=== PATIENT | female | born 1975 | race Caucasian/White ===

== ENCOUNTER → 2020-03-03 12:09 | Outpatient (BNVA) | payer MEDICARE, MEDICAID, SELFPAY | PROVIDERS: PCP Physician Assistant; Visit Provider Internal Medicine | DX: E11.65 Type 2 diabetes mellitus with hyperglycemia (principal); E11.22 Type 2 diabetes mellitus with diabetic chronic kidney disease; I12.9 Hypertensive chronic kidney disease with stage 1 through stage 4 chronic kidney disease, or unspecified chronic kidney disease; N18.6 End stage renal disease; Z79.4 Long term (current) use of insulin; E55.9 Vitamin D deficiency, unspecified; E78.5 Hyperlipidemia, unspecified | CPT/HCPCS: 82947; Q3014 ==

== ENCOUNTER → 2020-06-07 11:54 | Outpatient (BNVA) | payer MEDICARE, MEDICAID, SELFPAY | PROVIDERS: PCP Physician Assistant; Visit Provider Internal Medicine | DX: E11.65 Type 2 diabetes mellitus with hyperglycemia (principal); I12.0 Hypertensive chronic kidney disease with stage 5 chronic kidney disease or end stage renal disease; E11.22 Type 2 diabetes mellitus with diabetic chronic kidney disease; N18.6 End stage renal disease; E78.5 Hyperlipidemia, unspecified; E55.9 Vitamin D deficiency, unspecified | CPT/HCPCS: 82947; 99212 ==

== ENCOUNTER 2020-06-11 10:48 | Outpatient (REF) | payer MEDICARE, MEDICAID, SELFPAY ==
[2020-06-11 11:47] LABS: Estimated Average Glucose 82 mg/dL; Hemoglobin A1c % 4.5 %
[2020-06-11 12:13] LABS: Vitamin D 25-OH Total 43.5 ng/mL (>30)
[2020-06-11 12:31] LABS: Alanine Aminotransferase 7 U/L (0-31); Albumin Level 3.9 g/dL (3.5-5.0); Alkaline Phosphatase 63 U/L (39-117); Anion Gap 13 (12-20); Aspartate Amino Transferase 13 U/L (5-31); Bilirubin Total 0.5 mg/dL (0.0-1.0); Blood Urea Nitrogen 25 mg/dL (9-16); Carbon Dioxide 33 mmol/L (22-29); Chloride 94 mmol/L (96-108); Cholesterol 103 mg/dL; Estimated Glomerular Filt Rate 8; Glucose Random 114 mg/dL (60-115); HDL Cholesterol 37 mg/dL; LDL Cholesterol Calculated 44 mg/dl; Potassium 4.5 mmol/L (3.3-5.1); Sodium 135 mmol/L (135-145); Total Protein 6.3 g/dL (6.5-8.0); Triglycerides 110 mg/dL
[2020-06-12 05:47] LABS: LDL Cholesterol Direct 37 mg/dL (<100)
[2020-06-14 16:07] LABS: Calcium (PTHI) 9.3 mg/dL (8.6-10.2); PTHI 355 pg/mL (14-64)
== END 2020-06-11 10:49 | disposition home or self-care (01) ==
LOC: HO.LAB 10:48
PROVIDERS: PCP Physician Assistant; Visit Provider Internal Medicine
DX: E11.9 Type 2 diabetes mellitus without complications (principal); E55.9 Vitamin D deficiency, unspecified
CPT/HCPCS: 36415; 80053; 80061; 82306; 83036; 83721; 83970

== ENCOUNTER → 2020-08-02 10:38 | Outpatient (BNVA) | payer MEDICARE, MEDICAID, SELFPAY | PROVIDERS: PCP Physician Assistant; Visit Provider Internal Medicine | CPT/HCPCS: Q3014 ==

== ENCOUNTER → 2020-11-02 10:20 | Outpatient (BNVA) | payer MEDICARE, MEDICAID, SELFPAY | PROVIDERS: PCP Physician Assistant; Visit Provider Nurse Practitioner Gerontology | DX: E11.65 Type 2 diabetes mellitus with hyperglycemia (principal); E11.22 Type 2 diabetes mellitus with diabetic chronic kidney disease; I12.9 Hypertensive chronic kidney disease with stage 1 through stage 4 chronic kidney disease, or unspecified chronic kidney disease; N18.6 End stage renal disease; E78.5 Hyperlipidemia, unspecified; Z99.2 Dependence on renal dialysis | CPT/HCPCS: 82947; 99212 ==

== ENCOUNTER → 2021-01-06 13:45 | Outpatient (BNVA) | payer MEDICARE, MEDICAID, SELFPAY | PROVIDERS: PCP Physician Assistant; Referring Provider Physician Assistant; Visit Provider Internal Medicine Gastroenterology | DX: Z12.11 Encounter for screening for malignant neoplasm of colon (principal); E11.22 Type 2 diabetes mellitus with diabetic chronic kidney disease; N18.6 End stage renal disease; Z99.2 Dependence on renal dialysis | CPT/HCPCS: 99202 ==

== ENCOUNTER 2021-01-18 08:33 | Outpatient (REF) | payer MEDICARE, MEDICAID, SELFPAY ==
[2021-01-18 09:41] LABS: Hematocrit 33.2 % (37-47); Hemoglobin 11.1 g/dl (12.0-16.0); Mean Corpuscular HGB Conc 33.4 g/dl (31.0-35.0); Mean Corpuscular Hemoglobin 31.3 pg (27.0-33.0); Mean Corpuscular Volume 93.5 fL (80-98); Mean Platelet Volume 9.6 fL (9.4-12.3); Platelet Count 133 X10*3/uL (160-400); Red Blood Count 3.55 X10*6/uL (4.20-5.50); Red Cell Distribution Width 14.6 % (11.0-16.0); White Blood Count 5.5 X10*3/uL (4.8-10.8)
[2021-01-18 10:10] LABS: Alanine Aminotransferase 13 U/L (0-31); Albumin Level 3.8 g/dL (3.5-5.0); Alkaline Phosphatase 52 U/L (39-117); Anion Gap 13 (12-20); Aspartate Amino Transferase 21 U/L (5-31); Bilirubin Total 0.7 mg/dL (0.0-1.0); Blood Urea Nitrogen 21 mg/dL (9-16); Calcium 9.8 mg/dL (8.4-10.2); Carbon Dioxide 32 mmol/L (22-29); Chloride 100 mmol/L (96-108); Cholesterol 141 mg/dL; Estimated Glomerular Filt Rate 9; Glucose Fasting 79 mg/dL (60-99); HDL Cholesterol 37 mg/dL; LDL Cholesterol Calculated 78 mg/dl; Potassium 3.9 mmol/L (3.3-5.1); Sodium 141 mmol/L (135-145); Total Protein 6.3 g/dL (6.5-8.0); Triglycerides 133 mg/dL
== END 2021-01-18 08:34 | disposition home or self-care (01) ==
LOC: HO.LAB 08:33
PROVIDERS: PCP Physician Assistant; Visit Provider Physician Assistant
DX: I12.0 Hypertensive chronic kidney disease with stage 5 chronic kidney disease or end stage renal disease (principal); N18.6 End stage renal disease; E78.5 Hyperlipidemia, unspecified
CPT/HCPCS: 36415; 80053; 80061; 85027

== ENCOUNTER 2021-02-17 09:35 | Outpatient (REF) | payer MEDICARE, MEDICAID, SELFPAY ==
--- NOTE | ~2021-02-17 | MM_ITS ---
EXAMINATION: MM SCREENING DIGITAL BREAST TOMOSYNTHESIS, BILATERAL CLINICAL INFORMATION: Screening. Asymptomatic. Age 45. No prior breast imaging. Prior history breast reduction surgery. No known family history breast cancer. The lifetime risk of breast cancer based on the Tyrer-Cuzick Model is 12%. COMPARISON: None (current study represents initial baseline exam). TECHNIQUE: Digital breast tomosynthesis is performed in both the craniocaudal and mediolateral oblique views along with computer-aided detection (CAD). Synthesized 2D images are generated from the tomosynthesis. FINDINGS: There are scattered areas of fibroglandular density (ACR BI-RADS breast composition Category b). There are no significant masses, abnormal calcifications, or other abnormalities. There is minor scarring consistent with the prior history reduction mammoplasty. The axilla are unremarkable. MM/MM tomosynthesis screening BI IMPRESSION: No mammographic evidence of malignancy. ASSESSMENT: BI-RADS 2: Benign RECOMMENDATION: Routine annual mammography screening. This patient's information was entered into a reminder system with a target due date for their next mammogram.
== END 2021-02-17 09:36 | disposition home or self-care (01) ==
LOC: HO.MAMMO 09:35
PROVIDERS: Visit Provider Physician Assistant
DX: Z12.31 Encounter for screening mammogram for malignant neoplasm of breast (principal)
CPT/HCPCS: 77063; 77067

== ENCOUNTER 2021-03-07 08:12 | Day surgery (SDC) | payer MEDICARE, MEDICAID, SELFPAY ==
[2021-02-28 14:09] VITALS: BMI 30.5
--- NOTE | 2021-03-04 09:38 | HO.ANESPROP2 ---
Documented by User: Laney Saldaña NP 03/04/21 09:52 HPI - Anesthesia Eval Consult details Narrative: 45yo F for Colonoscopy ESRD with HD on MWF [facility] Active Problems Active Problems: All Active Problems (Updated 01/08/21 @ 14:00 by Henok Carbone MD) Anemia (Acute) Colon cancer screening (Acute) Colonoscopy planned (Acute) Menorrhagia with irregular cycle (Acute) Encounter for subsequent annual wellness visit (AWV) in Medicare patient (Acute) Vitamin D deficiency (Acute) ESRD (end stage renal disease) (Acute) HLD (hyperlipidemia) (Acute) HTN (hypertension) (Acute) T2DM (type 2 diabetes mellitus) (Acute) Obesity (BMI 30-39.9) (Acute) Autism spectrum (Acute) Pure hypercholesterolemia (Acute) End stage renal disease on dialysis (Acute) Type 2 diabetes mellitus with diabetic chronic kidney disease (Acute) Past Medical History Medical History Autism spectrum AV fistula End stage renal disease on dialysis ESRD (end stage renal disease) HLD (hyperlipidemia) HTN (hypertension) Obesity (BMI 30-39.9) Pure hypercholesterolemia T2DM (type 2 diabetes mellitus) Type 2 diabetes mellitus with diabetic chronic kidney disease Vitamin D deficiency Family History Family History Father No problems noted. Mother No problems noted. Surgical History Surgical History H/O bilateral breast reduction surgery History of appendectomy History of open reduction and internal fixation (ORIF) procedure Social History Social History Housing: House Alcohol intake: never Patient Tobacco Use Status: Never used Tobacco Use of substances other than those prescribed or required for medical reasons: No Advance Directives: No Advance Directives Information Provided: Yes Recently lost weight without trying: No Patient : No Current occupational status: disabled Meds Allergies Allergy/AdvReac Type Severity Reaction Status Date / Time cefazolin Allergy Severe Anaphylaxis Verified 01/06/21 14:25 Home Medications Medication Instructions Recorded Confirmed Last Taken Type ammonium lactate 12 % lotion 1 applic TOPICAL BID 01/28/20 01/06/21 Unknown History sucroferric oxyhydroxide 500 mg 500 mg PO TID 11/02/20 01/06/21 Unknown History chewable tablet (Velphoro) Exam Exam Date and Time: March 04, 2021 0938 Height,Weight and Vital Signs: Height 5 ft 8 in Weight 91.172 kg Pertinent Lab Results Pertinent Lab Results: Laboratory Tests 01/18/21 08:50 WBC 5.5 Hgb 11.1 L Hct 33.2 L Plt Count 133 L Assessment and Plan Assessment Anesthesia Assessment: Chart Reviewed Documented by User: Doreen Regalado MD 03/07/21 11:50 HPI - Anesthesia Eval Consult details Narrative: 45yo F for Colonoscopy ESRD with HD on MWF Carer states that she was informed at [facility] that patient had an adverse reaction to anesthesia- I am not sure what she means as very vague- 'serious reaction, had to be brought back' and then 'stopped breathing'. States staff said they would avoid 'that medication/ kind of anesthesia'. Does not know when, what procedure or any details. No documentation in chart regarding such history. Will obtain records from [facility]. Records obtained from [facility]. Reports from surgical procedures uneventful. Only pertinent is h/o hyperkalemia of 9.3 pre-op at [facility] following which she was emergently sent to [facility] for treatment PMFSH Past Medical History Medical History Autism spectrum AV fistula End stage renal disease on dialysis ESRD (end stage renal disease) HLD (hyperlipidemia) HTN (hypertension) Obesity (BMI 30-39.9) Pure hypercholesterolemia T2DM (type 2 diabetes mellitus) Type 2 diabetes mellitus with diabetic chronic kidney disease Vitamin D deficiency Family History Family History Father No problems noted. Mother No problems noted. Family history of problems with anesthesia: No Surgical History Surgical History H/O bilateral breast reduction surgery History of appendectomy History of open reduction and internal fixation (ORIF) procedure History of Problems with Anesthesia: Yes (?As above) Social History Social History Housing: House Alcohol intake: never Patient Tobacco Use Status: Never used Tobacco Use of substances other than those prescribed or required for medical reasons: No Advance Directives: No Advance Directives Information Provided: Yes Recently lost weight without trying: No Patient : No Current occupational status: disabled Meds Allergies Allergy/AdvReac Type Severity Reaction Status Date / Time cefazolin Allergy Severe Anaphylaxis Verified 01/06/21 14:25 Home Medications Medication Instructions Recorded Confirmed Last Taken Type ammonium lactate 12 % lotion 1 applic TOPICAL BID 01/28/20 01/06/21 Unknown History sucroferric oxyhydroxide 500 mg 500 mg PO TID 11/02/20 01/06/21 Unknown History chewable tablet (Velphoro) Exam Height,Weight and Vital Signs: Height 5 ft 8 in Weight 91.172 kg Vital Signs Temp Pulse Resp BP Pulse Ox 03/07/21 09:09 97.4 F 72 18 142/69 H 99 Narrative Narrative: Lab Results 03/07/21 03/07/21 Range/Units 08:33 09:02 Sodium 126 L (135-145) mmol/L Potassium 4.3 (3.3-5.1) mmol/L Chloride 89 L (96-108) mmol/L Carbon Dioxide 26 (22-29) mmol/L Anion Gap 15 (12-20) POC Glucose 90 (60-115) mg/dL Airway Mallampati Class: II TM Dist: >3cm Neck ROM: Full Loose/Missing/Broken Teeth: No (?Chipped/ ridged teeth ) Heart: RRR Lungs: CTAB Assessment and Plan Assessment Anesthesia Assessment: Anesthesia Plan Discussed Final Anesthetic Review Family History of Problems with Anesthesia: No History of Problems with Anesthesia: Yes (?As above) NPO: Yes ASA Class: III Final Preanesthetic Review: No Changes in Pt Med Stat, Meds/Allgs Chart Reviewed, Consent Obtained/Reviewed and Anes Risks/Benef Reviewed Patient Risk: Intermediate Procedure Risk: Low Assessment/Block/Sedation in SS: Assess/Block/Sedation-SS Anesthetic Plan Anesthetic Plan: MAC: Disposition: Standard PACU
--- NOTE | 2021-03-07 08:28 | MHC.SHP ---
Pre-Procedural Eval Section A Date of Service: 03/07/21 Section B Chief Complaint: Screening Details of Present Illness: Colon cancer screening Relevant Family History (Specify if Yes): No Relevant Social History: None Present Medications: see Short Stay Collaborative assessment Medical History: Significant History (Autism spectrum AV fistula End stage renal disease on dialysis ESRD (end stage renal disease) HLD (hyperlipidemia) HTN (hypertension) Obesity (BMI 30-39.9) Pure hypercholesterolemia T2DM (type 2 diabetes mellitus) Type 2 diabetes mellitus with diabetic chronic kidney disease Vitamin D deficiency) History of Previous Operations: Relevant previous surgery/procedure and date(s) (H/O bilateral breast reduction surgery History of appendectomy History of open reduction and internal fixation (ORIF) procedure) Allergies: Allergies Allergy/AdvReac Type Severity Reaction Status Date / Time cefazolin Allergy Severe Anaphylaxis Verified 01/06/21 14:25 Review of Systems Sugical H&P ROS: Negative: Constitution, Cardiovascular, Respiratory and Gastrointestinal Exam Surgical H&P Exam: Normal: Heart, Normal: Lungs, Normal: Extremities and Normal: Abdomen Plan Diagnosis/Plan: Unchanged I have reviewed the history and physical and performed a pertinent physical examination on my patient. No changes have occurred unless specified.
--- NOTE | 2021-03-07 08:29 | PM.OP ---
Brief Operative Note Date of Service: 03/07/21 Pre-op diagnosis: Colon cancer screening prior to Renal transplant Post-op diagnosis: other (Colon polyps, diverticulosis, hemorrhoids) Procedure: COLONOSCOPY TILL CECUM WITH SNARE POLYPECTOMY, SUBMUCOSAL INJECTION AND HEMOCLIP PLACEMENT. Consent: Indications for the procedure and potential complications of bleeding, perforation, reaction to medications and missed diagnosis were discussed with the patient's brother, Lemuel Mcdonald, over the telephone and informed verbal consent was obtained. Instrument: Olympus PCF H 190 L variable stiffness pediatric colonoscope Monitoring: Vital signs and clinical assessment, intermittent blood pressure monitoring, continuous EKG monitoring, Pulse oximetry and Carbon Dioxide monitoring were done throughout the procedure. Colon withdrawl time was 65 minutes. Procedure: The patient was placed in the left lateral decubitis position and pre-procedure medications were administered. After a digital rectal examination of the ano-rectum, the video colonoscope was inserted into the rectum and advanced through the colon to the cecum. The colonoscope was slowly withdrawn in a retrograde panoramic fashion and the colon mucosa was carefully examined including a retroflexed view of the rectum. Findings and interventions are described below. Procedure Difficulty: Without difficulty Findings: Terminal Ileum: Not evaluated Cecum: Normal Ascending Colon: A 4-5 mm flat polyp removed with a cold bx. A 2 cms flat polyp at 90 cms (behind a fold) raised with 5 cc of Orise solution and removed with a hot snare. Polypectomy site was marked with Mili ink Transverse Colon: Normal Descending Colon: A 12-15 mm sessile polyp removed with a hot snare. Moderate diverticulosis Sigmoid Colon: A 3-4 cms ulcerated pedunclulated polyp at 30 cms with a long pedicle. Polyp was removed with a hot snare. The pedicle was marked by mili ink and closed with a hemoclip. Moderate diverticulosis Rectum: Normal Ano-rectum: Moderate internal hemorrhoids Colon preparation: Good after copious irrigation and fair in some areas of the colon. Impression and Post Procedure Diagnosis: Colonoscopy Findings: One small and three medium to large sized polyps removed Moderate diverticulosis seen in the left colon Moderate hemorrhoids on retroflexed exam. Plan: Await pathology results Patient has an appointment on 03/31/21 in the GI Clinic with Henok Carbone M.D.. Repeat Colonoscopy interval based on path results - in 6 months if polyps are adenomatous to check polypectomy sites in the AC and SC. Above findings were reviewed with the patient and colon polyps and diverticulosis handouts were given in the discharge area Surgeon: Henok Carbone MD Anesthesia: MAC (Danna Simpson CRNA) Was an Cocoa Butter Filter Operator used for this Procedure?: Yes Cocoa Butter Filter Operator: Gemini Betancur Estimated blood loss (mL): 0 Pathology: other (A. ascending colon polyp B. ascending colon polyp at 90 cm with Orise C. descending colon polyp D. sigmoid polyp at 30 cm) Condition: stable Disposition: PACU
[2021-03-07 08:57] LABS: Anion Gap 15 (12-20); Carbon Dioxide 26 mmol/L (22-29); Chloride 89 mmol/L (96-108); Potassium 4.3 mmol/L (3.3-5.1); Sodium 126 mmol/L (135-145)
[2021-03-07 09:05] VITALS: BMI 30.4
[2021-03-07 09:09] VITALS: BP 142/69; PULSE 72; RESP 18; TEMP 36.3; O2SAT 99
[2021-03-07 09:47] LABS: Glucose, Whole Blood 90 mg/dL (60-115)
--- NOTE | 2021-03-07 09:55 | PC.NURSE ---
pt present with childcare center director. patient a/ox3. childcare center director (claudette) providing most medical history and she states patient had a procedure long time ago at [facility] and she stopped breathing and her heart stopped . unaware of procedure/dr. Laney NP contacting [facility] for more information
--- NOTE | 2021-03-07 10:06 | W.PM.OPN ---
Operative Note Operative Note Date of Service: 03/07/21 Narrative: Pre-op diagnosis:?Colon cancer screening prior to Renal transplant Post-op diagnosis:?other (Colon polyps, diverticulosis, hemorrhoids) Procedure:? COLONOSCOPY TILL CECUM WITH SNARE POLYPECTOMY, SUBMUCOSAL INJECTION AND HEMOCLIP PLACEMENT. Consent: Indications for the procedure and potential complications of bleeding, perforation, reaction to medications and missed diagnosis were discussed with the patient's brother, Lemuel Mcdonald, over the telephone and informed verbal consent was obtained. Instrument: Olympus PCF H 190 L variable stiffness pediatric colonoscope Monitoring: Vital signs and clinical assessment, intermittent blood pressure monitoring, continuous EKG monitoring, Pulse oximetry and Carbon Dioxide monitoring were done throughout the procedure. Colon withdrawl time was 65 minutes. Procedure: The patient was placed in the left lateral decubitis position and pre-procedure medications were administered. After a digital rectal examination of the ano-rectum, the video colonoscope was inserted into the rectum and advanced through the colon to the cecum. The colonoscope was slowly withdrawn in a retrograde panoramic fashion and the colon mucosa was carefully examined including a retroflexed view of the rectum. Findings and interventions are described below. Procedure Difficulty: Without difficulty Findings: Terminal Ileum: Not evaluated Cecum:? Normal Ascending Colon:? A 4-5 mm flat polyp removed with a cold bx. A 2 cms flat polyp at 90 cms (behind a fold) raised with 5 cc of Orise solution and removed with a hot snare.? Polypectomy site was marked with Mili ink Transverse Colon:? Normal Descending Colon:? A 12-15 mm sessile polyp removed with a hot snare. Moderate diverticulosis Sigmoid Colon:? A 3-4 cms ulcerated pedunclulated polyp at 30 cms with a long pedicle. Polyp was removed with a hot snare.? The pedicle was marked by mili ink and closed with a hemoclip.? Moderate diverticulosis Rectum:? Normal Ano-rectum:? Moderate internal hemorrhoids Colon preparation:? Good after copious irrigation and fair in some areas of the colon. Impression and Post Procedure Diagnosis: Colonoscopy Findings: One small and three medium to large sized polyps removed Moderate diverticulosis seen in the left colon Moderate hemorrhoids on retroflexed exam. Plan: Await pathology results Patient has an appointment on 03/31/21 in the GI Clinic with Henok Carbone M.D.. Repeat Colonoscopy interval based on path results - in 6 months if polyps are adenomatous to check polypectomy sites in the AC and SC. Above findings were reviewed with the patient and colon polyps and diverticulosis handouts were given in the discharge area Surgeon:?Henok Carbone MD Anesthesia:?MAC (Danna Simpson CRNA) Was an Tree Farmer used for this Procedure?:?Yes Tree Farmer:?Gemini Betancur Estimated blood loss (mL):?0 Pathology:?other (A. ascending colon polyp? B. ascending colon polyp at 90 cm with Orise? C. descending colon polyp? D. sigmoid polyp at 30 cm) Condition:?stable Disposition:?PACU
[2021-03-07] MEDS: 0.9 % Sodium Chloride 1,000 ML 50 ML IVCONT (10:10)
[2021-03-07 11:50] VITALS: BP 150/77; PULSE 67; RESP 16; TEMP 36.6; O2SAT 99
[2021-03-07 12:05] VITALS: BP 163/75; PULSE 72; RESP 18; TEMP 36.2; O2SAT 97
== END 2021-03-07 12:49 | disposition home or self-care (01) ==
PROVIDERS: Nurse Practitioner; PCP Physician Assistant; Visit Provider Internal Medicine Gastroenterology
PROC: 0DJD8ZZ Inspection of Lower Intestinal Tract, Via Natural or Artificial Opening Endoscopic (ICD-10-PCS; CPT 45378; principal; 2021-03-07 09:20)
DX: Z12.11 Encounter for screening for malignant neoplasm of colon (principal); D12.2 Benign neoplasm of ascending colon; D12.5 Benign neoplasm of sigmoid colon; K57.30 Diverticulosis of large intestine without perforation or abscess without bleeding; K64.8 Other hemorrhoids; E11.22 Type 2 diabetes mellitus with diabetic chronic kidney disease; I12.0 Hypertensive chronic kidney disease with stage 5 chronic kidney disease or end stage renal disease; N18.6 End stage renal disease; Z99.2 Dependence on renal dialysis; F84.0 Autistic disorder; E78.5 Hyperlipidemia, unspecified; E55.9 Vitamin D deficiency, unspecified; Z79.899 Other long term (current) drug therapy; Z88.8 Allergy status to other drugs, medicaments and biological substances
CPT/HCPCS: 45385; 45380; 45381; 36415; 80051; 82947; 88305

== ENCOUNTER → 2021-03-31 09:38 | Outpatient (BNVA) | payer MEDICARE, MEDICAID, SELFPAY | PROVIDERS: PCP Physician Assistant; Referring Provider Physician Assistant; Visit Provider Internal Medicine Gastroenterology | DX: Z12.11 Encounter for screening for malignant neoplasm of colon (principal); D64.9 Anemia, unspecified; Z86.010 Personal history of colon polyps | CPT/HCPCS: 99212 ==

== ENCOUNTER → 2021-05-10 09:33 | Outpatient (BNVA) | payer MEDICARE, MEDICAID, SELFPAY | PROVIDERS: PCP Physician Assistant; Visit Provider Nurse Practitioner Gerontology | DX: E11.65 Type 2 diabetes mellitus with hyperglycemia (principal); I12.0 Hypertensive chronic kidney disease with stage 5 chronic kidney disease or end stage renal disease; E11.22 Type 2 diabetes mellitus with diabetic chronic kidney disease; N18.6 End stage renal disease; E78.5 Hyperlipidemia, unspecified; E66.09 Other obesity due to excess calories; Z68.30 Body mass index [BMI] 30.0-30.9, adult; Z99.2 Dependence on renal dialysis | CPT/HCPCS: 82947; 99212 ==

== ENCOUNTER 2021-07-08 07:38 | Outpatient (REF) | payer MEDICARE, MEDICAID, SELFPAY ==
--- NOTE | ~2021-07-08 | XR_ITS ---
EXAMINATION: XR ANKLE, LEFT CLINICAL INFORMATION: Pain COMPARISON: None TECHNIQUE: AP, lateral, and mortise views of the left ankle. FINDINGS: No acute fracture or dislocation. Healed fracture deformity of the distal fibular diametaphysis. Ankle mortise is congruent. Talar dome intact. Small tibiotalar marginal osteophytes. Degenerative subchondral sclerosis present along the lateral aspect of the talar dome, with subchondral cystic change. Small well-corticated ossific density inferior to the medial malleolus, possibly in secondary ossification center or indicative of remote trauma. Soft tissue swelling present anterior to the ankle joint. XR/XR ankle LT 2V IMPRESSION: * No acute findings. * Healed fracture deformity of the distal fibular diametaphysis. * Mild degenerative changes of the tibiotalar joint, most notably along the lateral tibiotalar articulation where there is associated subchondral sclerosis and subchondral cystic change.
[2021-07-08 08:17] LABS: Hematocrit 39.4 % (37.0-47.0); Hemoglobin 12.7 g/dl (12.0-16.0); Mean Corpuscular HGB Conc 32.2 g/dl (31.0-35.0); Mean Corpuscular Hemoglobin 30.4 pg (27.0-33.0); Mean Corpuscular Volume 94.3 fL (80.0-98.0); Mean Platelet Volume 10.4 fL (9.4-12.3); Platelet Count 104 X10*3/uL (160-400); Red Blood Count 4.18 X10*6/uL (4.20-5.50); Red Cell Distribution Width 13.9 % (11.0-16.0); White Blood Count 5.2 X10*3/uL (4.8-10.8)
[2021-07-08 08:56] LABS: Alanine Aminotransferase 11 U/L (0-31); Albumin Level 4.2 g/dL (3.5-5.0); Alkaline Phosphatase 56 U/L (39-117); Anion Gap 15 (12-20); Aspartate Amino Transferase 19 U/L (5-31); Bilirubin Total 0.8 mg/dL (0.0-1.0); Blood Urea Nitrogen 50 mg/dL (9-16); Calcium 10.5 mg/dL (8.4-10.2); Carbon Dioxide 28 mmol/L (22-29); Chloride 103 mmol/L (96-108); Estimated Glomerular Filt Rate 6; Glucose Fasting 83 mg/dL (60-99); Iron 97 mcg/dL (30-160); Percent Iron Saturation 50 % (15-50); Potassium 4.7 mmol/L (3.3-5.1); Sodium 141 mmol/L (135-145); Total Iron Binding Capacity 194 mcg/dL (228-428); Total Protein 6.8 g/dL (6.5-8.0); Unsaturated Iron Binding 97 ug/dL
[2021-07-08 09:05] LABS: TSH reflex Free T4 7.86 uIU/mL (0.32-4.0)
[2021-07-08 09:42] LABS: Free T4 (Free Thyroxine) 0.99 ng/dL (0.71-1.85)
== END 2021-07-08 07:39 | disposition home or self-care (01) ==
LOC: HO.XRAY 07:38
PROVIDERS: PCP Physician Assistant; Visit Provider Physician Assistant
DX: M25.572 Pain in left ankle and joints of left foot (principal); G89.29 Other chronic pain; D64.9 Anemia, unspecified; E78.5 Hyperlipidemia, unspecified; D50.9 Iron deficiency anemia, unspecified; E11.65 Type 2 diabetes mellitus with hyperglycemia
CPT/HCPCS: 36415; 73600; 80053; 83540; 84439; 84443; 85027

== ENCOUNTER → 2021-07-28 08:35 | Outpatient (BNVA) | payer MEDICARE, MEDICAID, SELFPAY | PROVIDERS: PCP Physician Assistant; Referring Provider Physician Assistant; Visit Provider Internal Medicine Gastroenterology | DX: Z01.818 Encounter for other preprocedural examination (principal); Z86.010 Personal history of colon polyps; D64.9 Anemia, unspecified; N18.6 End stage renal disease; Z99.2 Dependence on renal dialysis | CPT/HCPCS: 99212 ==

== ENCOUNTER 2021-08-30 08:00 | Outpatient (RCR) | payer MEDICARE, MEDICAID, SELFPAY ==
[2021-08-01 10:05] VITALS: BP 110/78
--- NOTE | 2021-08-01 11:40 | MHC.PT.EP ---
[facility] [place] Office [place] Office [place] Office [address] Kehinde Javier [address] [phone] F: [phone] F: [phone] F: [phone] F: [phone] Physical Therapy Plan of Care Date of Evaluation: Date of Surgery: Diagnosis: other abnormalities of gait and balance Assessment: 45 y/o F referred to PT with other abnormalities of gait and balance. She has a fear of falling and reports balance difficulties for several years especially with walking on uneven surfaces, walking, stairs, and prolonged standing. She lives in a shared home with adaptive equipment with her caregiver Alana. She ambulates with a cane. Of note, PMH significant for ESRD (on dialysis), HTN, DM, and Autism. Examination shows decreased B LE strength, decreased core strength, impaired balance, impaired gait pattern, poor sit to stand mechanics. Recommend PT 2x/week for 5 weeks to implement HEP, and optimize functional mobility. Frequency and Duration: The patient will be seen 2x/week for 5 weeks Short Term Goals: 3 weeks 1. I with HEP 2. Improve walking with head turns with no evidence of imbalance Alf Goals: 5 weeks 1. I with HEP and self management of sx 2. Improve B LE strength to 4/5 to facilitate walking 3. Pt will be able to ambulate with SPC >10 min with no evidence of imbalance Treatment Plan: Modalities to reduce pain, spasms and effusion. Manual therapy to restore motion and function. Therapeutic exercise to improve strength and flexibility. Neuromuscular re-education for posture and balance. Therapeutic activities to return to functional activities of daily living. Electronically signed by: Ana Theodore PT Please sign and return to therapist. Thank you for your referral.
--- NOTE | 2021-10-17 10:39 | MHC.PT.DC ---
[facility] [place] Office [place] Office [place] Office [address] Kehinde Javier [address] [facility] [phone] F: [phone] F: [phone] F: [phone] F: [phone] Physical Therapy Discharge Report Diagnosis: other abnormalities of gait and balance Date of Surgery: Date of Evaluation: 08/01/21 Date of Discharge: 10/17/21 Treatments to Date: 3 Cancellations to Date: 2 No Shows to Date: 1 Discharge Status: Visit Non-compliance Discharge Summary: Pt did not f/u with further visits and is d/c secondary to noncompliance with scheduling policy. Electronically signed by: Ana Theodore PT Please sign and return to therapist. Thank you for your referral.
== END 2021-10-17 10:39 | disposition home or self-care (01) ==
LOC: HO.PTCHIC 08:00
PROVIDERS: PCP Physician Assistant; Visit Provider Physician Assistant
DX: R26.89 Other abnormalities of gait and mobility (principal)
CPT/HCPCS: 97110; 97112; 97162

== ENCOUNTER 2021-12-02 11:02 | Day surgery (SDC) | payer MEDICARE, MEDICAID, SELFPAY ==
--- NOTE | 2021-12-02 12:06 | MHC.SHP ---
Pre-Procedural Eval Section A Date of Service: 12/02/21 The patient is an INPATIENT: No The History & Physical has been completed within 30 days and I have reviewed it.: No Section B Chief Complaint: screen, hx of colonic polyps,anemia Details of Present Illness: Fu of colon polyps Relevant Family History (Specify if Yes): No Relevant Social History: None Present Medications: see Short Stay Collaborative assessment Medical History: Significant History (Autism spectrum AV fistula End stage renal disease on dialysis ESRD (end stage renal disease) HLD (hyperlipidemia) HTN (hypertension) Obesity (BMI 30-39.9) Obesity due to excess calories Pure hypercholesterolemia T2DM (type 2 diabetes mellitus) Type 2 diabetes mellitus with diabetic chronic kidney d) History of Previous Operations: Relevant previous surgery/procedure and date(s) (H/O bilateral breast reduction surgery History of appendectomy History of colonoscopy History of open reduction and internal fixation (ORIF) procedure) Allergies: Allergies Allergy/AdvReac Type Severity Reaction Status Date / Time cefazolin Allergy Severe Anaphylaxis Verified 07/28/21 08:48 Review of Systems Sugical H&P ROS: Negative: Constitution, Cardiovascular, Respiratory and Gastrointestinal Exam Surgical H&P Exam: Normal: Heart, Normal: Lungs, Normal: Extremities and Normal: Abdomen Plan Diagnosis/Plan: Unchanged I have reviewed the history and physical and performed a pertinent physical examination on my patient. No changes have occurred unless specified.
[2021-12-02] MEDS: Lidocaine 4 % Cream KIT 1 APPL TOPICAL (12:10)
[2021-12-02 12:11] VITALS: BMI 29.0
[2021-12-02 12:33] VITALS: BP 163/102; PULSE 64; RESP 16; TEMP 37; O2SAT 96
[2021-12-02 12:41] LABS: Glucose, Whole Blood 79 mg/dL (60-115)
[2021-12-02 12:43] LABS: Anion Gap 19 (12-20); Carbon Dioxide 23 mmol/L (22-29); Chloride 95 mmol/L (96-108); Potassium 4.3 mmol/L (3.3-5.1); Sodium 133 mmol/L (135-145)
[2021-12-02 12:53] LABS: HCG Quantitative < 2 mIU/mL
--- NOTE | 2021-12-02 13:02 | P.CONAN_ITS ---
[facility] Active Problems Active Problems: All Active Problems (Updated 12/02/21 @ 11:44 by Jessica Lee, NILSA) Encounter for subsequent annual wellness visit (AWV) in Medicare patient (Acute) Menorrhagia with irregular cycle (Acute) Colonoscopy planned (Acute) Colon cancer screening (Acute) Anemia (Acute) History of colon polyps (Acute) Balance problem (Acute) Bilateral primary osteoarthritis of knee (Acute) Adult general medical exam (Acute) Left ankle pain (Acute) Obesity due to excess calories (Acute) Vitamin D deficiency (Acute) ESRD (end stage renal disease) (Acute) HLD (hyperlipidemia) (Acute) HTN (hypertension) (Acute) T2DM (type 2 diabetes mellitus) (Acute) Obesity (BMI 30-39.9) (Acute) Autism spectrum (Acute) Pure hypercholesterolemia (Acute) End stage renal disease on dialysis (Acute) Type 2 diabetes mellitus with diabetic chronic kidney disease (Acute) Past Medical History Medical History (Updated 12/02/21 @ 11:44 by Jessica Lee RN) Autism spectrum AV fistula End stage renal disease on dialysis ESRD (end stage renal disease) HLD (hyperlipidemia) Obesity (BMI 30-39.9) Obesity due to excess calories Pure hypercholesterolemia T2DM (type 2 diabetes mellitus) Type 2 diabetes mellitus with diabetic chronic kidney disease Vitamin D deficiency Family History Family History Father No problems noted. Mother No problems noted. Family history of problems with anesthesia: No Surgical History Surgical History H/O bilateral breast reduction surgery History of appendectomy History of colonoscopy History of open reduction and internal fixation (ORIF) procedure History of Problems with Anesthesia: Yes (?As above) Social History Social History Housing: House Alcohol intake: never Patient Tobacco Use Status: Never used Tobacco e-Cigarette/Vaping Use: Never Used Use of substances other than those prescribed or required for medical reasons: No Are you DNR?: No Advance Directives: No Advance Directives Information Provided: Yes Current occupational status: disabled Cognitive needs: Yes (may need a cane per caregiver pt been inbalance while walking) Hearing needs: Yes (hearing loss on left ear) Vision needs: Yes (wear glasses) Meds Allergies Allergy/AdvReac Type Severity Reaction Status Date / Time cefazolin Allergy Severe Anaphylaxis Verified 07/28/21 08:48 Active Medications: Current Medications Sodium Chloride (Ns) 1,000 mls @ 50 mls/hr IVCONT .Q20H TONEY Home Medications Medication Instructions Recorded Confirmed Last Taken Type ammonium lactate 12 % lotion 1 applic topical BID 01/28/20 12/02/21 Unknown History sucroferric oxyhydroxide 500 mg 500 mg PO TID 11/02/20 12/02/21 Unknown History chewable tablet (Velphoro) Exam Exam Date and Time: December 02, 2021 1302 Height,Weight and Vital Signs: Height 5 ft 7 in Weight 83.915 kg Last Vital Signs Temp 98.6 F 12/02/21 12:33 Pulse 64 12/02/21 12:33 Resp 16 12/02/21 12:33 BP 163/102 H 12/02/21 12:33 Pulse Ox 96 12/02/21 12:33 O2 Del Method 12/02/21 12:33 Pertinent Lab Results Pertinent Lab Results: Laboratory Tests 12/02/21 12/02/21 12/02/21 12:27 12:27 12:38 Sodium 133 L Potassium 4.3 Chloride 95 L Carbon Dioxide 23 Anion Gap 19 POC Glucose 79 Beta HCG, Quant < 2 Airway Mallampati Class: II TM Dist: >3cm Neck ROM: Full Heart: rrr Lungs: cta Assessment and Plan Assessment Anesthesia Assessment: Anesthesia Plan Discussed and Chart Reviewed Final Anesthetic Review Family History of Problems with Anesthesia: No History of Problems with Anesthesia: Yes (?As above) NPO: Yes ASA Class: III Final Preanesthetic Review: No Changes in Pt Med Stat, Meds/Allgs Chart Reviewed and Consent Obtained/Reviewed Patient Risk: Intermediate Procedure Risk: Intermediate Anesthetic Plan Anesthetic Plan: MAC: Disposition: Standard PACU
--- NOTE | 2021-12-02 13:13 | PM.OP ---
Brief Operative Note Date of Service: 12/02/21 Pre-op diagnosis: Screening, hx of colon polyps Post-op diagnosis: other (Colon polyps, diverticulosis, hemorrhoids) Procedure: COLONOSCOPY TILL CECUM WITH SNARE POLYPECTOMY AND HEMOCLIP PLACEMENT Consent: Indications for the procedure and potential complications of bleeding, perforation, reaction to medications and missed diagnosis were discussed with the patient and informed consent was obtained. Instrument: Olympus PCF H 190 L variable stiffness pediatric colonoscope Monitoring: Vital signs and clinical assessment, intermittent blood pressure monitoring, continuous EKG monitoring, Pulse oximetry and Carbon Dioxide monitoring were done throughout the procedure. Colon withdrawl time was 32 minutes. Procedure: The patient was placed in the left lateral decubitis position and pre-procedure medications were administered. After a digital rectal examination of the ano-rectum, the video colonoscope was inserted into the rectum and advanced through the colon to the cecum. The colonoscope was slowly withdrawn in a retrograde panoramic fashion and the colon mucosa was carefully examined including a retroflexed view of the rectum. Findings and interventions are described below. Procedure Difficulty: Without difficulty Findings: Terminal Ileum: Not evaluated Cecum: Normal Ascending Colon: Site of past polypectomy site not identified - no recurrent polyp seen in the mid AC on multiple passes. Transverse Colon: A 1.5 to 2 cms sessile polyp at 75 cms removed with a hot snare Descending Colon: Moderate diverticulosis Sigmoid Colon: A 12-15 mm sessile polyp removed with a hot snare. Site of previous polypectomy identified at 30 cms with possible adenomatous tissue at the tip of the pedicle - removed with a hot snare and polypectomy site closed with a hemoclip. Moderate diverticulosis Rectum: Normal Ano-rectum: Moderate internal hemorrhoids Colon preparation: Good to fair despite copious irrigation. There was dark semi-solid stool scattered throughout the colon. Impression and Post Procedure Diagnosis: Colonoscopy Findings: Two medium sized polyps removed Moderate diverticulosis seen in the left colon Moderate hemorrhoids on retroflexed exam. Plan: Letter will be sent with pathology results Repeat Colonoscopy interval based on path results - in 2-3 years if polyps are adenomatous and 5 years if polyps are hyperplastic (due to hx of colon polyps). Colon polyps and diverticulosis handouts were given in the discharge area Surgeon: Henok Carbone MD Anesthesia: MAC Was an Oil Expeller Operator used for this Procedure?: Yes Oil Expeller Operator: Gemini Betancur Estimated blood loss (mL): 0 Pathology: other (A. transverse colon polyp @ 75 cm B. sigmoid polyp C. sigmoid colon polypectomy site @ 30 cm, R/O polyp) Condition: stable Disposition: PACU
[2021-12-02] MEDS: 0.9 % Sodium Chloride 1,000 ML 50 ML IVCONT (13:30)
--- NOTE | 2021-12-02 14:22 | P.OP_ITS ---
Operative Note Operative Note Date of Service: 12/02/21 Narrative: Pre-op diagnosis: Screening, hx of colon polyps Post-op diagnosis:?other (Colon polyps, diverticulosis, hemorrhoids) Procedure: COLONOSCOPY TILL CECUM WITH SNARE POLYPECTOMY AND HEMOCLIP PLACEMENT Consent: Indications for the procedure and potential complications of bleeding, perforation, reaction to medications and missed diagnosis were discussed with the patient and informed consent was obtained. Instrument: Olympus PCF H 190 L variable stiffness pediatric colonoscope Monitoring: Vital signs and clinical assessment, intermittent blood pressure monitoring, continuous EKG monitoring, Pulse oximetry and Carbon Dioxide monitoring were done throughout the procedure. Colon withdrawl time was 32 minutes. Procedure: The patient was placed in the left lateral decubitis position and pre-procedure medications were administered. After a digital rectal examination of the ano-rectum, the video colonoscope was inserted into the rectum and advanced through the colon to the cecum. The colonoscope was slowly withdrawn in a retrograde panoramic fashion and the colon mucosa was carefully examined including a retroflexed view of the rectum. Findings and interventions are described below. Procedure Difficulty: Without difficulty Findings: Terminal Ileum: Not evaluated Cecum:? Normal Ascending Colon:? Site of past polypectomy site not identified - no recurrent polyp seen in the mid AC on multiple passes. Transverse Colon:? A 1.5 to 2 cms sessile polyp at 75 cms removed with a hot snare Descending Colon:? Moderate diverticulosis Sigmoid Colon:? A 12-15 mm sessile polyp removed with a hot snare. Site of previous polypectomy identified at 30 cms with possible adenomatous tissue at the tip of the pedicle - removed with a hot snare and polypectomy site closed with a hemoclip. Moderate diverticulosis Rectum:? Normal Ano-rectum:? Moderate internal hemorrhoids Colon preparation:? Good to fair despite copious irrigation. There was dark semi-solid stool scattered throughout the colon. Impression and Post Procedure Diagnosis: Colonoscopy Findings: Two medium sized polyps removed Moderate diverticulosis seen in the left colon Moderate hemorrhoids on retroflexed exam. Plan: Letter will be sent with pathology results Repeat Colonoscopy interval based on path results - in 2-3 years if polyps are adenomatous and 5 years if polyps are hyperplastic (due to hx of colon polyps). Colon polyps and diverticulosis handouts were given in the discharge area Surgeon: Henok Carbone MD Anesthesia:?MAC Was an Light Fixture Servicer used for this Procedure?:?Yes Light Fixture Servicer:?Gemini Betancur Estimated blood loss (mL):?0 Pathology:?other (A. transverse colon polyp @ 75 cm? B. sigmoid polyp? C. sigmoid colon polypectomy site @ 30 cm, R/O polyp) Condition:?stable Disposition:?PACU
[2021-12-02 15:26] VITALS: BP 118/61; PULSE 67; RESP 16; TEMP 36.7; O2SAT 99
[2021-12-02 15:41] VITALS: BP 112/64; PULSE 55; RESP 16; O2SAT 95
[2021-12-02 15:56] VITALS: BP 113/68; PULSE 74; RESP 16; TEMP 36.7; O2SAT 98
== END 2021-12-02 16:12 | disposition home or self-care (01) ==
PROVIDERS: Anesthesiology; Nurse Practitioner; PCP Physician Assistant; Visit Provider Internal Medicine Gastroenterology
PROC: 0DJD8ZZ Inspection of Lower Intestinal Tract, Via Natural or Artificial Opening Endoscopic (ICD-10-PCS; CPT 45378; principal; 2021-12-02 13:00)
DX: Z12.11 Encounter for screening for malignant neoplasm of colon (principal); Z86.010 Personal history of colon polyps; D64.9 Anemia, unspecified; D12.3 Benign neoplasm of transverse colon; K63.5 Polyp of colon; K57.30 Diverticulosis of large intestine without perforation or abscess without bleeding; K64.8 Other hemorrhoids; E11.22 Type 2 diabetes mellitus with diabetic chronic kidney disease; N18.6 End stage renal disease; Z99.2 Dependence on renal dialysis; I10 Essential (primary) hypertension; F84.0 Autistic disorder; E78.5 Hyperlipidemia, unspecified; E78.00 Pure hypercholesterolemia, unspecified; Z79.899 Other long term (current) drug therapy; Z88.1 Allergy status to other antibiotic agents
CPT/HCPCS: 45385; 36415; 80051; 82947; 84702; 88305; J2250

== ENCOUNTER 2022-02-21 09:14 | Outpatient (REF) | payer MEDICARE, MEDICAID, SELFPAY ==
--- NOTE | ~2022-02-21 | MM_ITS ---
EXAMINATION: MM SCREENING DIGITAL BREAST TOMOSYNTHESIS, BILATERAL CLINICAL INFORMATION: Screening. Asymptomatic. History reduction mammoplasty. The lifetime risk of breast cancer based on the Tyrer-Cuzick Model is 12%. COMPARISON: Mammography: 02/17/2021 (baseline) TECHNIQUE: Digital breast tomosynthesis is performed in both the craniocaudal and mediolateral oblique views along with computer-aided detection (CAD). Synthesized 2D images are generated from the tomosynthesis. FINDINGS: There are scattered areas of fibroglandular density (ACR BI-RADS breast composition Category b). There are no significant masses, abnormal calcifications, or other abnormalities. Parenchymal pattern is similar to prior studies. There is no developing density or interval architectural abnormality. The axilla and skin contours are unremarkable. No significant changes. MM/MM tomosynthesis screening BI IMPRESSION: No mammographic evidence of malignancy. ASSESSMENT: BI-RADS 1: Negative RECOMMENDATION: Routine annual mammography screening. This patient's information was entered into a reminder system with a target due date for their next mammogram.
== END 2022-02-21 09:15 | disposition home or self-care (01) ==
LOC: HO.MAMMO 09:14
PROVIDERS: PCP Physician Assistant; Visit Provider Physician Assistant
DX: Z12.31 Encounter for screening mammogram for malignant neoplasm of breast (principal)
CPT/HCPCS: 77063; 77067

== ENCOUNTER 2022-05-18 09:44 | Outpatient (REF) | payer MEDICARE, MEDICAID, SELFPAY ==
[2022-05-18 10:56] LABS: Hematocrit 35.5 % (37.0-47.0); Mean Corpuscular HGB Conc 33.8 g/dl (31.0-35.0); Mean Corpuscular Hemoglobin 31.4 pg (27.0-33.0); Mean Corpuscular Volume 92.9 fL (80.0-98.0); Mean Platelet Volume 10.1 fL (9.4-12.3); Platelet Count 140 X10*3/uL (160-400); Red Blood Count 3.82 X10*6/uL (4.20-5.50); Red Cell Distribution Width 13.7 % (11.0-16.0)
[2022-05-18 10:59] LABS: WBC ABN SCTR FOR CBC 1
[2022-05-18 11:20] LABS: Estimated Average Glucose 105 mg/dL; Hemoglobin A1c % 5.3 %
[2022-05-18 11:26] LABS: Alanine Aminotransferase 24 U/L (0-31); Albumin Level 4.3 g/dL (3.5-5.0); Alkaline Phosphatase 103 U/L (39-117); Anion Gap 14 (12-20); Aspartate Amino Transferase 20 U/L (5-31); Bilirubin Total 0.6 mg/dL (0.0-1.0); Blood Urea Nitrogen 24 mg/dL (9-16); Calcium 9.8 mg/dL (8.4-10.2); Carbon Dioxide 24 mmol/L (22-29); Chloride 110 mmol/L (96-108); Cholesterol 147 mg/dL; Estimated Glomerular Filt Rate 39; Glucose Random 111 mg/dL (60-115); HDL Cholesterol 43 mg/dL; LDL Cholesterol Calculated 83 mg/dl; Potassium 4.8 mmol/L (3.3-5.1); Sodium 143 mmol/L (135-145); Total Protein 6.7 g/dL (6.5-8.0); Triglycerides 105 mg/dL
[2022-05-18 11:36] LABS: Band Neutrophils Percent 4 % (3-5); Basophils Percent Manual 8 % (0-2); Eosinophils Percent Manual 12 % (0-4); Lymphocytes Percent Manual 30 % (20-40); Monocytes Percent Manual 14 % (2-11); Neutrophils Percent Manual 32 % (45-73)
[2022-05-18 11:37] LABS: Platelet Estimate SLIGHTLY DECREASED (NORMAL); Platelet Morphology Comment NORMAL; RBC Morphology NORMAL
[2022-05-18 11:41] LABS: Lymphocytes Absolute Manual 0.1 X10*3/uL (1.2-4.9); Neutrophils Absolute Manual 0.1 X10*3/uL (2.0-8.3); White Blood Count 0.3 X10*3/uL (4.8-10.8)
[2022-05-18 11:43] LABS: TSH reflex Free T4 3.92 uIU/mL (0.32-4.0); Vitamin D 25-OH Total 41.6 ng/mL (>30)
[2022-05-18 12:47] LABS: Creatinine Urine 56.28 mg/dL; Microalbum/Creatinine Ratio Ur 15.9 ug/mg cr
== END 2022-05-18 09:45 | disposition home or self-care (01) ==
LOC: HO.LAB 09:44
PROVIDERS: Internal Medicine; Absent Provider Physician Assistant; PCP Physician Assistant; Visit Provider Nurse Practitioner Family
DX: Z13.29 Encounter for screening for other suspected endocrine disorder (principal); Z13.220 Encounter for screening for lipoid disorders; Z13.21 Encounter for screening for nutritional disorder; E11.22 Type 2 diabetes mellitus with diabetic chronic kidney disease; E11.65 Type 2 diabetes mellitus with hyperglycemia; N18.9 Chronic kidney disease, unspecified
CPT/HCPCS: 36415; 80053; 80061; 82043; 82306; 83036; 84443; 85007; 85025; 85027

== ENCOUNTER 2022-05-19 08:44 | Outpatient (REF) | payer MEDICARE, MEDICAID, SELFPAY ==
[2022-05-19 09:14] LABS: Hemoglobin 11.2 g/dl (12.0-16.0); Mean Corpuscular Volume 94.1 fL (80.0-98.0); Mean Platelet Volume 9.9 fL (9.4-12.3)
[2022-05-19 09:15] LABS: Hematocrit 33.5 % (37.0-47.0); Mean Corpuscular HGB Conc 33.4 g/dl (31.0-35.0); Mean Corpuscular Hemoglobin 31.5 pg (27.0-33.0); Platelet Count 117 X10*3/uL (160-400); Red Blood Count 3.56 X10*6/uL (4.20-5.50); Red Cell Distribution Width 13.7 % (11.0-16.0)
[2022-05-19 09:19] LABS: WBC ABN SCTR FOR CBC 1
[2022-05-19 09:20] LABS: White Blood Count 0.3 X10*3/uL (4.8-10.8)
[2022-05-19 09:52] LABS: Alanine Aminotransferase 21 U/L (0-31); Albumin Level 3.9 g/dL (3.5-5.0); Alkaline Phosphatase 99 U/L (39-117); Anion Gap 13 (12-20); Aspartate Amino Transferase 23 U/L (5-31); Bilirubin Total 0.6 mg/dL (0.0-1.0); Blood Urea Nitrogen 25 mg/dL (9-16); Calcium 9.4 mg/dL (8.4-10.2); Carbon Dioxide 21 mmol/L (22-29); Chloride 112 mmol/L (96-108); Cholesterol 130 mg/dL; Estimated Glomerular Filt Rate 40; Glucose Fasting 163 mg/dL (60-99); HDL Cholesterol 43 mg/dL; LDL Cholesterol Calculated 72 mg/dl; Potassium 4.8 mmol/L (3.3-5.1); Sodium 141 mmol/L (135-145); Total Protein 6.1 g/dL (6.5-8.0); Triglycerides 77 mg/dL
[2022-05-19 10:11] LABS: TSH reflex Free T4 4.55 uIU/mL (0.32-4.0)
[2022-05-19 10:17] LABS: Creatinine Urine 74.37 mg/dL; Microalbum/Creatinine Ratio Ur 14.7 ug/mg cr
[2022-05-19 10:22] LABS: Basophils Percent Manual 16 % (0-2); Eosinophils Percent Manual 16 % (0-4); Lymphocytes Absolute Manual 0.1 X10*3/uL (1.2-4.9); Lymphocytes Percent Manual 28 % (20-40); Monocytes Percent Manual 16 % (2-11); Neutrophils Percent Manual 24 % (45-73)
[2022-05-19 10:23] LABS: Band Neutrophils Percent 0 % (3-5); Neutrophils Absolute Manual 0.1 X10*3/uL (2.0-8.3)
[2022-05-19 10:24] LABS: Platelet Estimate SLIGHTLY DECREASED (NORMAL); Platelet Morphology Comment NORMAL; RBC Morphology NORMAL
[2022-05-19 11:22] LABS: Free T4 (Free Thyroxine) 0.96 ng/dL (0.71-1.85)
== END 2022-05-19 08:45 | disposition home or self-care (01) ==
LOC: HO.LAB 08:44
PROVIDERS: Absent Provider Physician Assistant; PCP Physician Assistant; Visit Provider Nurse Practitioner Family
DX: I10 Essential (primary) hypertension (principal); E78.5 Hyperlipidemia, unspecified
CPT/HCPCS: 36415; 80053; 80061; 82043; 84439; 84443; 85007; 85027

== ENCOUNTER 2022-10-09 10:18 | Outpatient (AMB) | payer MEDICARE, MEDICAID, SELFPAY ==
--- NOTE | 2022-10-09 10:19 | MHC.PC.OV ---
Intake Visit Reasons: f/u DMII, kidney transplant Intake Note: Patient is here to follow up on DMII and Kidney Transplant. 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: No Center Medical Specialist: Present Accompanied by: membership director Allergies cefazolin Allergy (Severe, Verified 10/09/22 10:26) Anaphylaxis Medication List - Last Reconciled 10/09/22 by Josh Dahl PA-C [ADVOCATE REDI CODE TEST STRIP As directed] ammonium lactate 12% 1 appl topical BID B complex with C 20-folic acid 1 mg (Renal Caps) 1 cap PO DAILY 90 days cholecalciferol (vitamin D3) 125 mcg PO DAILY 90 days lancets (FreeStyle Lancets) Three times a day linagliptin (Tradjenta) 5 mg PO DAILY midodrine 5 mg PO TID miscellaneous medical supply 1 ea miscellaneous DAILY 99 days simvastatin 20 mg PO DAILY 90 days sucroferric oxyhydroxide (Velphoro) 500 mg PO TID sulfamethoxazole-trimethoprim 400-80 mg (Bactrim) 1 tab PO DAILY tacrolimus 5 mg PO Q12H valganciclovir (Valcyte) 900 mg PO DAILY Tobacco use date assessed: 07/19/22 Dental Screening Dental Screen Date: 10/09/22 Did you have a dental visit in the last 12 months?: Yes Did you have a dental problem in the last 6 months where you did not have access to dental care?: No Was dental information given to patient?: Patient has dentist HPI f/u DMII, kidney transplant HPI Details Patient is a 46-year-old female here today for a follow-up visit.? 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 Patient has a past medical history significant for type 2 diabetes, end-stage renal disease status post kidney transplant, hypertension, hyperparathyroidism. .. Concern--> none- high school auto repair teacher concerned about her weight and will modify diet .. Kidney transplant:? Followed by [facility] [place] (Dr. Guerra).? Patient recently had kidney transplant.? She has continued to complain of prominence over her abdomen or the kidney was replaced.? She did have ultrasound showing a fluid collection, she had leukopenia on anti-rejection drugs and was given Neupogen with good response of her white blood cell count.? She has now tertiary hyperparathyroidism now on medication for this. .. Type 2 diabetes:? Patient continues on Tradjenta 5 mg with good effect.? Blood sugars at home are stable. ? Most recent A1c of 5.3 though does have anemia thus A1c somewhat unreliable.? Has been able to lose a significant amount of weight since last office visit. [facility] Medical History (Updated 10/09/22 @ 11:31 by Josh Dahl PA-C) Adult general medical exam Annual physical exam Autism spectrum AV fistula Cervical cancer screening Colonoscopy planned Encounter for subsequent annual wellness visit (AWV) in Medicare patient End stage renal disease on dialysis HLD (hyperlipidemia) Obesity (BMI 30-39.9) Obesity due to excess calories Pure hypercholesterolemia T2DM (type 2 diabetes mellitus) Type 2 diabetes mellitus with diabetic chronic kidney disease Vitamin D deficiency Surgical History H/O bilateral breast reduction surgery History of appendectomy History of colonoscopy History of open reduction and internal fixation (ORIF) procedure Kidney transplanted Family History Father No problems noted. Mother No problems noted. 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 Matthew Arshad, Sagrario Ellis, Stepan Burger and colleagues, with an educational sudha from [employer]. Review of Systems Const Denies headache(s) Eyes Denies loss of vision ENT Denies vertigo, Denies dizziness, Denies headache(s) and Denies sore throat Card Denies chest pain, Denies leg edema and Denies lightheadedness Resp Denies cough, Denies hemoptysis and Denies wheezing GI Denies abdominal pain, Denies melena, Denies constipation, Denies diarrhea and Denies vomiting Denies urinary frequency, Denies dysuria and Denies urinary urgency Musc Denies arthralgias, Denies joint swelling, Denies numbness and Denies tingling Neuro Denies Abnormal speech present, Denies behavioral changes, Denies vertigo, Denies dizziness, Denies headache(s), Denies loss of vision, Denies memory loss, Denies numbness and Denies tingling Psych Denies anxiety, Denies behavioral changes, Denies depression, Denies memory loss and Denies panic attacks Zachariah/Lymph Denies easy bleeding and Denies easy bruising Aller/Immun Denies wheezing Physical exam (Primary Care) Tobacco/Smoking Status: Tobacco use Status Tobacco use date assessed 07/19/22 10/09/22 10:21 Patient Tobacco Use Status Never used Tobacco 10/09/22 10:21 e-Cigarette/Vaping Use Never Used 10/09/22 10:21 Thrive Assessment: Date of Thrive Assessment Date Thrive assessed 05/12/22 10/09/22 10:21 Const General: healthy appearing, no acute distress, alert and awake Nutritional Appearance: well nourished Orientation/consciousness: oriented to person, oriented to place and oriented to time HENMT Ears: TM's normal bilaterally General nose exam: Normal nasal mucous membranes and turbinates present Eyes Conjunctivae: conjunctivae normal Sclerae: sclerae normal Pupils: Equal, round and reactive pupils present Neck Neck: Yes no lymphadenopathy and Yes no JVD Thyroid: Thyroid normal Carotids: no bruits Resp Effort & Inspection: normal respiratory effort and not tachypneic Auscultation: no crackles, no rales, no rhonchi and no wheezes Cardio Rate: regular rate Rhythm: regular rhythm Heart sounds: no murmurs and normal S1 and S2 GI Palpation (GI): Soft to palpation, nontender, no hepatomegaly and no splenomegaly Auscultation: normal bowel sounds Skin General skin exam: no rashes or lesions noted and dry skin Neuro General: oriented to person, oriented to place and oriented to time Cranial nerves: Yes Equal, round and reactive pupils present Speech: No Abnormal speech present Gait exam (Neuro): Normal gait present Motor exam (neuro): no tremor noted Extrem Right upper extremity: full ROM Left upper extremity: full ROM Right lower extremity: full ROM; no edema Left lower extremity: full ROM; no edema Psych Mental Status: mental status grossly normal Speech and movement: Normal speech and movement present Affect: normal affect Attitude: cooperative Thought process: Normal thought process present Assessment and Plan Assessment & Plan (1) Kidney transplanted: Comment: 02/11/22 Code(s): Z94.0 - Kidney transplant status Plan: Has transpired in kidney and followed by Nephrology. They report kidney is functioning well. (2) Tertiary hyperparathyroidism: Code(s): E21.2 - Other hyperparathyroidism Plan: Has to her Tamara hyperparathyroidism and on medication for this. (3) T2DM (type 2 diabetes mellitus): Code(s): E11.9 - Type 2 diabetes mellitus without complications Qualifiers: Diabetes mellitus usp insulin use: without usp use Diabetes mellitus complication status: with hyperglycemia Qualified Code(s): E11.65 - Type 2 diabetes mellitus with hyperglycemia Plan: Patient's blood sugars have been 90 to 120s at home. Will continue to follow fasting blood sugar and A1c. (4) HTN (hypertension): Code(s): I10 - Essential (primary) hypertension Qualifiers: Hypertension type: unspecified Qualified Code(s): I10 - Essential (primary) hypertension Plan: Blood pressure today in office acceptable. Will continue lifestyle modifications to control her blood pressure. (5) End stage renal disease on dialysis: Comment: Attributed to ATN diabetic nephropathy, On HD M, W, F - 3 to 8 pm Code(s): N18.6 - End stage renal disease; Z99.2 - Dependence on renal dialysis Plan: She is status post renal transplant. Transplanted kidney working well and continues to follow Nephrology. Medications: Refilled simvastatin 20 mg PO DAILY 90 days 90 tabs 2RF E78.5 - Hyperlipidemia, unspecified linagliptin (Tradjenta) 5 mg PO DAILY 90 tabs 2RF E11.22 - Type 2 diabetes mellitus with diabetic chronic kidney disease, N18.6 - End stage renal disease, Z99.2 - Dependence on renal dialysis Coding Level of Care Code Est Pt Level 4 (56418) Diagnoses Kidney transplanted Z94.0 Tertiary hyperparathyroidism E21.2 T2DM (type 2 diabetes mellitus) E11.65 Diabetes mellitus usp insulin use: without ad terminal makeup operator use Diabetes mellitus complication status: with hyperglycemia HTN (hypertension) I10 Hypertension type: unspecified End stage renal disease on dialysis N18.6; Z99.2
== END 2022-10-09 10:38 | disposition home or self-care (01) ==
LOC: HO.HMGH 10:18
PROVIDERS: PCP Physician Assistant; Visit Provider Physician Assistant
DX: I12.0 Hypertensive chronic kidney disease with stage 5 chronic kidney disease or end stage renal disease (principal); E11.22 Type 2 diabetes mellitus with diabetic chronic kidney disease; Z99.2 Dependence on renal dialysis; N18.6 End stage renal disease; Z94.0 Kidney transplant status; E21.2 Other hyperparathyroidism
CPT/HCPCS: 99214

== ENCOUNTER 2022-11-23 14:17 | Outpatient (REF) | payer MEDICARE, MEDICAID, SELFPAY | END 2022-11-23 14:18 | disposition home or self-care (01) | LOC: HO.SH 14:17 | PROVIDERS: Visit Provider Physician Assistant | DX: Z01.118 Encounter for examination of ears and hearing with other abnormal findings (principal); H90.6 Mixed conductive and sensorineural hearing loss, bilateral | CPT/HCPCS: 92553; 92555; 92567 ==

== ENCOUNTER 2023-01-10 08:51 | Outpatient (REF) | payer MEDICARE, MEDICAID, SELFPAY | END 2023-01-10 08:52 | disposition home or self-care (01) | LOC: HO.LAB 08:51 | PROVIDERS: PCP Physician Assistant; Visit Provider Physician Assistant | DX: E11.65 Type 2 diabetes mellitus with hyperglycemia (principal); Z94.0 Kidney transplant status | CPT/HCPCS: 36415; 80053; 80061; 83036; 84443; 85027 ==

== ENCOUNTER 2023-01-11 10:10 | Outpatient (AMB) | payer MEDICARE, MEDICAID, SELFPAY ==
[2023-01-11 10:16] VITALS: BP 110/76; PULSE 70; RESP 16; O2SAT 99; BMI 27.3
--- NOTE | 2023-01-11 10:16 | A.OFFPC_ITS ---
Vital Signs 01/11/23 10:16 Height 5 ft 7 in Weight 174 lb 2 oz BMI 27.3 BP 110/76 Blood Pressure Location Lt brachial Position Sitting Respiration 16 Pulse 70 Pulse Source Pulse Oximeter Pulse Oximetry (%) 99 Oxygen Delivery Method Room Air Intake Visit Reasons: PE Intake Note: Patient is here today for a physical. 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 Required: No Accompanied by: Caregiver- Alana Allergies cefazolin Allergy (Severe, Verified 01/11/23 10:39) Anaphylaxis Medication List - Last Reconciled 01/11/23 by Josh Dahl PA-C [ADVOCATE REDI CODE TEST STRIP As directed] cholecalciferol (vitamin D3) 125 mcg PO DAILY 90 days cinacalcet (Sensipar) 30 mg PO DAILY lancets (FreeStyle Lancets) Three times a day linagliptin (Tradjenta) 5 mg PO DAILY midodrine 5 mg PO TID miscellaneous medical supply 1 ea miscellaneous DAILY 99 days simvastatin 20 mg PO DAILY 90 days tacrolimus 5 mg PO Q12H Tobacco use date assessed: 07/19/22 Dental Screening Dental Screen Date: 01/11/23 Did you have a dental visit in the last 12 months?: Yes Did you have a dental problem in the last 6 months where you did not have access to dental care?: No Was dental information given to patient?: Patient has dentist HPI PE HPI Details Patient is a 47-year-old female here today for routine annual physical.? 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 Patient has a past medical history significant for type 2 diabetes, end-stage renal disease status post kidney transplant, hypertension, hyperparathyroidism. .. Concern--> has lost a significant amount weight over last few years. Unfortunately continues with excess abdominal skin to which she often gets skin irritation and fungal rashes underneath her skin folds. Has used [id number] creams and topical antifungals without significant improvement. .. Kidney transplant:? Followed by historical manuscripts curator and [place] (Dr. Guerra).? Patient recently had kidney transplant.? She has continued to complain of prominence over her abdomen or the kidney was replaced.? She did have ultrasound showing a fluid collection, she had leukopenia on anti-rejection drugs and was given Neupogen with good response of her white blood cell count.? She has now tertiary hyperparathyroidism now on medication for this. .. Type 2 diabetes:? Patient continues on Tradjenta 5 mg with good effect.? Blood sugars at home are stable. ? Most recent A1c of 4.7. Inspector Process reports blood sugars at in the mornings have been around 70. ? PLAN: Will discontinue Tradjenta at this time and see if she can manage her diabetes with lifestyle. Colonoscopy: Done in December 2021, a serrated polyp found, needs repeat 3 years .. Mammo: Up-to-date with mammogram- needs repeat soon Vaccines: Up-to-date with COVID vaccine and pneumonia vaccine, up-to-date with Flu vaccine , needs Tdap .. 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 Is awaiting appointment with [facility] manager of application development Laboratory Tests 07/08/21 05/18/22 05/18/22 07:52 09:52 09:52 WBC RBC Plt Count Creatinine 7.89 H* 1.46 H Fasting Glucose Hemoglobin A1c % 5.3 Cholesterol LDL Cholesterol, C alc TSH 05/19/22 05/19/22 05/19/22 09:08 09:08 09:08 WBC RBC Plt Count 117 L Creatinine 1.41 H Fasting Glucose 163 H Hemoglobin A1c % Cholesterol 130 LDL Cholesterol, C alc 72 TSH 4.55 H 01/10/23 09:16 WBC 3.3 L RBC 4.14 L Plt Count Creatinine 0.93 Fasting Glucose 81 Hemoglobin A1c % 4.7 Cholesterol LDL Cholesterol, C alc 72 TSH 2.38 [facility] Medical History (Updated 01/11/23 @ 10:57 by Josh Dahl PA-C) Annual physical exam Cervical cancer screening Obesity due to excess calories Adult general medical exam Colonoscopy planned Encounter for subsequent annual wellness visit (AWV) in Medicare patient Vitamin D deficiency HLD (hyperlipidemia) T2DM (type 2 diabetes mellitus) AV fistula Obesity (BMI 30-39.9) Autism spectrum Pure hypercholesterolemia End stage renal disease on dialysis Type 2 diabetes mellitus with diabetic chronic kidney disease Surgical History Kidney transplanted History of colonoscopy History of open reduction and internal fixation (ORIF) procedure H/O bilateral breast reduction surgery History of appendectomy Family History Father No problems noted. Mother No problems noted. 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 Matthew Arshad, Sagrario Ellis, Stepan Burger and colleagues, with an educational sudha from [employer]. Review of Systems Const Denies body aches, Denies chills, Denies excessive sweating, Denies fatigue, Denies fever(s) and Denies headache(s) Eyes Denies blurry vision ENT Denies dysphagia, Denies vertigo, Denies dizziness, Denies headache(s), Denies hearing loss and Denies tinnitus Card Denies chest pain, Denies chest pain with activity, Denies syncope, Denies irregular heart rhythm and Denies dyspnea Resp Denies chest congestion, Denies cough, Denies hemoptysis, Denies dyspnea and Denies wheezing GI Denies abdominal pain, Denies melena, Denies hematochezia, Denies coffee ground emesis, Denies dysphagia, Denies diarrhea, Denies nausea and Denies vomiting Denies urinary frequency, Denies dysuria, Denies urinary hesitancy and Denies urinary urgency Musc Denies arthralgias, Denies limited range of motion, Denies muscle cramps and Denies muscle weakness Skin/Breast Denies rash and Denies skin ulcer Neuro Denies Abnormal speech present, Denies confusion, Denies vertigo, Denies dizziness, Denies syncope, Denies headache(s), Denies memory loss and Denies seizure-like activity Psych Denies anxiety, Denies confusion, Denies depression, Denies memory loss, Denies panic attacks and Denies paranoia Endo Denies excessive sweating, Denies fatigue, Denies flushing, Denies polydipsia and Denies polyuria Zachariah/Lymph Denies easy bleeding and Denies easy bruising Aller/Immun Denies wheezing Physical exam (Primary Care) Vital Signs: Last Vital Signs Pulse 70 01/11/23 10:16 Resp 16 01/11/23 10:16 BP 110/76 01/11/23 10:16 Pulse Ox 99 01/11/23 10:16 Oxygen Delivery Method Room Air 01/11/23 10:16 BMI result Body Mass Index 27.3 Tobacco/Smoking Status: Tobacco use Status Tobacco use date assessed 07/19/22 01/11/23 10:16 Patient Tobacco Use Status Never used Tobacco 01/11/23 10:16 e-Cigarette/Vaping Use Never Used 01/11/23 10:16 Thrive Assessment: Date of Thrive Assessment Date Thrive assessed 05/12/22 01/11/23 10:16 Const General: cooperative, comfortable, no acute distress, alert and awake; No confusion Nutritional Appearance: well nourished Orientation/consciousness: oriented to person, oriented to place, patient oriented x3 and No confusion HENMT Head: Yes normocephalic Ears: external ears normal and TM's normal bilaterally General nose exam: Normal nasal mucous membranes and turbinates present Face and sinus: No sinus tenderness Mouth: Normal oral and palatal mucosa present and tongue normal Teeth and gingiva: dentition normal and gingiva normal Throat: Yes posterior oropharynx normal, Yes tonsils normal and Yes uvula midline Eyes Conjunctivae: conjunctivae normal Sclerae: sclerae normal Pupils: Equal, round and reactive pupils present EOM: EOMs intact bilaterally Direct Ophthalmoscopy: No no photophobia Neck Neck: Yes no lymphadenopathy, No tender and Yes no JVD Thyroid: Thyroid normal Carotids: no bruits Chest Chest palpation & inspection: no tenderness Resp Effort & Inspection: normal respiratory effort, no audible wheezes, not labored and no stridor Auscultation: no crackles, no rales, no rhonchi and no wheezes Cardio Jugular venous distension: no JVD Rate: regular rate, not bradycardic and not tachycardic Rhythm: regular rhythm Heart sounds: no murmurs and normal S1 and S2 Bruits: no carotid bruits Peripheral pulses: Peripheral pulses 2+ throughout GI Inspection: Yes normal to inspection, No abdominal wall ecchymosis and No visible herniation Palpation (GI): Soft to palpation, nontender, no guarding, not rigid and No hepatosplenomegaly present Auscultation: normoactive bowel sounds General: Yes no CVA tenderness Back/Spine/Pelvis Back: no CVA tenderness and No back tenderness Cervical Spine: cervical ROM normal Thoracic/Lumbar Spine: thoracic and lumbar spine normal to inspection, straight leg raise negative bilaterally, No thoraco-lumbar ROM limited and No lumbar spinal tenderness Skin General skin exam: no rashes or lesions noted and dry skin Lesions: no lesions Rashes: no rashes Wounds: no wounds Neuro General: oriented to person, oriented to place, patient oriented x3, CN's II-XI intact bilaterally and No confusion Cranial nerves: Yes Equal, round and reactive pupils present and Yes Normal accommodation reflex present Cognition (Neuro): normal cognition Speech: No Abnormal speech present Gait exam (Neuro): Normal gait present Motor exam (neuro): 5/5 motor strength present throughout Extrem Right upper extremity: full ROM; no cyanosis Left upper extremity: full ROM; no cyanosis Right lower extremity: no edema Left lower extremity: no edema Psych Appearance: grossly normal Mental Status: mental status grossly normal Speech and movement: Normal speech and movement present Affect: normal affect Attitude: cooperative Thought process: Normal thought process present Assessment and Plan Assessment & Plan (1) Annual physical exam: Code(s): Z00.00 - Encounter for general adult medical examination without abnormal findings (2) Breast cancer screening: Code(s): Z12.39 - Encounter for other screening for malignant neoplasm of breast Qualifiers: Breast cancer screening modality: mammogram Qualified Code(s): Z12.31 - Encounter for screening mammogram for malignant neoplasm of breast Plan: Need for screening mammogram (3) SNHL (sensorineural hearing loss): Code(s): H90.5 - Unspecified sensorineural hearing loss Qualifiers: Laterality: bilateral Qualified Code(s): H90.3 - Sensorineural hearing loss, bilateral Plan: Inspector Process still concerned about patient's hearing. She does have somewhat of a selective hearing. Physical exam without any cerumen impaction. Will send for hearing exam (4) Kidney transplanted: Comment: 02/11/22 Code(s): Z94.0 - Kidney transplant status Plan: Has transpired in kidney and followed by Nephrology. They report kidney is functioning well. (5) T2DM (type 2 diabetes mellitus): Code(s): E11.9 - Type 2 diabetes mellitus without complications Qualifiers: Diabetes mellitus complication status: with hyperglycemia Diabetes mellitus jail insulin use: without equipment operator intermodal yard use Qualified Code(s): E11.65 - Type 2 diabetes mellitus with hyperglycemia Plan: Patient's blood sugars have been 70 to 120s at home. Most recent A1c of 4.7 Will discontinue Tradjenta at this time and see if her diabetes can be lifestyle manage. Will continue to follow fasting blood sugar and A1c. (6) HTN (hypertension): Code(s): I10 - Essential (primary) hypertension Qualifiers: Hypertension type: unspecified Qualified Code(s): I10 - Essential (primary) hypertension Plan: Blood pressure today in office acceptable. Will continue lifestyle modifications to control her blood pressure. (7) Excess skin of abdomen: Code(s): L98.7 - Excessive and redundant skin and subcutaneous tissue Plan: Andreina has lost a significant amount of weight over the last few years due to dietary modifications. Recently underwent kidney transplant and doing well. Unfortunately continues with excess skin over her abdomen to which she often gets skin irritation and often gets fungal infections underneath her skin folds. She does have difficulty with cleaning underneath the skin folds, she does have a cognitive impairment and receives help from her foster guardian for some hygiene needs. BMI now below 30. Orders: Orders MM screening mammo BI 01/11/23 Z12.31 - Encounter for screening mammogram for malignant neoplasm of breast, Z12.39 - Encounter for other screening for malignant neoplasm of breast MM screening mammo BI 01/11/23 Z12.31 - Encounter for screening mammogram for malignant neoplasm of breast Referrals Plastic Surgery Referral L98.7 - Excessive and redundant skin and subcutaneous tissue Nutrition/Dietitian Referral E11.65 - Type 2 diabetes mellitus with hyperglycemia Medications: New lorazepam Before plane rides 1 mg (2 x 0.5 mg) PO DAILY 2 days PRN 4 tabs 0RF anxiety On Hold linagliptin (Tradjenta) Hold Comment: Dose Change 5 mg PO DAILY 90 tabs 2RF E11.22 - Type 2 diabetes mellitus with diabetic chronic kidney disease, N18.6 - End stage renal disease, Z99.2 - Dependence on renal dialysis Coding Level of Care Code Est Pt Prev Care 40-64y([id number]) Diagnoses Annual physical exam Z00.00 Encounter for screening mammogram for malignant neoplasm of breast Z12.31 Breast cancer screening modality: mammogram Sensorineural hearing loss (SNHL) of both ears H90.3 Laterality: bilateral Kidney transplanted Z94.0 Type 2 diabetes mellitus with hyperglycemia, without long-term current use of insulin E11.65 Diabetes mellitus complication status: with hyperglycemia Diabetes mellitus jail insulin use: without equipment operator intermodal yard use Hypertension, unspecified type I10 Hypertension type: unspecified Excess skin of abdomen L98.7
== END 2023-01-11 11:09 | disposition home or self-care (01) ==
PROVIDERS: PCP Physician Assistant; Visit Provider Physician Assistant
DX: Z00.00 Encounter for general adult medical examination without abnormal findings (principal); Z12.31 Encounter for screening mammogram for malignant neoplasm of breast; E11.65 Type 2 diabetes mellitus with hyperglycemia; H90.3 Sensorineural hearing loss, bilateral; Z94.0 Kidney transplant status; I10 Essential (primary) hypertension; L98.7 Excessive and redundant skin and subcutaneous tissue
CPT/HCPCS: 99396

== ENCOUNTER 2023-03-02 09:18 | Outpatient (REF) | payer MEDICARE, MEDICAID, SELFPAY | END 2023-03-02 09:19 | disposition home or self-care (01) | LOC: HO.SH 09:18 | PROVIDERS: Visit Provider Physician Assistant | DX: Z01.118 Encounter for examination of ears and hearing with other abnormal findings (principal); H90.6 Mixed conductive and sensorineural hearing loss, bilateral | CPT/HCPCS: 92567 ==

== ENCOUNTER 2023-03-05 10:29 | Outpatient (AMB) | payer MEDICARE, SELFPAY ==
[2023-03-05 10:44] VITALS: BMI 26.8
--- NOTE | 2023-03-05 10:44 | A.OFFVIS_ITS ---
Intake VS Expanded 03/05/23 10:44 03/13/23 22:31 Height 5 ft 7 in 5 ft 7 in Weight 171 lb 4.787 oz 171 lb BMI 26.8 26.8 Intake Visit Reasons: DM2 Allergies cefazolin Allergy (Severe, Verified 01/11/23 10:39) Anaphylaxis HPI Nutrition Presentation Details Pt presents for MNT for T2DM with hyperglycemia. Pt was referred PCP, Jocy Dahl [place] [facility] [place] presents with care provider to this appt. Pt had kidney transplant 02/11/22 Pt is hard of hearing Typical meal intake B: Waffles pancakes and turkey sausage crystal light and water L: sandwich turkey or tuna or chicken sandwich , salad D: Welsh lomaine, weekend orange chicken or taco ground turkey or chicken fish : once/wk baked milk: 0-1/d dairy free fruits: 0-1/d vegetables: 0-1/d fried foods: 0-1/wk physical activity: walks 2 times/day, 8-10min ETOH/SMoking: denies GQE-Xtvxzgl-Ba.Jeor Equation Height 5 ft 7 in Weight 171 lb Resting Metabolic Rate 1446.25 Calculated Activity Level Sedentary Calories Needed to Maintain Weight 1735.50 Diagnosis Nutrition problem #1 food nutri know defi As related to (etiology) #1 diagnosis As evidenced by (sign/symptom) #1 verbalize inaccurate info Monitoring/Goals Nutrition problem monitoring level of knowledge/skill Most Recent Diabetes Results: Microalb/Creat Ratio 14.7 ug/mg cr 05/19/22 Cholesterol 134 mg/dL (<200) 01/10/23 HDL Cholesterol 46 mg/dL (>40) 01/10/23 Triglycerides 82 mg/dL (<150) 01/10/23 Creatinine 0.93 mg/dL (0.5-1.4) 01/10/23 Blood Urea Nitrogen 18 mg/dL (9-16) H 01/10/23 Sodium 142 mmol/L (135-145) 01/10/23 Potassium 4.2 mmol/L (3.3-5.1) 01/10/23 Chloride 110 mmol/L (96-108) H 01/10/23 Carbon Dioxide 23 mmol/L (22-29) 01/10/23 Calcium 9.3 mg/dL (8.4-10.2) 01/10/23 AST 18 U/L (5-31) 01/10/23 ALT 7 U/L (0-31) 01/10/23 Total Protein 6.5 g/dL (6.5-8.0) 01/10/23 Albumin 3.8 g/dL (3.5-5.0) 01/10/23 [facility] Medical History (Updated 03/05/23 @ 12:32 by Josh Dahl PA-C) Annual physical exam Cervical cancer screening Obesity due to excess calories Adult general medical exam Colonoscopy planned Encounter for subsequent annual wellness visit (AWV) in Medicare patient Vitamin D deficiency HLD (hyperlipidemia) T2DM (type 2 diabetes mellitus) AV fistula Obesity (BMI 30-39.9) Autism spectrum Pure hypercholesterolemia End stage renal disease on dialysis Type 2 diabetes mellitus with diabetic chronic kidney disease Surgical History Kidney transplanted History of colonoscopy History of open reduction and internal fixation (ORIF) procedure H/O bilateral breast reduction surgery History of appendectomy Family History Father No problems noted. Mother No problems noted. 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) Vision needs: Yes (wear glasses) Assessment & Plan Assessment & Plan (1) T2DM (type 2 diabetes mellitus): Code(s): E11.9 - Type 2 diabetes mellitus without complications Qualifiers: Diabetes mellitus watermaster insulin use: without fdc use Diabetes mellitus complication status: with hyperglycemia Qualified Code(s): E11.65 - Type 2 diabetes mellitus with hyperglycemia Plan: wt: 78 kg Est kcal needs as per MSJ: 1700 (40% carb, 30% protein/fat) Est fluid needs as per 30 ml/d: 2300 Est prot per day as per 1 g/kg bw: 78 Recommend fiber intake : 8-10 g per day and gradually increase to 25-28 g per day for women and 35-38 g for men or as tolerated Recommend sodium intake per day : less than 2000 mg Educated patient on: ( R = reviewed V = verbalizes understanding N/R = needs review N/A = not applicable * Food sources of carbohydrate, adequate serving sizes and its role in various health conditions: R * Differences between complex carbohydrates a simple carbohydrates, role of fiber in diet: NR * Differences between types of fats and role in diet (mono on saturated fat fatty acids, saturated fatty acids, trans fats): R basic * Food sources of sodium in salt and healthy modifications for heart health in kidney health: NR * Healthy plate method concept: R * Physical activity: Benefits a precaution: R * Dietary prevention of Hyperglycemia: R Patient Instructions: Include a variety of foods following healthy plate method Continue watching total carbohydrates at meal time, reduce to 45-60 g Choose water with meals/snacks HAve a fruit in place of juice Keep physically active Coding Level of Care Code Nutr Indiv Intake ([id number]) Diagnoses Type 2 diabetes mellitus with hyperglycemia, without long-term current use of insulin E11.65 Diabetes mellitus fdc insulin use: without watermaster use Diabetes mellitus complication status: with hyperglycemia Time Spent (min) 30
[2023-03-14 18:57] VITALS: BMI 26.8
== END 2023-03-05 11:45 | disposition home or self-care (01) ==
PROVIDERS: PCP Physician Assistant; Visit Provider Dietitian, Registered
DX: E11.65 Type 2 diabetes mellitus with hyperglycemia (principal)

== ENCOUNTER → 2023-03-05 10:29 | Outpatient (BNVA) | payer MEDICARE, MEDICAID, SELFPAY | PROVIDERS: PCP Physician Assistant; Visit Provider Dietitian, Registered | DX: E66.09 Other obesity due to excess calories (principal); E11.65 Type 2 diabetes mellitus with hyperglycemia; E11.22 Type 2 diabetes mellitus with diabetic chronic kidney disease; N18.6 End stage renal disease; Z68.26 Body mass index [BMI] 26.0-26.9, adult; Z94.0 Kidney transplant status; Z99.2 Dependence on renal dialysis; Z71.3 Dietary counseling and surveillance | CPT/HCPCS: 97802 ==

== ENCOUNTER 2023-03-08 07:45 | Outpatient (REF) | payer MEDICARE, MEDICAID, SELFPAY ==
--- NOTE | ~2023-03-08 | MM_ITS ---
EXAMINATION: MM SCREENING DIGITAL BREAST TOMOSYNTHESIS, BILATERAL CLINICAL INFORMATION: Screening. Asymptomatic. History reduction mammoplasty. COMPARISON: Mammography: 02/21/2022, 02/17/2021. TECHNIQUE: Digital breast tomosynthesis is performed in both the craniocaudal and mediolateral oblique views along with computer-aided detection (CAD). Synthesized 2D images are generated from the tomosynthesis. FINDINGS: There are scattered areas of fibroglandular density (ACR BI-RADS breast composition Category b). There are no suspicious masses, suspicious grouped calcifications, or areas of architectural distortion in either breast. The parenchymal pattern is stable from prior exams. MM/MM tomosynthesis screening BI IMPRESSION: No mammographic evidence of malignancy. ASSESSMENT: BI-RADS BI-RADS 1 - Negative RECOMMENDATION: Routine annual mammography screening. 1 year F/U This examination should not preclude the clinical evaluation of a suspicious palpable abnormality. This patient's information was entered into a reminder system with a target due date for their next mammogram.
== END 2023-03-08 07:46 | disposition home or self-care (01) ==
LOC: HO.MAMMO 07:45
PROVIDERS: PCP Physician Assistant; Visit Provider Physician Assistant
DX: Z12.31 Encounter for screening mammogram for malignant neoplasm of breast (principal)
CPT/HCPCS: 77063; 77067

== ENCOUNTER → 2023-03-08 08:00 | Outpatient (BNV) | payer MEDICARE, MEDICAID, SELFPAY | PROVIDERS: PCP Physician Assistant; Visit Provider Radiology Diagnostic Radiology | DX: Z12.31 Encounter for screening mammogram for malignant neoplasm of breast (principal) | CPT/HCPCS: 77063; 77067 ==

== ENCOUNTER 2023-04-03 09:14 | Outpatient (AMB) | payer MEDICARE, MEDICAID, SELFPAY ==
--- NOTE | 2023-04-03 09:24 | A.OFFPC_ITS ---
Vital Signs 04/03/23 09:25 Height 5 ft 7 in Weight 175 lb 4 oz BMI 27.4 BP 114/68 Blood Pressure Location Rt brachial Position Sitting Respiration 16 Pulse 74 Pulse Source Palpation Intake Visit Reasons: Ear Blockage/ Flush Needed Intake Note: Pt is here for two concerns related to vaginal odor and the need for ear irrigation to address blockage in the right ear. Hydrogenation Operator Required: No Accompanied by: Alana-Caregiver Allergies cefazolin Allergy (Severe, Verified 04/03/23 09:40) Anaphylaxis Medication List - Last Reconciled 04/03/23 by Josh Dahl PA-C [ADVOCATE REDI CODE TEST STRIP As directed] cholecalciferol (vitamin D3) 125 mcg PO DAILY 90 days cinacalcet (Sensipar) 30 mg PO DAILY lancets (FreeStyle Lancets) Three times a day linagliptin (Tradjenta) 5 mg PO DAILY lorazepam 1 mg (2 x 0.5 mg) PO DAILY PRN 2 days miscellaneous medical supply 1 ea miscellaneous DAILY 99 days simvastatin 20 mg PO DAILY 90 days tacrolimus 5 mg PO Q12H Tobacco use date assessed: 07/19/22 Dental Screening Dental Screen Date: 04/03/23 Did you have a dental visit in the last 12 months?: Yes Did you have a dental problem in the last 6 months where you did not have access to dental care?: No Was dental information given to patient?: Patient has dentist HPI Ear Blockage/ Flush Needed HPI Details Patient is a 47-year-old female here today for problem visit. Has a left ear cerumen impaction. She did present to the hearing center was unable to perform hearing test due to cerumen impaction.. Also has been having vaginal order that has been treated before as bacteria vaginosis. 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 getting Andreina to clean properly [facility] Medical History (Updated 04/03/23 @ 10:02 by Josh Dahl PA-C) Annual physical exam Cervical cancer screening Obesity due to excess calories Adult general medical exam Colonoscopy planned Encounter for subsequent annual wellness visit (AWV) in Medicare patient Vitamin D deficiency HLD (hyperlipidemia) T2DM (type 2 diabetes mellitus) AV fistula Obesity (BMI 30-39.9) Autism spectrum Pure hypercholesterolemia End stage renal disease on dialysis Type 2 diabetes mellitus with diabetic chronic kidney disease Surgical History Kidney transplanted History of colonoscopy History of open reduction and internal fixation (ORIF) procedure H/O bilateral breast reduction surgery History of appendectomy Family History Father No problems noted. Mother No problems noted. 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 1. Little interest or pleasure in doing things: not at all 2. Feeling down, depressed, or hopeless: not at all 3. Trouble falling or staying asleep, or sleeping too much: not at all 4. Feeling tired or having little energy: not at all 5. Poor appetite or overeating: not at all 6. Feeling bad about yourself - or that you are a failure or have let yourself or your family down: not at all 7. Trouble concentrating on things, such as reading the newspaper or watching television: not at all 8. Moving or speaking so slowly that other people could have noticed. Or the opposite - being so fidgety or restless that you have been moving around a lot more than usual: not at all 9. Thoughts that you would be better off or of hurting yourself in some way: not at all Total score: 0 Depression Screening Interpretation: Negative Depression Screening Done: Yes 08714 - PHQ-9 Billing: Yes Source: Developed by Drs. Matthew Arshad, Sagrario Ellis, Stepan Burger and colleagues, with an educational sudha from [employer]. Thrive Questionnaire Date Thrive assessed: 04/03/23 I am a: Patient What is your living situation today?: I have a steady place to live Within the past 12 months, did the food you bought not last and you didn't have the money to get more?: Never true Within the past 12 months, did you worry whether your food would run out before you got money to buy more?: Never true Do you have trouble paying for medicines?: No Do you have trouble getting transportation to medical appointments?: No Do you have trouble paying your heating and electricity bill?: No Do you have trouble taking care of your child, family member or friend?: No Do you have trouble with day-to-day activities such as bathing, preparing meals, shopping, managing finances, etc.?: No Are you currently unemployed and looking for a job?: No Are you interested in more education?: No Please select the resources that you would like help with: None Currently or been in a relationship where the following occur: no concerns reported AUDIT C Alcohol Use Questionnaire (AUDIT-C) 1. How often do you have a drink containing alcohol?: Never 3. How often do you have six or more drinks on one occasion?: Never Total Score: 0 CASSANDRA-7 AMB Questionnaire CASSANDRA-7 Date CASSANDRA - 7 assessed: 04/03/23 Feeling nervous, anxious, or on edge: 0 = Not at all Not being able to stop or control worryin = Not at all Worrying too much about different things: 0 = Not at all Trouble relaxin = Not at all Being so restless that it is hard to sit still: 0 = Not at all Becoming easily annoyed or irritable: 0 = Not at all Feeling afraid as if something awful might happen: 0 = Not at all Total CASSANDRA-7 score (0-4 normal; 5-9 mild; 10-14 moderate; 15-21 severe): 0 Source: Developed by Drs. Matthew Arshad, Sagrario Ellis, Stepan Burger and colleagues, with an educational sudha from [employer]. CASSANDRA-7 Assessment Billing CASSANDRA-7 Assessment Tool: CASSANDRA-7 Assessment 16720 Review of Systems Const Denies headache(s) Eyes Denies loss of vision ENT Denies Normal hearing present, Denies vertigo, Denies dizziness, Denies headache(s) and Denies sore throat Card Denies chest pain, Denies leg edema and Denies lightheadedness Resp Denies cough, Denies hemoptysis and Denies wheezing GI Denies abdominal pain, Denies melena, Denies constipation, Denies diarrhea and Denies vomiting Denies urinary frequency, Denies dysuria, Denies urinary urgency and Reports vaginal odor Musc Denies arthralgias, Denies joint swelling, Denies numbness and Denies tingling Neuro Denies Normal hearing present, Denies Abnormal speech present, Denies behavioral changes, Denies vertigo, Denies dizziness, Denies headache(s), Denies loss of vision, Denies memory loss, Denies numbness and Denies tingling Psych Denies anxiety, Denies behavioral changes, Denies depression, Denies memory loss and Denies panic attacks Zachariah/Lymph Denies easy bleeding and Denies easy bruising Aller/Immun Denies wheezing Physical exam (Primary Care) Vital Signs: Last Vital Signs Pulse 74 04/03/23 09:25 Resp 16 04/03/23 09:25 BP 114/68 04/03/23 09:25 BMI result Body Mass Index 27.4 Tobacco/Smoking Status: Tobacco use Status Tobacco use date assessed 07/19/22 04/03/23 09:24 Patient Tobacco Use Status Never used Tobacco 04/03/23 09:24 e-Cigarette/Vaping Use Never Used 04/03/23 09:24 PHQ-9: PHQ-9 Score PHQ-9: Total score 0 04/03/23 09:42 Depression Screening Interpretation: Negative Thrive Assessment: Date of Thrive Assessment Date Thrive assessed 04/03/23 04/03/23 09:37 Currently or been in a relationship where the following occur: no concerns reported Const General: healthy appearing, no acute distress, alert and awake Nutritional Appearance: well nourished Orientation/consciousness: oriented to person, oriented to place and oriented to time [facility] Ears: TM's normal bilaterally General nose exam: Normal nasal mucous membranes and turbinates present Eyes Conjunctivae: conjunctivae normal Sclerae: sclerae normal Pupils: Equal, round and reactive pupils present Neck Neck: Yes no lymphadenopathy and Yes no JVD Thyroid: Thyroid normal Carotids: no bruits Resp Effort & Inspection: normal respiratory effort and not tachypneic Auscultation: no crackles, no rales, no rhonchi and no wheezes Cardio Rate: regular rate Rhythm: regular rhythm Heart sounds: no murmurs and normal S1 and S2 GI Palpation (GI): Soft to palpation, nontender, no hepatomegaly and no splenomegaly Auscultation: normal bowel sounds Skin General skin exam: no rashes or lesions noted and dry skin Neuro General: oriented to person, oriented to place and oriented to time Cranial nerves: Yes Equal, round and reactive pupils present and No Normal hearing present Speech: No Abnormal speech present Gait exam (Neuro): Normal gait present Motor exam (neuro): no tremor noted Extrem Right upper extremity: full ROM Left upper extremity: full ROM Right lower extremity: full ROM; no edema Left lower extremity: full ROM; no edema Psych Mental Status: mental status grossly normal Speech and movement: Normal speech and movement present Affect: normal affect Attitude: cooperative Thought process: Normal thought process present Office Procedures Cerumen Removal From which ear canal was the cerumen removed: left Removal: irrigation and otoscope w/curette Notes: patient tolerated procedure well and no complications [id number] Irrigation/Lavage Assessment and Plan Assessment & Plan (1) Bacterial vaginitis: Code(s): N76.0 - Acute vaginitis; B96.89 - Other specified bacterial agents as the cause of diseases classified elsewhere Plan: Due to patient's mental disability she continues to refuse vaginal exam. She does have a noticeable order today in office. Will supply patient with metro 500 b.i.d. empirically. (2) Cerumen impaction: Code(s): H61.20 - Impacted cerumen, unspecified ear Qualifiers: Laterality: left Qualified Code(s): H61.22 - Impacted cerumen, left ear Plan: Attempted left irrigations with minimal amount of cerumen disimpacted. Advised to continue ear drops at home as maintenance. Medications: New metronidazole 500 mg PO BID 7 days 14 tabs 0RF B96.89 - Other specified bacterial agents as the cause of diseases classified elsewhere, N76.0 - Acute vaginitis Coding Level of Care Code Est Pt Level 4 (60275) Diagnoses Bacterial vaginitis N76.0; B96.89 Impacted cerumen of left ear H61.22 Laterality: left CPT Codes Office Procedure - CPT: 29194-Emj Irrigation/Lavage ([id number]) Additional Codes CASSANDRA-7 Assessment Billing - CASSANDRA-7 Assessment Tool: CASSANDRA-7 Assessment 43924 ([id number])
[2023-04-03 09:25] VITALS: BP 114/68; PULSE 74; RESP 16; BMI 27.4
== END 2023-04-03 10:05 | disposition home or self-care (01) ==
PROVIDERS: PCP Physician Assistant; Visit Provider Physician Assistant
DX: N76.0 Acute vaginitis (principal); B96.89 Other specified bacterial agents as the cause of diseases classified elsewhere; H61.22 Impacted cerumen, left ear
CPT/HCPCS: 69209; 99214

== ENCOUNTER 2023-04-17 08:47 | Outpatient (AMB) | payer MEDICARE, SELFPAY ==
[2023-04-17 08:54] VITALS: BMI 27.0
--- NOTE | 2023-04-17 08:54 | MHC.AMNUTRGE ---
Intake VS Expanded 04/17/23 08:54 Height 5 ft 7 in Weight 172 lb 9.951 oz BMI 27.0 Intake Visit Reasons: DM2/CONFIRMED Allergies cefazolin Allergy (Severe, Verified 04/03/23 09:40) Anaphylaxis HPI Nutrition Presentation Details Pt presents for MNT f/u for T2DM Pt presents with PERSONNEL PLACEMENT SPECIALIST,who helps with meal preparation. Pt and PERSONNEL PLACEMENT SPECIALIST reports working on followig healthy plate method and including a variety of foods. Physical activity: sedentary - PERSONNEL PLACEMENT SPECIALIST reports BS are always below 100 Most Recent Diabetes Results: Microalb/Creat Ratio 14.7 ug/mg cr 05/19/22 Cholesterol 134 mg/dL (<200) 01/10/23 HDL Cholesterol 46 mg/dL (>40) 01/10/23 Triglycerides 82 mg/dL (<150) 01/10/23 Creatinine 0.93 mg/dL (0.5-1.4) 01/10/23 Blood Urea Nitrogen 18 mg/dL (9-16) H 01/10/23 Sodium 142 mmol/L (135-145) 01/10/23 Potassium 4.2 mmol/L (3.3-5.1) 01/10/23 Chloride 110 mmol/L (96-108) H 01/10/23 Carbon Dioxide 23 mmol/L (22-29) 01/10/23 Calcium 9.3 mg/dL (8.4-10.2) 01/10/23 AST 18 U/L (5-31) 01/10/23 ALT 7 U/L (0-31) 01/10/23 Total Protein 6.5 g/dL (6.5-8.0) 01/10/23 Albumin 3.8 g/dL (3.5-5.0) 01/10/23 REPLACED BY [facility] Medical History (Updated 04/03/23 @ 10:02 by Josh Dahl PA-C) Annual physical exam Cervical cancer screening Obesity due to excess calories Adult general medical exam Colonoscopy planned Encounter for subsequent annual wellness visit (AWV) in Medicare patient Vitamin D deficiency HLD (hyperlipidemia) T2DM (type 2 diabetes mellitus) AV fistula Obesity (BMI 30-39.9) Autism spectrum Pure hypercholesterolemia End stage renal disease on dialysis Type 2 diabetes mellitus with diabetic chronic kidney disease Surgical History Kidney transplanted History of colonoscopy History of open reduction and internal fixation (ORIF) procedure H/O bilateral breast reduction surgery History of appendectomy Family History Father No problems noted. Mother No problems noted. 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) Vision needs: Yes (wear glasses) Assessment & Plan Assessment & Plan (1) T2DM (type 2 diabetes mellitus): Code(s): E11.9 - Type 2 diabetes mellitus without complications Qualifiers: Diabetes mellitus complication status: with hyperglycemia Diabetes mellitus half-way insulin use: without intermediate manager use Qualified Code(s): E11.65 - Type 2 diabetes mellitus with hyperglycemia Plan: wt: 78 kg (04/17/23) Est kcal needs as per MSJ: 1700 (40% carb, 30% protein/fat) Est fluid needs as per 30 ml/d: 2300 Est prot per day as per 1 g/kg bw: 78 Recommend fiber intake : 8-10 g per day and gradually increase to 25-28 g per day for women and 35-38 g for men or as tolerated Recommend sodium intake per day : less than 2000 mg Educated patient on: ( R = reviewed V = verbalizes understanding N/R = needs review N/A = not applicable Food sources of carbohydrate, adequate serving sizes and its role in various health conditions: R Differences between complex carbohydrates a simple carbohydrates, role of fiber in diet: NR Differences between types of fats and role in diet (mono on saturated fat fatty acids, saturated fatty acids, trans fats): R basic Food sources of sodium in salt and healthy modifications for heart health in kidney health: NR Healthy plate method concept: R Physical activity: Benefits a precaution: R Dietary prevention of Hyperglycemia: R Patient Instructions: Keep hydrated by having water with meals and snacks, Follow healthy plate method , including a variety of foods Keep physically active as able , chair exercises unless otherwise specified by your doctor Coding Level of Care Code Nutr Indiv Subseq (46635) Diagnoses Type 2 diabetes mellitus with hyperglycemia, without long-term current use of insulin E11.65 Diabetes mellitus complication status: with hyperglycemia Diabetes mellitus half-way insulin use: without intermediate manager use Time Spent (min) 20
== END 2023-04-17 09:22 | disposition home or self-care (01) ==
PROVIDERS: PCP Physician Assistant; Visit Provider Dietitian, Registered
DX: E11.65 Type 2 diabetes mellitus with hyperglycemia (principal)

== ENCOUNTER → 2023-04-17 08:47 | Outpatient (BNVA) | payer MEDICARE, MEDICAID, SELFPAY | PROVIDERS: PCP Physician Assistant; Visit Provider Dietitian, Registered | DX: E11.65 Type 2 diabetes mellitus with hyperglycemia (principal); Z71.3 Dietary counseling and surveillance | CPT/HCPCS: 97803 ==

== ENCOUNTER 2023-05-14 09:20 | Outpatient (AMB) | payer MEDICARE, MEDICAID, SELFPAY ==
[2023-05-14 10:18] VITALS: BP 108/68; PULSE 67; O2SAT 97; BMI 26.2
--- NOTE | 2023-05-14 10:19 | A.OFFPC_ITS ---
Vital Signs 05/14/23 10:18 Height 5 ft 7 in Weight 167 lb 6 oz BMI 26.2 BP 108/68 Blood Pressure Location Lt brachial Position Sitting Pulse 67 Pulse Source Pulse Oximeter Pulse Oximetry (%) 97 Oxygen Delivery Method Room Air Intake Visit Reasons: f/u Intake Note: Pt is here for medication follow-up and Tdap, PCV-20 vaccine. The patient will require a new clinical quality rn referral as her previous one has retired. Bleach Mixer Required: No Accompanied by: Other Relationship Allergies cefazolin Allergy (Severe, Verified 05/14/23 10:28) Anaphylaxis Medication List - Last Reconciled 05/14/23 by Josh Dahl PA-C [ADVOCATE REDI CODE TEST STRIP As directed] cholecalciferol (vitamin D3) 125 mcg PO DAILY 90 days cinacalcet (Sensipar) 30 mg PO DAILY lancets (FreeStyle Lancets) Three times a day linagliptin (Tradjenta) 5 mg PO DAILY lorazepam 1 mg (2 x 0.5 mg) PO DAILY PRN 2 days metronidazole 500 mg PO BID 7 days miscellaneous medical supply 1 ea miscellaneous DAILY 99 days simvastatin 20 mg PO DAILY 90 days tacrolimus 5 mg PO Q12H Tobacco use date assessed: 05/14/23 HPI f/u HPI Details Patient is a 47-year-old female here today for a follow-up visit.? 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 Patient has a past medical history significant for type 2 diabetes, end-stage renal disease status post kidney transplant, hypertension, hyperparathyroidism. .. Concern--> needs new refer to Podiatry for nail grooming. Also has left ear cerumen impaction and would like ear lavage. Will have patient come back in 2 weeks for ear lavage. CHRONIC MEDICAL CONDITIONS--> .. Kidney transplant:? Followed by director business development and [facility] (Dr. Guerra).? Patient recently had kidney transplant.? She has continued to complain of prominence over her abdomen or the kidney was replaced.? She did have ultrasound showing a fluid collection, she had leukopenia on anti-rejection drugs and was given Neupogen with good response of her white blood cell count.? She has now tertiary hyperparathyroidism now on medication for this. .. Type 2 diabetes:? Patient continues on Tradjenta 5 mg with good effect.? Blood sugars at home are stable. ? Most recent A1c of 4.7. Butcherette reports blood sugars at in the mornings have been around 70. ? PLAN: Will discontinue Tradjenta at this time and see if she can manage her diabetes with lifestyle. [facility] Medical History Annual physical exam Cervical cancer screening Obesity due to excess calories Adult general medical exam Colonoscopy planned Encounter for subsequent annual wellness visit (AWV) in Medicare patient Vitamin D deficiency HLD (hyperlipidemia) T2DM (type 2 diabetes mellitus) AV fistula Obesity (BMI 30-39.9) Autism spectrum Pure hypercholesterolemia End stage renal disease on dialysis Type 2 diabetes mellitus with diabetic chronic kidney disease Surgical History Kidney transplanted History of colonoscopy History of open reduction and internal fixation (ORIF) procedure H/O bilateral breast reduction surgery History of appendectomy Family History Father No problems noted. Mother No problems noted. 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 Matthew Arshad, Sagrario Ellis, Stepan Burger and colleagues, with an educational sudha from [employer]. Review of Systems Const Denies headache(s) Eyes Denies loss of vision ENT Denies vertigo, Denies dizziness, Denies headache(s) and Denies sore throat Card Denies chest pain, Denies leg edema and Denies lightheadedness Resp Denies cough, Denies hemoptysis and Denies wheezing GI Denies abdominal pain, Denies melena, Denies constipation, Denies diarrhea and Denies vomiting Denies urinary frequency, Denies dysuria and Denies urinary urgency Musc Denies arthralgias, Denies joint swelling, Denies numbness and Denies tingling Neuro Denies Abnormal speech present, Denies behavioral changes, Denies vertigo, Denies dizziness, Denies headache(s), Denies loss of vision, Denies memory loss, Denies numbness and Denies tingling Psych Denies anxiety, Denies behavioral changes, Denies depression, Denies memory loss and Denies panic attacks Zachariah/Lymph Denies easy bleeding and Denies easy bruising Aller/Immun Denies wheezing Physical exam (Primary Care) Vital Signs: Last Vital Signs Pulse 67 05/14/23 10:18 BP 108/68 05/14/23 10:18 Pulse Ox 97 05/14/23 10:18 Oxygen Delivery Method Room Air 05/14/23 10:18 BMI result Body Mass Index 26.2 Tobacco/Smoking Status: Tobacco use Status Tobacco use date assessed 05/14/23 05/14/23 10:24 Patient Tobacco Use Status Never used Tobacco 05/14/23 10:24 e-Cigarette/Vaping Use Never Used 05/14/23 10:24 Thrive Assessment: Date of Thrive Assessment Date Thrive assessed 04/03/23 05/14/23 10:24 Const General: healthy appearing, no acute distress, alert and awake Nutritional Appearance: well nourished Orientation/consciousness: oriented to person, oriented to place and oriented to time [facility] General nose exam: Normal nasal mucous membranes and turbinates present Eyes Conjunctivae: conjunctivae normal Sclerae: sclerae normal Pupils: Equal, round and reactive pupils present Neck Neck: Yes no lymphadenopathy and Yes no JVD Thyroid: Thyroid normal Carotids: no bruits Resp Effort & Inspection: normal respiratory effort and not tachypneic Auscultation: no crackles, no rales, no rhonchi and no wheezes Cardio Rate: regular rate Rhythm: regular rhythm Heart sounds: no murmurs and normal S1 and S2 GI Palpation (GI): Soft to palpation, nontender, no hepatomegaly and no splenomegaly Auscultation: normal bowel sounds Skin General skin exam: no rashes or lesions noted and dry skin Neuro General: oriented to person, oriented to place and oriented to time Cranial nerves: Yes Equal, round and reactive pupils present Speech: No Abnormal speech present Gait exam (Neuro): Normal gait present Motor exam (neuro): no tremor noted Extrem Right upper extremity: full ROM Left upper extremity: full ROM Right lower extremity: full ROM; no edema Left lower extremity: full ROM; no edema Psych Mental Status: mental status grossly normal Speech and movement: Normal speech and movement present Affect: normal affect Attitude: cooperative Thought process: Normal thought process present Assessment and Plan Assessment & Plan (1) Gabriela onychomycosis: Code(s): B37.2 - Candidiasis of skin and nail Plan: Her clinical quality rn retired. Now needs new referral to a clinical quality rn to do nail grooming. Has a history of type 2 diabetes (2) Bacterial vaginitis: Code(s): N76.0 - Acute vaginitis; B96.89 - Other specified bacterial agents as the cause of diseases classified elsewhere Plan: Due to patient's mental disability she continues to refuse vaginal exam. She does have a noticeable order today in office. Will supply patient with metro 500 b.i.d. empirically. (3) Cerumen impaction: Code(s): H61.20 - Impacted cerumen, unspecified ear Qualifiers: Laterality: left Qualified Code(s): H61.22 - Impacted cerumen, left ear Plan: Has left ear cerumen impaction, will patient back in 2 weeks to do ear lavage. Orders: Referrals Podiatry Referral B37.2 - Candidiasis of skin and nail Medications: Refilled metronidazole 500 mg PO BID 7 days 14 tabs 0RF B96.89 - Other specified bact erial agents as the cause of diseases classified elsewhere, N76.0 - Acute vaginitis Coding Level of Care Code Est Pt Level 3 (64256) Diagnoses Gabriela onychomycosis B37.2 Bacterial vaginitis N76.0; B96.89 Impacted cerumen of left ear H61.22 Laterality: left
== END 2023-05-14 10:46 | disposition home or self-care (01) ==
PROVIDERS: Visit Provider Physician Assistant
DX: N76.0 Acute vaginitis (principal); E11.65 Type 2 diabetes mellitus with hyperglycemia; N18.6 End stage renal disease; H61.22 Impacted cerumen, left ear; B37.2 Candidiasis of skin and nail; B96.89 Other specified bacterial agents as the cause of diseases classified elsewhere
CPT/HCPCS: 99213

== ENCOUNTER 2023-06-06 12:17 | Outpatient (AMB) | payer MEDICARE, MEDICAID, SELFPAY ==
--- NOTE | 2023-06-06 12:52 | A.OFFPC_ITS ---
Vital Signs 06/06/23 13:00 Height 5 ft 7 in BP 98/60 Blood Pressure Location Rt brachial Position Sitting Respiration 15 Pulse 80 Pulse Source Pulse Oximeter Pulse Oximetry (%) 97 Oxygen Delivery Method Room Air Intake Visit Reasons: left ear flush Intake Note: The patient is here today for left ear irrigation and a Tdap vaccine. Regional Facilities Specialist Required: No Accompanied by: Proxy Allergies cefazolin Allergy (Severe, Verified 06/06/23 13:12) Anaphylaxis Medication List - Last Reconciled 06/06/23 by Josh Dahl PA-C [ADVOCATE REDI CODE TEST STRIP As directed] cholecalciferol (vitamin D3) 125 mcg PO DAILY 90 days cinacalcet (Sensipar) 30 mg PO DAILY lancets (FreeStyle Lancets) Three times a day linagliptin (Tradjenta) 5 mg PO DAILY lorazepam 1 mg (2 x 0.5 mg) PO DAILY PRN 2 days metronidazole 500 mg PO BID 7 days miscellaneous medical supply 1 ea miscellaneous DAILY 99 days simvastatin 20 mg PO DAILY 90 days tacrolimus 5 mg PO Q12H Tobacco use date assessed: 05/14/23 HPI left ear flush HPI Details Patient 47-year-old female here today to have her left ear flushed due to a cerumen impaction. Has upcoming hearing exam and would her ears clean. Has been having some difficulty hearing as per patient's guardian. [facility] Medical History Annual physical exam Cervical cancer screening Obesity due to excess calories Adult general medical exam Colonoscopy planned Encounter for subsequent annual wellness visit (AWV) in Medicare patient Vitamin D deficiency HLD (hyperlipidemia) T2DM (type 2 diabetes mellitus) AV fistula Obesity (BMI 30-39.9) Autism spectrum Pure hypercholesterolemia End stage renal disease on dialysis Type 2 diabetes mellitus with diabetic chronic kidney disease Surgical History Kidney transplanted History of colonoscopy History of open reduction and internal fixation (ORIF) procedure H/O bilateral breast reduction surgery History of appendectomy Family History Father No problems noted. Mother No problems noted. 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 Matthew Arshad, Sagrario Ellis, Stepan Burger and colleagues, with an educational sudha from [employer]. Review of Systems Const Denies headache(s) Eyes Denies loss of vision ENT Denies vertigo, Denies dizziness, Denies headache(s) and Denies sore throat Card Denies chest pain, Denies leg edema and Denies lightheadedness Resp Denies cough, Denies hemoptysis and Denies wheezing GI Denies abdominal pain, Denies melena, Denies constipation, Denies diarrhea and Denies vomiting Denies urinary frequency, Denies dysuria and Denies urinary urgency Musc Denies arthralgias, Denies joint swelling, Denies numbness and Denies tingling Neuro Denies Abnormal speech present, Denies behavioral changes, Denies vertigo, Denies dizziness, Denies headache(s), Denies loss of vision, Denies memory loss, Denies numbness and Denies tingling Psych Denies anxiety, Denies behavioral changes, Denies depression, Denies memory loss and Denies panic attacks Zachariah/Lymph Denies easy bleeding and Denies easy bruising Aller/Immun Denies wheezing Physical exam (Primary Care) Vital Signs: Last Vital Signs Pulse 80 06/06/23 13:00 Resp 15 06/06/23 13:00 BP 98/60 06/06/23 13:00 Pulse Ox 97 06/06/23 13:00 Oxygen Delivery Method Room Air 06/06/23 13:00 Tobacco/Smoking Status: Tobacco use Status Tobacco use date assessed 05/14/23 06/06/23 12:52 Patient Tobacco Use Status Never used Tobacco 06/06/23 12:52 e-Cigarette/Vaping Use Never Used 06/06/23 12:52 Thrive Assessment: Date of Thrive Assessment Date Thrive assessed 04/03/23 06/06/23 12:52 Const General: healthy appearing, no acute distress, alert and awake Nutritional Appearance: well nourished Orientation/consciousness: oriented to person, oriented to place and oriented to time HENMT Other: LEFT EXTERNAL EAR CANAL WITH CERUMEN IMPACTION. Ears: TM's normal bilaterally General nose exam: Normal nasal mucous membranes and turbinates present Eyes Conjunctivae: conjunctivae normal Sclerae: sclerae normal Pupils: Equal, round and reactive pupils present Neck Neck: Yes no lymphadenopathy and Yes no JVD Thyroid: Thyroid normal Carotids: no bruits Resp Effort & Inspection: normal respiratory effort and not tachypneic Auscultation: no crackles, no rales, no rhonchi and no wheezes Cardio Rate: regular rate Rhythm: regular rhythm Heart sounds: no murmurs and normal S1 and S2 GI Palpation (GI): Soft to palpation, nontender, no hepatomegaly and no splenomegaly Auscultation: normal bowel sounds Skin General skin exam: no rashes or lesions noted and dry skin Neuro General: oriented to person, oriented to place and oriented to time Cranial nerves: Yes Equal, round and reactive pupils present Speech: No Abnormal speech present Gait exam (Neuro): Normal gait present Motor exam (neuro): no tremor noted Extrem Right upper extremity: full ROM Left upper extremity: full ROM Right lower extremity: full ROM; no edema Left lower extremity: full ROM; no edema Psych Mental Status: mental status grossly normal Speech and movement: Normal speech and movement present Affect: normal affect Attitude: cooperative Thought process: Normal thought process present Immunizations Boostrix Tdap 2.5 Lf unit-8 mcg-5 Lf/0.5 mL intramuscular syringe Performing Provider: Josh Dahl PA-C Performing Location: [facility] Administered by: DARION Benedict on 06/06/23 13:10 Dose Route Admin Location Dispensed Lot Number Expiration Date NDC Software Implementation Project Manager 0.5 mL IM Right Deltoid 0.5 mL [id number] 07/26/25 [id number] [employer] VIS Given Date VIS Provided VIS Publication Date 06/06/23 Single Vaccine 20 Eligibility Eligibility Date Funding Source Not [facility] Eligible 06/06/23 Private Assessment and Plan Assessment & Plan (1) Cerumen impaction: Code(s): H61.20 - Impacted cerumen, unspecified ear Qualifiers: Laterality: left Qualified Code(s): H61.22 - Impacted cerumen, left ear Plan: Had left ear cerumen impaction. Only partially disimpacted today in office. Advised to do Debrox solution care at home. (2) SNHL (sensorineural hearing loss): Code(s): H90.5 - Unspecified sensorineural hearing loss Qualifiers: Laterality: bilateral Qualified Code(s): H90.3 - Sensorineural hearing loss, bilateral Orders: Orders TDaP Immunization Today Z23 - Encounter for immunization Coding Level of Care Code Est Pt Level 3 (57164) Diagnoses Impacted cerumen of left ear H61.22 Laterality: left Sensorineural hearing loss (SNHL) of both ears H90.3 Laterality: bilateral
[2023-06-06 13:00] VITALS: BP 98/60; PULSE 80; RESP 15; O2SAT 97
== END 2023-06-06 13:37 | disposition home or self-care (01) ==
PROVIDERS: PCP Physician Assistant; Visit Provider Physician Assistant
DX: H61.22 Impacted cerumen, left ear (principal); H90.3 Sensorineural hearing loss, bilateral; Z23 Encounter for immunization
CPT/HCPCS: 90471; 90715; 99213

== ENCOUNTER 2023-06-20 08:35 | Outpatient (REF) | payer MEDICARE, MEDICAID, SELFPAY | END 2023-06-20 08:36 | disposition home or self-care (01) | LOC: HO.SH 08:35 | PROVIDERS: PCP Physician Assistant; Visit Provider Physician Assistant | DX: Z01.118 Encounter for examination of ears and hearing with other abnormal findings (principal); H90.6 Mixed conductive and sensorineural hearing loss, bilateral | CPT/HCPCS: 92552; 92556; 92567 ==

== ENCOUNTER 2023-07-10 09:15 | Outpatient (AMB) | payer MEDICARE, MEDICAID, SELFPAY ==
--- NOTE | 2023-07-10 09:26 | A.OFFVIS_ITS ---
Intake VS Expanded 07/10/23 09:27 Height 5 ft 7 in Weight 170 lb 6.677 oz BMI 26.7 Intake Visit Reasons: T2DM, MON WEIGHT/ LVM Allergies cefazolin Allergy (Severe, Verified 06/06/23 13:12) Anaphylaxis HPI Nutrition Presentation Details Pt presents for MNT for T2DM Pt reports doing well. Pt presents with acute care nurse. Pt reports eating good, following healthy plate method the majority of the time. Reports one BG value above 200 and was related to eating out with family members of a fam trip. The rest of the time the blood sugars have been within normal limits 80-100s. Reports meals consist of healthy plate- they have portioned plate at home Most Recent Diabetes Results: Cholesterol 134 mg/dL (<200) 01/10/23 HDL Cholesterol 46 mg/dL (>40) 01/10/23 Triglycerides 82 mg/dL (<150) 01/10/23 Creatinine 0.93 mg/dL (0.5-1.4) 01/10/23 Blood Urea Nitrogen 18 mg/dL (9-16) H 01/10/23 Sodium 142 mmol/L (135-145) 01/10/23 Potassium 4.2 mmol/L (3.3-5.1) 01/10/23 Chloride 110 mmol/L (96-108) H 01/10/23 Carbon Dioxide 23 mmol/L (22-29) 01/10/23 Calcium 9.3 mg/dL (8.4-10.2) 01/10/23 AST 18 U/L (5-31) 01/10/23 ALT 7 U/L (0-31) 01/10/23 Total Protein 6.5 g/dL (6.5-8.0) 01/10/23 Albumin 3.8 g/dL (3.5-5.0) 01/10/23 [facility] Medical History Annual physical exam Cervical cancer screening Obesity due to excess calories Adult general medical exam Colonoscopy planned Encounter for subsequent annual wellness visit (AWV) in Medicare patient Vitamin D deficiency HLD (hyperlipidemia) T2DM (type 2 diabetes mellitus) AV fistula Obesity (BMI 30-39.9) Autism spectrum Pure hypercholesterolemia End stage renal disease on dialysis Type 2 diabetes mellitus with diabetic chronic kidney disease Surgical History Kidney transplanted History of colonoscopy History of open reduction and internal fixation (ORIF) procedure H/O bilateral breast reduction surgery History of appendectomy Family History Father No problems noted. Mother No problems noted. 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) Vision needs: Yes (wear glasses) Assessment & Plan Assessment & Plan (1) T2DM (type 2 diabetes mellitus): Code(s): E11.9 - Type 2 diabetes mellitus without complications Qualifiers: Diabetes mellitus senior living insulin use: without senior living use Diabetes mellitus complication status: with hyperglycemia Qualified Code(s): E11.65 - Type 2 diabetes mellitus with hyperglycemia Plan: wt: 78 kg (04/17/23) , 77kg( 07/2023) Est kcal needs as per MSJ: 1700 (40% carb, 30% protein/fat) Est fluid needs as per 30 ml/d: 2300 Est prot per day as per 1 g/kg bw: 78 Recommend fiber intake : 8-10 g per day and gradually increase to 25-28 g per day for women and 35-38 g for men or as tolerated Recommend sodium intake per day : less than 2000 mg Educated patient on: ( R = reviewed V = verbalizes understanding N/R = needs review N/A = not applicable * Food sources of carbohydrate, adequate serving sizes and its role in various health conditions: R,V * Differences between complex carbohydrates a simple carbohydrates, role of fiber in diet: Rv * Differences between types of fats and role in diet (mono on saturated fat fatty acids, saturated fatty acids, trans fats): R ,V * Food sources of sodium in salt and healthy modifications for heart health in kidney health: R,v * Healthy plate method concept: R , V * Physical activity: Benefits a precaution: R * Dietary prevention of Hyperglycemia: R, V Patient Instructions: Continue trying a variety of foods following the healthy plate method include omega 3 sources of foods int he diet ( fish, nuts, seeds, algea as examples ) at least 2 serving/d Include at least 2 sources of calcium and vitamin D in diet (yogurt, milk , mushrooms, chickpeas, sardines, edamame Coding Level of Care Code Nutr Indiv Subseq (79127) Diagnoses Type 2 diabetes mellitus with hyperglycemia, without long-term current use of insulin E11.65 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
[2023-07-10 09:27] VITALS: BMI 26.7
== END 2023-07-10 09:43 | disposition home or self-care (01) ==
PROVIDERS: PCP Physician Assistant; Visit Provider Dietitian, Registered
DX: E11.65 Type 2 diabetes mellitus with hyperglycemia (principal)

== ENCOUNTER → 2023-07-10 09:15 | Outpatient (BNVA) | payer MEDICARE, MEDICAID, SELFPAY | PROVIDERS: PCP Physician Assistant; Visit Provider Dietitian, Registered | DX: E11.65 Type 2 diabetes mellitus with hyperglycemia (principal) | CPT/HCPCS: 97803 ==

== ENCOUNTER 2023-08-16 10:30 | Outpatient (AMB) | payer MEDICARE, MEDICAID, SELFPAY ==
--- NOTE | 2023-08-16 10:38 | A.OFFPC_ITS ---
Vital Signs 08/16/23 10:39 Height 5 ft 7 in Weight 166 lb 8 oz BMI 26.1 BP 108/70 Blood Pressure Location Lt brachial Position Sitting Pulse 67 Pulse Source Pulse Oximeter Pulse Oximetry (%) 100 Oxygen Delivery Method Room Air Intake Visit Reasons: f/u dm Strategic Sourcing Manager Required: No Accompanied by: caregiver Allergies cefazolin Allergy (Severe, Verified 08/16/23 10:52) Anaphylaxis Medication List - Last Reconciled 08/16/23 by Josh Dahl PA-C [ADVOCATE REDI CODE TEST STRIP As directed] cholecalciferol (vitamin D3) 125 mcg PO DAILY 90 days cinacalcet (Sensipar) 30 mg PO DAILY lancets (FreeStyle Lancets) Three times a day linagliptin (Tradjenta) 5 mg PO DAILY lorazepam 1 mg (2 x 0.5 mg) PO DAILY PRN 2 days miscellaneous medical supply 1 ea miscellaneous DAILY 99 days simvastatin 20 mg PO DAILY 90 days tacrolimus 5 mg PO Q12H Tobacco use date assessed: 05/14/23 Dental Screening Dental Screen Date: 04/03/23 HPI f/u dm HPI Details Patient is a 47-year-old female here today for a follow-up visit.? 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 Patient has a past medical history significant for type 2 diabetes, end-stage renal disease status post kidney transplant, hypertension, hyperparathyroidism. .. Concern--> Also has left ear cerumen impaction and would like ear lavage. Will have patient come back in 2 weeks for ear lavage. Has followed up with ENT specialist whom recommend CT of her ear canals and sinuses due to retracted TMs. Continues to have hearing issues. Will likely follow-up CHRONIC MEDICAL CONDITIONS--> .. Kidney transplant:? Followed by district fire chief and [place] (Dr. Guerra).? Patient recently had kidney transplant.? She has continued to complain of prominence over her abdomen or the kidney was replaced.? She did have ultrasound showing a fluid collection, she had leukopenia on anti-rejection drugs and was given Neupogen with good response of her white blood cell count.? She has now tertiary hyperparathyroidism now on medication for this. .. Type 2 diabetes:.? Blood sugars at home are stable. ?Today A1c is 5.3. Senior Clinical Project Manager reports blood sugars at in the mornings have been around 70. ? We have discontinue Tradjenta and her diabetes has been well managed with lifestyle and dietary modifications. [facility] Medical History Annual physical exam Cervical cancer screening Obesity due to excess calories Adult general medical exam Colonoscopy planned Encounter for subsequent annual wellness visit (AWV) in Medicare patient Vitamin D deficiency HLD (hyperlipidemia) T2DM (type 2 diabetes mellitus) AV fistula Obesity (BMI 30-39.9) Autism spectrum Pure hypercholesterolemia End stage renal disease on dialysis Type 2 diabetes mellitus with diabetic chronic kidney disease Surgical History Kidney transplanted History of colonoscopy History of open reduction and internal fixation (ORIF) procedure H/O bilateral breast reduction surgery History of appendectomy Family History Father No problems noted. Mother No problems noted. 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 Matthew Arshad, Sagrario Ellis, Stepan Burger and colleagues, with an educational sudha from [employer]. Review of Systems Const Denies headache(s) Eyes Denies loss of vision ENT Denies vertigo, Denies dizziness, Denies headache(s) and Denies sore throat Card Denies chest pain, Denies leg edema and Denies lightheadedness Resp Denies cough, Denies hemoptysis and Denies wheezing GI Denies abdominal pain, Denies melena, Denies constipation, Denies diarrhea and Denies vomiting Denies urinary frequency, Denies dysuria and Denies urinary urgency Musc Denies arthralgias, Denies joint swelling, Denies numbness and Denies tingling Neuro Denies Abnormal speech present, Denies behavioral changes, Denies vertigo, Denies dizziness, Denies headache(s), Denies loss of vision, Denies memory loss, Denies numbness and Denies tingling Psych Denies anxiety, Denies behavioral changes, Denies depression, Denies memory loss and Denies panic attacks Zachariah/Lymph Denies easy bleeding and Denies easy bruising Aller/Immun Denies wheezing Physical exam (Primary Care) Vital Signs: Last Vital Signs Pulse 67 08/16/23 10:39 BP 108/70 08/16/23 10:39 Pulse Ox 100 08/16/23 10:39 Oxygen Delivery Method Room Air 08/16/23 10:39 BMI result Body Mass Index 26.1 Tobacco/Smoking Status: Tobacco use Status Tobacco use date assessed 05/14/23 08/16/23 10:39 Patient Tobacco Use Status Never used Tobacco 08/16/23 10:39 e-Cigarette/Vaping Use Never Used 08/16/23 10:39 Thrive Assessment: Date of Thrive Assessment Date Thrive assessed 04/03/23 08/16/23 10:39 Const General: healthy appearing, no acute distress, alert and awake Nutritional Appearance: well nourished Orientation/consciousness: oriented to person, oriented to place and oriented to time HENMT Other: BILATERAL TYMPANIC MEMBRANES SOMEWHAT RETRACTED. NO FURTHER CERUMEN IMPACTIONS NOTED Ears: TM's abnormal bilaterally General nose exam: Normal nasal mucous membranes and turbinates present Eyes Conjunctivae: conjunctivae normal Sclerae: sclerae normal Pupils: Equal, round and reactive pupils present Neck Neck: Yes no lymphadenopathy and Yes no JVD Thyroid: Thyroid normal Carotids: no bruits Resp Effort & Inspection: normal respiratory effort and not tachypneic Auscultation: no crackles, no rales, no rhonchi and no wheezes Cardio Rate: regular rate Rhythm: regular rhythm Heart sounds: no murmurs and normal S1 and S2 GI Palpation (GI): Soft to palpation, nontender, no hepatomegaly and no splenomegaly Auscultation: normal bowel sounds Skin General skin exam: no rashes or lesions noted and dry skin Neuro General: oriented to person, oriented to place and oriented to time Cranial nerves: Yes Equal, round and reactive pupils present Speech: No Abnormal speech present Gait exam (Neuro): Normal gait present Motor exam (neuro): no tremor noted Extrem Right upper extremity: full ROM Left upper extremity: full ROM Right lower extremity: full ROM; no edema Left lower extremity: full ROM; no edema Psych Mental Status: mental status grossly normal Speech and movement: Normal speech and movement present Affect: normal affect Attitude: cooperative Thought process: Normal thought process present Assessment and Plan Assessment & Plan (1) SNHL (sensorineural hearing loss): Code(s): H90.5 - Unspecified sensorineural hearing loss Qualifiers: Laterality: bilateral Qualified Code(s): H90.3 - Sensorineural hearing loss, bilateral Plan: Has followed up with ENT specialist whom cleaned out her ears. Caregiver still reports Andreina is having difficulties with hearing. On physical exam bilateral ear drums are bit retracted. ENT specialist requirements CT of ear canals and sinuses. (2) Kidney transplanted: Comment: 02/11/22 Code(s): Z94.0 - Kidney transplant status Plan: Has transpired in kidney and followed by Nephrology. They report kidney is functioning well. (3) T2DM (type 2 diabetes mellitus): Code(s): E11.9 - Type 2 diabetes mellitus without complications Qualifiers: Diabetes mellitus terminal make up operator insulin use: without assisted use Diabetes mellitus complication status: with hyperglycemia Qualified Code(s): E11.65 - Type 2 diabetes mellitus with hyperglycemia Plan: Patient's blood sugars have been 70 to 120s at home. Today's A1c at 5.3 her diabetes can be lifestyle/dietary managed. Continues to speak with the dietitian. Will continue to follow fasting blood sugar and A1c. (4) HTN (hypertension): Code(s): I10 - Essential (primary) hypertension Qualifiers: Hypertension type: unspecified Qualified Code(s): I10 - Essential (primary) hypertension Plan: Blood pressure today in office acceptable. Will continue lifestyle modifications to control her blood pressure. Orders: Orders Comprehensive Cody. Panel Fast Today E11.65 - Type 2 diabetes mellitus with hyperglycemia Complete Blood Count no Diff Today E11.65 - Type 2 diabetes mellitus with hyperglycemia AMB Hemoglobin A1c Today E11.65 - Type 2 diabetes mellitus with hyperglycemia Lipid Panel Today E78.5 - Hyperlipidemia, unspecified Microalbumin, Random (w Creat) Today E11.65 - Type 2 diabetes mellitus with hyperglycemia Patient Instructions: Goal: A1c they remain below 6.5 Barriers: Adherence to healthy eating habits and physical activity Coding Level of Care Code Est Pt Level 4 (55340) Diagnoses Sensorineural hearing loss (SNHL) of both ears H90.3 Laterality: bilateral Kidney transplanted Z94.0 Type 2 diabetes mellitus with hyperglycemia, without long-term current use of insulin E11.65 Diabetes mellitus assisted insulin use: without terminal make up operator use Diabetes mellitus complication status: with hyperglycemia Hypertension, unspecified type I10 Hypertension type: unspecified
[2023-08-16 10:39] VITALS: BP 108/70; PULSE 67; O2SAT 100; BMI 26.1
== END 2023-08-16 11:11 | disposition home or self-care (01) ==
PROVIDERS: PCP Physician Assistant; Visit Provider Physician Assistant
DX: E11.65 Type 2 diabetes mellitus with hyperglycemia (principal)
CPT/HCPCS: 83036; 99214

== ENCOUNTER 2023-08-24 08:23 | Outpatient (REF) | payer MEDICARE, MEDICAID, SELFPAY ==
--- NOTE | 2023-08-24 09:43 | MHC.AU.HA1 ---
Hearing Aid Evaluation Date of Visit: 08/24/23 Historical Information: Description of Hearing: Moderate to moderately severe sensorineural hearing loss Au. Summary: Anrdeina is here with Alana today. Her ears were cleaned and she had an evaluation at ENT on 08/02/2023. Medical clearance received from ENT. Reviewed amplification options. Alana is concerned about keeping the hearing aids clean and worried that Andreina might play with them too much. Recommended rechargeable miniBTE for durability and ease of cleaning. Alana reports that Andreina does not use a smartphone, she does have an ipad but they don't know where it is currently. Andreina noted that she is taking guitar lessons and singing lessons. Impressions taken without incidence Au. Soft non occluding wax noted As, came out on otoblock. Recommended continued use of wax drops for maintenance. Hearing Aid Prescription: Based on the individual?s shared listening needs, communication environments, dexterity, desire for connectivity, and personal preferences, the following prescription for amplification has been made: Right ear: Make, Model, Color: O[employer]on Real 2 miniBTE R, pink Battery Size: Rechargeable Type of Earmold/Dome/CShell/SlimTip: acrylic skeleton Left ear: Make, Model, Color: Oticon real 2 miniBTE R, pink Battery Size: Rechargeable Type of Earmold/Dome/CShell/SlimTip: acrylic skeleton Plan of Care: Patient wishes to purchase hearing aids as prescribed Action Taken/Action Needed: Earmold Impressions Taken Hearing Instrument Fitting to be scheduled when materials arrive Primary Diagnosis: H90.3 Bilateral Sensorineural Hearing Loss Signature: Provider: Toni Chavarria, [facility]
== END 2023-08-24 08:24 | disposition home or self-care (01) ==
LOC: HO.HAP 08:23
PROVIDERS: PCP Physician Assistant; Visit Provider Otolaryngology
DX: Z46.1 Encounter for fitting and adjustment of hearing aid (principal); H90.3 Sensorineural hearing loss, bilateral
CPT/HCPCS: 92591; V5275

== ENCOUNTER 2023-09-14 08:47 | Outpatient (REF) | payer MEDICARE, MEDICAID, SELFPAY ==
--- NOTE | 2023-09-14 10:21 | MHC.AU.HA2 ---
Hearing Instrument Fitting- Adult- Binaural Date of Visit: 09/14/23 Hearing Instruments Dispensed: Right Ear: Make, Model, Color, Serial Number: Oticon Real 2 miniBTE Rsamreen [id number] Bookkeepers Supervisor Repair Warranty: 09/27/2026 Bookkeepers Supervisor Loss and Damage Warranty: 09/27/2026 [facility] Service Plan: 09/13/24 Battery Size: Rechargeable Earmold/Dome/CShell/SlimTip: acrylic skeleton 12/05/23 Left Ear: Make, Model, Color, Serial Number: Oticon real 2 miniBTE Rsamreen [id number] Bookkeepers Supervisor Repair Warranty: 09/27/2026 Bookkeepers Supervisor Loss and Damage Warranty: 09/27/2026 [facility] Service Plan: 09/13/24 Battery Size: Rechargeable Earmold/Dome/CShell/SlimTip: acrylic skeleton 12/05/23 Accessories/Assistive Technology: Oticon Minibte Night Assistant S#[id number] Warranty 09/27/2026 Summary of Fitting: Accompanied by Alana. Fit with and oriented to binaural Oticon Real 2 miniBTE R HAs with acrylic skeleton earmolds. Earmolds fit well. Verified to DSL 5 Adult targets. Ran feedback management. Decreased to adaptation 1 with slow gradual increase to ease adjustment to amplification as Alana is concerned about Andreina's sensitivity to sound and frequent startling. Good subjective comfort and benefit reported. VC disabled. Reviewed charging. Practiced insertion and removal with Andreina and Alana. Reviewed cleaning, maintenance, and precautions. Not connected to any devices at this time. Recommendations: Recommendations: Hearing instrument care and maintenance were discussed and practiced. A hearing instrument follow-up was scheduled. Diagnosis Code(s): Primary Diagnosis: H90.3 Bilateral Sensorineural Hearing Loss Signature: Provider: Toni Chavarria, [facility]
== END 2023-09-14 08:48 | disposition home or self-care (01) ==
LOC: HO.HAP 08:47
PROVIDERS: Visit Provider Otolaryngology
DX: Z46.1 Encounter for fitting and adjustment of hearing aid (principal); H90.3 Sensorineural hearing loss, bilateral
CPT/HCPCS: V5011; V5020; V5160; V5261; V5264

== ENCOUNTER 2023-09-27 10:29 | Outpatient (REF) | payer MEDICARE, MEDICAID, SELFPAY ==
[2023-09-27 11:19] LABS: Hematocrit 39.7 % (37.0-47.0); Mean Corpuscular HGB Conc 35.3 g/dl (31.0-35.0); Mean Corpuscular Hemoglobin 31.8 pg (27.0-33.0); Mean Corpuscular Volume 90.2 fL (80.0-98.0); Mean Platelet Volume 10.4 fL (9.4-12.3); Platelet Count 125 X10*3/uL (160-400); Red Cell Distribution Width 13.2 % (11.0-16.0); White Blood Count 5.3 X10*3/uL (4.8-10.8)
[2023-09-27 12:31] LABS: Alanine Aminotransferase 17 U/L (0-31); Albumin Level 4.3 g/dL (3.5-5.0); Alkaline Phosphatase 112 U/L (39-117); Anion Gap 12 (12-20); Aspartate Amino Transferase 24 U/L (5-31); Bilirubin Total 0.7 mg/dL (0.0-1.0); Blood Urea Nitrogen 24 mg/dL (9-16); Calcium 9.3 mg/dL (8.4-10.2); Carbon Dioxide 26 mmol/L (22-29); Chloride 109 mmol/L (96-108); Cholesterol 150 mg/dL (<200); Estimated Glomerular Filt Rate > 60; Glucose Fasting 107 mg/dL (60-99); HDL Cholesterol 46 mg/dL (>40); LDL Cholesterol Calculated 80 mg/dL (<100); Potassium 4.7 mmol/L (3.3-5.1); Sodium 142 mmol/L (135-145); Total Protein 7.3 g/dL (6.5-8.0); Triglycerides 122 mg/dL (<150)
[2023-09-27 13:34] LABS: Creatinine Urine 60.41 mg/dL; Microalbumin Urine < 5.0 mg/L
== END 2023-09-27 10:30 | disposition home or self-care (01) ==
LOC: HO.LAB 10:29
PROVIDERS: PCP Physician Assistant; Visit Provider Physician Assistant
DX: E11.65 Type 2 diabetes mellitus with hyperglycemia (principal); E78.5 Hyperlipidemia, unspecified
CPT/HCPCS: 36415; 80053; 80061; 82043; 82570; 85027

== ENCOUNTER 2023-10-11 09:05 | Outpatient (REF) | payer MEDICARE, MEDICAID, SELFPAY ==
--- NOTE | 2023-10-11 12:15 | MHC.AU.HA3 ---
Hearing Instrument Follow-Up- Binaural Date of Visit: 10/11/23 Right Ear: Make, Model, Color, Serial Number: Oticon Real 2 miniBTE Rsamreen [id number] Telemarketing Fundraiser Repair Warranty: 09/27/2026 Telemark[employer] Fundraiser Loss and Damage Warranty: 09/27/2026 [facility] Service Plan: 09/13/24 Battery Size: Rechargeable Earmold/Dome/CShell/SlimTip:acrylic skeleton 12/05/23 Dispensed By: [facility] Date of Fittin09/14/23 Left Ear: Make, Model, Color, Serial Number: Oticon real 2 miniBTE Rsamreen [id number] Telemarketing Fundraiser Repair Warranty: 09/27/2026 Telemark[employer] Fundraiser Loss and Damage Warranty: 09/27/2026 [facility] Service Plan: 09/13/24 Battery Size: Rechargeable Earmold/Dome/CShell/SlimTip: acrylic skeleton 12/05/23 Dispensed By: [facility] Date of Fittin09/14/23 Follow-Up Summary: Here for follow up with Alana. Reports good satisfaction with the hearing aids. Alana has noticed that Andreina is hearing well. Andreina noted hearing everything her radio engineering teacher said at her lesson. Checked hearing aids and removed wax from vents. Reminded of need to come in for maintenance/ tubing changes or with concerns. Recommendations: Recommendations: Hearing instrument maintenance in 6 months, or sooner if needed. Diagnosis Code(s): Primary Diagnosis: H90.3 Bilateral Sensorineural Hearing Loss Signature: Provider: Toni Chavarria, [facility]
== END 2023-10-11 09:06 | disposition home or self-care (01) ==
LOC: HO.HAP 09:05
PROVIDERS: Visit Provider Physician Assistant
DX: Z13.89 Encounter for screening for other disorder (principal)

== ENCOUNTER 2023-12-10 09:22 | Outpatient (AMB) | payer MEDICARE, MEDICAID, SELFPAY ==
[2023-12-10 09:33] VITALS: BMI 26.4
--- NOTE | 2023-12-10 09:33 | A.OFFVIS_ITS ---
VS Expanded 12/10/23 09:33 Height 5 ft 7 in Weight 168 lb 13.985 oz BMI 26.4 Intake Visit Reasons: T2DM, MON WEIGHT/CONFIRMED Allergies cefazolin Allergy (Severe, Verified 08/16/23 10:52) Anaphylaxis Nutrition Presentation Details: Pt presents for MNT f/u for T2DM Pt reports she is doing well following healthy plate method Keeping physically active, walking daily 20-30 minutes Drinks water with meals Eating a variety of foods B: varies (oatmeal with fruits or egg sand with spinach, water L: sandw (tuna, chicken , lettuce/tomato ) veg soup or salad with olive oil , cookies, water D: potatoes/beef/ mixed vegetables or fish/rice/broccoli, water snack : fruit salad or yogurt or peanut butter crackers, or low sodium popcorn physical activity walking daily 20-30 min etoh /smoking denies fish : 1-2 x/wk dairy: 1 /day vegetables: daily 2 cups fruits: 1-2 /d fried foods : -2 x/m BS Monitoring Most Recent Diabetes Results: Microalb/Creat Ratio TNP 09/27/23 Cholesterol 150 mg/dL (<200) 09/27/23 HDL Cholesterol 46 mg/dL (>40) 09/27/23 Triglycerides 122 mg/dL (<150) 09/27/23 Creatinine 0.98 mg/dL (0.5-1.4) 09/27/23 Blood Urea Nitrogen 24 mg/dL (9-16) H 09/27/23 Sodium 142 mmol/L (135-145) 09/27/23 Potassium 4.7 mmol/L (3.3-5.1) 09/27/23 Chloride 109 mmol/L (96-108) H 09/27/23 Carbon Dioxide 26 mmol/L (22-29) 09/27/23 Calcium 9.3 mg/dL (8.4-10.2) 09/27/23 AST 24 U/L (5-31) 09/27/23 ALT 17 U/L (0-31) 09/27/23 Total Protein 7.3 g/dL (6.5-8.0) 09/27/23 Albumin 4.3 g/dL (3.5-5.0) 09/27/23 [facility] Medical History Annual physical exam Cervical cancer screening Obesity due to excess calories Adult general medical exam Colonoscopy planned Encounter for subsequent annual wellness visit (AWV) in Medicare patient Vitamin D deficiency HLD (hyperlipidemia) T2DM (type 2 diabetes mellitus) AV fistula Obesity (BMI 30-39.9) Autism spectrum Pure hypercholesterolemia End stage renal disease on dialysis Type 2 diabetes mellitus with diabetic chronic kidney disease Surgical History Kidney transplanted History of colonoscopy History of open reduction and internal fixation (ORIF) procedure H/O bilateral breast reduction surgery History of appendectomy Family History Father No problems noted. Mother No problems noted. 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) Vision needs: Yes (wear glasses) Assessment & Plan Assessment & Plan (1) T2DM (type 2 diabetes mellitus): Code(s): E11.9 - Type 2 diabetes mellitus without complications Category: Medical Qualifiers: Diabetes mellitus long term acute care registered nurse insulin use: without long term acute care registered nurse use Diabetes mellitus complication status: with hyperglycemia Qualified Code(s): E11.65 - Type 2 diabetes mellitus with hyperglycemia Plan: wt: 78 kg (04/17/23) , 77kg( 07/2023) Est kcal needs as per MSJ: 1700 (40% carb, 30% protein/fat) Est fluid needs as per 30 ml/d: 2300 Est prot per day as per 1 g/kg bw: 78 Recommend fiber intake : 8-10 g per day and gradually increase to 25-28 g per day for women and 35-38 g for men or as tolerated Recommend sodium intake per day : less than 2000 mg Educated patient on: ( R = reviewed V = verbalizes understanding N/R = needs review N/A = not applicable * Food sources of carbohydrate, adequate serving sizes and its role in various health conditions: R,V * Differences between complex carbohydrates a simple carbohydrates, role of fiber in diet: Rv * Differences between types of fats and role in diet (mono on saturated fat fatty acids, saturated fatty acids, trans fats): R ,V * Food sources of sodium in salt and healthy modifications for heart health in kidney health: R,v * Healthy plate method concept: R , V * Physical activity: Benefits a precaution: R * Dietary prevention of Hyperglycemia: R, V Patient Instructions: Include at least 3 servings of Calcium rich foods per day Continue engaging in physical activity Coding Level of Care Code Nutr Indiv Subseq (61438) Diagnoses Type 2 diabetes mellitus with hyperglycemia, without long-term current use of insulin E11.65 Diabetes mellitus custodial insulin use: without custodial use Diabetes mellitus complication status: with hyperglycemia Time Spent (min) 30
== END 2023-12-10 09:57 | disposition home or self-care (01) ==
PROVIDERS: PCP Physician Assistant; Visit Provider Dietitian, Registered
DX: E11.65 Type 2 diabetes mellitus with hyperglycemia (principal)

== ENCOUNTER → 2023-12-10 09:22 | Outpatient (BNVA) | payer MEDICARE, MEDICAID, SELFPAY | PROVIDERS: PCP Physician Assistant; Visit Provider Dietitian, Registered | DX: E11.65 Type 2 diabetes mellitus with hyperglycemia (principal); Z71.3 Dietary counseling and surveillance | CPT/HCPCS: 97803 ==

== ENCOUNTER 2024-01-08 13:28 | Outpatient (AMB) | payer MEDICARE, MEDICAID, SELFPAY ==
[2024-01-08 13:45] VITALS: BP 130/84; PULSE 84; O2SAT 99; BMI 26.8
--- NOTE | 2024-01-08 13:45 | MHC.PC.OV ---
Vital Signs 01/08/24 13:45 Height 5 ft 7 in Weight 171 lb 2 oz BMI 26.8 BP 130/84 Blood Pressure Location Rt brachial Position Sitting Pulse 84 Pulse Source Pulse Oximeter Pulse Oximetry (%) 99 Oxygen Delivery Method Room Air Intake Visit Reasons: f/u DMII/ HLD Allergies cefazolin Allergy (Severe, Verified 08/16/23 10:52) Anaphylaxis Medication List - Last Reconciled 01/08/24 by Josh Dahl PA-C [ADVOCATE REDI CODE TEST STRIP As directed] cholecalciferol (vitamin D3) 125 mcg PO DAILY 90 days cinacalcet (Sensipar) 30 mg PO DAILY lancets (FreeStyle Lancets) Three times a day linagliptin (Tradjenta) 5 mg PO DAILY lorazepam 1 mg (2 x 0.5 mg) PO DAILY PRN 2 days midodrine 2.5 mg PO BID miscellaneous medical supply 1 ea miscellaneous DAILY 99 days simvastatin 20 mg PO DAILY 90 days tacrolimus 5 mg PO Q12H Tobacco use date assessed: 05/14/23 Dental Screening Dental Screen Date: 04/03/23 HPI f/u DMII/ HLD HPI Details Patient is a 48-year-old female here today for a follow-up visit.? Presents today with her egg setter.? Patient has a past medical history significant for type 2 diabetes, end-stage renal disease status post kidney transplant, hypertension, hyperparathyroidism. .. Concern--> CHRONIC MEDICAL CONDITIONS--> .. Kidney transplant:? Followed by surgical coordinator and [place] (Dr. Guerra).? Patient recently had kidney transplant.? She has continued to complain of prominence over her abdomen or the kidney was replaced.? She did have ultrasound showing a fluid collection, she had leukopenia on anti-rejection drugs and was given Neupogen with good response of her white blood cell count.? She has now tertiary hyperparathyroidism now on medication for this. She is interested in seeing vaccines specialist for removal of her AV fistula in the left arm. .. Obesity: Has lost significant amount of weight over the last few years due to lifestyle and diet improvement. Access abdominal skin--> often gets tinea infections/irritations under her abdominal skin fold.. would like to see plastic surgeon for possible evaluation for abdominoplasty. .. Type 2 diabetes:.? Blood sugars at home are stable. ?Today A1c is 5.3. Assistant Public Defender reports blood sugars at in the mornings have been around 70. ? We have discontinue Tradjenta and her diabetes has been well managed with lifestyle and dietary modifications. Of note has lost follow-up with her deflash and wash operator and needs new podiatry referral. Laboratory Tests 09/27/23 10:40 RBC 4.40 Hgb 14.0 Fasting Glucose 107 H Cholesterol 150 LDL Cholesterol, C alc 80 Urine Microalbumin < 5.0 [facility] Medical History Annual physical exam Cervical cancer screening Obesity due to excess calories Adult general medical exam Colonoscopy planned Encounter for subsequent annual wellness visit (AWV) in Medicare patient Vitamin D deficiency HLD (hyperlipidemia) T2DM (type 2 diabetes mellitus) AV fistula Obesity (BMI 30-39.9) Autism spectrum Pure hypercholesterolemia End stage renal disease on dialysis Type 2 diabetes mellitus with diabetic chronic kidney disease Surgical History Kidney transplanted History of colonoscopy History of open reduction and internal fixation (ORIF) procedure H/O bilateral breast reduction surgery History of appendectomy Family History Father No problems noted. Mother No problems noted. 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) Vision needs: Yes (wear glasses) Questionnaire Thrive Questionnaire Date Thrive assessed: 04/03/23 Are you currently unemployed and looking for a job?: I choose not to answer this question CASSANDRA-7 AMB Questionnaire CASSANDRA-7 Date CASSANDRA - 7 assessed: 04/03/23 Source: Developed by Drs. Matthew Arshad, Sagrario Ellis, Stepan Burger and colleagues, with an educational sudha from [employer]. Review of Systems Const Denies headache(s) Eyes Denies loss of vision ENT Denies vertigo, Denies dizziness, Denies headache(s) and Denies sore throat Card Denies chest pain, Denies leg edema and Denies lightheadedness Resp Denies cough, Denies hemoptysis and Denies wheezing GI Denies abdominal pain, Denies melena, Denies constipation, Denies diarrhea and Denies vomiting Denies urinary frequency, Denies dysuria and Denies urinary urgency Musc Denies arthralgias, Denies joint swelling, Denies numbness and Denies tingling Neuro Denies Abnormal speech present, Denies behavioral changes, Denies vertigo, Denies dizziness, Denies headache(s), Denies loss of vision, Denies memory loss, Denies numbness and Denies tingling Psych Denies anxiety, Denies behavioral changes, Denies depression, Denies memory loss and Denies panic attacks Zachariah/Lymph Denies easy bleeding and Denies easy bruising Aller/Immun Denies wheezing Physical exam (Primary Care) Vital Signs: Last Vital Signs Pulse 84 01/08/24 13:45 BP 130/84 01/08/24 13:45 Pulse Ox 99 01/08/24 13:45 Oxygen Delivery Method Room Air 01/08/24 13:45 BMI result Body Mass Index 26.8 Tobacco/Smoking Status: Tobacco use Status Tobacco use date assessed 05/14/23 01/08/24 13:46 Patient Tobacco Use Status Never used Tobacco 01/08/24 13:46 e-Cigarette/Vaping Use Never Used 01/08/24 13:46 Thrive Assessment: Date of Thrive Assessment Date Thrive assessed 04/03/23 01/08/24 13:46 Const General: healthy appearing, no acute distress, alert and awake Nutritional Appearance: well nourished Orientation/consciousness: oriented to person, oriented to place and oriented to time HENMT Ears: TM's normal bilaterally General nose exam: Normal nasal mucous membranes and turbinates present Eyes Conjunctivae: conjunctivae normal Sclerae: sclerae normal Pupils: Equal, round and reactive pupils present Neck Neck: Yes no lymphadenopathy and Yes no JVD Thyroid: Thyroid normal Carotids: no bruits Resp Effort & Inspection: normal respiratory effort and not tachypneic Auscultation: no crackles, no rales, no rhonchi and no wheezes Cardio Rate: regular rate Rhythm: regular rhythm Heart sounds: no murmurs and normal S1 and S2 GI Palpation (GI): Soft to palpation, nontender, no hepatomegaly and no splenomegaly Auscultation: normal bowel sounds Skin General skin exam: no rashes or lesions noted and dry skin Neuro General: oriented to person, oriented to place and oriented to time Cranial nerves: Yes Equal, round and reactive pupils present Speech: No Abnormal speech present Gait exam (Neuro): Normal gait present Motor exam (neuro): no tremor noted Extrem Right upper extremity: full ROM Left upper extremity: full ROM Right lower extremity: full ROM; no edema Left lower extremity: full ROM; no edema Psych Mental Status: mental status grossly normal Speech and movement: Normal speech and movement present Affect: normal affect Attitude: cooperative Thought process: Normal thought process present Office Procedures Flu Questionnaire Does the patient have a severe egg allergy?: No Does the patient have severe life threatening allergies?: No Does the patient have a fever or illness today?: No Has the patient ever had Guillain-Mohler Syndrome?: No Has the patient ever had any past reaction to a flu shot?: No Immunizations Fluarix Triv [id number] (PF) 45 mcg (15 mcg x 3)/0.5 mL IM syringe Performing Provider: Josh Dahl PA-C [facility] Administered by: DARION Benedict on 01/08/24 13:49 Dose Route Admin Location Dispensed Lot Number Expiration Date NDC Manager Budget 0.5 mL IM Left Deltoid 0.5 mL [id number] 09/29/24 01147-310-02 [employer] VIS Given Date VIS Provided VIS Publication Date 01/08/24 Single Vaccine 20 Eligibility Eligibility Date Funding Source Not [facility] Eligible 01/08/24 Private Coding Level of Care Code Est Pt Level 4 (78287) Diagnoses Arteriovenous fistula of left upper extremity I77.0 Hyperlipidemia, unspecified hyperlipidemia type E78.5 Hyperlipidemia type: unspecified Hypertension, unspecified type I10 Hypertension type: unspecified Type 2 diabetes mellitus with hyperglycemia, without long-term current use of insulin E11.65 Diabetes mellitus complication status: with hyperglycemia Diabetes mellitus terminal worker insulin use: without senior living use Assessment & Plan Assessment & Plan (1) Arteriovenous fistula of left upper extremity: Code(s): I77.0 - Arteriovenous fistula, acquired Category: Medical Plan: Patient has a history of end-stage renal disease and was on dialysis. She has underwent a kidney transplant and is doing well. She would like the AV fistula over left arm removed. (2) HLD (hyperlipidemia): Code(s): E78.5 - Hyperlipidemia, unspecified Category: Medical Qualifiers: Hyperlipidemia type: unspecified Qualified Code(s): E78.5 - Hyperlipidemia, unspecified Plan: Patient has a history of hyperlipidemia. She has continued on simvastatin 20 mg. Most recent lipid panel showing excellent control over total cholesterol and LDL. Goal LDL is to remain below 100 (3) HTN (hypertension): Code(s): I10 - Essential (primary) hypertension Category: Medical Qualifiers: Hypertension type: unspecified Qualified Code(s): I10 - Essential (primary) hypertension Plan: Patient's blood pressure acceptable today in office. She has low blood pressures from time to time. She was started on midodrine 2.5 mg b.i.d. by her surgical coordinator. (4) T2DM (type 2 diabetes mellitus): Code(s): E11.9 - Type 2 diabetes mellitus without complications Category: Medical Qualifiers: Diabetes mellitus complication status: with hyperglycemia Diabetes mellitus senior living insulin use: without senior living use Qualified Code(s): E11.65 - Type 2 diabetes mellitus with hyperglycemia Plan: Patient's type 2 diabetes well controlled with lifestyle and dietary modifications. Goal A1c is to remain below 6.5. Orders: Orders Vitamin D 25-OH Total 01/08/24 E55.9 - Vitamin D deficiency, unspecified Lipid Panel 01/08/24 E78.5 - Hyperlipidemia, unspecified Microalbumin, Random (w Creat) 01/08/24 E11.65 - Type 2 diabetes mellitus with hyperglycemia MM screening mammo BI 01/08/24 Z12.31 - Encounter for screening mammogram for malignant neoplasm of breast Influenza [id number] Immunization 01/08/24 Z23 - Encounter for immunization Complete Blood Count no Diff 01/08/24 D64.9 - Anemia, unspecified Comprehensive [place]. Panel Fast 01/08/24 E11.65 - Type 2 diabetes mellitus with hyperglycemia Referrals Vascular Surgery Referral I77.0 - Arteriovenous fistula, acquired Podiatry Referral B37.2 - Candidiasis of skin and nail, E11.65 - Type 2 diabetes mellitus with hyperglycemia Patient Instructions: Goal: A1c to remain below 6.5, LDL to remain below 100 Barriers: Adherence to physical activity and healthy eating habits
== END 2024-01-08 14:06 | disposition home or self-care (01) ==
PROVIDERS: PCP Physician Assistant; Visit Provider Physician Assistant
DX: I77.0 Arteriovenous fistula, acquired (principal); E78.5 Hyperlipidemia, unspecified; I10 Essential (primary) hypertension; E11.65 Type 2 diabetes mellitus with hyperglycemia

== ENCOUNTER → 2024-01-08 13:28 | Outpatient (BNVA) | payer MEDICARE, MEDICAID, SELFPAY | PROVIDERS: PCP Physician Assistant; Visit Provider Physician Assistant | DX: Z23 Encounter for immunization (principal); E11.65 Type 2 diabetes mellitus with hyperglycemia; I10 Essential (primary) hypertension; E78.5 Hyperlipidemia, unspecified; I77.0 Arteriovenous fistula, acquired | CPT/HCPCS: 90471; 90656; 99212 ==

== ENCOUNTER 2024-01-28 11:45 | Outpatient (REF) | payer MEDICARE, MEDICAID, SELFPAY ==
--- NOTE | 2024-01-28 16:03 | MHC.AU.HA3 ---
Hearing Instrument Follow-Up- Binaural Date of Visit: 01/28/24 Right Ear: Bi, Model, Color, Serial Number: Oticon Real 2 miniBTE Rsamreen [id number] Patient Safety Attendant Repair Warranty: 09/27/2026 Patient Safety Attendant Loss and Damage Warranty: 09/27/2026 [facility] Service Plan: 09/13/24 Battery Size: Rechargeable Earmold/Dome/CShell/SlimTip:acrylic skeleton 12/05/23 Dispensed By: [facility] Date of Fittin09/14/23 Left Ear: Make, Model, Color, Serial Number: Oticon real 2 miniBTE Rsamreen [id number] Patient Safety Attendant Repair Warranty: 09/27/2026 Patient Safety Attendant Loss and Damage Warranty: 09/27/2026 [facility] Service Plan: 09/13/24 Battery Size: Rechargeable Earmold/Dome/CShell/SlimTip: acrylic skeleton 12/05/23 Dispensed By: [facility] Date of Fittin09/14/23 Follow-Up Summary: Both aids dropped off with tubes clogged with wax. Cleaned aids, cleaned earmolds, replaced tubing. Listening check positive. Recommendations: Recommendations: Hearing instrument maintenance in 6 months, or sooner if needed. Diagnosis Code(s): Primary Diagnosis: H90.3 Bilateral Sensorineural Hearing Loss Signature: Provider: Toni Chavarria, [facility]
== END 2024-01-28 11:46 | disposition home or self-care (01) ==
LOC: HO.HAP 11:45
PROVIDERS: Visit Provider Physician Assistant
DX: Z13.89 Encounter for screening for other disorder (principal)

== ENCOUNTER 2024-02-13 10:37 | Outpatient (REF) | payer MEDICARE, MEDICAID, SELFPAY | END 2024-02-13 10:38 | disposition home or self-care (01) | LOC: HO.HAP 10:37 | PROVIDERS: Visit Provider Physician Assistant | DX: Z13.89 Encounter for screening for other disorder (principal) ==

== ENCOUNTER 2024-03-11 10:49 | Outpatient (REF) | payer MEDICARE, MEDICAID, SELFPAY ==
--- OUTSIDE RECORDS SUMMARY | 2024-03-12 20:25 | XMS_ITS ---
Author Name [facility] Organization Unknown Problems Problem Status Onset Date Problem Type Date of Resoluti on Source Complication of transplanted kidney, unspecified complication active [facility]
== END 2024-03-11 10:50 | disposition home or self-care (01) ==
LOC: HO.MAMMO 10:49
PROVIDERS: PCP Physician Assistant; Visit Provider Physician Assistant
DX: Z12.31 Encounter for screening mammogram for malignant neoplasm of breast (principal)
CPT/HCPCS: 77063; 77067

== ENCOUNTER → 2024-03-11 11:15 | Outpatient (BNV) | payer MEDICARE, MEDICAID, SELFPAY | PROVIDERS: PCP Physician Assistant; Visit Provider Internal Medicine | DX: Z12.31 Encounter for screening mammogram for malignant neoplasm of breast (principal) | CPT/HCPCS: 77063; 77067 ==

== ENCOUNTER 2024-04-15 09:54 | Outpatient (REF) | payer MEDICARE, MEDICAID, SELFPAY ==
--- NOTE | 2024-04-15 12:28 | MHC.AU.HA3 ---
Hearing Instrument Follow-Up- Binaural Date of Visit: 04/15/24 Right Ear: Bi, Model, Color, Serial Number: Oticon Real 2 miniBTE Rsamreen [id number] Patient Attendant Repair Warranty: 09/27/2026 Patient Attendant Loss and Damage Warranty: 09/27/2026 [facility] Service Plan: 09/13/24 Battery Size: Rechargeable Earmold/Dome/CShell/SlimTip:acrylic skeleton 12/05/23 Dispensed By: [facility] Date of Fittin09/14/23 Left Ear: Make, Model, Color, Serial Number: Oticon real 2 miniBTE Rsamreen [id number] Patient Attendant Repair Warranty: 09/27/2026 Patient Attendant Loss and Damage Warranty: 09/27/2026 [facility] Service Plan: 09/13/24 Battery Size: Rechargeable Earmold/Dome/CShell/SlimTip: acrylic skeleton 12/05/23 Dispensed By: [facility] Date of Fittin09/14/23 Follow-Up Summary: Seen for JORDAN maintenance. Accompanied by Alana. Reports hearing aids are working well, no concerns. Found wax build up in tubes. Cleaned aids, cleaned earmolds, replaced tubing. Listening check positive. Recommend return for maintenance in 3-4 months. Recommendations: Recommendations: Hearing instrument follow-up or maintenance as needed. Diagnosis Code(s): Primary Diagnosis: H90.3 Bilateral Sensorineural Hearing Loss Signature: Provider: Toni Chavarria, CCC-A
== END 2024-04-15 09:55 | disposition home or self-care (01) ==
LOC: HO.HAP 09:54
PROVIDERS: PCP Physician Assistant; Visit Provider Otolaryngology
DX: Z13.89 Encounter for screening for other disorder (principal)

== ENCOUNTER 2024-04-15 10:28 | Outpatient (REF) | payer MEDICARE, MEDICAID, SELFPAY ==
[2024-04-15 12:28] LABS: Hematocrit 42.5 % (37.0-47.0); Hemoglobin 14.5 g/dl (12.0-16.0); Mean Corpuscular HGB Conc 34.1 g/dl (31.0-35.0); Mean Corpuscular Hemoglobin 30.8 pg (27.0-33.0); Mean Corpuscular Volume 90.2 fL (80.0-98.0); Platelet Count 119 X10*3/uL (160-400); Red Blood Count 4.71 X10*6/uL (4.20-5.50); Red Cell Distribution Width 13.2 % (11.0-16.0); White Blood Count 6.1 X10*3/uL (4.8-10.8)
[2024-04-15 14:38] LABS: Creatinine Urine 70.31 mg/dL; Microalbumin Urine < 5.0 mg/L
== END 2024-04-15 10:29 | disposition home or self-care (01) ==
LOC: HO.LAB 10:28
PROVIDERS: PCP Physician Assistant; Visit Provider Physician Assistant
DX: Z00.00 Encounter for general adult medical examination without abnormal findings (principal); Z23 Encounter for immunization; E78.5 Hyperlipidemia, unspecified; I10 Essential (primary) hypertension; E11.65 Type 2 diabetes mellitus with hyperglycemia; D64.9 Anemia, unspecified; Z79.899 Other long term (current) drug therapy
CPT/HCPCS: 36415; 82043; 82570; 85027; 90471; 90677; 96127; 99396

== ENCOUNTER 2024-04-15 10:28 | Outpatient (AMB) | payer MEDICARE, MEDICAID, SELFPAY ==
--- NOTE | 2024-04-15 10:52 | MHC.PC.OV ---
Vital Signs 04/15/24 11:14 Height 5 ft 7 in Weight 166 lb BMI 26.0 BP 122/70 Blood Pressure Location Lt brachial Position Sitting Pulse 65 Pulse Source Pulse Oximeter Temp 97.1 F Temp Source Temporal Artery Scan Pulse Oximetry (%) 98 Oxygen Delivery Method Room Air Intake Visit Reasons: PE Intake Note: Patient is here today for a physical. Unix Manager Required: No Financial Investment Manager: Present Accompanied by: caregiver Allergies cefazolin Allergy (Severe, Verified 04/15/24 11:34) Anaphylaxis Medication List - Last Reconciled 04/15/24 by Josh Dahl PA-C [ADVOCATE REDI CODE TEST STRIP As directed] cinacalcet (Sensipar) 30 mg PO DAILY lancets (FreeStyle Lancets) Three times a day lorazepam 1 mg (2 x 0.5 mg) PO DAILY PRN 2 days midodrine 2.5 mg PO BID miscellaneous medical supply 1 ea miscellaneous DAILY 99 days simvastatin 20 mg PO DAILY 90 days tacrolimus 5 mg PO Q12H Tobacco use date assessed: 04/15/24 Dental Screening Dental Screen Date: 04/15/24 Did you have a dental visit in the last 12 months?: Yes Did you have a dental problem in the last 6 months where you did not have access to dental care?: No Was dental information given to patient?: Patient has dentist HPI PE HPI Details Patient is a 48-year-old female here today for a PE.? Presents today with her animal caretaker supervisor.? Patient has a past medical history significant for type 2 diabetes, end-stage renal disease status post kidney transplant, hypertension, hyperparathyroidism. .. CHRONIC MEDICAL CONDITIONS--> .. Kidney transplant:? Followed by screen printing loader unloader and [facility] (Dr. Guerra).? Patient recently had kidney transplant.? She has continued to complain of prominence over her abdomen or the kidney was replaced.? She did have ultrasound showing a fluid collection, she had leukopenia on anti-rejection drugs and was given Neupogen with good response of her white blood cell count.? She has now tertiary hyperparathyroidism now on medication for this. She has followed up with vascular surgeon about the fistula removal from her arm and is considering removal.. .. Obesity: Has lost significant amount of weight over the last few years due to lifestyle and diet improvement. Access abdominal skin--> often gets tinea infections/irritations under her abdominal skin fold.. would like to see plastic surgeon for possible evaluation for abdominoplasty. .. Type 2 diabetes:.? Blood sugars at home are stable. She has been off Tradjenta for quite some time and blood sugars has been stable. She maintains her weight loss with dietary modifications. ?Today A1c is 5.3. Order Selector reports blood sugars at in the mornings have been around 70. ? Colonoscopy: Done in December 2021, a serrated polyp found, needs repeat 5 years .. Mammo: Up-to-date with mammogram- done 03/2024 - [facility] 1 Vaccines: Up-to-date with COVID vaccine and pneumonia vaccine, up-to-date with Flu vaccine ,UTD with tdap, Needs PCV .. SHAFT HEADMAN: Needs PAP , has had trouble getting this done. Is awaiting appointment with [facility] continuous improvement specialist REPLACED BY [facility] Medical History Annual physical exam Cervical cancer screening Obesity due to excess calories Adult general medical exam Colonoscopy planned Encounter for subsequent annual wellness visit (AWV) in Medicare patient Vitamin D deficiency HLD (hyperlipidemia) T2DM (type 2 diabetes mellitus) AV fistula Obesity (BMI 30-39.9) Autism spectrum Pure hypercholesterolemia End stage renal disease on dialysis Type 2 diabetes mellitus with diabetic chronic kidney disease Surgical History Kidney transplanted History of colonoscopy History of open reduction and internal fixation (ORIF) procedure H/O bilateral breast reduction surgery History of appendectomy Family History Father No problems noted. Mother No problems noted. 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 1. Little interest or pleasure in doing things: not at all 2. Feeling down, depressed, or hopeless: not at all 3. Trouble falling or staying asleep, or sleeping too much: several days 4. Feeling tired or having little energy: not at all 5. Poor appetite or overeating: not at all 6. Feeling bad about yourself - or that you are a failure or have let yourself or your family down: not at all 7. Trouble concentrating on things, such as reading the newspaper or watching television: not at all 8. Moving or speaking so slowly that other people could have noticed. Or the opposite - being so fidgety or restless that you have been moving around a lot more than usual: not at all 9. Thoughts that you would be better off or of hurting yourself in some way: not at all Total score: 1 Depression Screening Interpretation: Negative Depression Screening Done: Yes 99911 - PHQ-9 Billing: Yes Source: Developed by Drs. Matthew Arshad, Sagrario Ellis, Stepan Burger and colleagues, with an educational sudha from [employer]. Thrive Questionnaire Date Thrive assessed: 04/15/24 I am a: Patient What is your living situation today?: I choose not to answer this question Within the past 12 months, did the food you bought not last and you didn't have the money to get more?: Never true Within the past 12 months, did you worry whether your food would run out before you got money to buy more?: Never true Do you have trouble paying for medicines?: No Do you have trouble getting transportation to medical appointments?: No Do you have trouble paying your heating and electricity bill?: No Do you have trouble taking care of your child, family member or friend?: I choose not to answer this question Do you have trouble with day-to-day activities such as bathing, preparing meals, shopping, managing finances, etc.?: No Are you currently unemployed and looking for a job?: I choose not to answer this question Are you interested in more education?: I choose not to answer this question Please select the resources that you would like help with: None Currently or been in a relationship where the following occur: I choose not to answer THRIVE Score: 0 AUDIT C Alcohol Use Questionnaire (AUDIT-C) 1. How often do you have a drink containing alcohol?: Never 3. How often do you have six or more drinks on one occasion?: Never Total Score: 0 CASSANDRA-7 AMB Questionnaire CASSANDRA-7 Date CASSANDRA - 7 assessed: 04/15/24 Feeling nervous, anxious, or on edge: 1 = Several days Not being able to stop or control worryin = Not at all Worrying too much about different things: 0 = Not at all Trouble relaxin = Not at all Being so restless that it is hard to sit still: 0 = Not at all Becoming easily annoyed or irritable: 0 = Not at all Feeling afraid as if something awful might happen: 0 = Not at all Total CASSANDRA-7 score (0-4 normal; 5-9 mild; 10-14 moderate; 15-21 severe): 1 Source: Developed by Drs. Matthew Arshad, Sagrario Ellis, Stepan Burger and colleagues, with an educational sudha from [employer]. CASSANDRA-7 Assessment Billing CASSANDRA-7 Assessment Tool: CASSANDRA-7 Assessment 15867 Review of Systems Const Denies body aches, Denies chills, Denies excessive sweating, Denies fatigue, Denies fever(s) and Denies headache(s) Eyes Denies blurry vision ENT Denies dysphagia, Denies vertigo, Denies dizziness, Denies headache(s), Denies hearing loss and Denies tinnitus Card Denies chest pain, Denies chest pain with activity, Denies syncope, Denies irregular heart rhythm and Denies dyspnea Resp Denies chest congestion, Denies cough, Denies hemoptysis, Denies dyspnea and Denies wheezing GI Denies abdominal pain, Denies melena, Denies hematochezia, Denies coffee ground emesis, Denies dysphagia, Denies diarrhea, Denies nausea and Denies vomiting Denies urinary frequency, Denies dysuria, Denies urinary hesitancy and Denies urinary urgency Musc Denies arthralgias, Denies limited range of motion, Denies muscle cramps and Denies muscle weakness Skin/Breast Denies rash and Denies skin ulcer Neuro Denies Abnormal speech present, Denies confusion, Denies vertigo, Denies dizziness, Denies syncope, Denies headache(s), Denies memory loss and Denies seizure-like activity Psych Denies anxiety, Denies confusion, Denies depression, Denies memory loss, Denies panic attacks and Denies paranoia Endo Denies excessive sweating, Denies fatigue, Denies flushing, Denies polydipsia and Denies polyuria Aller/Immun Denies wheezing Physical exam (Primary Care) Vital Signs: Last Vital Signs Temp 97.1 F 04/15/24 11:14 Pulse 65 04/15/24 11:14 BP 122/70 04/15/24 11:14 Pulse Ox 98 04/15/24 11:14 Oxygen Delivery Method Room Air 04/15/24 11:14 BMI result Body Mass Index 26.0 Tobacco/Smoking Status: Tobacco use Status Tobacco use date assessed 04/15/24 04/15/24 10:54 Patient Tobacco Use Status Never used Tobacco 04/15/24 10:54 e-Cigarette/Vaping Use Never Used 04/15/24 10:54 PHQ-9: PHQ-9 Score PHQ-9: Total score 1 04/15/24 11:49 Depression Screening Interpretation: Negative Thrive Assessment: Date of Thrive Assessment Date Thrive assessed 04/15/24 04/15/24 10:54 Currently or been in a relationship where the following occur: I choose not to answer Const General: cooperative, comfortable, no acute distress, alert and awake; No confusion Orientation/consciousness: oriented to person, oriented to place, patient oriented x3 and No confusion HENMT Head: Yes normocephalic Ears: external ears normal and TM's normal bilaterally Face and sinus: No sinus tenderness Mouth: Normal oral and palatal mucosa present and tongue normal Teeth and gingiva: dentition normal and gingiva normal Throat: Yes posterior oropharynx normal, Yes tonsils normal and Yes uvula midline Eyes Conjunctivae: conjunctivae normal Sclerae: sclerae normal Pupils: Equal, round and reactive pupils present EOM: EOMs intact bilaterally Direct Ophthalmoscopy: No no photophobia Neck Neck: Yes no lymphadenopathy, No tender and Yes no JVD Thyroid: Thyroid normal Carotids: no bruits Chest Chest palpation & inspection: no tenderness Resp Effort & Inspection: normal respiratory effort, no audible wheezes, not labored and no stridor Auscultation: no crackles, no rales, no rhonchi and no wheezes Cardio Jugular venous distension: no JVD Rate: regular rate, not bradycardic and not tachycardic Rhythm: regular rhythm Bruits: no carotid bruits Peripheral pulses: Peripheral pulses 2+ throughout GI Inspection: Yes normal to inspection, No abdominal wall ecchymosis and No visible herniation Palpation (GI): Soft to palpation, nontender, no guarding, not rigid and No hepatosplenomegaly present Auscultation: normoactive bowel sounds General: Yes no CVA tenderness Back/Spine/Pelvis Back: no CVA tenderness and No back tenderness Cervical Spine: cervical ROM normal Thoracic/Lumbar Spine: thoracic and lumbar spine normal to inspection, straight leg raise negative bilaterally, No thoraco-lumbar ROM limited and No lumbar spinal tenderness Skin Lesions: no lesions Rashes: no rashes Wounds: no wounds Neuro General: oriented to person, oriented to place, patient oriented x3, CN's II-XI intact bilaterally and No confusion Cranial nerves: Yes Equal, round and reactive pupils present and Yes Normal accommodation reflex present Cognition (Neuro): normal cognition Speech: No Abnormal speech present Gait exam (Neuro): Normal gait present Motor exam (neuro): 5/5 motor strength present throughout Extrem Right upper extremity: full ROM; no cyanosis Left upper extremity: full ROM; no cyanosis Right lower extremity: no edema Left lower extremity: no edema Psych Appearance: grossly normal Mental Status: mental status grossly normal Affect: normal affect Attitude: cooperative Thought process: Normal thought process present Immunizations pneumoc 20-reynaldo conj-dip cr(PF) 0.5 mL IM syringe Performing Provider: Josh Dahl PA-C [facility] [place] [facility] Administered by: DARION Benedict on 04/15/24 11:49 Dose Route Admin Location Dispensed Lot Number Expiration Date [facility] Electrical Systems Engineer 0.5 mL IM Right Deltoid 0.5 mL [id number] 07/01/25 4260-7525-28 [employer] VIS Given Date VIS Provided VIS Publication Date 04/15/24 Single Vaccine 21 Eligibility Eligibility Date Funding Source Not [facility] Eligible 04/15/24 Private Coding Level of Care Code Est Pt Prev Care 40-64y(01533) Diagnoses Annual physical exam Z00.00 Hyperlipidemia, unspecified hyperlipidemia type E78.5 Hyperlipidemia type: unspecified Hypertension, unspecified type I10 Hypertension type: unspecified Type 2 diabetes mellitus with hyperglycemia, without long-term current use of insulin E11.65 Diabetes mellitus complication status: with hyperglycemia Diabetes mellitus senior care insulin use: without senior care use Additional Codes CASSANDRA-7 Assessment Billing - CASSANDRA-7 Assessment Tool: CASSANDRA-7 Assessment 93869 ([id number]) PHQ-9 - 33073 - PHQ-9 Billing: Yes ([id number]) Assessment & Plan Assessment & Plan (1) Annual physical exam: Code(s): Z00.00 - Encounter for general adult medical examination without abnormal findings Category: Medical Plan: As per HPI (2) HLD (hyperlipidemia): Code(s): E78.5 - Hyperlipidemia, unspecified Category: Medical Qualifiers: Hyperlipidemia type: unspecified Qualified Code(s): E78.5 - Hyperlipidemia, unspecified Plan: Patient has a history of hyperlipidemia. She has continued on simvastatin 20 mg. Most recent lipid panel showing excellent control over total cholesterol and LDL. Goal LDL is to remain below 100 (3) HTN (hypertension): Code(s): I10 - Essential (primary) hypertension Category: Medical Qualifiers: Hypertension type: unspecified Qualified Code(s): I10 - Essential (primary) hypertension Plan: Patient's blood pressure acceptable today in office. She has low blood pressures from time to time. She was started on midodrine 2.5 mg b.i.d. by her screen printing loader unloader. (4) T2DM (type 2 diabetes mellitus): Code(s): E11.9 - Type 2 diabetes mellitus without complications Category: Medical Qualifiers: Diabetes mellitus complication status: with hyperglycemia Diabetes mellitus exterminator termite insulin use: without exterminator termite use Qualified Code(s): E11.65 - Type 2 diabetes mellitus with hyperglycemia Plan: Patient's type 2 diabetes well controlled with lifestyle and dietary modifications. Goal A1c is to remain below 6.5. Orders: Orders Pneumococcal 20 Immunization 04/15/24 E11.65 - Type 2 diabetes mellitus with hyperglycemia, Z23 - Encounter for immunization Patient Instructions: Goal: A1c to remain below 6.5, LDL to remain below 100 Barriers: Adherence to physical activity and healthy eating habits
[2024-04-15 11:14] VITALS: BP 122/70; PULSE 65; TEMP 36.2; O2SAT 98; BMI 26.0
== END 2024-04-15 11:54 | disposition home or self-care (01) ==
PROVIDERS: PCP Physician Assistant; Visit Provider Physician Assistant
DX: Z23 Encounter for immunization (principal); E11.65 Type 2 diabetes mellitus with hyperglycemia

== ENCOUNTER → 2024-06-09 08:36 | Outpatient (AMB) | payer MEDICARE, MEDICAID, SELFPAY ==
--- OUTSIDE RECORDS SUMMARY | 2024-06-09 08:55 | XMS_ITS | Clinical Summary ---
Author Organization [address] [place] [address] [place] [phone] Phone Care Team Providers Care Carpenter Labor Supervisor Name Role Phone Josh Dahl Primary Care Provider Allergies Active Allergy Reactions Criticality Noted Date Comments Cefazolin Anaphylaxis High 02/19/2024 Medications cholecalciferol (VITAMIN D-3) 10 mcg (400 unit) tablet Take by mouth 1 (one) time each day. 125 mcg PO Daily Active cinacalcet (SENSIPAR) 30 mg tablet Take 1 tablet (30 mg total) by mouth. Take with food or shortly afer a meal. Swallow tablet whole; do not break or divide. Active FREESTYLE LANCETS MISC 3 (three) times a day. Active linaGLIPtin 5 mg tablet Take 1 tablet (5 mg total) by mouth 1 (one) time each day. Active LORazepam (ATIVAN) 1 mg tablet Take 1 tablet (1 mg total) by mouth 1 (one) time each day if needed for anxiety. Active midodrine (PROAMATINE) 2.5 mg tablet Take 1 tablet (2.5 mg total) by mouth 2 (two) times a day. Active simvastatin (ZOCOR) 20 mg tablet Take 1 tablet (20 mg total) by mouth at bedtime. Active tacrolimus (PROGRAF) 5 mg capsule Take 1 capsule (5 mg total) by mouth every 12 (twelve) hours. Active Active Problems Problem Noted Date Diagnosed Date Chronic kidney disease Hyperparathyroidism Hypertension Renal transplant recipient T2DM (type 2 diabetes mellitus) Encounters Date Type Department Care Team Description 03/12/2024 10:45 AM EST Office Visit Orthopedic Surgery [facility] [address] [phone] Cecil Muñoz DPM Diabetic mononeuropathy simplex ([facility]) (Primary Dx); Dermatophytosis of nail; Metatarsalgia of both feet; Tinea pedis of both feet from Last 3 Months Surgical History Surgery Date Site/Laterality Comments TRANSPLANTATION RENAL 01/31/2022 - 03/01/2022 ARTERIOVENOUS GRAFT Medical History Medical History Date Comments Chronic kidney disease Hyperparathyroidism ([facility]) T2DM (type 2 diabetes mellitus) ([facility]) Hypertension Renal transplant recipient Social History Tobacco Use Types Packs/Day Years Used Date Smoking Tobacco: Never Assessed Comments Unknown Sex and Gender Information Value Date Recorded Sex Assigned at Not on file Legal Sex Female 2:31 PM EDT Gender Identity Not on file Sexual Orientation Not on file Obstetrics History Last Filed Vital Signs Vital Sign Reading Time Taken Comments Blood Pressure 100/70 02/19/2024 9:20 AM EST Pulse 76 02/19/2024 9:20 AM EST Temperature - - Respiratory Rate 16 02/19/2024 9:20 AM EST Oxygen Saturation - - Inhaled Oxygen Concentration - - Weight 75.8 kg (167 lb) 03/12/2024 10:53 AM EST Height 170.2 cm (5' 7 ) 03/12/2024 10:53 AM EST Body Mass Index 26.16 03/12/2024 10:53 AM EST Plan of Treatment Upcoming Encounters Date Type Department Care Team (Late st Contact Info) Description 06/12/2024 10:00 AM EDT Office Visit Orthopedic Surgery - [place] [address] [phone] Cecil Muñoz DPM [address] [phone] Health Maintenance Due Date Last Done Comments Breast Cancer Screening 1975 Diabetes: Annual GFR (Glomerular Filtration Rate) 1975 Diabetes: Annual Foot Exam 10/15/1985 Diabetes: Annual Retina Eye Exam 10/15/1985 Pneumococcal Vaccine: Pediatrics (0 to 5 Years) and At-Risk Patients (6 to 64 Years) (1 of 2 - PCV) 10/15/1994 Cervical Cancer Screening: Pap Smear 10/15/1996 Cholesterol Screening (Lipid Panel) 01/18/2024 Colorectal Cancer Screening: Colonoscopy 01/18/2024 Depression Screening 01/18/2024 HIV Screening 01/18/2024 Hepatitis C Screening 01/18/2024 Medicare Annual Wellness Visit 01/18/2024 Social Influencers of Health Screening 01/18/2024 Diabetes: Annual Urine Albumin-Creatinine Ratio (uACR) 02/19/2024 Diabetes: Blood Sugar Control Test (HGBA1C) 02/19/2024 05/25/2022 Hypertension/CHF/CAD Annual BMP Blood Test 02/19/2024 DTaP,Tdap,and Td Vaccines (2 - Td or Tdap) 06/05/2033 06/06/2023 Hepatitis B Vaccines Completed 10/09/2005, 05/05/2005, 04/06/2005 Influenza Vaccine Completed 01/08/2024, , 01/05/2022 COVID-19 Vaccine Completed 01/14/2024, , 01/14/2022, Additional history exists HIB Vaccines Aged Out No longer eligi ble based on patient's age to complete this topic HPV Vaccines Aged Out No longer eligi ble based on patient's age to complete this topic Hepatitis A Vaccines Aged Out No long er eligible based on patient's age to complete this topic IPV Vaccines Aged Out No longer eligi ble based on patient's age to complete this topic MMR Vaccines Aged Out No longer eligi ble based on patient's age to complete this topic Meningococcal ACWY Vaccine Aged Out N o longer eligible based on patient's age to complete this topic Meningococcal B Vacine Aged Out No lo nger eligible based on patient's age to complete this topic RSV Immunization Patients Under 20 months Aged Out No longer eligible based on patient's age to complete this topic Varicella Vaccines Aged Out No longer eligible based on patient's age to complete this topic Insurance MEDICARE [place]ICA[place] - [place] Care Teams Carpenter Labor Supervisor Relationship Specialty Start Date End Date Josh Dahl PA [address] [place] [phone] PCP - General Physician Manager Of Planning 01/23/24
--- OUTSIDE RECORDS SUMMARY | 2024-06-09 08:55 | XMS_ITS | Clinical Summary ---
Author Organization [facility] Address [address] [place] [address] Care Team Providers Care Diesel Lube Tech Name Role Phone Pcp, No Primary Care Provider Unavailabl e Social History Tobacco Use Types Packs/Day Years Used Date Smoking Tobacco: Never Assessed Sex and Gender Information Value Date Recorded Sex Assigned at Female 04/10/2023 3:34 PM EST Gender Identity Female 04/10/2023 3:34 PM EST Sexual Orientation Heterosexual (straight) 04/10 3:34 PM EST Plan of Treatment Health Maintenance Due Date Last Done Comments Hepatitis C Virus Screening 1975 HIV Screening 10/15/1988 DTaP/Tdap/Td Vaccines (1 - Tdap) 10/15/1994 Pneumococcal Vaccine: Pediat susie (0-5 Years) and At-Risk Patients (6 to 49 Years) (1 of 2 - PCV) 10/15/1994 Hepatitis B Vaccines (1 of 3 - Risk Dialysis 4-dose series) 1995 Pap Smear (Ages 21-65) 10/15/1996 Mammogram 2015 Colonoscopy 10/15/2020 Influenza Vaccine 11/01/2023 01/05/2022, 01/05/2022 COVID-19 Vaccine ( season) 2023, 04/23/2021 Care Teams Diesel Lube Tech Relationship Specialty Start Date End Date Pcp, No PCP - General General Medicine 04/04/23
--- OUTSIDE RECORDS SUMMARY | 2024-06-09 08:55 | XMS_ITS | Encounter Summary ---
Author Organization [facility] Address [address] [address] Phone Care Team Providers Care Unloading Checker Name Role Phone Josh Dahl Primary Care Provider [phone] Reason for Referral * Procedures (Routine) - Closed Specialty Diagnoses / Procedures Referred By Contac t Referred To Contact Vascular Access Surgery Diagnoses Kidney transplant status Hu Rodriguez MD [address] [address] Phone: tel: fax: Referral ID Status Reason Start Date Expiration Date Visits Re quested Visits Authorized [id number] Closed 01/30/2024 01/29/2025 1 1 Encounter Details Date Type Department Care Team (Latest Contact Info) Description 01/30/2024 Office Communication [facility] [address] [address] Hu Rodriguez MD [address] [address] Kidney transplant status (Primary Dx) Social History Tobacco Use Types Packs/Day Years Used Date Smoking Tobacco: Never Smokeless Tobacco: Never Alcohol Use Standard Drinks/Week Comments No 0 (1 standard drink = 0.6 oz pur e alcohol) Comments Unknown Sex and Gender Information Value Date Recorded Sex Assigned at Not on file Legal Sex Female 5:09 PM EST Gender Identity Not on file Sexual Orientation Not on file documented as of this encounter Miscellaneous Notes * Telephone Encounter - Hu Rodriguez MD - 01/30/2024 10:47 AM EDT Refer ro Dr Flores to eval removal of her clotted AVF documented in this encounter Plan of Treatment Upcoming Encounters Date Type Department Care Team (Late st Contact Info) Description 08/06/2024 9:30 AM EDT Office Visit [facility] [address] [address] Hu Rodriguez MD [address] [phone] Scheduled Referrals Name Type Priority Associated Diagnoses Order Schedule Ambulatory referral to Vascular Access Center Outpatient Referral Routine Kidney transplant status Expected: 02/13/2024 (Approximate), Expires: 03/01/2025 documented as of this encounter Visit Diagnoses Diagnosis Kidney transplant status- Primary documented in this encounter Care Teams Unloading Checker Relationship Specialty Start Date End Date Josh Dahl PA [address] [place] [address], [address] [place] [address] PCP - General Physician Insulation Blower 10/31/23 documented as of this encounter
--- OUTSIDE RECORDS SUMMARY | 2024-06-09 08:55 | XMS_ITS | Clinical Summary ---
Author Organization [facility] Address [address] [place] [address] Phone Care Team Providers Care Bowling Alley Mechanic Name Role Phone Josh Dahl Primary Care Provider Allergies Active Allergy Reactions Criticality Noted Date Comments Cefazolin Anaphylaxis,Other (see comments) High 04/2014 Medications Cholecalciferol (Vitamin D-3) 125 MCG (5000 UT) tablet Take 5,000 Units by mouth 1 (one) time each day Active linaGLIPtin (Tradjenta) 5 MG tablet Take 5 mg by mouth 1 (one) time each day Active cinacalcet (SENSIPAR) 30 MG tablet TAKE 1 TABLET (30 MG TOTAL) BY MOUTH 1 (ONE) TIME EACH DAY 90 tablet 3 01/15/2024 5 Active fludrocortisone 0.1 MG tabletIndicatio ns:Kidney replaced by transplant TAKE ONE TABLET BY MOUTH ONCE DAILY 90 tablet 3 01/15/2024 Active midodrine (PROAMATINE) 2.5 MG tablet Take 1 tablet (2.5 mg total) by mouth in the morning and 1 tablet (2.5 mg total) in the evening and 1 tablet (2.5 mg total) before bedtime. 180 tablet 01/30/2024 5 Active simvastatin (ZOCOR) 20 MG tablet Take 1 tablet (20 mg total) by mouth 1 (one) time each day 90 tablet 3 01/31/2024 5 Active Envarsus XR 1 MG tablet sustained-relea se 24 hour TAKE 6 TABLET BY MOUTH 1 (ONE) TIME EACH DAY 180 tablet 5 04/03/2024 Active chlorhexidine (PERIDEX) 0.12 % solution SWISH A CAPFUL AFTER MEALS TWICE DAILY. DO NOT SWALLOW. RINSE WITH WATER AFTER USE. 04/22/2024 Active Active Problems Problem Noted Date Diagnosed Date Kidney replaced by transplant 06/28/2022 Leukopenia 06/07/2022 Abnormal vaginal bleeding 05/22/2022 Obesity 05/22/2022 Intellectual disability 05/22/2022 Intellectual disability 05/22/2022 Seizure 05/22/2022 History of renal transplant 02/11/2022 Overview (05/22/2022): Campath induction Pneumonia 12/01/2016 Anemia of chronic renal failure 06/26/2013 Developmental delay 06/26/2013 Displaced ureteric orifice 06/26/2013 Hyperparathyroidism due to renal insufficiency 0 06/26/2013 Hyperlipidemia 06/26/2013 Essential hypertension 05/23/2012 Resolved Problems Problem Noted Date Diagnosed Date Resolved Date Iron deficiency anemia 05/22/202208/08 Diabetes mellitus 06/26/2013 08/08/2022 Hyperphosphatemia 06/26/2013 08/08/2022 Vitamin D deficiency 06/26/2013 023 Encounters Date Type Department Care Team Description 05/09/2024 9:00 AM EST Office Visit [facility] [address] [facility] [address] [place] [address] Hu Rodriguez MD Kidney replaced by transplant (Primary Dx); Essential hypertension 05/09/2024 Orders Only [facility] [address] [facility] [address] [place] [address] Hu Rodriguez MD 04/03/2024 Refill [facility] [address] [place] [address] Hu Rodriguez MD from Last 3 Months Immunizations Name Administration Dates Next Due Hep B, Unspecified 10/09/2005,05/05/2005, 006 Influenza, Unspecified 01/05/2022 Pfizer SARS-COV-2 04/23/2021 SARS-CoV-2, Unspecified 01/14/2022 Social History Tobacco Use Types Packs/Day Years Used Date Smoking Tobacco: Never Smokeless Tobacco: Never Tobacco Cessation:Counseling Given: No Alcohol Use Standard Drinks/Week Comments No 0 (1 standard drink = 0.6 oz pur e alcohol) Comments Unknown Sex and Gender Information Value Date Recorded Sex Assigned at Not on file Legal Sex Female 5:09 PM EST Gender Identity Not on file Sexual Orientation Not on file Last Filed Vital Signs Vital Sign Reading Time Taken Comments Blood Pressure 124/74 05/09/2024 8:40 AM EST Pulse 76 05/09/2024 8:40 AM EST Temperature 36.2 ??C (97.1 ??F) 08/30/2022 10:45 AM E DT Respiratory Rate - - Oxygen Saturation 99% 05/09/2024 8:40 AM EST Inhaled Oxygen Concentration - - Weight 74.8 kg (165 lb) 05/09/2024 8:40 AM EST Height 170.2 cm (5' 7 ) 10/31/2023 1:00 PM EDT Body Mass Index 25.84 10/31/2023 1:00 PM EDT Plan of Treatment Upcoming Encounters Date Type Department Care Team (Late st Contact Info) Description 08/06/2024 9:30 AM EDT Office Visit [facility] [address] [address] Hu Rodriguez MD [address] [address] Health Maintenance Due Date Last Done Comments Pneumococcal Vaccine: Pediat rics (0 to 5 Years) and At-Risk Patients (6 to 64 Years) (1 of 2 - PCV) 10/15/1981 Hepatitis B Vaccine (1 of 3 - 19+ 3-dose series) 10/15/1994 10/09/2005, 05/05/2005, 04/06/2005 Diabetes: Ophthalmology Exam 05/03/2020 Diabetes: Pedal Pulse Checked 05/03/2020 Diabetes: Sensory Foot Exam 05/03/2020 Diabetes: Visual Foot Exam 05/03/2020 Diabetes: Hemoglobin A1C 08/22/2022 023, 01/04/2022, 10/05/2021, Additional history exists Influenza Vaccine (#1) 2023 01/05/2022 Procedures Procedure Name Priority Date/Time Associated Diagnosis Comments TACROLIMUS, HIGHLY SENSITIVE, LC/MS/MS Routine 05/09/2024 9:32 AM EST CBC AND DIFFERENTIAL Today 05/09/2024 9:24 AM EST Kidney replaced by transplant Essential hypertension PROTEIN / CREATININE RATIO, URINE Today 05/09/2024 9:23 AM EST Kidney replaced by transplant Essential hypertension URINE ALBUMIN / CREATININE RATIO Today 05/09/2024 9:23 AM EST Kidney replaced by transplant Essential hypertension URINALYSIS WITH MICROSCOPIC Today 05/09/2024 9:23 AM EST Kidney replaced by transplant Essential hypertension RENAL FUNCTION PANEL Today 05/09/2024 9:23 AM EST Kidney replaced by transplant Essential hypertension MICROSCOPIC EXAMINATION - DO NOT USE Today 05/09/2024 9:23 AM EST HEMOGLOBIN A1C Routine 05/25/2022 8:45 AM EST from Last 3 Months or Most Recently Relevant to Health Maintenance Results * Tacrolimus, Highly Sensitive, LC/MS/MS (05/09/2024 9:32 AM EST) Tacrolimus by Immunoassay 8.6 5 - 20 NG/ML [facility] Comment: Tacrolimus Renal transplant patients (C0-trough level*): 0 - 3 months, 10 - 15 ng/mL: >3 - 12 months, 5 - 15 ng/mL: >12 months: 5 - 10 ng/mL (assuming no induction, mTOR inhibitor or IL-2 receptor antibody therapy) *Disclaimer: The target therapeutic ranges given here are a general guide and exact ranges may differ according to therapeutic indication. Please refer appropriate professional body guidance documents and references cited below. Tuan T, Troy C, Jeffrey N, et al Randomized trial of tacrolimus + mycophenolate mofetil or azathioprine versus cyclosporine + mycophenolate mofetil after cadaveric kidney transplantation: Results at three years Transplantation. 2003,75:2048-53. Ping Y, van Marciano JUAN R, Te JUAN R, et al Minimization of immunosuppressive therapy after renal transplantation: Results of a randomized controlled trial Am J Transplant. 2005,5:87-95. Jaswinder FG, Trevin H, Arden JUAN R, et al. Comparison of low versus high tacrolimus levels in kidney transplantation: Assessment of efficacy by protocol biopsies Transplantation. 2007,83:411-6. Charles P, Travon VW, Gene M, et al Opportunities to optimize tacrolimus therapy in solid organ transplantation: Report of the consensus conference Ther Drug Monit. 2009,31:139-52. Josue Singh, Orly Singh., Samantha, T.L.H. et al. Higher tacrolimus trough levels and time in the therapeutic range are associated with the risk of acute rejection in the first month after renal transplantation. [facility] 2022,24, 131. 05/09/2024 9:32 AM EST 05/09/2024 us Hu Rodriguez MD LAB BLOOD ORDERABLES Final Re sult [facility] [address] [place] [address] * (ABNORMAL) CBC and differential (05/09/2024 9:24 AM EST) WBC 4.2 3.4 - 10.8 x10E3/uL [facility] RBC 4.51 3.77 - 5.28 x10E6/uL [facility] Hemoglobin 13.7 11.1 - 15.9 g/dL [facility] Hematocrit 42.2 34.0 - 46.6 % [facility] MCV 94 79 - 97 fL [facility] MCH 30.4 26.6 - 33.0 pg [facility] MCHC 32.5 31.5 - 35.7 g/dL [facility] RDW 13.8 11.7 - 15.4 % [facility] Platelets 127(L) 150 - 450 x10E3/uL [facility] Neutrophils Relative 76 Not Estab. % [facility] Lymphocytes Relative 15 Not Estab. % [facility] Monocytes 6 Not Estab. % [facility] Eosinophils Relative 2 Not Estab. % [facility] Basophils Relative 1 Not Estab. % [facility] Neutrophils Absolute 3.2 1.4 - 7.0 x10E3/uL [facility] Lymphocytes Absolute 0.7 0.7 - 3.1 x10E3/uL [facility] Monocytes Absolute 0.3 0.1 - 0.9 x10E3/uL [facility] Eosinophils Absolute 0.1 0.0 - 0.4 x10E3/uL [facility] Basophils Absolute 0.0 0.0 - 0.2 x10E3/uL [facility] Immature Granulocytes 0 Not Estab. % [facility] Immature Grans (Absolute) 0.0 0.0 - 0.1 x10E3/uL [facility] Blood (Blood, Venous) 05/09/2024 9:24 AM EST 05/09/2024 us Hu Rodriguez MD LAB BLOOD ORDERABLES Final Re sult [facility] [address] [place] [address] * (ABNORMAL) Microscopic Examination (05/09/2024 9:23 AM EST) WBC, Urine 0-5 0 - 5 /hpf [facility] RBC, Urine None seen 0 - 2 /hpf [facility] Squamous Epithelial, Urine >10(A) 0 - 10 /hpf [facility] Casts None seen None seen /lpf [facility] Bacteria, Urine None seen None seen/Few [facility] 05/09/2024 9:23 AM EST 05/09/2024 Hu Rodriguez MD LAB MICROBIOLOGY - GENERAL OR DERABLES Final Result Performing Organization Address [facility]/ZIP Co de Phone Number [facility] [address] [place] [address] * (ABNORMAL) Protein, Total, Random Urine w/Creatinine (Protein/Creat Ratio) (05/09/2024 9:23 AM EST) Creatinine, Ur 70.5 Not Estab. mg/dL [facility] Protein, Ur 22.5 Not Estab. mg/dL [facility] Urine Protein/Creati nine Ratio 319(H) 0 - 200 mg/g creat [facility] Urine (Urine, Clean Catch) 05/09/2024 9:23 AM EST 05/09/2024 Hu Rodriguez MD LAB URINE ORDERABLES Final Re sult Performing Organization Address City/[facility]/ZIP Co de Phone Number [facility] [address] [place] [address] * Urine Albumin / Creatinine Ratio (05/09/2024 9:23 AM EST) Albumin, Urine <3.0 Not Estab. ug/mL [facility] Albumin/Creatin ine Ratio <4 0 - 29 mg/g creat [facility] Comment: ? Normal: ?0 - ??29 ? Moderately increased: 30 - 300 ? Severely increased: ? >300 Urine (Urine, Clean Catch) 05/09/2024 9:23 AM EST 05/09/2024 us Hu Rodriguez MD LAB URINE ORDERABLES Final Re sult [facility] [address] [place] [address] * (ABNORMAL) Urinalysis with microscopic (05/09/2024 9:23 AM EST) [facility] Specific [place], Urine 1.015 1.005 - 1.030 [facility] pH Urine 6.5 5.0 - 7.5 [facility] Color, Urine Yellow Yellow [facility] [phone] Appearance Urine Clear Clear [facility] [place] WBC Esterase Urine Trace(A) Negative [facility] Protein, Ur Negative Negative/Tra ce [facility] Glucose, Ur Negative Negative [facility] Ketones, Urine Negative Negative [facility] [phone] Blood Urine Negative Negative [facility] Bilirubin Urine Negative Negative [facility] Urobilinogen Urine 0.2 0.2 - 1.0 mg/dL [facility] Nitrite, Urine Negative Negative [facility] Microscopic Examination See below: [facility] [phone] Comment:Microscopic was kaylin cated and was performed. Urine (Urine, Clean Catch) 05/09/2024 9:23 AM EST 05/09/2024 us Hu Rodriguez MD LAB URINE ORDERABLES Final Re sult [facility] [address] [place] [address] * (ABNORMAL) Renal Function Panel (05/09/2024 9:23 AM EST) Glucose 102(H) 70 - 99 mg/dL [facility] BUN 22 6 - 24 mg/dL [facility] Creatinine 1.05(H) 0.57 - 1.00 mg/dL [facility] eGFR CKD-EPI CR 2020 66 >59 mL/min/1.7 3 [facility] BUN/Creatinine Ratio 21 9 - 23 [facility] Sodium 144 134 - 144 mmol/L [facility] Potassium 4.6 3.5 - 5.2 mmol/L [facility] Chloride 107(H) 96 - 106 mmol/L [facility] Bicarbonate (CO2) 24 20 - 29 mmol/L [facility] Calcium 9.1 8.7 - 10.2 mg/dL [facility] Albumin 4.2 3.9 - 4.9 g/dL [facility] Phosphorus 4.2 3.0 - 4.3 mg/dL [facility] Blood (Blood, Venous) 05/09/2024 9:23 AM EST 05/09/2024 Hu Rodriguez MD LAB BLOOD ORDERABLES [facility] [address] [place] [phone] * Hemoglobin A1c (05/25/2022 8:45 AM EST) Hemoglobin A1C 5.2 (4.0-5.6) % [facility] Comment: MONITORING: In known diabetic patients, hemoglobin A1c targets should be discussed with health care provider. DIAGNOSTIC USE: ??The [place] Diabetes Association (ADA) and the World Health Organization (WHO) recommend the use of HbA1c to diagnose diabetes using a threshold of 6.5%. Patients who have an HbA1c between 5.7% and 6.4% are considered at increased risk for developing diabetes in the future. CAUTION: Falsely low HbA1c results may be observed in patients with hemolytic anemia, homozygous forms of abnormal hemoglobin (e.g. SS, CC, SC), , recent blood loss or hemoglobin F greater than 7%. Fructosamine may be used as an alternate test in these cases. REFERENCE: ADA: Standards of Medical Care in Diabetes 2020, The Journal of Clinical and Applied Research and Education Volume 43, Supplement 1 Testing performed or reported by [facility], a Service of [facility], [address] [place] [address] Jayne Ramírez MD, Air Twist Operator [facility]# [id number] 05/25/2022 8:45 AM EST 05/25/2022 8:54 AM EST Jackson Nettles MD LAB BLOOD ORDERABLES Final Re sult [facility] from Last 3 Months or Most Recently Relevant to Health Maintenance Insurance [place] Care Teams Bowling Alley Mechanic Relationship Specialty Start Date End Date Josh Dahl PA [address] [place] [address], [address] [place] [address] PCP - General Physician Inclusion Paraeducator 10/31/23
--- NOTE | 2024-06-09 09:04 | MHC.AMNUTRGE ---
VS Expanded 06/09/24 09:10 Height 5 ft 7 in Weight 167 lb 15.876 oz BMI 26.3 Intake Visit Reasons: T2DM Allergies cefazolin Allergy (Severe, Verified 04/15/24 11:34) Anaphylaxis Nutrition Presentation Details: Pt presents for MNT f/u for T2DM diet controlled, post kidney transplant Pt reports having 3 meals/day working on healthy plate method the majority of the time food frequency dairy: 1-3 servings/day (yogurt, milk, and fortified milk alternatives , smoothies fish/wk : 1-2 x/wk nonstarchy ve-3 serving/d : including greens at least 3 times/wk fruits: 1-3 /day including fruit juice starches: 18-20 serving/d: choosing variety including whole grains physical activity 3 times/wk : walking 20 min feeling well, no questions or corncerns exprssed BS Monitoring Most Recent Diabetes Results: Microalb/Creat Ratio TNP 04/15/24 PFSH Medical History Annual physical exam Cervical cancer screening Obesity due to excess calories Adult general medical exam Colonoscopy planned Encounter for subsequent annual wellness visit (AWV) in Medicare patient Vitamin D deficiency HLD (hyperlipidemia) T2DM (type 2 diabetes mellitus) AV fistula Obesity (BMI 30-39.9) Autism spectrum Pure hypercholesterolemia End stage renal disease on dialysis Type 2 diabetes mellitus with diabetic chronic kidney disease Surgical History Kidney transplanted History of colonoscopy History of open reduction and internal fixation (ORIF) procedure H/O bilateral breast reduction surgery History of appendectomy Family History Father No problems noted. Mother No problems noted. 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) Vision needs: Yes (wear glasses) Assessment & Plan Assessment & Plan (1) T2DM (type 2 diabetes mellitus): Code(s): E11.9 - Type 2 diabetes mellitus without complications Category: Medical Qualifiers: Diabetes mellitus custodial insulin use: without custodial use Diabetes mellitus complication status: with hyperglycemia Qualified Code(s): E11.65 - Type 2 diabetes mellitus with hyperglycemia Plan: wt: 78 kg (04/17/23) , 77kg( 07/2023), 76 kg (06/24) Est kcal needs as per MSJ: 1700 (40% carb, 30% protein/fat) Est fluid needs as per 30 ml/d: 2300 Est prot per day as per 1 g/kg bw: 78 Recommend fiber intake : 8-10 g per day and gradually increase to 25-28 g per day for women and 35-38 g for men or as tolerated Recommend sodium intake per day : less than 2000 mg Educated patient on: ( R = reviewed V = verbalizes understanding N/R = needs review N/A = not applicable Food sources of carbohydrate, adequate serving sizes and its role in various health conditions: R,V Differences between complex carbohydrates a simple carbohydrates, role of fiber in diet: Rv Differences between types of fats and role in diet (mono on saturated fat fatty acids, saturated fatty acids, trans fats): R ,V Food sources of sodium in salt and healthy modifications for heart health in kidney health: R,v Healthy plate method concept: R , V Physical activity: Benefits a precaution: R, V Dietary prevention of Hyperglycemia: R, V Patient Instructions: Continue working on following healthy plate method , trying a variety of foods Keep physically active, goal 150 minutes per week Keep hydrated , 8-9 c of fluid/day Coding Level of Care Code Nutr Indiv Subseq ([id number]) Diagnoses Type 2 diabetes mellitus with hyperglycemia, without long-term current use of insulin E11.65 Diabetes mellitus custodial insulin use: without middle or intermediate school principal use Diabetes mellitus complication status: with hyperglycemia Time Spent (min) 30
[2024-06-09 09:10] VITALS: BMI 26.3
== END ==
PROVIDERS: PCP Physician Assistant; Visit Provider Dietitian, Registered
DX: E11.65 Type 2 diabetes mellitus with hyperglycemia (principal)

== ENCOUNTER → 2024-06-09 08:36 | Outpatient (BNVA) | payer MEDICARE, MEDICAID, SELFPAY | PROVIDERS: PCP Physician Assistant; Visit Provider Dietitian, Registered | DX: E11.65 Type 2 diabetes mellitus with hyperglycemia (principal); Z94.0 Kidney transplant status; Z71.3 Dietary counseling and surveillance | CPT/HCPCS: 97803 ==

== ENCOUNTER 2024-08-15 11:31 | Outpatient (REF) | payer MEDICARE, MEDICAID, SELFPAY ==
--- OUTSIDE RECORDS SUMMARY | 2024-08-15 11:47 | XMS_ITS | Clinical Summary ---
Author Organization [facility] Address [address] [place] [address] Phone Care Team Providers Care Facilities Manager Name Role Phone Josh Dahl Primary Care Provider [phone] Allergies Active Allergy Reactions Criticality Noted Date Comments Cefazolin Anaphylaxis,Other (see comments) High 04/2014 Medications Cholecalcifero l (Vitamin D-3) 125 MCG (5000 UT) tablet Take 5,000 Units by mouth 1 (one) time each day Active cinacalcet (SENSIPAR) 30 MG tablet TAKE 1 TABLET (30 MG TOTAL) BY MOUTH 1 (ONE) TIME EACH DAY 90 tablet 3 4 025 Active fludrocortison e 0.1 MG tabletIndicati ons:Kidney replaced by transplant TAKE ONE TABLET BY MOUTH ONCE DAILY 90 tablet 3 4 Active simvastatin (ZOCOR) 20 MG tablet Take 1 tablet (20 mg total) by mouth 1 (one) time each day 90 tablet 3 4 025 Active Envarsus XR 1 MG tablet sustained-rele ase 24 hour TAKE 6 TABLET BY MOUTH 1 (ONE) TIME EACH DAY 180 tablet 5 5 Active chlorhexidine (PERIDEX) 0.12 % solution SWISH A CAPFUL AFTER MEALS TWICE DAILY. DO NOT SWALLOW. RINSE WITH WATER AFTER USE. 5 Active midodrine (PROAMATINE) 2.5 MG tablet TAKE ONE TABLET BY MOUTH EVERY MORNING, TAKE ONE TABLET EVERY EVENING, TAKE ONE TABLET BEFORE BEDTIME DIRECTED 180 tablet 1 5 Active linaGLIPtin (Tradjenta) 5 MG tablet Take 5 mg by mouth 1 (one) time each day 025 Discontinued midodrine (PROAMATINE) 2.5 MG tablet Take 1 tablet (2.5 mg total) by mouth in the morning and 1 tablet (2.5 mg total) in the evening and 1 tablet (2.5 mg total) before bedtime. 180 tablet 4 025 Discontinued Active Problems Problem Noted Date Diagnosed Date [...] Encounters Date Type Department Care Team Description 08/06/2024 9:30 AM EDT Office Visit [facility] [address] [phone] Hu Rodriguez MD Kidney replaced by transplant (Primary Dx) 07/24/2024 Refill [facility] [address] [phone] Hu Rodriguez MD from Last 3 Months Immunizations Immunization Administration Dates Next Due Hep B, Unspecified [...] Reading Time Taken Comments Blood Pressure 100/70 08/06/2024 9:16 AM EDT Pulse 77 08/06/2024 9:16 AM EDT Temperature 36.2 ??C (97.1 ??F) 08/30/2022 1 0:45 AM EDT Respiratory Rate - - Oxygen Saturation 99% 05/09/2024 8:40 AM EST Inhaled Oxygen Concentration - - Weight 75.2 kg (165 lb 12.8 oz) 08/06/2024 9:16 AM EDT Height 170.2 cm (5' 7 ) 10/31/2023 1:00 PM EDT Body Mass Index 25.97 10/31/2023 1:00 PM EDT Plan of Treatment Upcoming Encounters Date Type Department Care Team (Late st Contact Info) Description 11/07/2024 9:00 AM EDT Office Visit [facility] [address] [address] Hu Rodriguez MD [address] [phone] Health Maintenance Due Date Last Done Comments Hepatitis B Vaccine (1 of 3 - 19+ 3-dose series) 10/15/1994 10/09/2005, 05/05/2005, 04/06/2005 Pneumococcal Vaccine: Peds ( 0 to 5 Years) and At-Risk Patients (6 to 49 Years) (1 of 2 - PCV) 10/15/1994 Diabetes: Ophthalmology Exam 05/03/2020 Diabetes: Pedal Pulse Checked 05/03/2020 Diabetes: Sensory Foot Exam 05/03/2020 Diabetes: Visual Foot Exam 05/03/2020 Diabetes: Hemoglobin A1C 08/22/2022 023, 01/04/2022, 10/05/2021, Additional history exists Influenza Vaccine (Season Ended) 2024 01/06/20 22 Procedures Procedure Name Priority Date/Time Associated Diagnosis Comments TACROLIMUS LEVEL Today 08/06/2024 10:0 4 AM EDT Kidney replaced by transplant CBC AND DIFFERENTIAL Today 08/06/2024 10:04 AM EDT Kidney replaced by transplant PROTEIN / CREATININE RATIO, URINE Today 08/06/2024 10:04 AM EDT Kidney replaced by transplant URINE ALBUMIN / CREATININE RATIO Today 08/06/2024 10:04 AM EDT Kidney replaced by transplant URINALYSIS WITH MICROSCOPIC Today 08/06/2024 10:04 AM EDT Kidney replaced by transplant RENAL FUNCTION PANEL Today 08/06/2024 10:04 AM EDT Kidney replaced by transplant MICROSCOPIC EXAMINATION - DO NOT USE Today 08/06/2024 10:04 AM EDT HEMOGLOBIN A1C Routine 05/25/2022 8:45 AM EST from Last 3 Months or Most Recently Relevant to Health Maintenance Results * Microscopic Examination (08/06/2024 10:04 AM EDT) WBC, Urine None seen 0 - 5 /hpf [facility] RBC, Urine None seen 0 - 2 /hpf [facility] Squamous Epithelial, Urine 0-10 0 - 10 /hpf [facility] Casts None seen None seen /lpf [facility] Bacteria, Urine None seen None seen/Few [facility] 08/06/2024 10:0 4 AM EDT 08/06/2024 Hu Rodriguez MD LAB MICROBIOLOGY - GENERAL OR DERABLES Final Result Performing Organization Address City/[facility]/ZIP Co de Phone Number [facility] [address] [place] [address] * Tacrolimus level (08/06/2024 10:04 AM EDT) Tacrolimus Lvl 7.7 5.0 - 20.0 ng/mL [facility] Comment: Target steady state trough concentration for Tacrolimus varies based on type of organ transplant immunosuppressive protocol and other patient specific factors. ??Tacrolimus trough concentrations should be interpreted in conjunction with clinical assessments of rejection and tolerability. ??Values obtained with different assay methods cannot be used interchangeably due to differences in assay methods and cross-reactivty with metabolites, nor should correction factors be applied. ??Therefore, consistent use of one assay for individual patients is recommended. Detection Limit = 0.5 ng/mL Performed by LC-MS/MS technology. Blood (Blood, Venous) 08/06/2024 10:04 AM EDT 08/06/2024 Narrative [facility] - 08/08/2024 6:06 PM EDT Test(s) [id number] ([id number]), Blood was developed and its performance characteristics determined [facility]. It has not been cleared or approved by the Food and Drug Administration. Hu Rodriguez MD LAB BLOOD ORDERABLES Final Re sult Performing Organization Address City/[facility]/ZIP Co de Phone Number [facility] [place] [address] * Protein, Total, Random Urine w/Creatinine (Protein/Creat Ratio) (08/06/2024 10:04 AM EDT) Creatinine, Ur 52.3 Not Estab. mg/dL [facility] Protein, Ur 5.5 Not Estab. mg/dL [facility] Protein/Creatin ine Ratio 105 0 - 200 mg/g creat [facility] Urine (Urine, Clean Catch) 08/06/2024 10:04 AM EDT 08/06/2024 Hu Rodriguez MD LAB URINE ORDERABLES Final Re sult Performing Organization Address [facility] de Phone Number [facility] [address] [place] [address] * Urine Albumin / Creatinine Ratio (08/06/2024 10:04 AM EDT) Albumin, Urine <3.0 Not Estab. ug/mL [facility] Albumin/Creatin ine Ratio <6 0 - 29 mg/g creat [facility] Comment: ? Normal: ?0 - ??29 ? Moderately increased: 30 - 300 ? Severely increased: ? >300 Urine (Urine, Clean Catch) 08/06/2024 10:04 AM EDT 08/06/2024 Hu Rodriguez MD LAB URINE ORDERABLES Final Re sult Performing Organization Address [facility] Co de Phone Number [facility] [address] [place] [address] * Urinalysis with microscopic (08/06/2024 10:04 AM EDT) Specific [place], Urine 1.012 1.005 - 1.030 [facility] pH Urine 6.5 5.0 - 7.5 [facility] Color, Urine Yellow Yellow [facility] Appearance Urine Clear Clear [facility] WBC Esterase Urine Negative Negative [facility] Protein, Ur Negative Negative/Tra ce [facility] Glucose, Ur Negative Negative [facility] Ketones, Urine Negative Negative [facility] Blood Urine Negative Negative [facility] Bilirubin Urine Negative Negative [facility] Urobilinogen Urine 0.2 0.2 - 1.0 mg/dL [facility] Nitrite, Urine Negative Negative [facility] Microscopic Examination Comment [facility] Comment:Microscopic follows if indicated. Other Microsc. Observations See below: [facility] Comment:Microscopic was kaylin cated and was performed. Urine (Urine, Clean Catch) 08/06/2024 10:04 AM EDT 08/06/2024 us Hu Rodriguez MD LAB URINE ORDERABLES Final Re sult [facility] [address] [place] [address] * (ABNORMAL) CBC and differential (08/06/2024 10:04 AM EDT) WBC 4.6 3.4 - 10.8 x10E3/uL [facility] RBC 4.61 3.77 - 5.28 x10E6/uL [facility] Hemoglobin 14.8 11.1 - 15.9 g/dL [facility] Hematocrit 42.9 34.0 - 46.6 % [facility] MCV 93 79 - 97 fL [facility] MCH 32.1 26.6 - 33.0 pg [facility] MCHC 34.5 31.5 - 35.7 g/dL [facility] RDW 12.9 11.7 - 15.4 % [facility] Platelets 125(L) 150 - 450 x10E3/uL [facility] Neutrophils Relative 72 Not Estab. % [facility] Lymphocytes Relative 17 Not Estab. % [facility] Monocytes 6 Not Estab. % [facility] Eosinophils Relative 4 Not Estab. % [facility] Basophils Relative 1 Not Estab. % [facility] Neutrophils Absolute 3.4 1.4 - 7.0 x10E3/uL [facility] Lymphocytes Absolute 0.8 0.7 - 3.1 x10E3/uL [facility] Monocytes Absolute 0.3 0.1 - 0.9 x10E3/uL [facility] Eosinophils Absolute 0.2 0.0 - 0.4 x10E3/uL [facility] Basophils Absolute 0.0 0.0 - 0.2 x10E3/uL [facility] Immature Granulocytes 0 Not Estab. % [facility] Immature Grans (Absolute) 0.0 0.0 - 0.1 x10E3/uL [facility] Blood (Blood, Venous) 08/06/2024 10:04 AM EDT 08/06/2024 us Hu Rodriguez MD LAB BLOOD ORDERABLES Final Re sult [facility] [address] [place] [address] * (ABNORMAL) Renal Function Panel (08/06/2024 10:04 AM EDT) Pathologist [facility] Glucose 104(H) 70 - 99 mg/dL [facility] BUN 23 6 - 24 mg/dL [facility] Creatinine 1.14(H) 0.57 - 1.00 mg/dL [facility] eGFR CKD-EPI CR 2020 59(L) >59 mL/min/1.7 3 [facility] BUN/Creatinine Ratio 20 9 - 23 [facility] Sodium 143 134 - 144 mmol/L [facility] Potassium 4.5 3.5 - 5.2 mmol/L [facility] Chloride 104 96 - 106 mmol/L [facility] Bicarbonate (CO2) 21 20 - 29 mmol/L [facility] Calcium 9.3 8.7 - 10.2 mg/dL [facility] Albumin 4.3 3.9 - 4.9 g/dL [facility] Phosphorus 4.0 3.0 - 4.3 mg/dL [facility] Blood (Blood, Venous) 08/06/2024 10:04 AM EDT 08/06/2024 us Hu Rodriguez MD LAB BLOOD ORDERABLES Final Re sult [facility] [address] [place] [address] * Hemoglobin A1c (05/25/2022 8:45 AM EST) Pathologist [facility] Hemoglobin A1C 5.2 (4.0-5.6) % [facility] Comment: MONITORING: In known diabetic patients, hemoglobin A1c targets should be discussed with health care provider. DIAGNOSTIC USE: ??The [place] Diabetes Association (ADA) and the World Health [...] Supplement 1 Testing performed or reported by [facility], a Service of [facility], [address] [place] [id number] Jayne Ramíerz MD, Mold Cleaning And Storage Supervisor [facility]# [id number] 05/25/2022 8:45 AM EST 05/25/2022 8:54 AM EST us Jackson Nettles MD LAB BLOOD ORDERABLES Final Re sult [facility] from Last 3 Months or Most Recently Relevant to Health Maintenance Insurance Medicare Medicaid [place] Care Teams Facilities Manager Relationship Specialty Start Date End Date Josh Dahl PA [address] [place] [address], [address] [place], [place] [phone] PCP - General Physician Tracer Powder Blender 10/31/23
--- OUTSIDE RECORDS SUMMARY | 2024-08-15 11:48 | XMS_ITS | Clinical Summary ---
Author Organization [address] [place] [address] [place] [phone] Phone Care Team Providers Care Supply Chain Consultant Name Role Phone Josh Dahl Primary Care [...] Date Diagnosed Date Chronic kidney disease Hyperparathyroidism (CMS/HCC V24) Hypertension Renal transplant recipient T2DM (type 2 diabetes mellitus) (CMS/HCC V24, CM S/HCC V28) Encounters Date Type Department Care Team Description 06/12/2024 10:00 AM EDT Office Visit Orthopedic [facility] [address] [phone] Cecil Muñoz DPM Diabetic mononeuropathy simplex ([facility] V24, [facility] V28) (Primary Dx); Dermatophytosis of nail; Metatarsalgia of both feet; Hammer toe of left foot; Acquired hammer toe of right foot; Tinea pedis of both feet from Last 3 Months Surgical History Surgery Date Site/Laterality Comments TRANSPLANTATION RENAL 01/31/2022 - 03/01/2022 ARTERIOVENOUS GRAFT Medical History Medical History Date Comments Chronic kidney disease Hyperparathyroidism ([facility] V24) T2DM (type 2 diabetes mellitus) ([facility] V24, [facility] V28) Hypertension Renal transplant recipient Social History Tobacco [...] - - Weight 75.8 kg (167 lb) 06/12/2024 9:12 AM EDT Height 170.2 cm (5' 7.01 ) 06/12/2024 9:12 AM ED T Body Mass Index 26.15 06/12/2024 9:12 AM EDT Plan of Treatment Upcoming Encounters Date Type Department Care Team (Late st Contact Info) Description 09/18/2024 9:15 AM EDT Office Visit Orthopedic [facility] [address] [phone] Cecil Muñoz DPM [address] [address] Health Maintenance Due Date Last Done Comments Breast Cancer Screening 1975 Diabetes: Annual GFR (Glomerular Filtration Rate) 1975 Diabetes: Annual Foot Exam 10/15/1985 Diabetes: Annual Retina Eye Exam 10/15/1985 Cervical Cancer Screening: Pap Smear 10/15/1996 Cholesterol Screening (Lipid Panel) 01/18/2024 Colorectal Cancer Screening: Colonoscopy 01/18/2024 Depression Screening 01/18/2024 HIV Screening 01/18/2024 Hepatitis C Screening 01/18/2024 Medicare Annual Wellness Visit 01/18/2024 Social Influencers of Health Screening 01/18/2024 Diabetes: Blood Sugar Control Test (HGBA1C) 02/19/2024 05/25/2022 Hypertension/CHF/CAD Annual BMP Blood Test 02/19/2024 COVID-19 Vaccine (5 - Pfizer risk season) 2024 01/14/2024, 12/21/2022, 01/14/2022, Additional history exists Diabetes: Annual Urine Albumin-Creatinine Ratio (uACR) 05/09/2025 05/09/2024 DTaP,Tdap,and Td Vaccines (2 - Td or Tdap) 06/05/2033 06/06/2023 Hepatitis B Vaccines Completed 10/09/2005, 05/05/2005, 04/06/2005 Influenza Vaccine Completed 01/08/2024, , 01/05/2022 Pneumococcal Vaccine: Pediatrics (0 to 5 Years) and At-Risk Patients (6 to 64 Years) Completed 04/15/2024 HIB Vaccines Aged Out No longer eligi [...] age to complete this topic Meningococcal B Vaccine Aged Out No l onger eligible based on patient's age to complete this topic RSV Immunization Patients Under 20 months Aged Out No longer eligible based on patient's age to complete this topic Varicella Vaccines Aged Out No longer eligible based on patient's age to complete this topic Insurance MEDICARE MEDICAID - [place] Care Teams Supply Chain Consultant Relationship Specialty Start Date End Date Josh Dahl PA [address] [place] [phone] PCP - General Physician Delivery Driver Assistant 01/23/24
--- OUTSIDE RECORDS SUMMARY | 2024-08-15 11:48 | XMS_ITS | Clinical Summary ---
Author Organization [facility] Address [address] [place] [address] Care Team Providers Care Central Office Repairer Name Role Phone Pcp, No Primary Care Provider Unavailabl e Social History Tobacco Use Types Packs/Day Years Used Date Smoking Tobacco: Never Assessed Comments Unknown Sex and Gender Information Value Date Recorded Sex Assigned at Female 04/10/2023 3:34 PM EST Legal Sex Female 12:24 PM EST Gender Identity Female 04/10/2023 3:34 [...] (Ages 21-65) 10/15/1996 Mammogram 2015 Colonoscopy 10/15/2020 COVID-19 Vaccine ( season) 2023, 04/23/2021 Influenza Vaccine 10/31/2024 01/05/2022, 01/05/2022 Insurance MEDICARE PART A & B MEDICAID OUT OF STATE [facility] Care Teams Central Office Repairer Relationship Specialty Start Date End Date Pcp, No PCP - General General Medicine 04/04/23
--- NOTE | 2024-08-18 13:42 | MHC.AU.HA3 ---
Hearing Instrument Follow-Up- Binaural Date of Visit: 08/18/24 Right Ear: Bi, Model, Color, Serial Number: Oticon Real 2 miniBTE Rsamreen [id number] House Carpenter Repair Warranty: 09/27/2026 House Carpenter Loss and Damage Warranty: 09/27/2026 [facility] Service Plan: 09/13/24 Battery Size: Rechargeable Earmold/Dome/CShell/SlimTip:acrylic skeleton 12/05/23 Dispensed By: [facility] Date of Fittin09/14/23 Left Ear: Make, Model, Color, Serial Number: Oticon real 2 miniBTE Rsamreen [id number] House Carpenter Repair Warranty: 09/27/2026 House Carpenter Loss and Damage Warranty: 09/27/2026 [facility] Service Plan: 09/13/24 Battery Size: Rechargeable Earmold/Dome/CShell/SlimTip: acrylic skeleton 12/05/23 Dispensed By: [facility] Date of Fittin09/14/23 Follow-Up Summary: Both hearing aids dropped off in need of cleaning. Found both tubes occluded with wax. Recommendations: Recommendations: HAs dropped off 08/15 in need of cleaning. Found both tubes clogged with wax. Cleaned aids, cleaned earmolds, ran through dehumidifier, re-tubed. Listening check positive. Diagnosis Code(s): Primary Diagnosis: H90.3 Bilateral Sensorineural Hearing Loss Signature: Provider: Toni Chavarria, CCC-A
== END 2024-08-15 11:32 | disposition home or self-care (01) ==
LOC: HO.SH 11:31
PROVIDERS: Visit Provider Physician Assistant
DX: Z13.89 Encounter for screening for other disorder (principal)

== ENCOUNTER 2024-08-20 12:26 | Outpatient (REF) | payer MEDICARE, MEDICAID, SELFPAY ==
--- NOTE | 2024-08-20 12:56 | MHC.AU.HA3 ---
Hearing Instrument Follow-Up- Binaural Date of Visit: 08/20/24 Right Ear: Make, Model, Color, Serial Number: Oticon Real 2 miniBTE Rsamreen [id number] Apparel Machinery Instructor Repair Warranty: 09/27/2026 Apparel Machinery Instructor Loss and Damage Warranty: 09/27/2026 [facility] Service Plan: 09/13/24 Battery Size: Rechargeable Earmold/Dome/CShell/SlimTip:acrylic skeleton 12/05/23 Dispensed By: [facility] Date of Fittin09/14/23 Left Ear: Make, Model, Color, Serial Number: Oticon real 2 miniBTE Rsamreen [id number] Apparel Machinery Instructor Repair Warranty: 09/27/2026 Apparel Machinery Instructor Loss and Damage Warranty: 09/27/2026 [facility] Service Plan: 09/13/24 Battery Size: Rechargeable Earmold/Dome/CShell/SlimTip: acrylic skeleton 12/05/23 Dispensed By: [facility] Date of Fittin09/14/23 Follow-Up Summary: HAs recently dropped off and cleaned. At brain picker Alana requested assistance noting Andreina has had trouble with insertion recently. Reviewed Right Red, Left Blue. Demonstrated proper insertion techniques. Andreina and Alana practiced. Recommendations: Recommendations: Hearing instrument follow-up or maintenance as needed. Diagnosis Code(s): Primary Diagnosis: H90.3 Bilateral Sensorineural Hearing Loss Signature: Provider: Toni Chavarria, CCC-A
--- OUTSIDE RECORDS SUMMARY | 2024-08-20 13:17 | XMS_ITS | Clinical Summary ---
Author Organization [address] [place] [address] [place] [phone] Phone Care Team Providers Care Jowl Trimmer Name Role Phone Josh Dahl Primary Care [...] 10:00 AM EDT Office Visit Orthopedic Surgery [facility] [address] [phone] Cecil Muñoz DPM Diabetic mononeuropathy simplex ([facility] V24, [facility] V28) (Primary Dx); Dermatophytosis of nail; Metatarsalgia of both feet; Hammer toe of left foot; Acquired hammer toe of right foot; Tinea pedis of both feet from Last 3 Months Surgical History Surgery Date Site/Laterality Comments TRANSPLANTATION RENAL 01/31/2022 - 03/01/2022 ARTERIOVENOUS GRAFT Medical History Medical History Date Comments Chronic kidney disease Hyperparathyroidism ([facility] V24) T2DM (type 2 diabetes mellitus) ([facility] V24, [facility] V28) Hypertension Renal transplant recipient Social History [...] 9:15 AM EDT Office Visit Orthopedic Surgery [facility] [address] [phone] Cecil Muñoz DPM [address] [phone] Health Maintenance Due Date Last Done Comments [...] Insurance MEDICARE [place]ICA[place] - [place] Care Teams Jowl Trimmer Relationship Specialty Start Date End Date Josh Dahl PA [address] [place] [phone] PCP - General Physician Supervisor Alteration Workroom 01/23/24
--- OUTSIDE RECORDS SUMMARY | 2024-08-20 13:17 | XMS_ITS | Clinical Summary ---
Author Organization [facility] Address [address] [place] [address] Care Team Providers Care Health Data Analyst Name Role Phone Pcp, No Primary Care [...] A & B MEDICAID OUT OF STATE [facility] Care Teams Health Data Analyst Relationship Specialty Start Date End Date Pcp, No PCP - General General Medicine 04/04/23
--- OUTSIDE RECORDS SUMMARY | 2024-08-20 13:17 | XMS_ITS | Clinical Summary ---
Author Organization [facility] Address [address] [facility] [address] [place] [address] Phone Care Team Providers Care Director Of Software Engineering Name Role Phone Josh Dahl Primary Care Provider [phone] Allergies Active Allergy Reactions Criticality Noted Date [...] Office Visit [facility] 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 [address] [phone] Hu Rodriguez MD from Last 3 Months [...] Office Visit [facility] [address] [address] Hu Rodriguez MD [address] [address] Health Maintenance Due Date Last Done Comments [...] None seen 0 - 5 /hpf [facility] RBC, Urine None seen 0 - 2 /hpf [facility] Squamous Epithelial, Urine 0-10 0 - 10 /hpf [facility] Casts None seen None seen /lpf [facility] Bacteria, Urine None seen None seen/Few [facility] 08/06/2024 10:0 4 AM EDT 08/06/2024 Hu Rodriguez MD LAB MICROBIOLOGY - GENERAL OR DERABLES Final Result Performing Organization Address City/[facility]/ZIP Co de Phone Number [facility] [address] [place] [address] * Tacrolimus level (08/06/2024 10:04 AM EDT) Tacrolimus Lvl 7.7 5.0 - 20.0 ng/mL [facility] Comment: Target steady state trough concentration for [...] 0.5 ng/mL Performed by LC-MS/MS technology. Blood specimen (specimen) Venous blood / Unknown 08/06/2024 10:04 AM EDT 08/06/2024 Narrative [facility] - 08/08/2024 6:06 PM EDT Test(s) [id number] (FK506), Blood was developed and its performance characteristics determined by [facility]. It has not been cleared or approved by the Food and Drug Administration. Hu Rodriguez MD LAB BLOOD ORDERABLES Final Re sult Performing Organization Address City/[facility]/ZIP Co de Phone Number [facility] [address] [place] [address] * Protein, Total, Random Urine w/Creatinine (Protein/Creat Ratio) (08/06/2024 10:04 AM EDT) Creatinine, Ur 52.3 Not Estab. mg/dL [facility] Protein, Ur 5.5 Not Estab. mg/dL [facility] Urine Protein/Creatin ine Ratio 105 0 - 200 mg/g [facility] U[facility] specimen (specimen) Urine specimen obtained by clean catch procedure / Unknown 08/06/2024 10:04 AM EDT 08/06/2024 Hu Rodriguez MD LAB URINE ORDERABLES Final Re sult Performing Organization Address City/[facility]/ZIP Co de Phone Number [facility] [address] [place] [address] * Urine Albumin / Creatinine Ratio (08/06/2024 10:04 AM EDT) Albumin, Urine <3.0 Not Estab. ug/mL [facility] Albumin/Creatin ine Ratio <6 0 - 29 mg/g creat [facility] Comment: ? Normal: ?0 - ??29 ? Moderately increased: 30 - 300 ? Severely increased: ? >300 Urine specimen (specimen) Urine specimen obtained by clean catch procedure / Unknown 08/06/2024 10:04 AM EDT 08/06/2024 Hu Rodriguez MD LAB URINE ORDERABLES Final Re sult Performing Organization Address City/[facility]/ZIP Co de Phone Number [facility] [address] [place] [address] * Urinalysis with microscopic (08/06/2024 10:04 AM EDT) Specific [place], Urine 1.012 1.005 - 1.030 [facility] pH Urine 6.5 5.0 - 7.5 [facility] Color, Urine Yellow Yellow [facility] [phone] Appearance Urine Clear Clear [facility] WBC Esterase Urine Negative Negative [facility] Protein, Ur Negative Negative/Tra ce [facility] Glucose, Ur Negative Negative [facility] Ketones, Urine Negative Negative [facility] Blood Urine Negative Negative [facility] Bilirubin Urine Negative Negative [facility] Urobilinogen Urine 0.2 0.2 - 1.0 mg/dL [facility] Nitrite, Urine Negative Negative [facility] Microscopic Examination Comment [facility] Comment:Microscopic follows if indicated. Other Microsc. Observations See below: [facility] Comment:Microscopic was kaylin cated and was performed. Urine specimen (specimen) Urine specimen obtained by clean catch procedure / Unknown 08/06/2024 10:04 AM EDT 08/06/2024 us Hu Rodriguez MD LAB URINE ORDERABLES Final Re sult [facility] [address] [place] [address] * (ABNORMAL) CBC and differential (08/06/2024 10:04 AM EDT) WBC 4.6 3.4 - 10.8 x10E3/uL [facility] RBC 4.61 3.77 - 5.28 x10E6/uL [facility] Hemoglobin 14.8 11.1 - 15.9 g/dL [facility] Hematocrit 42.9 34.0 - 46.6 % [facility] MCV 93 79 - 97 fL [facility] MCH 32.1 26.6 - 33.0 pg [facility] MCHC 34.5 31.5 - 35.7 g/dL [facility] RDW 12.9 11.7 - 15.4 % [facility] Platelets 125(L) 150 - 450 x10E3/uL [facility] Neutrophils Relative 72 Not Estab. % [facility] Lymphocytes Relative 17 Not Estab. % [facility] Monocytes 6 Not Estab. % [facility] Eosinophils Relative 4 Not Estab. % [facility] Basophils Relative 1 Not Estab. % [facility] Neutrophils Absolute 3.4 1.4 - 7.0 x10E3/uL [facility] Lymphocytes Absolute 0.8 0.7 - 3.1 x10E3/uL [facility] Monocytes Absolute 0.3 0.1 - 0.9 x10E3/uL [facility] Eosinophils Absolute 0.2 0.0 - 0.4 x10E3/uL [facility] Basophils Absolute 0.0 0.0 - 0.2 x10E3/uL [facility] Immature Granulocytes 0 Not Estab. % [facility] Immature Grans (Absolute) 0.0 0.0 - 0.1 x10E3/uL [facility] Blood specimen (specimen) Venous blood / Unknown 08/06/2024 10:04 AM EDT 08/06/2024 us Hu Rodriguez MD LAB BLOOD ORDERABLES Final Re sult [facility] [address] [place] [address] * (ABNORMAL) Renal Function Panel (08/06/2024 10:04 AM EDT) Glucose 104(H) 70 - 99 mg/dL [facility] BUN 23 6 - 24 mg/dL [facility] Creatinine 1.14(H) 0.57 - 1.00 mg/dL [facility] eGFR CKD-EPI CR 2020 59(L) >59 mL/min/1.7 3 [facility] BUN/Creatinine Ratio 20 9 - 23 [facility] Sodium 143 134 - 144 mmol/L [facility] Potassium 4.5 3.5 - 5.2 mmol/L [facility] Chloride 104 96 - 106 mmol/L [facility] Bicarbonate (CO2) 21 20 - 29 mmol/L [facility] Calcium 9.3 8.7 - 10.2 mg/dL [facility] Albumin 4.3 3.9 - 4.9 g/dL [facility] Phosphorus 4.0 3.0 - 4.3 mg/dL [facility] Blood specimen (specimen) Venous blood / Unknown 08/06/2024 10:04 AM EDT 08/06/2024 Hu Rodriguez MD LAB BLOOD ORDERABLES Final Re sult [facility] [address] [place] [address] * Hemoglobin A1c (05/25/2022 8:45 AM EST) Hemoglobin A1C 5.2 (4.0-5.6) % [facility] Comment: MONITORING: In known diabetic patients, hemoglobin A1c targets should be discussed with health care provider. DIAGNOSTIC USE: ??The [place] Diabetes Association (ADA) and the World Health [...] Supplement 1 Testing performed or reported by [facility], a Service of [facility], [address] [place] [address] Jayne Ramírez MD, Cinder Pit Crane Operator [facility]# [id number] 05/25/2022 8:45 AM EST 05/25/2022 8:54 AM EST Jackson Nettles MD LAB BLOOD ORDERABLES Final Re sult [facility] from Last 3 Months or Most Recently Relevant to Health Maintenance Insurance Medicare Medicaid [place] Medicare Medicaid [place] Medicare Medicaid [place] Care Teams Director Of Software Engineering Relationship Specialty Start Date End Date Josh Dahl PA [address] [place] [address], [address] [place], [place] [phone] PCP - General Physician Telehealth Nurse Educator 10/31/23
== END 2024-08-20 12:27 | disposition home or self-care (01) ==
LOC: HO.HAP 12:26
PROVIDERS: Visit Provider Physician Assistant
DX: Z13.89 Encounter for screening for other disorder (principal)

== ENCOUNTER 2024-10-21 08:50 | Outpatient (REF) | payer MEDICARE, MEDICAID, SELFPAY ==
[2024-10-21 11:45] LABS: Alanine Aminotransferase 28 U/L (0-31); Albumin Level 4.4 g/dL (3.5-5.0); Alkaline Phosphatase 102 U/L (39-117); Anion Gap 12 (12-20); Aspartate Amino Transferase 37 U/L (5-31); Blood Urea Nitrogen 17 mg/dL (9-16); Calcium 8.8 mg/dL (8.4-10.2); Carbon Dioxide 29 mmol/L (22-29); Chloride 108 mmol/L (96-108); Cholesterol 156 mg/dL (<200); Estimated Glomerular Filt Rate 60; HDL Cholesterol 48 mg/dL (>40); Potassium 4.1 mmol/L (3.3-5.1); Sodium 145 mmol/L (135-145); Total Protein 7.2 g/dL (6.5-8.0); Triglycerides 105 mg/dL (<150)
== END 2024-10-21 08:51 | disposition home or self-care (01) ==
LOC: HO.LAB 08:50
PROVIDERS: PCP Physician Assistant; Visit Provider Physician Assistant
DX: E78.5 Hyperlipidemia, unspecified (principal); E11.22 Type 2 diabetes mellitus with diabetic chronic kidney disease; I12.0 Hypertensive chronic kidney disease with stage 5 chronic kidney disease or end stage renal disease; N18.6 End stage renal disease; E11.65 Type 2 diabetes mellitus with hyperglycemia; E55.9 Vitamin D deficiency, unspecified; L98.7 Excessive and redundant skin and subcutaneous tissue; Z86.0100 Personal history of colon polyps, unspecified; Z79.899 Other long term (current) drug therapy; Z99.2 Dependence on renal dialysis
CPT/HCPCS: 36415; 80053; 80061; 82306; 83036; 99212

== ENCOUNTER 2024-10-21 08:50 | Outpatient (AMB) | payer MEDICARE, MEDICAID, SELFPAY ==
--- OUTSIDE RECORDS SUMMARY | 2024-10-21 09:11 | XMS_ITS | Clinical Summary ---
Author Organization [address] [place] [address] [place] [phone] Phone Care Team Providers Care Banquet Director Name Role Phone Josh Dahl Primary Care Provider [phone] Allergies Active Allergy Reactions Criticality Noted Date [...] Encounters Date Type Department Care Team Description 09/18/2024 9:15 AM EDT Office Visit Orthopedic Surgery [facility] [address] [phone] Cecil Muñoz DPM Dermatophytosis of nail (Primary Dx); Diabetic mononeuropathy simplex ([facility] V24, [facility] V28); Metatarsalgia of both feet; Hammer toe of left foot; Tinea pedis of both feet; Acquired hammer toe of right foot from Last 3 Months Surgical History Surgery Date Site/Laterality Comments TRANSPLANTATION RENAL 01/31/2022 - 03/01/2022 ARTERIOVENOUS GRAFT Medical History Medical History Date Comments Chronic kidney disease Hyperparathyroidism ([facility] V24) T2DM (type 2 diabetes mellitus) ([facility] V24, [facility] V28) Hypertension Renal transplant recipient Social History [...] Concentration - - Weight 75.8 kg (167 lb 1.7 oz) 09/18/2024 9:14 A M EDT Height 170.2 cm (5' 7.01 ) 09/18/2024 9:14 AM ED T Body Mass Index 26.17 09/18/2024 9:14 AM EDT Plan of Treatment Upcoming Encounters Date Type Department Care Team (Late st Contact Info) Description 01/19/2025 9:15 AM EDT Office Visit Orthopedic Surgery [facility] [address] [phone] Cecil Muñoz DPM [address] [address] Health Maintenance Due Date Last Done Comments Breast Cancer Screening 1975 Diabetes: Annual GFR (Glomerular Filtration Rate) 1975 Diabetes: Annual Foot Exam 10/15/1985 Diabetes: Annual Retina Eye Exam 10/15/1985 Cervical Cancer Screening: Pap Smear 10/15/1996 Cholesterol Screening (Lipid Panel) 01/18/2024 Colorectal Cancer Screening: Colonoscopy 01/18/2024 HIV Screening 01/18/2024 Hepatitis C Screening 01/18/2024 Medicare Annual Wellness Visit 01/18/2024 Social Influencers of Health Screening 01/18/2024 Diabetes: Blood Sugar Control Test (HGBA1C) 02/19/2024 05/25/2022 Hypertension/CHF/CAD Annual BMP Blood Test 02/19/2024 Depression Screening 04/02/2024 COVID-19 Vaccine (5 - Pfizer risk season) 2024 01/14/2024, 12/21/2022, 01/14/2022, Additional history exists Influenza Vaccine (#1) 2024 , 01/08/2023, 01/05/2022 Diabetes: Annual Urine Albumin-Creatinine Ratio (uACR) 08/06/2025 08/06/2024, 05/09/2024 DTaP,Tdap,and Td Vaccines (2 - Td or Tdap) 06/05/2033 06/06/2023 Hepatitis B Vaccines Completed 10/09/2005, 05/05/2005, 04/06/2005 Pneumococcal Vaccine: Pediatrics (0 to 5 Years) and At-Risk Patients (6 to 49 Years) Completed 04/15/2024 HIB Vaccines Aged Out [...] Insurance MEDICARE [place]ICA[place] - [place] Care Teams Banquet Director Relationship Specialty Start Date End Date Josh Dahl PA [facility] [place] [phone] PCP - General Physician Music Sound Light Technician 01/23/24
--- OUTSIDE RECORDS SUMMARY | 2024-10-21 09:11 | XMS_ITS | Clinical Summary ---
Author Organization [facility] Address [address] [facility] [address] [place] [address] Phone Care Team Providers Care Fast Food Server Name Role Phone Josh Dahl Primary Care Provider [phone] Allergies Active Allergy Reactions Criticality Noted Date [...] day 90 tablet 3 4 025 Active chlorhexidine (PERIDEX) 0.12 % solution SWISH A CAPFUL AFTER MEALS TWICE DAILY. DO NOT SWALLOW. RINSE WITH WATER AFTER USE. 5 Active midodrine (PROAMATINE) 2.5 MG tablet TAKE ONE TABLET BY MOUTH EVERY MORNING, TAKE ONE TABLET EVERY EVENING, TAKE ONE TABLET BEFORE BEDTIME DIRECTED 180 tablet 1 5 Active Envarsus XR 1 MG tablet sustained-rele ase 24 hour TAKE 6 TABLET BY MOUTH 1 (ONE) TIME EACH DAY 180 tablet 5 5 Active Envarsus XR 1 MG tablet sustained-rele ase 24 hour TAKE 6 TABLET BY MOUTH 1 (ONE) TIME EACH DAY 180 tablet 5 5 025 Discontinued Active Problems Problem Noted Date [...] Encounters Date Type Department Care Team Description 09/24/2024 Refill [facility] [address] [facility] [address] [place] [address] Hu Rodriguez MD 08/06/2024 9:30 AM EDT Office Visit [facility] 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 [address] [facility] [address] [place] [phone] Hu Rodriguez MD from Last 3 Months [...] 77 08/06/2024 9:16 AM EDT Temperature 36.2 C (97.1 F) 08/30/2022 10:45 AM EDT Respiratory Rate - - Oxygen [...] Visit [facility] [address] [phone] Hu Rodriguez MD [address] [phone] Health Maintenance Due Date Last Done Comments [...] 10/05/2021, Additional history exists Influenza Vaccine (#1) 2024 01/05/2022 Procedures Procedure Name Priority Date/Time Associated [...] None seen 0 - 5 /hpf [facility] RBC, Urine None seen 0 - 2 /hpf [facility] Squamous Epithelial, Urine 0-10 0 - 10 /hpf [facility] Casts None seen None seen /lpf [facility] Bacteria, Urine None seen None seen/Few [facility] 08/06/2024 10:0 4 AM EDT 08/06/2024 us Hu Rodriguez MD LAB MICROBIOLOGY - GENERAL OR DERABLES Final Result Performing Organization Address City/[facility]/ZIP Co de Phone Number [facility] [address] [place] [address] * Tacrolimus level (08/06/2024 10:04 AM EDT) Tacrolimus Lvl 7.7 5.0 - 20.0 ng/mL [facility] Comment: Target steady state trough concentration for Tacrolimus varies based on type of organ transplant immunosuppressive protocol and other patient specific factors. Tacrolimus trough concentrations should be interpreted in conjunction with clinical assessments of rejection and tolerability. Values obtained with different assay methods cannot be used interchangeably due to differences in assay methods and cross-reactivty with metabolites, nor should correction factors be applied. Therefore, consistent use of one assay for individual patients is recommended. Detection Limit = 0.5 ng/mL Performed by LC-MS/MS technology. Blood specimen (specimen) Venous blood / Unknown 08/06/2024 10:04 AM EDT 08/06/2024 Narrative [facility] - 08/08/2024 6:06 PM EDT Test(s) [id number] ([id number]), Blood was developed and its performance characteristics determined by [facility]. It has not been cleared or approved by the Food and Drug Administration. us Hu Rodriguez MD LAB BLOOD ORDERABLES Final Re sult Performing Organization Address [facility]/ZIP Co de Phone Number [facility] [address] [place] [address] * Protein, Total, Random Urine w/Creatinine (Protein/Creat Ratio) (08/06/2024 10:04 AM EDT) Creatinine, Ur 52.3 Not Estab. mg/dL [facility] Protein, Ur 5.5 Not Estab. mg/dL [facility] Urine Protein/Creatin ine Ratio 105 0 - 200 mg/g creat [facility] Urine specimen (specimen) Urine specimen obtained by clean catch procedure / Unknown 08/06/2024 10:04 AM EDT 08/06/2024 Hu Rodriguez MD LAB URINE ORDERABLES Final Re sult Performing Organization Address City/[facility]/ZIP Co de Phone Number [facility] [address] [place] [address] * Urine Albumin / Creatinine Ratio (08/06/2024 10:04 AM EDT) Albumin, Urine <3.0 Not Estab. ug/mL [facility] Albumin/Creatin ine Ratio <6 0 - 29 mg/g creat [facility] Comment: Normal: 0 - 29 Moderately increased: 30 - 300 Severely increased: >300 Urine specimen (specimen) Urine specimen obtained by clean catch procedure / Unknown 08/06/2024 10:04 AM EDT 08/06/2024 Hu Rodriguez MD LAB URINE ORDERABLES Final Re sult Performing Organization Address City/[facility]/ZIP Co de Phone Number [facility] [address] [place] [address] * Urinalysis with microscopic (08/06/2024 10:04 AM EDT) Specific [place], Urine 1.012 1.005 - 1.030 [facility] pH Urine 6.5 5.0 - 7.5 [facility] [phone] Color, Urine Yellow Yellow [facility] [phone] Appearance Urine Clear Clear [facility] WBC Esterase Urine Negative Negative [facility] [phone] Protein, Ur Negative Negative/Tra ce [facility] [phone] Glucose, Ur Negative Negative [facility] [phone] Ketones, Urine Negative Negative [facility] Blood Urine Negative Negative [facility] Bilirubin Urine Negative Negative [facility] Urobilinogen Urine 0.2 0.2 - 1.0 mg/dL [facility] Nitrite, Urine Negative Negative [facility] [phone] Microscopic Examination Comment [facility] [phone] Comment:Microscopic follows if indicated. Other Microsc. Observations See below: [facility] [phone] Comment:Microscopic was kaylin cated and was performed. Urine specimen (specimen) Urine specimen obtained by clean catch procedure / Unknown 08/06/2024 10:04 AM EDT 08/06/2024 us Hu Rodriguez MD LAB URINE ORDERABLES Final Re sult [facility] [address] [place] [address] * (ABNORMAL) CBC and differential (08/06/2024 10:04 AM EDT) WBC 4.6 3.4 - 10.8 x10E3/uL [facility] RBC 4.61 3.77 - 5.28 x10E6/uL [facility] Hemoglobin 14.8 11.1 - 15.9 g/dL [facility] Hematocrit 42.9 34.0 - 46.6 % [facility] MCV 93 79 - 97 fL [facility] MCH 32.1 26.6 - 33.0 pg [facility] MCHC 34.5 31.5 - 35.7 g/dL [facility] RDW 12.9 11.7 - 15.4 % [facility] Platelets 125(L) 150 - 450 x10E3/uL [facility] Neutrophils Relative 72 Not Estab. % [facility] Lymphocytes Relative 17 Not Estab. % [facility] Monocytes 6 Not Estab. % [facility] Eosinophils Relative 4 Not Estab. % [facility] Basophils Relative 1 Not Estab. % [facility] Neutrophils Absolute 3.4 1.4 - 7.0 x10E3/uL [facility] Lymphocytes Absolute 0.8 0.7 - 3.1 x10E3/uL [facility] Monocytes Absolute 0.3 0.1 - 0.9 x10E3/uL [facility] Eosinophils Absolute 0.2 0.0 - 0.4 x10E3/uL [facility] Basophils Absolute 0.0 0.0 - 0.2 x10E3/uL [facility] Immature Granulocytes 0 Not Estab. % [facility] Immature Grans (Absolute) 0.0 0.0 - 0.1 x10E3/uL [facility] Blood specimen (specimen) Venous blood / Unknown 08/06/2024 10:04 AM EDT 08/06/2024 us Hu Rodriguez MD LAB BLOOD ORDERABLES Final Re sult [facility] [address] [place] [address] * (ABNORMAL) Renal Function Panel (08/06/2024 10:04 AM EDT) Glucose 104(H) 70 - 99 mg/dL [facility] BUN 23 6 - 24 mg/dL [facility] Creatinine 1.14(H) 0.57 - 1.00 mg/dL [facility] eGFR CKD-EPI CR 2020 59(L) >59 mL/min/1.7 3 [facility] BUN/Creatinine Ratio 20 9 - 23 [facility] Sodium 143 134 - 144 mmol/L [facility] Potassium 4.5 3.5 - 5.2 mmol/L [facility] Chloride 104 96 - 106 mmol/L [facility] Bicarbonate (CO2) 21 20 - 29 mmol/L [facility] Calcium 9.3 8.7 - 10.2 mg/dL [facility] Albumin 4.3 3.9 - 4.9 g/dL [facility] Phosphorus 4.0 3.0 - 4.3 mg/dL [facility] Blood specimen (specimen) Venous blood / Unknown 08/06/2024 10:04 AM EDT 08/06/2024 us Hu Rodriguez MD LAB BLOOD ORDERABLES Final Re sult [facility] [address] [place] [address] * Hemoglobin A1c (05/25/2022 8:45 AM EST) Hemoglobin A1C 5.2 (4.0-5.6) % [facility] Comment: MONITORING: In known diabetic patients, hemoglobin A1c targets should be discussed with health care provider. DIAGNOSTIC USE: The [place] Diabetes Association (ADA) and the World Health [...] Supplement 1 Testing performed or reported by [facility], a Service of [facility], [address] [place] [address] Jayne Ramírez MD, Supreme Court Judge [facility]# [id number] 05/25/2022 8:45 AM EST 05/25/2022 8:54 AM EST us Jackson Nettles MD LAB BLOOD ORDERABLES Final Re sult [facility] from Last 3 Months or Most Recently Relevant to Health Maintenance Insurance Medicare Medicaid [place] Medicare Medicaid [place] Medicare [place] Care Teams Fast Food Server Relationship Specialty Start Date End Date Josh Dahl PA [address] [facility], [address] [place] [address] PCP - General Physician Gift Shop Manager 10/31/23
--- OUTSIDE RECORDS SUMMARY | 2024-10-21 09:11 | XMS_ITS | Clinical Summary ---
Author Organization [facility] Address [address] [place] [address] Care Team Providers Care Rf Manager Name Role Phone Pcp, No Primary Care [...] A & B MEDICAID OUT OF STATE [facility] Care Teams Rf Manager Relationship Specialty Start Date End Date Pcp, No PCP - General General Medicine 04/04/23
--- OUTSIDE RECORDS SUMMARY | 2024-10-21 09:12 | XMS_ITS ---
Author Name [facility] Organization Unknown Problems Problem Status Onset Date Problem Type Date of Resoluti on Source Complication of transplanted kidney, unspecified complication active EncounterDiagnosisAct CCT Encounters Encounter Type Encounter Reason Primary Diagnosis Location Date Ambulatory Unspecified complication of kidney transplant Unspecified complication of kidney transplant [employer] 04/30/2023 Care Team Organization Name Specialty Phone Email Start Date End Da te [employer] PCP Crate Repairer 04/30/2023 06/18/2024 [employer] 04/04/2023 04/04/2023 [employer] NO PCP Primary Care 04/04/2023 04/04/2023
--- NOTE | 2024-10-21 09:27 | MHC.PC.OV ---
Vital Signs 10/21/24 09:29 Height 5 ft 7 in Weight 169 lb 4 oz BMI 26.5 BP 110/68 Blood Pressure Location Rt brachial Position Sitting Pulse 71 Pulse Source Pulse Oximeter Temp 97.1 F Temp Source Temporal Artery Scan Pulse Oximetry (%) 98 Oxygen Delivery Method Room Air Intake Visit Reasons: f/u HLD/ Intake Note: Patient is here to follow up on HLD. 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 Required: No Partner Marketing Manager: Present Accompanied by: Caregiver Allergies cefazolin Allergy (Severe, Verified 10/21/24 09:50) Anaphylaxis Medication List - Last Reconciled 10/21/24 by Josh Dahl PA-C [ADVOCATE REDI CODE TEST STRIP As directed] cinacalcet (Sensipar) 30 mg PO DAILY lancets (FreeStyle Lancets) Three times a day lorazepam 1 mg (2 x 0.5 mg) PO DAILY PRN 2 days midodrine 2.5 mg PO BID miscellaneous medical supply 1 ea miscellaneous DAILY 99 days simvastatin 20 mg PO DAILY 90 days tacrolimus 5 mg PO Q12H Tobacco use date assessed: 10/21/24 Dental Screening Dental Screen Date: 04/15/24 HPI f/u HLD/ HPI Details Patient is a 49-year-old female here today for a follow-up visit.? Presents today with her continuity clerk.? Patient has a past medical history significant for type 2 diabetes, end-stage renal disease status post kidney transplant, hypertension, hyperparathyroidism. .. Kidney transplant:? Followed by sales and service change leader and [place] (Dr. Guerra).? Patient recently had kidney transplant.? She has continued to complain of prominence over her abdomen or the kidney was replaced.? She has now tertiary hyperparathyroidism now on medication for this. .. History of Obesity: Has lost significant amount of weight over the last few years due to lifestyle and diet improvement. Access abdominal skin--> often gets tinea infections/irritations under her abdominal skin fold.. would like to see plastic surgeon for possible evaluation for abdominoplasty. .. Type 2 diabetes:.? Blood sugars at home are stable. She has been off Tradjenta for quite some time and blood sugars has been stable. She maintains her weight loss with dietary modifications. ?Today A1c is 5.6. Manager [employer] reports blood sugars at in the mornings have been around 70. .. [facility] Medical History Annual physical exam Cervical cancer screening Obesity due to excess calories Adult general medical exam Colonoscopy planned Encounter for subsequent annual wellness visit (AWV) in Medicare patient Vitamin D deficiency HLD (hyperlipidemia) T2DM (type 2 diabetes mellitus) AV fistula Obesity (BMI 30-39.9) Autism spectrum Pure hypercholesterolemia End stage renal disease on dialysis Type 2 diabetes mellitus with diabetic chronic kidney disease Surgical History Kidney transplanted History of colonoscopy History of open reduction and internal fixation (ORIF) procedure H/O bilateral breast reduction surgery History of appendectomy Family History Father No problems noted. Mother No problems noted. 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) Vision needs: Yes (wear glasses) Questionnaire Thrive Questionnaire Date Thrive assessed: 04/15/24 I am a: Patient What is your living situation today?: I choose not to answer this question Within the past 12 months, did the food you bought not last and you didn't have the money to get more?: Never true Within the past 12 months, did you worry whether your food would run out before you got money to buy more?: Never true Do you have trouble paying for medicines?: No Do you have trouble getting transportation to medical appointments?: No Do you have trouble paying your heating and electricity bill?: No Do you have trouble taking care of your child, family member or friend?: I choose not to answer this question Do you have trouble with day-to-day activities such as bathing, preparing meals, shopping, managing finances, etc.?: No Are you currently unemployed and looking for a job?: I choose not to answer this question Are you interested in more education?: I choose not to answer this question Please select the resources that you would like help with: None Currently or been in a relationship where the following occur: I choose not to answer THRIVE Score: 0 CASSANDRA-7 AMB Questionnaire CASSANDRA-7 Date CASSANDRA - 7 assessed: 04/15/24 Source: Developed by Drs. Matthew Arshad, Sagrario Ellis, Stepan Burger and colleagues, with an educational sudha from [employer]. Review of Systems Const Denies headache(s) Eyes Denies loss of vision ENT Denies vertigo, Denies dizziness, Denies headache(s) and Denies sore throat Card Denies chest pain, Denies leg edema and Denies lightheadedness Resp Denies cough, Denies hemoptysis and Denies wheezing GI Denies abdominal pain, Denies melena, Denies constipation, Denies diarrhea and Denies vomiting Denies urinary frequency, Denies dysuria and Denies urinary urgency Musc Denies arthralgias, Denies joint swelling, Denies numbness and Denies tingling Neuro Denies Abnormal speech present, Denies behavioral changes, Denies vertigo, Denies dizziness, Denies headache(s), Denies loss of vision, Denies memory loss, Denies numbness and Denies tingling Psych Denies anxiety, Denies behavioral changes, Denies depression, Denies memory loss and Denies panic attacks Zachariah/Lymph Denies easy bleeding and Denies easy bruising Aller/Immun Denies wheezing Physical exam (Primary Care) Vital Signs: Last Vital Signs Temp 97.1 F 10/21/24 09:29 Pulse 71 10/21/24 09:29 BP 110/68 10/21/24 09:29 Pulse Ox 98 10/21/24 09:29 Oxygen Delivery Method Room Air 10/21/24 09:29 BMI result Body Mass Index 26.5 Tobacco/Smoking Status: Tobacco use Status Tobacco use date assessed 10/21/24 10/21/24 09:28 Patient Tobacco Use Status Never used Tobacco 10/21/24 09:28 e-Cigarette/Vaping Use Never Used 10/21/24 09:28 Thrive Assessment: Date of Thrive Assessment Date Thrive assessed 04/15/24 10/21/24 09:28 Currently or been in a relationship where the following occur: I choose not to answer Const General: healthy appearing, no acute distress, alert and awake Nutritional Appearance: well nourished Orientation/consciousness: oriented to person, oriented to place and oriented to time HENMT Ears: TM's normal bilaterally General nose exam: Normal nasal mucous membranes and turbinates present Eyes Conjunctivae: conjunctivae normal Sclerae: sclerae normal Pupils: Equal, round and reactive pupils present Neck Neck: Yes no lymphadenopathy and Yes no JVD Thyroid: Thyroid normal Carotids: no bruits Resp Effort & Inspection: normal respiratory effort and not tachypneic Auscultation: no crackles, no rales, no rhonchi and no wheezes Cardio Rate: regular rate Rhythm: regular rhythm Heart sounds: no murmurs and normal S1 and S2 GI Palpation (GI): Soft to palpation, nontender, no hepatomegaly and no splenomegaly Auscultation: normal bowel sounds Skin General skin exam: no rashes or lesions noted and dry skin Full body images:  1. ACCESS ABDOMINAL SKIN, UNDERNEATH SKIN FLAP MALODOROUS IN SLIGHTLY ERYTHEMATOUS RASH. Neuro General: oriented to person, oriented to place and oriented to time Cranial nerves: Yes Equal, round and reactive pupils present Speech: No Abnormal speech present Gait exam (Neuro): Normal gait present Motor exam (neuro): no tremor noted Extrem Right upper extremity: full ROM Left upper extremity: full ROM Right lower extremity: full ROM; no edema Left lower extremity: full ROM; no edema Psych Mental Status: mental status grossly normal Speech and movement: Normal speech and movement present Affect: normal affect Attitude: cooperative Thought process: Normal thought process present Results AMB Hemoglobin A1c AMB Hemoglobin A1c 5.6 % Last Edit by MIKAYLA Marquis on 10/21/24 10:05 Results Reviewed Results Reviewed: Laboratory Last Values Hgb A1c (Clinic) 5.6 % (4.0-6.0) 10/21/24 09:38 Coding Level of Care Code Est Pt Level 4 (99631) Diagnoses Hyperlipidemia, unspecified hyperlipidemia type E78.5 Hyperlipidemia type: unspecified Hypertension, unspecified type I10 Hypertension type: unspecified Type 2 diabetes mellitus with hyperglycemia, without long-term current use of insulin E11.65 Diabetes mellitus complication status: with hyperglycemia Diabetes mellitus marine oil terminal superintendent insulin use: without marine oil terminal superintendent use End stage renal disease on dialysis N18.6; Z99.2 Excess skin of abdomen L98.7 Assessment & Plan Assessment & Plan (1) HLD (hyperlipidemia): Code(s): E78.5 - Hyperlipidemia, unspecified Category: Medical Qualifiers: Hyperlipidemia type: unspecified Qualified Code(s): E78.5 - Hyperlipidemia, unspecified Plan: Patient has a history of hyperlipidemia. She has continued on simvastatin 20 mg. Most recent lipid panel showing excellent control over total cholesterol and LDL. Goal LDL is to remain below 100 (2) HTN (hypertension): Code(s): I10 - Essential (primary) hypertension Category: Medical Qualifiers: Hypertension type: unspecified Qualified Code(s): I10 - Essential (primary) hypertension Plan: Patient's blood pressure acceptable today in office. She has low blood pressures from time to time. She was started on midodrine 2.5 mg b.i.d. by her sales and service change leader. (3) T2DM (type 2 diabetes mellitus): Code(s): E11.9 - Type 2 diabetes mellitus without complications Category: Medical Qualifiers: Diabetes mellitus complication status: with hyperglycemia Diabetes mellitus snf insulin use: without marine oil terminal superintendent use Qualified Code(s): E11.65 - Type 2 diabetes mellitus with hyperglycemia Plan: Patient's type 2 diabetes well controlled with lifestyle and dietary modifications. Goal A1c is to remain below 6.5. (4) End stage renal disease on dialysis: Comment: Attributed to ATN diabetic nephropathy, On HD M, W, F - 3 to 8 pm Code(s): N18.6 - End stage renal disease; Z99.2 - Dependence on renal dialysis Category: Medical Plan: Patient is status post kidney transplant, doing very well. Continues to follow Nephrology and continues on anti-rejection drugs lifelong. (5) Excess skin of abdomen: Code(s): L98.7 - Excessive and redundant skin and subcutaneous tissue Category: Medical Plan: The patient experiences irritation under excess abdominal skin, particularly in warm weather, managed with topical treatments. A referral to plastic surgery for evaluation and potential abdominoplasty was discussed, with emphasis on documenting the condition for insurance purposes. Orders: Orders AMB Hemoglobin A1c Today E11.22 - Type 2 diabetes mellitus with diabetic chronic kidney disease, E11.65 - Type 2 diabetes mellitus with hyperglycemia, N18.6 - End stage renal disease, Z99.2 - Dependence on renal dialysis Referrals Gastroenterology Referral Z86.010 - Personal history of colon polyps Plastic Surgery Referral L98.7 - Excessive and redundant skin and subcutaneous tissue Medications: Refilled simvastatin 20 mg PO DAILY 90 tabs 2RF 90 days E78.5 - Hyperlipidemia, unspecified
[2024-10-21 09:29] VITALS: BP 110/68; PULSE 71; TEMP 36.2; O2SAT 98; BMI 26.5
== END 2024-10-21 10:09 | disposition home or self-care (01) ==
LOC: HO.HMCH 08:51
PROVIDERS: PCP Physician Assistant; Visit Provider Physician Assistant
DX: E78.5 Hyperlipidemia, unspecified (principal); I12.0 Hypertensive chronic kidney disease with stage 5 chronic kidney disease or end stage renal disease; E11.65 Type 2 diabetes mellitus with hyperglycemia; N18.6 End stage renal disease; Z99.2 Dependence on renal dialysis; L98.7 Excessive and redundant skin and subcutaneous tissue; E11.22 Type 2 diabetes mellitus with diabetic chronic kidney disease

== ENCOUNTER 2024-11-24 12:10 | Outpatient (AMB) | payer MEDICARE, MEDICAID, SELFPAY ==
--- NOTE | 2024-11-24 12:29 | AM.OFFWIN_ITS ---
Intake Vital Signs 11/24/24 12:31 Height 5 ft 7 in Weight 170 lb BMI 26.6 BP 100/58 L Blood Pressure Location Rt brachial Position Sitting Pulse 101 H Pulse Source Pulse Oximeter Temp 100.9 F H Temp Source Oral Pulse Oximetry (%) 96 Oxygen Delivery Method Room Air Intake Visit Reasons: EP-vomiting, fever Intake Note: pt presents with vomiting and fever at home for 1.5 days Patient Tobacco Use Status: Never used Tobacco Allergies cefazolin Allergy (Severe, Verified 11/24/24 12:35) Anaphylaxis Do you need a note to return to daycare/school/sports/work: No HPI HPI Comments History of Present Illness Details 49 y/o Female patient who presents to [facility] walk in clinic with c/o URI symptoms since yesterday. Reports high fevers, nausea, vomiting, and runny nose. [facility] Medical History (Updated 11/24/24 @ 13:15 by Rody Green NP) Acute respiratory disease Annual physical exam Cervical cancer screening Obesity due to excess calories Adult general medical exam Colonoscopy planned Encounter for subsequent annual wellness visit (AWV) in Medicare patient Vitamin D deficiency HLD (hyperlipidemia) T2DM (type 2 diabetes mellitus) AV fistula Obesity (BMI 30-39.9) Autism spectrum Pure hypercholesterolemia End stage renal disease on dialysis Type 2 diabetes mellitus with diabetic chronic kidney disease Surgical History Kidney transplanted History of colonoscopy History of open reduction and internal fixation (ORIF) procedure H/O bilateral breast reduction surgery History of appendectomy Family History Father No problems noted. Mother No problems noted. 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) Vision needs: Yes (wear glasses) Review of Systems Const All systems reviewed & are unremarkable except as noted in HPI and below Physical Exam Vital Signs: Last Vital Signs Temp 100.9 F H 11/24/24 12:31 Pulse 101 H 11/24/24 12:31 BP 100/58 L 11/24/24 12:31 Pulse Ox 96 11/24/24 12:31 Oxygen Delivery Method Room Air 11/24/24 12:31 BMI result Body Mass Index 26.6 Const General: no acute distress; No comfortable Nutritional Appearance: overweight Orientation/consciousness: patient oriented x3 HEENT Head: Yes normocephalic Ears: external ears normal and TM's normal bilaterally General nose exam: Nasal discharge present Face and sinus: Yes sinuses nontender Mouth: moist mucous membranes Throat: Yes uvula midline Resp Effort & Inspection: normal respiratory effort Auscultation: clear to auscultation bilaterally Cardio Heart sounds: S1 normal heart sound present and S2 normal heart sound present Neuro General: patient oriented x3 Assessment & Plan Assessment & Plan (1) Acute respiratory disease: Code(s): J06.9 - Acute upper respiratory infection, unspecified Plan: Ordered SARs Acetaminophen for pain relief Rest and hydrate well plenty fluids. Orders: Orders SARS-CoV2/FLU/RSV Today J06.9 - Acute upper respiratory infection, unspecified Medications: New ondansetron 8 mg PO Q8H 20 tabs 0RF J06.9 - Acute upper respiratory infection, unspecified Coding Level of Care Code Est Pt Level 4 (67211) Diagnoses Acute respiratory disease J06.9 Time Spent (min) 20
[2024-11-24 12:31] VITALS: BP 100/58; PULSE 101; TEMP 38.3; O2SAT 96; BMI 26.6
--- OUTSIDE RECORDS SUMMARY | 2024-11-24 13:29 | XMS_ITS | Clinical Summary ---
Author Organization [facility] Address [address] [place] [address] Care Team Providers Care Psychology Technician Name Role Phone Pcp, No Primary Care [...] A & B MEDICAID OUT OF STATE [facility] Care Teams Psychology Technician Relationship Specialty Start Date End Date Pcp, No PCP - General General Medicine 04/04/23
--- OUTSIDE RECORDS SUMMARY | 2024-11-24 13:29 | XMS_ITS | Clinical Summary ---
Author Organization [address] [place] [address] [place] [phone] Phone Care Team Providers Care Lay Out Inspector Name Role Phone Josh Dahl Primary Care [...] 9:15 AM EDT Office Visit Orthopedic Surgery [facility] [address] [phone] Cecil Muñoz DPM Dermatophytosis of nail (Primary Dx); Diabetic mononeuropathy simplex ([facility] V24, [facility] V28); Metatarsalgia of both feet; Hammer toe of left foot; Tinea pedis of both feet; Acquired hammer toe of right foot from Last 3 Months Surgical History Surgery Date Site/Laterality Comments TRANSPLANTATION RENAL 01/31/2022 - 03/01/2022 ARTERIOVENOUS GRAFT Medical History Medical History Date Comments Chronic kidney disease Hyperparathyroidism ([facility] V24) T2DM (type 2 diabetes mellitus) ([facility] V24, [facility] V28) Hypertension Renal transplant recipient Social [...] 9:15 AM EDT Office Visit Orthopedic Surgery [facility] [address] [phone] Cecil Muñoz DPM [address] [phone] Health Maintenance Due Date Last Done Comments [...] Insurance MEDICARE [place] - [place] Care Teams Lay Out Inspector Relationship Specialty Start Date End Date Josh Dalh PA [facility] [place] [phone] PCP - General Physician Funeral Director And Embalmer 01/23/24
--- OUTSIDE RECORDS SUMMARY | 2024-11-24 13:29 | XMS_ITS | Clinical Summary ---
Author Organization [facility] Address [address] [facility] [address] [place] [address] Phone Care Team Providers Care Marketing And Promotions Manager Name Role Phone Josh Dahl Primary Care Provider [phone] Allergies Active Allergy Reactions Criticality Noted Date Comments Cefazolin Anaphylaxis,Other (see comments) High 04/2014 Medications Cholecalciferol (Vitamin D-3) 125 MCG (5000 UT) tablet Take 5,000 Units by mouth 1 (one) time each day Active cinacalcet (SENSIPAR) 30 MG tablet TAKE 1 TABLET (30 MG TOTAL) BY MOUTH 1 (ONE) TIME EACH DAY 90 tablet 3 4 01/15/20 25 Active fludrocortisone 0.1 MG tabletIndicatio ns:Kidney replaced by transplant TAKE ONE TABLET BY MOUTH ONCE DAILY 90 tablet 3 4 Active simvastatin (ZOCOR) 20 MG tablet Take 1 tablet (20 mg total) by mouth 1 (one) time each day 90 tablet 3 4 01/31/20 25 Active chlorhexidine (PERIDEX) 0.12 % solution SWISH A CAPFUL AFTER MEALS TWICE DAILY. DO NOT SWALLOW. RINSE WITH WATER AFTER USE. 5 Active Envarsus XR 1 MG tablet sustained-relea se 24 hour TAKE 6 TABLET BY MOUTH 1 (ONE) TIME EACH DAY 180 tablet 5 5 Active midodrine (PROAMATINE) 2.5 MG tablet Take 1 tablet (2.5 mg total) by mouth in the morning and 1 tablet (2.5 mg total) before bedtime. 180 tablet 5 02/06/20 Active midodrine (PROAMATINE) 2.5 MG tablet TAKE ONE TABLET BY MOUTH EVERY MORNING, TAKE ONE TABLET EVERY EVENING, TAKE ONE TABLET BEFORE BEDTIME DIRECTED 180 tablet 1 5 11/08/19 Discontinu ed(Reorder (does not appear on AVS)) midodrine (PROAMATINE) 2.5 MG tablet Take 1 tablet (2.5 mg total) by mouth in the morning and 1 tablet (2.5 mg total) before bedtime. 180 tablet 5 11/08/19 Discontinu ed(Reorder (does not appear on AVS)) Active Problems Problem Noted Date Diagnosed Date Chronic kidney disease 11/04/2024 Hyperparathyroidism 11/04/2024 Kidney replaced by transplant 06/28/2022 Leukopenia 06/07/2022 [...] Encounters Date Type Department Care Team Description 11/07/2024 9:00 AM EDT Office Visit [facility] [address] [phone] Hu Rodriguez MD Kidney transplant status (Primary Dx) 10/31/2024 Office Communication [facility] [address] [phone] Yusra Salcedo Kidney transplant status (Primary Dx) 09/24/2024 Refill [facility] [address] [facility] [address] [place] [address] Hu Rodriguez MD from Last 3 Months [...] Sign Reading Time Taken Comments Blood Pressure 110/68 11/07/2024 8:56 AM EDT Pulse 72 11/07/2024 8:56 AM EDT Temperature 36.2 C (97.1 F) 08/30/2022 10:45 AM EDT Respiratory Rate - - Oxygen Saturation 92% 11/07/2024 8:56 AM EDT Inhaled Oxygen Concentration - - Weight 77.9 kg (171 lb 12.8 oz) 11/07/2024 8:56 AM EDT Height 170.2 cm (5' 7 ) 10/31/2023 1:00 PM EDT Body Mass Index 26.91 10/31/2023 1:00 PM EDT Plan of Treatment Upcoming Encounters Date Type Department Care Team (Late st Contact Info) Description 02/06/2025 10:45 AM EST Office Visit [facility] [address] [facility] [address] [place] [address] Hu Rodriguez MD [address] [facility] [address] [place] [phone] Health Maintenance Due Date Last Done Comments [...] Procedure Name Priority Date/Time Associated Diagnosis Comments LIPID PANEL Routine 11/07/2024 9:59 AM EDT CMV DNA, QUANTITATIVE, PCR Routine 11/07/2024 9:59 AM EDT Kidney transplant status TACROLIMUS LEVEL Routine 11/07/2024 9:59 AM EDT Kidney transplant status MAGNESIUM Routine 11/07/2024 9:59 AM EDT Kidney transplant status CBC Routine 11/07/2024 9:59 AM EDT Kidney transplant status VITAMIN D 25 HYDROXY Routine 11/07/2024 9:59 AM EDT Kidney transplant status PROTEIN / CREATININE RATIO, URINE Routine 11/07/2024 9:59 AM EDT Kidney transplant status URINE ALBUMIN / CREATININE RATIO Routine 11/07/2024 9:59 AM EDT Kidney transplant status URINALYSIS WITH MICROSCOPIC Routine 11/07/2024 9:59 AM EDT Kidney transplant status RENAL FUNCTION PANEL Routine 11/07/2024 9:59 AM EDT Kidney transplant status PTH, INTACT Routine 11/07/2024 9:59 AM EDT Kidney transplant status MICROSCOPIC EXAMINATION - DO NOT USE Routine 11/07/2024 9:59 AM EDT HEMOGLOBIN A1C Routine 05/25/2022 8:45 AM EST from Last 3 Months or Most Recently Relevant to Health Maintenance Results * (ABNORMAL) Microscopic Examination (11/07/2024 9:59 AM EDT) WBC, Urine >30(A) 0 - 5 /hpf [facility] RBC, Urine None seen 0 - 2 /hpf [facility] Squamous Epithelial, Urine 0-10 0 - 10 /hpf [facility] Casts None seen None seen /lpf [facility] Bacteria, Urine Many(A) None seen/Few [facility] 11/07/2024 9:59 AM EDT 11/07/2024 us Hu Rodriguez MD LAB MICROBIOLOGY - GENERAL OR DERABLES Final Result [facility]Jobspot [facility] [address] [place] [address] * Tacrolimus level (11/07/2024 9:59 AM EDT) Tacrolimus Lvl 9.6 5.0 - 20.0 ng/mL [facility] Comment: Target steady state trough concentration [...] 0.5 ng/mL Performed by LC-MS/MS technology. Blood Venous blood / Unknown 11/07/2024 9:59 AM EDT 11/07/2024 Narrative [facility] - 11/10/2024 9:05 AM EDT Test(s) [id number] ([id number]), Blood was developed and its performance characteristics determined by [facility]. It has not been cleared or approved by the Food and Drug Administration. Hu Rodriguez MD LAB BLOOD ORDERABLES Final Re sult Performing Organization Address City/[facility]/ZIP Co de Phone Number [facility] [address] [place] [address] * (ABNORMAL) Protein, Total, Random Urine w/Creatinine (Protein/Creat Ratio) (11/07/2024 9:59 AM EDT) Creatinine, Ur 50.5 Not Estab. mg/dL [facility] Protein, Ur 25.2 Not Estab. mg/dL [facility] Urine Protein/Creati nine Ratio 499(H) 0 - 200 mg/g creat [facility] Urine Urine specimen obtained by clean catch procedure / Unknown 11/07/2024 9:59 AM EDT 11/07/2024 Hu Rodriguez MD LAB URINE ORDERABLES Final Re sult Performing Organization Address City/[facility]/ZIP Co de Phone Number [facility] [address] [place] [address] * Urine Albumin / Creatinine Ratio (11/07/2024 9:59 AM EDT) Albumin, Urine 13.1 Not Estab. ug/mL [facility] Albumin/Creatin ine Ratio 26 0 - 29 mg/g creat [facility] Comment: Normal: 0 - 29 Moderately increased: 30 - 300 Severely increased: >300 Urine Urine specimen obtained by clean catch procedure / Unknown 11/07/2024 9:59 AM EDT 11/07/2024 Hu Rodriguez MD LAB URINE ORDERABLES Final Re sult Performing Organization Address [facility]/ZIP Co de Phone Number SHANTE Ko [address] [place] [address] * CMV PCR Quantitative (11/07/2024 9:59 AM EDT) CMV Quant DNA PCR Negative Negative IU/mL [facility] [phone] Comment: No CMV DNA detected. The quantitative range of this assay is 200 to 1 million IU/mL. Log 10 CMV QN DNA Plasma CANCELED log10 IU/mL [facility] [phone] Comment: Unable to calculate result since non-numeric result obtained for component test. Result canceled by the ancillary. Blood Venous blood / Unknown 11/07/2024 9:59 AM EDT 11/07/2024 Hu Rodriguez MD LAB BLOOD ORDERABLES Edited R esult - Final Performing Organization Address [facility]/ZIP Co de Phone Number [facility] [address] [place] [address] * (ABNORMAL) Vitamin D 25 Hydroxy (11/07/2024 9:59 AM EDT) Vitamin D, 25-OH, Total 26.3(L) 30.0 - 100.0 ng/mL [facility] Comment: Vitamin D deficiency has been defined by the [place] of [employer] and an Endocrine Society practice guideline as a level of serum 25-OH vitamin D less than 20 ng/mL (1,2). The Endocrine Society went on to further define vitamin D insufficiency as a level between 21 and 29 ng/mL (2). 1. IOM ([place] of [employer]). 2010. Dietary reference intakes for calcium and D. [place]: The National Academies Press. 2. Lidia MF, Puneet OLVERA, Betsy JORDAN, et al. Evaluation, treatment, and prevention of vitamin D deficiency: an Endocrine Society clinical practice guideline. JCEM. 2010; 96(7):1911-30. Blood Venous blood / Unknown 11/07/2024 9:59 AM EDT 11/07/2024 us Hu Rodriguez MD LAB BLOOD ORDERABLES Final Re sult [facility] [address] [place] [address] * (ABNORMAL) Urinalysis with microscopic (11/07/2024 9:59 AM EDT) Specific [place], Urine 1.012 1.005 - 1.030 [facility] pH Urine 7.0 5.0 - 7.5 [facility] Color, Urine Yellow Yellow [facility] Appearance Urine Cloudy(A) Clear [facility] [place] WBC Esterase Urine 3+(A) Negative [facility] Protein, Ur Negative Negative/Tr mario [facility] Glucose, Ur Negative Negative [facility] Ketones, Urine Negative Negative [facility] [place] Blood Urine Trace(A) Negative [facility] Bilirubin Urine Negative Negative [facility] [place] Urobilinogen Urine 0.2 0.2 - 1.0 mg/dL [facility] [phone] Nitrite, Urine Positive(A) Negative [facility] [place] Microscopic Examination See below: [facility] Comment:Microscopic was kaylin cated and was performed. Urine Urine specimen obtained by clean catch procedure / Unknown 11/07/2024 9:59 AM EDT 11/07/2024 Hu Rodriguez MD LAB URINE ORDERABLES Final Re sult [facility] [address] [place] [address] * (ABNORMAL) CBC (11/07/2024 9:59 AM EDT) WBC 4.8 3.4 - 10.8 x10E3/uL [facility] RBC 4.56 3.77 - 5.28 x10E6/uL [facility] Hemoglobin 14.1 11.1 - 15.9 g/dL [facility] Hematocrit 42.7 34.0 - 46.6 % [facility] MCV 94 79 - 97 fL [facility] MCH 30.9 26.6 - 33.0 pg [facility] MCHC 33.0 31.5 - 35.7 g/dL [facility] RDW 13.2 11.7 - 15.4 % [facility] Platelets 117(L) 150 - 450 x10E3/uL [facility] Blood Venous blood / Unknown 11/07/2024 9:59 AM EDT 11/07/2024 Hu Rodriguez MD LAB BLOOD ORDERABLES Final Re sult [facility] [address] [place] [address] * PTH, Intact (11/07/2024 9:59 AM EDT) PTH 50 15 - 65 pg/mL [facility] Blood Venous blood / Unknown 11/07/2024 9:59 AM EDT 11/07/2024 Hu Rodriguez MD LAB BLOOD ORDERABLES Final Re sult [facility] [address] [place] [address] * Magnesium (11/07/2024 9:59 AM EDT) Magnesium 1.6 1.6 - 2.3 mg/dL [facility] Blood Venous blood / Unknown 11/07/2024 9:59 AM EDT 11/07/2024 Hu Rodriguez MD LAB BLOOD ORDERABLES Final Re sult Performing Organization Address [facility] Co de Phone Number [facility] [address] [place] [address] * (ABNORMAL) Renal Function Panel (11/07/2024 9:59 AM EDT) Glucose 109(H) 70 - 99 mg/dL [facility] BUN 23 6 - 24 mg/dL [facility] Creatinine 1.15(H) 0.57 - 1.00 mg/dL [facility] eGFR CKD-EPI CR 2020 58(L) >59 mL/min/1.7 3 [facility] BUN/Creatinine Ratio 20 9 - 23 [facility] Sodium 144 134 - 144 mmol/L [facility] Potassium 4.6 3.5 - 5.2 mmol/L [facility] Chloride 105 96 - 106 mmol/L [facility] Bicarbonate (CO2) 23 20 - 29 mmol/L [facility] Calcium 9.1 8.7 - 10.2 mg/dL [facility] Albumin 4.4 3.9 - 4.9 g/dL [facility] Phosphorus 3.9 3.0 - 4.3 mg/dL [facility] Blood Venous blood / Unknown 11/07/2024 9:59 AM EDT 11/07/2024 Hu Rodriguez MD LAB BLOOD ORDERABLES Final Re sult [facility] [address] [place] [address] * Lipid panel (11/07/2024 9:59 AM EDT) Cholesterol 159 100 - 199 mg/dL [facility] Triglycerides 115 0 - 149 mg/dL [facility] HDL 55 >39 mg/dL [facility] VLDL Cholesterol Kali 21 5 - 40 mg/dL [facility] LDL Calculated 83 0 - 99 mg/dL [facility] 11/07/2024 9:59 AM EDT 11/07/2024 Hu Rodriguez MD LAB BLOOD ORDERABLES Final Re sult [facility] [place] [address] [place] [address] * Hemoglobin A1c (05/25/2022 8:45 AM EST) Hemoglobin A1C 5.2 (4.0-5.6) % [facility] Comment: MONITORING: In known diabetic patients, hemoglobin A1c targets should be discussed with health care provider. DIAGNOSTIC USE: The [place] Diabetes Association (ADA) and the World Health [...] Supplement 1 Testing performed or reported by [facility] Reference [employer], a Service of [facility], [address] [place] [id number] Jayne Ramírez MD, [employer] [facility]# [id number] 05/25/2022 8:45 AM EST 05/25/2022 8:54 AM EST Jackson Nettles MD LAB BLOOD ORDERABLES Final Re sult [facility] from Last 3 Months or Most Recently Relevant to Health Maintenance Insurance [place] Care Teams Marketing And Promotions Manager Relationship Specialty Start Date End Date Josh Dahl PA [address] [place] [address], [address] [place] [address] PCP - General Physician Customer Service Representative Teller 10/31/23
== END 2024-11-24 13:17 | disposition home or self-care (01) ==
PROVIDERS: PCP Physician Assistant; Visit Provider Nurse Practitioner Family
DX: J06.9 Acute upper respiratory infection, unspecified (principal)

== ENCOUNTER 2024-11-24 12:10 | Outpatient (REF) | payer MEDICARE, MEDICAID, SELFPAY ==
[2024-11-24 17:24] LABS: Resp Syncy Virus RNA Qual PCR NEGATIVE (Negative); SARS COV2 PCR INHOUSE NEGATIVE (Negative)
== END 2024-11-24 12:11 | disposition home or self-care (01) ==
LOC: HO.LAB 12:10
PROVIDERS: Nurse Practitioner Family; PCP Physician Assistant
DX: J06.9 Acute upper respiratory infection, unspecified (principal)
CPT/HCPCS: 87637; 99212

== ENCOUNTER 2024-12-18 13:37 | Outpatient (REF) | payer MEDICARE, MEDICAID, SELFPAY ==
--- NOTE | 2024-12-18 14:31 | MHC.AU.HA3 ---
Hearing Instrument Follow-Up- Binaural Date of Visit: 12/18/24 Right Ear: Make, Model, Color, Serial Number: Oticon Real 2 miniBTE-R SN: [id number] Color: [employer] Subcontractor Repair Warranty: 09/27/2026 [employer] Subcontractor Loss and Damage Warranty: 09/27/2026 [facility] Service Plan: 09/13/2024 Battery Size: Rechargeable Earmold/Dome/CShell/SlimTip:Sylvie acrylic skeleton Dispensed By: [facility] Date of Fittin09/14/2023 Left Ear: Make, Model, Color, Serial Number: Oticon real 2 miniBTE R SN: [id number] Color: [employer] Subcontractor Repair Warranty: 09/27/2026 [employer] Subcontractor Loss and Damage Warranty: 09/27/2026 [facility] Service Plan: 09/13/2024 Battery Size: Rechargeable Earmold/Dome/CShell/SlimTip: Sylvie acrylic skeleton Dispensed By: [facility] Date of Fittin09/14/2023 Follow-Up Summary: Both HAs/EMs dropped off reporting . Tubes occluded with wax. Cleaned HAs (2). Cleaned EMs (2). Replaced tubes (2). 10700 x6. Vacuumed microphones. Ran through dehumidifier. Listening check demonstrated HAs amplifying clearly. To front office to supervisor opening and picking. Recommendations: Hearing instrument follow-up or maintenance as needed. Please contact our clinic with any questions or concerns. Diagnosis Code(s): Primary Diagnosis: H90.3 Bilateral Sensorineural Hearing Loss Signature: Provider: Toni Salas, [facility]
--- OUTSIDE RECORDS SUMMARY | 2024-12-18 15:37 | XMS_ITS | Clinical Summary ---
Author Organization [facility] Address [address] [place] [address] Care Team Providers Care Angle Shear Set Up Operator Name Role Phone Pcp, No Primary Care [...] 10/15/1996 Mammogram 2015 Colonoscopy 10/15/2020 Influenza Vaccine 10/31/2024 01/05/2022, 01/05/2022 COVID-19 Vaccine ( season) 2024, 04/23/2021 Insurance MEDICARE PART A & B MEDICAID OUT OF [place] [facility] Care Teams Angle Shear Set Up Operator Relationship Specialty Start Date End Date Pcp, No PCP - General General Medicine 04/04/23
--- OUTSIDE RECORDS SUMMARY | 2024-12-18 15:37 | XMS_ITS | Clinical Summary ---
Author Organization [facility] Address [address] [facility] [address] [place] [address] Phone Care Team Providers Care Hardboard Press Operator Name Role Phone Josh Dahl Primary Care Provider [phone] Allergies Active Allergy Reactions Criticality Noted Date Comments Cefazolin Anaphylaxis,Other (see comments) High 04/2014 Medications Cholecalcifero l (Vitamin D-3) 125 MCG (5000 UT) tablet Take 5,000 Units by mouth 1 (one) time each day Active simvastatin (ZOCOR) 20 MG tablet Take [...] total) before bedtime. 180 tablet 5 02/06/20 25 Active fludrocortison e 0.1 MG tabletIndicati ons:Kidney replaced by transplant TAKE ONE TABLET BY MOUTH ONCE DAILY 90 tablet 3 5 Active cinacalcet (SENSIPAR) 30 MG tablet TAKE 1 TABLET (30 MG TOTAL) BY MOUTH 1 (ONE) TIME EACH DAY 90 tablet 3 5 12/09/19 26 Active cinacalcet (SENSIPAR) 30 MG tablet TAKE 1 TABLET (30 MG TOTAL) BY MOUTH 1 (ONE) TIME EACH DAY 90 tablet 3 4 12/09/19 25 Discontinued fludrocortison e 0.1 MG tabletIndicati ons:Kidney replaced by transplant TAKE ONE TABLET BY MOUTH ONCE DAILY 90 tablet 3 4 12/09/19 25 Discontinued Active Problems Problem Noted Date Diagnosed [...] Encounters Date Type Department Care Team Description 12/08/2024 Refill [facility] [address] [facility] [address] [place] [address] Hu Rodriguez MD Kidney replaced by transplant 11/07/2024 9:00 AM EDT Office Visit [facility] [address] [facility] [address] [place] [phone] Hu Rodriguez MD Kidney transplant status (Primary Dx) 10/31/2024 Office Communication [facility] [address] [facility] [address] [place] [phone] Yusra Salcedo Kidney transplant status (Primary Dx) 09/24/2024 Refill [facility] [address] [facility] [address] [place] [address] Hu Rodriguez MD from Last [...] Visit [facility] [address] [facility] [address] [place] [address] Hu Rodriguez MD [address] [facility] [address] [place] [address] Health Maintenance Due Date Last Done Comments [...] Urine >30(A) 0 - 5 /hpf [facility] RBC, Urine None seen 0 - 2 /hpf [facility] Squamous Epithelial, Urine 0-10 0 - 10 /hpf [facility] Casts None seen None seen /lpf [facility] Bacteria, Urine Many(A) None seen/Few [facility] 11/07/2024 9:59 AM EDT 11/07/2024 us Hu Rodriguez MD LAB MICROBIOLOGY - GENERAL OR DERABLES Final Result [facility] [address] [place] [address] * Tacrolimus level (11/07/2024 9:59 AM EDT) Tacrolimus Lvl 9.6 5.0 - 20.0 ng/mL [facility] Comment: Target steady state trough [...] [facility] - 11/10/2024 9:05 AM EDT Test(s) [id number] ([id number]), Blood was developed and its performance characteristics determined by [facility]. It has not been cleared or approved by the Food and Drug Administration. Hu Rodriguez MD LAB BLOOD ORDERABLES Final Re sult Performing Organization Address City/[facility]/ZIP Co de Phone Number [facility] [address] [place] [address] * (ABNORMAL) Protein, Total, Random Urine w/Creatinine (Protein/Creat Ratio) (11/07/2024 9:59 AM EDT) Creatinine, Ur 50.5 Not Estab. mg/dL [facility] Protein, Ur 25.2 Not Estab. mg/dL [facility] Urine Protein/Creati nine Ratio 499(H) 0 - 200 mg/g creat [facility] Urine Urine specimen obtained by clean catch procedure / Unknown 11/07/2024 9:59 AM EDT 11/07/2024 Hu Rodriguez MD LAB URINE ORDERABLES Final Re sult Performing Organization Address City/[facility]/ZIP Co de Phone Number [facility] [address] [place] [address] * Urine Albumin / Creatinine Ratio (11/07/2024 9:59 AM EDT) Albumin, Urine 13.1 Not Estab. ug/mL [facility] Albumin/Creatin ine Ratio 26 0 - 29 mg/g creat [facility] Comment: Normal: 0 - 29 Moderately increased: 30 - 300 Severely increased: >300 Urine Urine specimen obtained by clean catch procedure / Unknown 11/07/2024 9:59 AM EDT 11/07/2024 Hu Rodriguez MD LAB URINE ORDERABLES Final Re sult Performing Organization Address [facility]/ZIP Co de Phone Number [facility] [place] [address] * CMV PCR Quantitative (11/07/2024 9:59 AM EDT) CMV Quant DNA PCR Negative Negative IU/mL [facility] [phone] Comment: No CMV DNA detected. The quantitative range of this assay is 200 to 1 million IU/mL. Log 10 CMV QN DNA Plasma CANCELED log10 IU/mL [facility] [phone] Comment: Unable to calculate result since non-numeric result obtained for component test. Result canceled by the ancillary. Blood Venous blood / Unknown 11/07/2024 9:59 AM EDT 11/07/2024 Hu Rodriguez MD LAB BLOOD ORDERABLES Edited R esult - Final Performing Organization Address City/[facility]/ZIP Co de Phone Number [facility] [address] [place] [address] * (ABNORMAL) Vitamin D 25 Hydroxy (11/07/2024 9:59 AM EDT) Vitamin D, 25-OH, Total 26.3(L) 30.0 - 100.0 ng/mL [facility] Comment: Vitamin D deficiency has been defined by the [place] of Medicine and an Endocrine Society practice guideline as a level of serum 25-OH vitamin D less than 20 ng/mL (1,2). The Endocrine Society went on to further define vitamin D insufficiency as a level between 21 and 29 ng/mL (2). 1. IOM ([place] of Medicine). 2010. Dietary reference intakes for calcium and D. [place]: The National Academies Press. 2. Lidia MF, Puneet OLVERA, Betsy JORDAN et al. Evaluation, treatment, and prevention of vitamin D deficiency: an Endocrine Society clinical practice guideline. JCEM. 2010; 96(7):1911-30. Blood Venous blood / Unknown 11/07/2024 9:59 AM EDT 11/07/2024 us Hu Rodriguez MD LAB BLOOD ORDERABLES Final Re sult [facility] [address] [place] [address] * (ABNORMAL) Urinalysis with microscopic (11/07/2024 9:59 AM EDT) Specific [place], Urine 1.012 1.005 - 1.030 [facility] pH Urine 7.0 5.0 - 7.5 [facility] Color, Urine Yellow Yellow [facility] Appearance Urine Cloudy(A) Clear [facility] WBC Esterase Urine 3+(A) Negative [facility] Protein, Ur Negative Negative/Tr mario [facility] Glucose, Ur Negative Negative [facility] Ketones, Urine Negative Negative [facility] Blood Urine Trace(A) Negative [facility] [phone] Bilirubin Urine Negative Negative [facility] Urobilinogen Urine 0.2 0.2 - 1.0 mg/dL [facility] [phone] Nitrite, Urine Positive(A) Negative [facility] Microscopic Examination See below: [facility] [phone] Comment:Microscopic was kaylin cated and was performed. Urine Urine specimen obtained by clean catch procedure / Unknown 11/07/2024 9:59 AM EDT 11/07/2024 Hu Rodriguez MD LAB URINE ORDERABLES Final Re sult [facility] [address] [place] [address] * (ABNORMAL) CBC (11/07/2024 9:59 AM EDT) WBC 4.8 3.4 - 10.8 x10E3/uL [facility] RBC 4.56 3.77 - 5.28 x10E6/uL [facility] Hemoglobin 14.1 11.1 - 15.9 g/dL [facility] Hematocrit 42.7 34.0 - 46.6 % [facility] MCV 94 79 - 97 fL [facility] MCH 30.9 26.6 - 33.0 pg [facility] MCHC 33.0 31.5 - 35.7 g/dL [facility] RDW 13.2 11.7 - 15.4 % [facility] Platelets 117(L) 150 - 450 x10E3/uL [facility] Blood Venous blood / Unknown 11/07/2024 9:59 AM EDT 11/07/2024 Hu Rodriguez MD LAB BLOOD ORDERABLES Final Re sult [facility] [address] [place] [address] * PTH, Intact (11/07/2024 9:59 AM EDT) PTH 50 15 - 65 pg/mL [facility] Blood Venous blood / Unknown 11/07/2024 9:59 AM EDT 11/07/2024 Hu Rodriguez MD LAB BLOOD ORDERABLES Final Re sult Performing Organization Address City/[facility]/ZIP Co de Phone Number [facility] [address] [place] [address] * Magnesium (11/07/2024 9:59 AM EDT) Pathologist [facility] Magnesium 1.6 1.6 - 2.3 mg/dL [facility] Blood Venous blood / Unknown 11/07/2024 9:59 AM EDT 11/07/2024 Hu Rodriguez MD LAB BLOOD ORDERABLES Final Re sult Performing Organization Address City/[facility] Co de Phone Number [facility] [address] [place] [address] * (ABNORMAL) Renal Function Panel (11/07/2024 9:59 AM EDT) Glucose 109(H) 70 - 99 mg/dL [facility] BUN 23 6 - 24 mg/dL [facility] Creatinine 1.15(H) 0.57 - 1.00 mg/dL [facility] eGFR CKD-EPI CR 2020 58(L) >59 mL/min/1.7 3 [facility] BUN/Creatinine Ratio 20 9 - 23 [facility] Sodium 144 134 - 144 mmol/L [facility] Potassium 4.6 3.5 - 5.2 mmol/L [facility] Chloride 105 96 - 106 mmol/L [facility] Bicarbonate (CO2) 23 20 - 29 mmol/L [facility] Calcium 9.1 8.7 - 10.2 mg/dL [facility] Albumin 4.4 3.9 - 4.9 g/dL [facility] Phosphorus 3.9 3.0 - 4.3 mg/dL [facility] Blood Venous blood / Unknown 11/07/2024 9:59 AM EDT 11/07/2024 Hu Rodriguez MD LAB BLOOD ORDERABLES Final Re sult [facility] [address] [place] [address] * Lipid panel (11/07/2024 9:59 AM EDT) Cholesterol 159 100 - 199 mg/dL [facility] Triglycerides 115 0 - 149 mg/dL [facility] HDL 55 >39 mg/dL [facility] VLDL Cholesterol Kali 21 5 - 40 mg/dL [facility] LDL Calculated 83 0 - 99 mg/dL [facility] 11/07/2024 9:59 AM EDT 11/07/2024 Hu Rodriguez MD LAB BLOOD ORDERABLES Final Re sult [facility] [address] [place] [address] * Hemoglobin A1c (05/25/2022 8:45 AM EST) Hemoglobin A1C 5.2 (4.0-5.6) % [facility] Comment: MONITORING: In known diabetic patients, hemoglobin A1c targets should be discussed with health care provider. DIAGNOSTIC USE: The [place] Diabetes Association (ADA) and the World Health [...] Supplement 1 Testing performed or reported by [facility] Reference Direct[employer], a Service of [facility], [address] [place] [id number] Jayne Ramírez MD, Director Of Residential Services [facility]# [id number] 05/25/2022 8:45 AM EST 05/25/2022 8:54 AM EST Jackson Nettles MD LAB BLOOD ORDERABLES Final Re sult [facility] from Last 3 Months or Most Recently Relevant to Health Maintenance Insurance Medicare Medicaid [place] Care Teams Hardboard Press Operator Relationship Specialty Start Date End Date Josh Dahl PA [address] [place] [address], [address] [place] [address] PCP - General Physician Wildlife Removal Specialist 10/31/23
--- OUTSIDE RECORDS SUMMARY | 2024-12-18 15:37 | XMS_ITS | Clinical Summary ---
Author Organization [address] [place] [address] [place] [phone] Phone Care Team Providers Care Cable Installation Manager Name Role Phone Josh Dahl Primary [...] 9:15 AM EDT Office Visit Orthopedic Surgery [facility] [address] [phone] Cecil Muñoz DPM Dermatophytosis of nail (Primary Dx); Diabetic mononeuropathy simplex ([facility] V24, [facility] V28); Metatarsalgia of both feet; Hammer toe of left foot; Tinea pedis of both feet; Acquired hammer toe of right foot from Last 3 Months Surgical History Surgery Date Site/Laterality Comments TRANSPLANTATION RENAL 01/31/2022 - 03/01/2022 ARTERIOVENOUS GRAFT Medical History Medical History Date Comments Chronic kidney disease Hyperparathyroidism ([facility] V24) T2DM (type 2 diabetes mellitus) ([facility] V24, [facility] V28) Hypertension Renal transplant recipient Social [...] 9:15 AM EDT Office Visit Orthopedic Surgery [facility] [address] [phone] Cecil Muñoz DPM [address] [phone] Health Maintenance Due Date Last Done Comments [...] Insurance MEDICARE MEDICAID - [place] Care Teams Cable Installation Manager Relationship Specialty Start Date End Date Josh Dahl PA [address] [place] [address] PCP - General Physician Company Truck Driver 01/23/24
== END 2024-12-18 13:38 | disposition home or self-care (01) ==
LOC: HO.HAP 13:37
PROVIDERS: Visit Provider Physician Assistant
DX: Z13.89 Encounter for screening for other disorder (principal)

== ENCOUNTER 2024-12-25 11:03 | Outpatient (REF) | payer MEDICARE, MEDICAID, SELFPAY ==
--- OUTSIDE RECORDS SUMMARY | 2024-12-25 15:20 | XMS_ITS | Clinical Summary ---
Author Organization [address] [place] [address] [place] [phone] Phone Care Team Providers Care Exhibitions Curator Name Role Phone Josh Dahl Primary Care [...] diabetes mellitus) (CMS/HCC V24, CM S/HCC V28) Surgical History Surgery Date Site/Laterality Comments TRANSPLANTATION RENAL 01/31/2022 - 03/01/2022 ARTERIOVENOUS GRAFT Medical History Medical History Date Comments Chronic kidney disease Hyperparathyroidism ([facility] V24) T2DM (type 2 diabetes mellitus) ([facility] V24, [facility] /[facility] V28) Hypertension Renal transplant recipient Social [...] 9:15 AM EDT Office Visit Orthopedic [facility] [place] [address] [phone] Cecil Muñoz, DPM [address] [phone] Health Maintenance Due Date Last Done Comments [...] Insurance MEDICARE [place]ICA[place] - [place] Care Teams Exhibitions Curator Relationship Specialty Start Date End Date Josh Dahl PA [address] [place] [phone] PCP - General Physician Assistant Manager Bilingual 01/23/24
--- OUTSIDE RECORDS SUMMARY | 2024-12-25 15:20 | XMS_ITS | Clinical Summary ---
Author Organization [facility] Address [address] [place] [address] Care Team Providers Care Regional Director Of Finance Name Role Phone Pcp, No Primary Care [...] A & B MEDICA[place] [facility] Care Teams Regional Director Of Finance Relationship Specialty Start Date End Date Pcp, No PCP - General General Medicine 04/04/23
== END 2024-12-25 11:04 | disposition home or self-care (01) ==
LOC: HO.HAP 11:03
PROVIDERS: Visit Provider Otolaryngology
DX: Z46.1 Encounter for fitting and adjustment of hearing aid (principal); H90.3 Sensorineural hearing loss, bilateral
CPT/HCPCS: 92593; 99499

== ENCOUNTER 2025-01-29 07:45 | Outpatient (AMB) | payer MEDICARE, MEDICAID, SELFPAY ==
--- OUTSIDE RECORDS SUMMARY | 2025-01-29 07:48 | XMS_ITS | Encounter Summary ---
Author Organization [facility] Address [address] [address] Phone Care Team Providers Care Actuarial Intern Name Role Phone Josh Dahl Primary Care Provider [phone] Encounter Details Date Type Department Care Team (Late st Contact Info) Description 01/28/2025 Orders Only [facility] [address] [address] Matias Yusra [address] [facility] [address] [place] [phone] Social History Tobacco Use Types Packs/Day Years [...] on file documented as of this encounter Plan of Treatment Upcoming Encounters Date Type Department Care Team (Late st Contact Info) Description 02/06/2025 10:45 AM EST Office Visit [facility] [address] [phone] Hu Rodriguez MD [address] [address] documented as of this encounter Visit Diagnoses Not on filedocumented in this encounter Care Teams Actuarial Intern Relationship Specialty Start Date End Date Josh Dahl PA [address] [facility], [address] [place] [address] PCP - General Physician Halal Meat Packer 10/31/23 documented as of this encounter
--- OUTSIDE RECORDS SUMMARY | 2025-01-29 07:48 | XMS_ITS | Clinical Summary ---
Author Organization [facility] Address [address] [place] [address] [address] [place] [address] Phone Care Team Providers Care Dredgemaster Name Role Phone Josh Dahl Primary Care Provider [phone] Allergies Active Allergy Reactions Criticality Noted Date Comments Cefazolin Anaphylaxis,Other (see comments) High 04/2014 Medications Cholecalciferol (Vitamin D-3) 125 MCG (5000 UT) tablet Take 5,000 Units by mouth 1 (one) time each day Active simvastatin (ZOCOR) 20 MG tablet Take 1 tablet (20 mg total) by mouth 1 (one) time each day 90 tablet 3 01/31/2024 Active chlorhexidine (PERIDEX) 0.12 % solution SWISH A CAPFUL AFTER MEALS TWICE DAILY. DO NOT SWALLOW. RINSE WITH WATER AFTER USE. 04/22/2024 Active Envarsus XR 1 MG tablet sustained-relea se 24 hour TAKE 6 TABLET BY MOUTH 1 (ONE) TIME EACH DAY 180 tablet 5 09/25/2024 Active midodrine (PROAMATINE) 2.5 MG tablet Take 1 tablet (2.5 mg total) by mouth in the morning and 1 tablet (2.5 mg total) before bedtime. 180 tablet 11/07/2024 Active fludrocortisone 0.1 MG tabletIndicatio ns:Kidney replaced by transplant TAKE ONE TABLET BY MOUTH ONCE DAILY 90 tablet 3 12/08/2024 Active cinacalcet (SENSIPAR) 30 MG tablet TAKE 1 TABLET (30 MG TOTAL) BY MOUTH 1 (ONE) TIME EACH DAY 90 tablet 3 12/08/2024 Active Active Problems Problem Noted Date Diagnosed [...] Encounters Date Type Department Care Team Description 01/28/2025 Orders Only [facility] [address] [facility] [address] [place] [address] Yusra Salcedo 12/08/2024 Refill [facility] [address] [place] [address] [place] [address] Hu Rodriguez MD Kidney replaced by transplant 11/07/2024 9:00 AM EDT Office Visit [facility] [address] [facility] [address] [place] [address] Hu oRdriguez MD Kidney transplant status (Primary Dx) from Last 3 Months Immunizations Immunization Administration [...] Visit [facility] [address] [address] Hu Rodriguez MD [address] [address] Health Maintenance Due Date Last Done Comments [...] Urine >30(A) 0 - 5 /hpf [facility] RBC, Urine None seen 0 - 2 /hpf [facility] Squamous Epithelial, Urine 0-10 0 - 10 /hpf [facility] Casts None seen None seen /lpf [facility] Bacteria, Urine Many(A) None seen/Few [facility] 11/07/2024 9:59 AM EDT 11/07/2024 Hu Rodriguez MD LAB MICROBIOLOGY - GENERAL OR DERABLES Final Result [facility] [address] [place] [address] * Tacrolimus level (11/07/2024 9:59 AM EDT) Tacrolimus Lvl 9.6 5.0 - 20.0 ng/mL [facility] Comment: Target steady state trough concentration [...] [facility] - 11/10/2024 9:05 AM EDT Test(s) [id number] ([id number]), Blood was developed and its performance characteristics determined by [employer]. It has not been cleared or approved by the Food and Drug Administration. Hu Rodriguez MD LAB BLOOD ORDERABLES Final Re sult [facility] [address] [place] [phone] * (ABNORMAL) Protein, Total, Random Urine w/Creatinine (Protein/Creat Ratio) (11/07/2024 9:59 AM EDT) Creatinine, Ur 50.5 Not Estab. mg/dL [facility] Protein, Ur 25.2 Not Estab. mg/dL [facility] Urine Protein/Creati nine Ratio 499(H) 0 - 200 mg/g creat [facility] Urine Urine specimen obtained by clean catch procedure / Unknown 11/07/2024 9:59 AM EDT 11/07/2024 Hu Rodriguez MD LAB URINE ORDERABLES Final Re sult Performing Organization Address [facility]/ZIP Co de Phone Number [facility] [address] [place] [address] * Urine Albumin / Creatinine Ratio (11/07/2024 9:59 AM EDT) Albumin, Urine 13.1 Not Estab. ug/mL [facility] Albumin/Creatin ine Ratio 26 0 - 29 mg/g creat [facility] Comment: Normal: 0 - 29 Moderately increased: 30 - 300 Severely increased: >300 Urine Urine specimen obtained by clean catch procedure / Unknown 11/07/2024 9:59 AM EDT 11/07/2024 Hu Rodriguez MD LAB URINE ORDERABLES Final Re sult Performing Organization Address City/[facility]/ZIP Co de Phone Number [facility] [address] [place] [address] * CMV PCR Quantitative (11/07/2024 9:59 AM EDT) CMV Quant DNA PCR Negative Negative IU/mL [facility] Comment: No CMV DNA detected. The quantitative range of this assay is 200 to 1 million IU/mL. Log 10 CMV QN DNA Plasma CANCELED log10 IU/mL [facility] Comment: Unable to calculate result since non-numeric result obtained for component test. Result canceled by the ancillary. Blood Venous blood / Unknown 11/07/2024 9:59 AM EDT 11/07/2024 Hu Rodriguez MD LAB BLOOD ORDERABLES Edited R esult - Final Performing Organization Address [facility]/ZIP Co de Phone Number [facility] [address] [place] [address] * (ABNORMAL) Vitamin D 25 Hydroxy (11/07/2024 9:59 AM EDT) Vitamin D, 25-OH, Total 26.3(L) 30.0 - 100.0 ng/mL [facility] Comment: Vitamin D deficiency has been defined by the [place] of [employer] and an Endocrine Society practice guideline as a level of serum 25-OH vitamin D less than 20 ng/mL (1,2). The Endocrine Society went on to further define vitamin D insufficiency as a level between 21 and 29 ng/mL (2). 1. IOM ([place] of Medicine). 2010. Dietary reference intakes for [...] Re sult [facility] [address] [place] [address] * (ABNORMAL) Urinalysis with microscopic (11/07/2024 9:59 AM EDT) Specific [place], Urine 1.012 1.005 - 1.030 [facility] pH Urine 7.0 5.0 - 7.5 [facility] Color, Urine Yellow Yellow [facility] Appearance Urine Cloudy(A) Clear [facility] WBC Esterase Urine 3+(A) Negative [facility] Protein, Ur Negative Negative/Tr mario [facility] Glucose, Ur Negative Negative [facility] [phone] Ketones, Urine Negative Negative [facility] [phone] Blood Urine Trace(A) Negative [facility] Bilirubin Urine Negative Negative [facility] Urobilinogen Urine 0.2 0.2 - 1.0 mg/dL [facility] Nitrite, Urine Positive(A) Negative [facility] Microscopic Examination See below: [facility] Comment:Microscopic was kaylin cated and was performed. Urine Urine specimen obtained by clean catch procedure / Unknown 11/07/2024 9:59 AM EDT 11/07/2024 us Hu Rodriguez MD LAB URINE ORDERABLES Final Re sult [facility] [address] [place] [address] * (ABNORMAL) CBC (11/07/2024 9:59 AM EDT) WBC 4.8 3.4 - 10.8 x10E3/uL [facility] RBC 4.56 3.77 - 5.28 x10E6/uL [facility] Hemoglobin 14.1 11.1 - 15.9 g/dL [facility] Hematocrit 42.7 34.0 - 46.6 % [facility] MCV 94 79 - 97 fL [facility] MCH 30.9 26.6 - 33.0 pg [facility] MCHC 33.0 31.5 - 35.7 g/dL [facility] RDW 13.2 11.7 - 15.4 % [facility] Platelets 117(L) 150 - 450 x10E3/uL [facility] Blood Venous blood / Unknown 11/07/2024 9:59 AM EDT 11/07/2024 Hu Rodriguez MD LAB BLOOD ORDERABLES Final Re sult [facility] [address] [place] [address] * PTH, Intact (11/07/2024 9:59 AM EDT) PTH 50 15 - 65 pg/mL [facility] Blood Venous blood / Unknown 11/07/2024 9:59 AM EDT 11/07/2024 Hu Rodriguez MD LAB BLOOD ORDERABLES Final Re sult [facility] [address] [place] [address] * Magnesium (11/07/2024 9:59 AM EDT) Magnesium 1.6 1.6 - 2.3 mg/dL [facility] Blood Venous blood / Unknown 11/07/2024 9:59 AM EDT 11/07/2024 Hu Rodriguez MD LAB BLOOD ORDERABLES Final Re sult [facility] [address] [place] [address] * (ABNORMAL) Renal Function Panel (11/07/2024 9:59 AM EDT) Glucose 109(H) 70 - 99 mg/dL [facility] BUN 23 6 - 24 mg/dL [facility] Creatinine 1.15(H) 0.57 - 1.00 mg/dL [facility] eGFR CKD-EPI CR 2020 58(L) >59 mL/min/1.7 3 [facility] BUN/Creatinine Ratio 20 9 - 23 [facility] Sodium 144 134 - 144 mmol/L [facility] Potassium 4.6 3.5 - 5.2 mmol/L [facility] Chloride 105 96 - 106 mmol/L [facility] Bicarbonate (CO2) 23 20 - 29 mmol/L [facility] Calcium 9.1 8.7 - 10.2 mg/dL [facility] Albumin 4.4 3.9 - 4.9 g/dL [facility] Phosphorus 3.9 3.0 - 4.3 mg/dL [facility] Blood Venous blood / Unknown 11/07/2024 9:59 AM EDT 11/07/2024 Hu Rodriguez MD LAB BLOOD ORDERABLES Final Re sult Performing Organization Address City/[facility]/ZIP Co de Phone Number [facility] [address] [place] [address] * Lipid panel (11/07/2024 9:59 AM EDT) Cholesterol 159 100 - 199 mg/dL [facility] Triglycerides 115 0 - 149 mg/dL [facility] HDL 55 >39 mg/dL [facility] VLDL Cholesterol Kali 21 5 - 40 mg/dL [facility] LDL Calculated 83 0 - 99 mg/dL [facility] 11/07/2024 9:59 AM EDT 11/07/2024 Hu Rodriguez MD LAB BLOOD ORDERABLES Final Re sult Performing Organization Address [facility] Co de Phone Number [facility] [address] [place] [address] * Hemoglobin A1c (05/25/2022 8:45 AM EST) Hemoglobin A1C 5.2 (4.0-5.6) % [facility] Comment: MONITORING: In known diabetic patients, hemoglobin A1c targets should be discussed with health care provider. DIAGNOSTIC USE: The [place] Diabetes Association (ADA) and the World Health [...] Supplement 1 Testing performed or reported by [facility], a Service of [facility], [address] [place] [id number] Jayne Ramírez MD, Professional Security Officer [facility]# [id number] 05/25/2022 8:45 AM EST 05/25/2022 8:54 AM EST us Jackson Nettles MD LAB BLOOD ORDERABLES Final Re sult [facility] from Last 3 Months or Most Recently Relevant to Health Maintenance Insurance [place] Medicaid [place] Care Teams Dredgemaster Relationship Specialty Start Date End Date Josh Dahl PA [address] [place] [address], [address] [place] [address] PCP - General Physician Local Company Tanker Driver 10/31/23
--- OUTSIDE RECORDS SUMMARY | 2025-01-29 07:48 | XMS_ITS | Clinical Summary ---
Author Organization [address] [place] [address] [place] [phone] Phone Care Team Providers Care Leather Dresser Name Role Phone Josh Dahl Primary Care [...] Encounters Date Type Department Care Team Description 01/19/2025 9:15 AM EDT Office Visit Orthopedic Surgery [facility] [address] [phone] Cecil Muñoz DPM Dermatophytosis of nail (Primary Dx); Diabetic mononeuropathy simplex ([facility] [place] V24, [facility] [place] V28); Metatarsalgia of both feet; Tinea pedis of both feet; Acquired hammer toe of right foot; Hammer toe of left foot; Corns and callosities; Hallux rigidus of right foot; Hallux rigidus of left foot from Last 3 Months Surgical History Surgery Date Site/Laterality Comments TRANSPLANTATION RENAL 01/31/2022 - 03/01/2022 ARTERIOVENOUS GRAFT Medical History Medical History Date Comments Chronic kidney disease Hyperparathyroidism ([facility] [place] V24) T2DM (type 2 diabetes mellitus) ([facility] [place] V24, [facility] V28) Hypertension Renal transplant recipient Social History [...] Care Team (Late st Contact Info) Description 04/21/2025 9:00 AM EST Office Visit Orthopedic [place] [address] [phone] Cecil Muñoz DPM [address] [place] [phone] Health Maintenance Due Date Last Done Comments Breast Cancer Screening 1975 Colorectal Cancer Screening: Colonoscopy 1975 Diabetes: Annual GFR (Glomerular Filtration Rate) 1975 Diabetes: Annual Foot Exam 10/15/1985 Diabetes: Annual Retina Eye Exam 10/15/1985 Cervical Cancer Screening: Pap Smear 10/15/1996 HIV Screening 01/18/2024 Hepatitis C Screening 01/18/2024 Medicare Annual Wellness Visit 01/18/2024 Social Influencers of Health Screening 01/18/2024 Diabetes: Blood Sugar Control Test (HGBA1C) 02/19/2024 05/25/2022 Hypertension/CHF/CAD Annual BMP Blood Test 02/19/2024 Depression Screening 04/02/2024 COVID-19 Vaccine (5 - Pfizer risk season) 2024 01/14/2024, 12/21/2022, 01/14/2022, Additional history exists Influenza Vaccine (#1) 2024 , 01/08/2023, 01/05/2022 Diabetes: Annual Urine Albumin-Creatinine Ratio (uACR) 11/07/2025 11/07/2024, 08/06/2024, 05/09/2024 Cholesterol Screening (Lipid Panel) 11/07/2029 11/07/2024 DTaP,Tdap,and Td Vaccines (2 - Td or Tdap) 06/05/2033 06/06/2023 RSV Immunization Adult Patients (1 - 1-dose 75+ series) 10/15/2050 Hepatitis B Vaccines Completed 10/09/2005, 05/05/2005, 04/06/2005 [...] Insurance MEDICARE MEDICAID - [place] Care Teams Leather Dresser Relationship Specialty Start Date End Date Josh Dahl PA [address] [place] [phone] PCP - General Physician Nursing Program Coordinator 01/23/24
--- OUTSIDE RECORDS SUMMARY | 2025-01-29 07:48 | XMS_ITS | Clinical Summary ---
Author Organization [facility] Address [address] [place] [address] Care Team Providers Care Studio Hand Name Role Phone Pcp, No Primary Care [...] A & B MEDICAID OUT OF STATE [facility] Care Teams Studio Hand Relationship Specialty Start Date End Date Pcp, No PCP - General General Medicine 04/04/23
[2025-01-29 07:54] VITALS: BP 137/93; PULSE 87; BMI 25.5
--- NOTE | 2025-01-29 07:54 | MHC.OFFVIS ---
Vital Signs 01/29/25 07:54 Height 5 ft 7 in Weight 163 lb 2.273 oz BMI 25.5 BP 137/93 H Blood Pressure Location Rt brachial Position Sitting Pulse 87 Intake Visit Reasons: colo screen rufina 12/2021 Allergies cefazolin Allergy (Severe, Verified 01/29/25 07:55) Anaphylaxis Medication List - Last Reconciled 01/29/25 by Henok Carbone MD [ADVOCATE REDI CODE TEST STRIP As directed] cinacalcet (Sensipar) 30 mg PO DAILY fludrocortisone 0.1 mg PO DAILY lancets (FreeStyle Lancets) Three times a day midodrine 2.5 mg PO BID miscellaneous medical supply 1 ea miscellaneous DAILY 99 days simvastatin 20 mg PO DAILY 90 days tacrolimus 5 mg PO Q12H HPI HPI colo screen rufina 12/2021: Details: GI clinic visit for this 49 YF with autism, DM and status post renal transplant schedule her 4th colonoscopy for FU of multiple colon polyps. Pt had a renal [place] 2[place]3 [place] [facility] [place] is on Tacrol[place] Patient had been on HD x several yrs prior to renal transplantation. TODAY'S VISIT: Pt is accompanied by her Care Provider (has shared living arrangements) Pt has bouts of un-controllable diarrhea one to two times a month - has to take a shower Has a BM 1-2 times a week without straining or hard stool. Denies rectal bleeding Pt has a dry cough and workup was negative - she may have GERD PAST VISITS: Denies any problems after the colonoscopy - difficult to start an IV and had a long recovery time. Noted some painless rectal bleeding the day after her colonoscopy and none since. Patient denies symptoms of abd pain, heartburn, dysphagia, nausea, vomiting, change in appetite or weight. Denies recent change in bowel habits, constipation, diarrhea, black stools or rectal bleeding. Patient denies major cardiac or pulmonary problems, loud snoring or sleep apnea Denies problems with anesthesia in the past. Denies being on chronic anticoagulation. Patient denies known family history of colon polyps, colon cancer or other GI malignancies. On disabilityNo children Both parents An aunt in [place] and a brother in [place] (brother does not visit and is not involved with her care) IMAGING STUDIES:? No recent GI imaging ENDOSCOPIC STUDIES:? 03/07/21 COLONOSCOPY SHOWED: One small and three medium to large sized polyps removed Moderate diverticulosis seen in the left colon Moderate hemorrhoids on retroflexed exam. Plan:? Patient has an appointment on 03/31/21 in the GI Clinic with Henok Carbone M.D.. Repeat Colonoscopy interval based on path results - in 6 months if polyps are adenomatous to check polypectomy sites in the AC and SC.. Above findings were reviewed with the patient and colon polyps and diverticulosis handouts were given in the discharge area BIOPSIES SHOWED: A.? Colon, ascending, polypectomy:? Fragments of sessile serrated polyp. B.? Colon, ascending at 90 cm O-RISE, polypectomy:? Fragments of sessile serrated polyp. C.? Colon, descending, polypectomy:? Fragment of food/vegetable material; no colonic tissue present. D.? Colon, sigmoid at 30 cm, polypectomy:? Fragments of tubulovillous adenoma; no high-grade dysplasia or carcinoma seen. [facility] Medical History Acute respiratory disease Annual physical exam Cervical cancer screening Obesity due to excess calories Adult general medical exam Colonoscopy planned Encounter for subsequent annual wellness visit (AWV) in Medicare patient Vitamin D deficiency HLD (hyperlipidemia) T2DM (type 2 diabetes mellitus) AV fistula Obesity (BMI 30-39.9) Autism spectrum Pure hypercholesterolemia End stage renal disease on dialysis Type 2 diabetes mellitus with diabetic chronic kidney disease Surgical History Kidney transplanted History of colonoscopy History of open reduction and internal fixation (ORIF) procedure H/O bilateral breast reduction surgery History of appendectomy Family History Father No problems noted. Mother No problems noted. 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) Vision needs: Yes (wear glasses) Review of Systems Const All systems reviewed & are unremarkable except as noted in HPI and below Physical Exam Vital Signs: Last Vital Signs Pulse 87 01/29/25 07:54 BP 137/93 H 01/29/25 07:54 BMI result Body Mass Index 25.5 Const General: no acute distress Nutritional Appearance: average body habitus Orientation/consciousness: patient oriented x3 Limitations: other limitations (Autism spectrum disorder) HEENT Head: Yes normal to inspection Ears: hearing grossly normal bilaterally Mouth: Normal oral and palatal mucosa present Eyes Sclerae: sclerae normal Pupils: Equal, round and reactive pupils present Neck Neck: Yes normal visual inspection Chest Chest palpation & inspection: normal inspection of the chest Resp Effort & Inspection: normal respiratory effort Auscultation: clear to auscultation bilaterally Cardio Palpation: normal PMI Rate: regular rate Rhythm: regular rhythm Heart sounds: S1 normal heart sound present, S2 normal heart sound present and no murmurs GI Palpation (GI): Soft to palpation, nontender and No hepatosplenomegaly present Auscultation: normal bowel sounds Rectal Exam - Female: deferred Skin General skin exam: no rashes or lesions noted Neuro General: patient oriented x3, gait normal and moves all extremities Cranial nerves: Yes Equal, round and reactive pupils present Psych Appearance: grossly normal Mental Status: mental status grossly normal Assessment & Plan Assessment & Plan (1) History of colon polyps: Code(s): Z86.010 - Personal history of colon polyps Category: Medical (2) GERD (gastroesophageal reflux disease): Code(s): K21.9 - Gastro-esophageal reflux disease without esophagitis Category: Medical Plan GI clinic visit for this 49 YF with autism spectrum disorder, DM and ESRD status post renal transplant schedule her 4th colonoscopy for FU of multiple colon polyps. Pt had a renal [place] in 2022 [place] [facility] [place] is [place] Tacrolimus Patient had been on HD x several yrs prior to renal transplantation. Has a BM 1-2 times a week without straining or hard stool. Knapp of Omeprazole 20 mg at bedtime for chronic dry cough Pt advised to schedule an EGD (suspected GERD) and a colonoscopy (FU of multiple colon polyps). Colonoscopy procedure and prep instructions were reviewed with the patient's soil conservation teacher. Patient is able to give consent for her procedures (she gave consent for renal transplant surgery) Orders: Referrals GI Procedure Notification Z86.010 - Personal history of colon polyps Medications: New polyethylene glycol 3350 (Miralax) Mix Miralax with 64 oz(8 cups) of [place] light. Take 2 tablets of Dulcolax qt 12 pm. Wait to have your 1st bowel movement, then begin drinking Miralax. Drink a glass of Miralax every 10-15 minutes until you are finished. You will drink at least another 4 cups of clear liquid of your choice over the next 2 hours. Please drink as many clear liquids as possible You may have clear liquids up to four hours before your procedure 17 grams PO DAILY 238 grams 0RF colon prep 1 day bisacodyl (Dulcolax (bisacodyl)) Take 2 tablets at 12 pm starting 7 days before colonoscopy 10 mg (2 x 5 mg) PO ONCE 14 tabs 0RF colon prep 7 days omeprazole magnesium Give at bedtime 20 mg PO DAILY 30 tabs 5RF 30 days K21.9 - Gastro-esophageal reflux disease without esophagitis Coding Level of Care Code Est Pt Level 4 (76541) Diagnoses History of colon polyps Z86.010 GERD (gastroesophageal reflux disease) K21.9 Time Spent (min) 26
== END 2025-01-29 08:49 | disposition home or self-care (01) ==
LOC: HO.HGI 07:46
PROVIDERS: PCP Physician Assistant; Visit Provider Internal Medicine Gastroenterology
DX: Z86.0100 Personal history of colon polyps, unspecified (principal); K21.9 Gastro-esophageal reflux disease without esophagitis
CPT/HCPCS: 99214

== ENCOUNTER → 2025-01-29 07:45 | Outpatient (BNVA) | payer MEDICARE, MEDICAID, SELFPAY | PROVIDERS: PCP Physician Assistant; Visit Provider Internal Medicine Gastroenterology | DX: K21.9 Gastro-esophageal reflux disease without esophagitis (principal); Z86.0100 Personal history of colon polyps, unspecified | CPT/HCPCS: 99212 ==

== ENCOUNTER 2025-02-13 08:46 | Outpatient (AMB) | payer MEDICARE, MEDICAID, SELFPAY ==
[2025-02-13 08:47] VITALS: BP 138/88; PULSE 95; TEMP 36.7; O2SAT 97; BMI 27.4
--- NOTE | 2025-02-13 08:47 | AM.OFFWIN_ITS ---
Intake Vital Signs 02/13/25 08:47 Height 5 ft 7 in Weight 175 lb BMI 27.4 BP 138/88 Blood Pressure Location Rt brachial Position Sitting Pulse 95 Pulse Source Pulse Oximeter Temp 98.1 F Temp Source Oral Pulse Oximetry (%) 97 Oxygen Delivery Method Room Air Intake Visit Reasons: EP cough Intake Note: EP complains of cough for four weeks. Patient Tobacco Use Status: Never used Tobacco Allergies cefazolin Allergy (Severe, Verified 02/13/25 09:02) Anaphylaxis Do you need a note to return to daycare/school/sports/work: No HPI HPI Comments History of Present Illness Details This is a 49-year-old female with a past medical history of diabetes, mild cognitive deficits, hyperlipidemia and renal transplant in 2021 presenting for evaluation of a cough that she has had for the past 1 month. Patient denies having any fevers, chills, chest pain, abdominal pain, otalgia, sore throat or shortness of breath. Patient notes that her cough worsens when she lies down to sleep at night. Patient has not taken any medication for treatment of her cough. [facility] Medical History Acute respiratory disease Annual physical exam Cervical cancer screening Obesity due to excess calories Adult general medical exam Colonoscopy planned Encounter for subsequent annual wellness visit (AWV) in Medicare patient Vitamin D deficiency HLD (hyperlipidemia) T2DM (type 2 diabetes mellitus) AV fistula Obesity (BMI 30-39.9) Autism spectrum Pure hypercholesterolemia End stage renal disease on dialysis Type 2 diabetes mellitus with diabetic chronic kidney disease Surgical History Kidney transplanted History of colonoscopy History of open reduction and internal fixation (ORIF) procedure H/O bilateral breast reduction surgery History of appendectomy Family History Father No problems noted. Mother No problems noted. 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) Vision needs: Yes (wear glasses) Review of Systems Const Reports as per HPI, Reports no additional complaints, Denies body aches, Denies chills and Denies fever(s) Eyes Reports no additional complaints ENT Denies dysphagia, Denies dry mouth, Denies otalgia and Denies sore throat Card Denies chest pain and Denies dyspnea Resp Denies chest congestion, Reports cough, Denies dyspnea and Denies wheezing GI Reports no additional complaints, Denies abdominal pain, Denies belching, Denies bloating, Denies dysphagia, Denies nausea and Denies vomiting Reports no additional complaints Musc Reports no additional complaints Skin/Breast Reports system reviewed and no additional complaints, except as documented Psych Reports no additional complaints Endo Reports no additional complaints Aller/Immun Denies wheezing Physical Exam Vital Signs: Last Vital Signs Temp 98.1 F 02/13/25 08:47 Pulse 95 02/13/25 08:47 Pulse Ox 97 02/13/25 08:47 Oxygen Delivery Method Room Air 02/13/25 08:47 BMI result Body Mass Index 27.4 Patient is afebrile and is not hypoxic Const General: cooperative, healthy appearing, comfortable, no acute distress, well developed, alert, awake and Physically active; No lethargic Nutritional Appearance: overweight Orientation/consciousness: No lethargic Limitations: no limitations HEENT Head: Yes normal to inspection and Yes normocephalic Ears: hearing grossly abnormal bilaterally (Hearing aids bilaterally), external ears normal, TM's normal bilaterally and EAC's normal General nose exam: Normal external nose present Mouth: Normal oral and palatal mucosa present, oropharynx normal, moist mucous membranes, breath no malodorous and no trismus Throat: Yes posterior oropharynx normal Eyes General: appearance normal, both eyes and all related structures Neck Lymphatic: no lymphadenopathy noted Resp Effort & Inspection: normal respiratory effort, able to speak in complete sentences, no audible wheezes, Actively coughing, not labored and no nasal flaring Auscultation: clear to auscultation bilaterally Cardio Rate: regular rate Rhythm: regular rhythm GI Inspection: Yes normal to inspection and No distended Palpation (GI): Soft to palpation, Tenderness to palpation present (GI) in the epigastrum; not in the LUQ, not in the RUQ and not periumbilically and no guarding Auscultation: normal bowel sounds Skin General skin exam: no rashes or lesions noted Results Reviewed Results Reviewed: Chest x.ray reviewed. No acute findings. Assessment & Plan Assessment & Plan (1) Chronic cough: Comment: Given this patient's epigastric discomfort coupled with her chronic cough and normal chest x-ray imaging, patient will be prescribed omeprazole to take once daily. Code(s): R05.3 - Chronic cough Plan: Omeprazole 40 mg once daily x2 weeks; follow-up PCP within 2-3 weeks. Orders: Orders XR chest 2V Today R05.9 - Cough, unspecified Medications: New omeprazole 40 mg PO DAILY 14 caps 0RF Coding Level of Care Code Est Pt Level 3 (40082) Diagnoses Chronic cough R05.3 Time Spent (min) 25
--- OUTSIDE RECORDS SUMMARY | 2025-02-13 09:03 | XMS_ITS | Clinical Summary ---
Author Organization [facility], Located Within [facility] Address [address] [place] [address] Care Team Providers Care Pageant Director Name Role Phone Pcp, No Primary Care [...] A & B MEDICAID OUT OF STATE [facility] Care Teams Pageant Director Relationship Specialty Start Date End Date Pcp, No PCP - General General Medicine 04/04/23
--- OUTSIDE RECORDS SUMMARY | 2025-02-13 09:03 | XMS_ITS | Clinical Summary ---
Author Organization [address] [place] [address] [place] [phone] Phone Care Team Providers Care Linker Up Name Role Phone Josh Dahl Primary Care Provider [phone] Allergies Active Allergy Reactions Criticality Noted Date [...] 9:15 AM EDT Office Visit Orthopedic Surgery [facility] [address] [phone] Cecil Muñoz DPM Dermatophytosis of nail (Primary Dx); Diabetic mononeuropathy simplex ([facility] V24, [facility] V28); Metatarsalgia of both feet; Tinea pedis of both feet; Acquired hammer toe of right foot; Hammer toe of left foot; Corns and callosities; Hallux rigidus of right foot; Hallux rigidus of left foot from Last 3 Months Surgical History Surgery Date Site/Laterality Comments TRANSPLANTATION RENAL 01/31/2022 - 03/01/2022 ARTERIOVENOUS GRAFT Medical History Medical History Date Comments Chronic kidney disease Hyperparathyroidism ([facility] V24) T2DM (type 2 diabetes mellitus) ([facility] V24, [facility] V28) Hypertension Renal transplant recipient Social [...] 04/21/2025 9:00 AM EST Office Visit Orthopedic [place] [id number] [phone] Cecil Muñoz DPM [address] [phone] Health Maintenance Due Date Last Done Comments [...] Test 02/19/2024 Depression Screening 04/02/2024 COVID-19 Vaccine ( season) 2024 01/14/2024, 12/21/2022, 01/14/2022, Additional history [...] Insurance [place]ICARE [place] - [place] Care Teams Linker Up Relationship Specialty Start Date End Date Josh Dahl PA [address] [place] [phone] PCP - General Physician Multi Sensor Operator 01/23/24
== END 2025-02-13 10:23 | disposition home or self-care (01) ==
PROVIDERS: PCP Physician Assistant; Visit Provider Physician Assistant
DX: R05.3 Chronic cough (principal)

== ENCOUNTER 2025-02-13 08:46 | Outpatient (REF) | payer MEDICARE, MEDICAID, SELFPAY ==
--- NOTE | ~2025-02-13 | XR_ITS ---
EXAMINATION: XR CHEST CLINICAL INFORMATION: R05.9 - Cough, unspecified COMPARISON: None available. TECHNIQUE: PA and lateral views FINDINGS: No consolidation, pleural effusion or pneumothorax. Cardiomediastinal silhouette size is normal. Poor inspiration. Multiple metallic stents in the medial aspect of the left brachial/left axillary region. Osseous structures are intact. S-shaped curvature of the thoracolumbar spine. XR/XR chest 2V IMPRESSION: No acute airspace disease. Electronically signed by: Fabien Diaz MD 02/13/2025 09:48 AM JASON
== END 2025-02-13 08:47 | disposition home or self-care (01) ==
LOC: HO.HMGCX 08:46
PROVIDERS: PCP Physician Assistant; Visit Provider Physician Assistant
DX: R05.3 Chronic cough (principal)
CPT/HCPCS: 71046; 99212

== ENCOUNTER → 2025-02-13 09:31 | Outpatient (BNV) | payer MEDICARE, MEDICAID, SELFPAY | PROVIDERS: PCP Physician Assistant; Visit Provider Radiology Diagnostic Radiology | DX: R05.9 Cough, unspecified (principal) | CPT/HCPCS: 71046 ==

== ENCOUNTER 2025-02-18 11:21 | Outpatient (AMB) | payer MEDICARE, MEDICAID, SELFPAY ==
[2025-02-18 11:36] VITALS: BP 130/70; PULSE 94; TEMP 36; O2SAT 97; BMI 27.1
--- NOTE | 2025-02-18 11:36 | MHC.PC.OV ---
Vital Signs 02/18/25 11:36 Height 5 ft 7 in Weight 173 lb 4 oz BMI 27.1 BP 130/70 Blood Pressure Location Rt brachial Position Sitting Pulse 94 Pulse Source Pulse Oximeter Temp 96.8 F Temp Source Oral Pulse Oximetry (%) 97 Oxygen Delivery Method Room Air Intake Visit Reasons: f/u cough walk in Allergies cefazolin Allergy (Severe, Verified 02/18/25 11:48) Anaphylaxis Medication List - Last Reconciled 02/18/25 by Josh Dahl PA-C [ADVOCATE REDI CODE TEST STRIP As directed] bisacodyl (Dulcolax (bisacodyl)) 10 mg (2 x 5 mg) PO ONCE 7 days cinacalcet (Sensipar) 30 mg PO DAILY fludrocortisone 0.1 mg PO DAILY lancets (FreeStyle Lancets) Three times a day midodrine 2.5 mg PO BID miscellaneous medical supply 1 ea miscellaneous DAILY 99 days omeprazole 40 mg PO DAILY polyethylene glycol 3350 (Miralax) 17 grams PO DAILY 1 day simvastatin 20 mg PO DAILY 90 days tacrolimus 6 mg PO Q12H Tobacco use date assessed: 10/21/24 Dental Screening Dental Screen Date: 04/15/24 HPI f/u cough walk in HPI Details The patient is a 49-year-old female presenting for evaluation of a persistent cough. One month ago, the patient developed a cold with a fever, and after the initial illness resolved, she developed a persistent dry cough. Initially, the cough was associated with emesis, which prompted a visit to an urgent care where she received medication that resolved the vomiting. An urgent care provider suspected the cough was related to gastroesophageal reflux disease (GERD) and a agency recruiter had prescribed omeprazole 20 mg. A subsequent visit to a walk-in clinic resulted in an increased dose of omeprazole to 40 mg for 14 days. A recent chest x-ray was clear. [facility] Medical History Acute respiratory disease Annual physical exam Cervical cancer screening Obesity due to excess calories Adult general medical exam Colonoscopy planned Encounter for subsequent annual wellness visit (AWV) in Medicare patient Vitamin D deficiency HLD (hyperlipidemia) T2DM (type 2 diabetes mellitus) AV fistula Obesity (BMI 30-39.9) Autism spectrum Pure hypercholesterolemia End stage renal disease on dialysis Type 2 diabetes mellitus with diabetic chronic kidney disease Surgical History Kidney transplanted History of colonoscopy History of open reduction and internal fixation (ORIF) procedure H/O bilateral breast reduction surgery History of appendectomy Family History Father No problems noted. Mother No problems noted. 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) Vision needs: Yes (wear glasses) Questionnaire Thrive Questionnaire Date Thrive assessed: 04/15/24 I am a: Patient What is your living situation today?: I choose not to answer this question Within the past 12 months, did the food you bought not last and you didn't have the money to get more?: Never true Within the past 12 months, did you worry whether your food would run out before you got money to buy more?: Never true Do you have trouble paying for medicines?: No Do you have trouble getting transportation to medical appointments?: No Do you have trouble paying your heating and electricity bill?: No Do you have trouble taking care of your child, family member or friend?: I choose not to answer this question Do you have trouble with day-to-day activities such as bathing, preparing meals, shopping, managing finances, etc.?: No Are you currently unemployed and looking for a job?: I choose not to answer this question Are you interested in more education?: I choose not to answer this question Please select the resources that you would like help with: None Currently or been in a relationship where the following occur: I choose not to answer THRIVE Score: 0 CASSANDRA-7 AMB Questionnaire CASSANDRA-7 Date CASSANDRA - 7 assessed: 04/15/24 Source: Developed by Drs. Matthew Arshad, Sagrario Ellis, Stepan Burger and colleagues, with an educational sudha from [employer] Review of Systems Const Denies headache(s) Eyes Denies loss of vision ENT Denies vertigo, Denies dizziness, Denies headache(s) and Denies sore throat Card Denies chest pain, Denies leg edema and Denies lightheadedness Resp Reports cough, Denies hemoptysis and Denies wheezing GI Denies abdominal pain, Denies melena, Denies constipation, Denies diarrhea and Denies vomiting Denies urinary frequency, Denies dysuria and Denies urinary urgency Musc Denies arthralgias, Denies joint swelling, Denies numbness and Denies tingling Neuro Denies Abnormal speech present, Denies behavioral changes, Denies vertigo, Denies dizziness, Denies headache(s), Denies loss of vision, Denies memory loss, Denies numbness and Denies tingling Psych Denies anxiety, Denies behavioral changes, Denies depression, Denies memory loss and Denies panic attacks Zachariah/Lymph Denies easy bleeding and Denies easy bruising Aller/Immun Denies wheezing Physical exam (Primary Care) Vital Signs: Last Vital Signs Temp 96.8 F 02/18/25 11:36 Pulse 94 02/18/25 11:36 BP 130/70 02/18/25 11:36 Pulse Ox 97 02/18/25 11:36 Oxygen Delivery Method Room Air 02/18/25 11:36 BMI result Body Mass Index 27.1 Tobacco/Smoking Status: Tobacco use Status Tobacco use date assessed 10/21/24 02/18/25 11:44 Patient Tobacco Use Status Never used Tobacco 02/18/25 11:44 e-Cigarette/Vaping Use Never Used 02/18/25 11:44 Thrive Assessment: Date of Thrive Assessment Date Thrive assessed 04/15/24 02/18/25 11:44 Currently or been in a relationship where the following occur: I choose not to answer Const General: healthy appearing, no acute distress, alert and awake Nutritional Appearance: well nourished Orientation/consciousness: oriented to person, oriented to place and oriented to time HENMT Ears: TM's normal bilaterally General nose exam: Normal nasal mucous membranes and turbinates present Eyes Conjunctivae: conjunctivae normal Sclerae: sclerae normal Pupils: Equal, round and reactive pupils present Neck Neck: Yes no lymphadenopathy and Yes no JVD Thyroid: Thyroid normal Carotids: no bruits Resp Other: OCCASIONAL DRY COUGH DURING EXAM Effort & Inspection: normal respiratory effort and not tachypneic Auscultation: no crackles, no rales, no rhonchi and no wheezes Cardio Rate: regular rate Rhythm: regular rhythm Heart sounds: no murmurs and normal S1 and S2 GI Palpation (GI): Soft to palpation, nontender, no hepatomegaly and no splenomegaly Auscultation: normal bowel sounds Skin General skin exam: no rashes or lesions noted and dry skin Neuro General: oriented to person, oriented to place and oriented to time Cranial nerves: Yes Equal, round and reactive pupils present Speech: No Abnormal speech present Gait exam (Neuro): Normal gait present Motor exam (neuro): no tremor noted Extrem Right upper extremity: full ROM Left upper extremity: full ROM Right lower extremity: full ROM; no edema Left lower extremity: full ROM; no edema Psych Mental Status: mental status grossly normal Speech and movement: Normal speech and movement present Affect: normal affect Attitude: cooperative Thought process: Normal thought process present Office Procedures Flu Questionnaire Does the patient have a severe egg allergy?: No Does the patient have severe life threatening allergies?: No Does the patient have a fever or illness today?: No Has the patient ever had Guillain-Pantego Syndrome?: No Has the patient ever had any past reaction to a flu shot?: No Immunizations Fluarix [id number] (PF) 45 mcg (15 mcg x 3)/0.5 mL IM syringe Performing Provider: Josh Dahl PA-C Performing Location: [facility] Administered by: Viri Lord CMA on 02/18/25 12:05 Dose Route Admin Location Dispensed Lot Number Expiration Date [facility] [employer] 0.5 mL IM Right Deltoid 0.5 mL [id number] 09/29/25 92422-129-39 tibdit VIS Given Date VIS Provided VIS Publication Date 02/18/25 Single Vaccine 24 Eligibility Eligibility Date Funding Source Not [facility] Eligible 02/18/25 Private Coding Level of Care Code Est Pt Level 3 (72175) Diagnoses Subacute cough R05.2 Cough type: subacute Assessment & Plan Assessment & Plan (1) Cough: Code(s): R05.9 - Cough, unspecified Category: Medical Qualifiers: Cough type: subacute Qualified Code(s): R05.2 - Subacute cough Plan: The patient's persistent cough is assessed as a likely post-viral cough syndrome, as the recent chest x-ray was negative for acute pathology and there are no signs of a bacterial infection necessitating antibiotics. Gastroesophageal reflux disease (GERD) remains a consideration. For management, the patient will be prescribed benzonatate (Tessalon Perles) to be taken in the morning and at night for 10 days to suppress the cough. She will continue her course of omeprazole 40 mg daily for the remaining 14 days and then step down to 20 mg daily, taking it on an empty stomach. Orders: Orders Influenza [id number] Immunization Today Z23 - Encounter for immunization Medications: New benzonatate 200 mg PO BID 20 caps 0RF 10 days R05.2 - Subacute cough, R05.9 - Cough, unspecified
== END 2025-02-18 12:36 | disposition home or self-care (01) ==
LOC: HO.HMCH 11:22
PROVIDERS: PCP Physician Assistant; Visit Provider Physician Assistant
DX: Z23 Encounter for immunization (principal); R05.2 Subacute cough

== ENCOUNTER → 2025-02-18 11:21 | Outpatient (BNVA) | payer MEDICARE, MEDICAID, SELFPAY | PROVIDERS: PCP Physician Assistant; Visit Provider Physician Assistant | DX: Z23 Encounter for immunization (principal); R05.2 Subacute cough | CPT/HCPCS: 90471; 90656; 99212 ==

== ENCOUNTER 2025-03-02 10:31 | Outpatient (REF) | payer MEDICARE, MEDICAID, SELFPAY ==
--- OUTSIDE RECORDS SUMMARY | 2025-02-26 18:00 | XMS_ITS | Continuity of Care Document ---
Author Organization [facility] ter Address [address] [place] [id number]- Support Name Relationship Address Phone ZUNILDA, RICKIE Personal Relationship Unknown Unavailable ZUNILDA, ELLEN father Unknown Unavailabl e ZUNILDA, RICKIE Personal Relationship Unknown Unavailable ZUNILDA, RICKIE Personal Relationship Unknown Unavailable ZUNILDA, RICKIE Personal Relationship Unknown Unavailable ZUNILDA, RICKIE Personal Relationship Unknown Unavailable ZUNILDA, RICKIE Personal Relationship Unknown Unavailable ZUNILDA, RICKIE Personal Relationship Unknown Unavailable NEENA BURGESS Other Unknown Unavailable ZUNILDAELLIOTT sibling Unknown Unavailable ZUNILDA, RICKIE L Personal Relationship Unknown Unavailable ZUNILDA, RICKIE Personal Relationship Unknown Unavailable ZUNLIDA, RICKIE Personal Relationship Unknown Unavailable ZUNILDA, RICKIE Personal Relationship Unknown Unavailable ZUNILDA, RICKIE Personal Relationship Unknown Unavailable ZUNILDA, RICKIE Personal Relationship Unknown Unavailable ZUNILDA, RICKIE Personal Relationship Unknown Unavailable ZUNILDA, RICKIE Personal Relationship Unknown Unavailable ZUNILDA, RICKIE Personal Relationship Unknown Unavailable ZUNILDA, RICKIE Personal Relationship Unknown Unavailable ZUNILDA, RICKIE Personal Relationship Unknown Unavailable ZUNILDA, RICKIE Personal Relationship Unknown Unavailable ZUNILDA, RICKIE Personal Relationship Unknown Unavailable ZUNILDA, RICKIE Personal Relationship Unknown Unavailable ZUNILDA, RICKIE Personal Relationship Unknown Unavailable ZUNILDA, RICKIE Personal Relationship Unknown Unavailable ZUNILDA, RICKIE Personal Relationship Unknown Unavailable ZUNILDA, RICKIE Personal Relationship Unknown Unavailable ZUNILDA, RICKIE Personal Relationship Unknown Unavailable ZUNILDA, RICKIE Personal Relationship Unknown Unavailable Care Team Providers Care Radiotelegraphist Name Role Phone Josh Wolff Primary Care Physician Encounter [facility] Date(s): 02/21/25 - 02/26/[address] [address]- Discharge Disposition: A-D/C Home Attending Physician: Brooke Myers MD Admitting Physician: Simone Palomino MD Referring Physician: Not on Staff, Referring MD Encounter Type: Disch IP Allergies, Adverse Reactions, Alerts Substance Criticality Severity Reaction Reaction Severity Status ceFAZolin Unable to assess criticality Persistent Severe anaphylaxis Active Functional Status Functional Status Assessment Assessment Assessment Component Result Effecti ve Date Total Falls Risk Score 0 02/25 Functional Status Assessment Assessment Assessment Component Result Effecti ve Date Total Falls Risk Score 6 02/26 Functional Status Assessment Assessment Assessment Component Result Effecti ve Date Bao scale total score 20 Functional Status Assessment Assessment Assessment Component Result Effecti ve Date Bao scale total score 21 Functional Status Assessment Assessment Assessment Component Result Effecti ve Date Bao scale total score 22 Functional Status Assessment Assessment Assessment Component Result Effecti ve Total score [AUDIT] 0 02/20/25 Functional Status Assessment Assessment Assessment Component Result Effecti ve Total Falls Risk Score 0 02/25 Functional Status Assessment Assessment Assessment Component Result Effecti Disability status [CUBS] I'm Building Capacity - I have an asymptomatic condition controlled by services or medication 02/20/25 Are you deaf, or do you have serious difficulty hearing Yes 02/20/25 Are you blind, or do you have serious difficulty seeing, even when wearing glasses No 02/20/25 Because of a physica l, mental, or emotional condition, do you have serious difficulty concentrating, remembering, or making decisions Yes 02/20/25 Do you need any additional assistance or accommodations during your visit No 02/20/25 Do you have serious difficulty walking or climbing stairs No 02/20/25 Do you have difficul ty dressing or bathing No 02/20/25 Because of a physica l, mental, or emotional condition, do you have difficulty doing errands alone such as visiting a physician's office or shopping Yes 02/20/25 Difficulty communica ting in usual language No 02/20/25 Difficulty Reading O r Writing Yes 02/20/25 Immunizations Given and Recorded Vaccine Date Status Refusal Reason [id number] 12y+ bivalent booster vax 01/14/22 Recorded influenza virus vaccine, inactivated 01/05/22 Chadd rded SARS-CoV-2 (COVID-19) mRNA BNT-162b2 vac 04/23/21 Recorded Hepatitis B Vaccine (old term) 1 7/10/06 Given Hepatitis B Vaccine (old term) 2 05/05/05 Given Hepatitis B Vaccine (old term) 3 04/06/05 Given 1Admin Note: recombivax 40mg given 2Admin Note: recombivax 40mg given 3Admin Note: recombivax 40mg given Medications Acetaminophen = 650 mg, By Mouth, Every 4 hours, PRN Pain , Moderate, 0 Refills, Maintenance, 03/06/22 3:08:00 PM EST, Partial fill upon patient request if the prescription is for a schedule II opioid drug. Start Date: 03/06/22 Status: Ordered Medication Dispense Status: Completed Total Allowed Fills: 1 Fills Dispensed: 0 amLODIPine 5 mg oral tablet 5 mg, By Mouth, Daily, # 30 tablet, Refills 1, Tot. Refills 1, Maintenance, 02/26/25 5:02:00 PM EST, Route to Pharmacy Electronically, [facility] #[id number], Partial fill upon patient request if the prescription is for a schedule II opioid drug., 170, cm, 02/26/25 15:22:00 EST, Height, 76.4, kg, 02/20/25 19:56:00 EST, Dry Weight Start Date: 02/26/25 Status: Ordered Medication Dispense Status: Completed Quantity: 30.0 Unit: tablet Total Allowed Fills: 2 Fills Dispensed: 0 amoxicillin 500 mg oral capsule = 500 mg, By Mouth, 3 times a day, # 15 tablet, 0 Refills, Acute 03/03/25 9:00:00 AM EST, 02/26/25 5:02:00 PM EST, Capsule, [facility] #[id number], Partial fill upon patient request if the prescription is for a schedule II opioid drug., 170, cm, 02/26/25 15:22:00 EST, Height, 76.4, kg, 02/20/2519:56:00 EST, Dry Weight Start Date: 02/26/25 Stop Date: 03/03/25 Status: Ordered Medication Dispense Status: Completed Quantity: 15.0 Unit: tablet Total Allowed Fills: 1 Fills Dispensed: 0 benzonatate 100 mg oral capsule = 100 mg, By Mouth, 3 times a day, PRN Cough, see pcp for refills, # 30 capsule, 0 Refills, Acute 03/28/25 9:00:00 AM EST, 02/26/25 5:05:00 PM EST, Capsule, [facility] #[id number], Partial fill upon patient request if the prescription is for a schedule II opioid drug., 170, cm, 02/26/25 15:22:00 EST, Height, 76.4, kg, 02/20/25 19:56:00 EST, Dry Weight Start Date: 02/26/25 Stop Date: 03/28/25 Status: Ordered Medication Dispense Status: Completed Quantity: 30.0 Unit: capsule Total Allowed Fills: 1 Fills Dispensed: 0 cinacalcet 30 mg oral tablet 1 tablet = 30 mg, By Mouth, 0 Refills, Maintenance, 02/20/25 2:45:00 PM EST, Partial fill upon patient request if the prescription is for a schedule II opioid drug. Start Date: 02/20/25 Status: Ordered Medication Dispense Status: Completed Total Allowed Fills: 1 Fills Dispensed: 0 Claritin 10 mg oral tablet 10 mg, By Mouth, Daily, # 30 tablet, Refills 1, Tot. Refills 1, Maintenance, 02/26/25 5:03:00 PM EST, Route to Pharmacy Electronically, [facility] #[id number], Partial fill upon patient request if the prescription is for a schedule II opioid drug., 170, cm, 02/26/25 15:22:00 EST, Height, 76.4,kg, 02/20/25 19:56:00 EST, Dry Weight Start Date: 02/26/25 Status: Ordered Medication Dispense Status: Completed Quantity: 30.0 Unit: tablet Total Allowed Fills: 2 Fills Dispensed: 0 Freestyle Lite Lancets See Instructions, # 200 each, Refills 5, Tot. Refills 5, Maintenance, use as directed for Type 2 Diabetes Mellitus to test up to 3 times a day E10.9, 04/13/22 10:38:00 AM EST, Supply, 170, cm, 04/13/22 8:32:00 EST, Height, 82.3, kg, 03/07/22 10:09:00 EST, Dry Weight Start Date: 04/13/22 Stop Date: 10/10/22 Status: Ordered Medication Dispense Status: Completed Quantity: 200.0 Unit: each Total Allowed Fills: 6 Fills Dispensed: 0 Freestyle Lite Monitor See Instructions, # 1 each, Maintenance, to test up to 3 times a day E10.9, 04/13/22 10:38:00 AM EST, Supply, 170, cm, 04/13/22 8:32:00 EST, Height, 82.3, kg, 03/07/22 10:09:00 EST, Dry Weight Start Date: 04/13/22 Status: Ordered Medication Dispense Status: Completed Quantity: 1.0 Unit: each Total Allowed Fills: 1 Fills Dispensed: 0 Freestyle Lite Test Strips See Instructions, # 200 each, Tot. Refills 5, Maintenance, use as directed for Type 2 Diabetes Mellitus to test up to 3 times a day E10.9, 04/13/22 10:38:00 AM EST, Supply, 170, cm, 04/13/22 8:32:00 EST, Height, 82.3, kg, 03/07/22 10:09:00 EST, Dry Weight Start Date: 04/13/22 Stop Date: 05/13/22 Status: Ordered Medication Dispense Status: Completed Quantity: 200.0 Unit: each Total Allowed Fills: 6 Fills Dispensed: 0 omeprazole 40 mg oral enteric coated capsule 1 capsule = 40 mg, By Mouth, Daily, # 30 capsule, 0 Refills, Maintenance, 02/20/25 9:05:00 PM EST, EC Capsule Start Date: 02/20/25 Status: Ordered Medication Dispense Status: Completed Quantity: 30.0 Unit: capsule Total Allowed Fills: 1 Fills Dispensed: 0 simvastatin 20 mg oral tablet 20 mg, 1, tablet, By Mouth, Daily at bedtime, # 30 tablet, Refills 6, Tot. Refills 6, Maintenance, 04/27/22 12:55:00 PM EST, Route to Pharmacy Electronically, [facility], Partial fillupon patient request if the prescription is for a schedule II opioid drug., 170, cm, 04/24/22 8:34:00 EST, Height, 82.3, kg, 03/07/22 10:09:00 EST, Dry Weight Start Date: 04/27/22 Status: Ordered Medication Dispense Status: Completed Quantity: 30.0 Unit: tablet Total Allowed Fills: 7 Fills Dispensed: 0 tacrolimus 5 mg oral capsule, extended release = 5 mg, By Mouth, Daily in AM, # 30 tablet, 1 Refills, Maintenance, 02/26/25 5:02:00 PM EST, ER Capsule, [facility] #[id number], Partial fill upon patient request if the prescription is for a schedule II opioid drug., 170, cm, 02/26/25 15:22:00 EST, Height, 76.4, kg, 02/20/25 19:56:00 EST, DryWeight Start Date: 02/26/25 Status: Ordered Medication Dispense Status: Completed Quantity: 30.0 Unit: tablet Total Allowed Fills: 2 Fills Dispensed: 0 Mental Status Mental Status Assessment Assessment Assessment Component Result Effecti ve Date Belkis coma score total 15 Problem List Condition Confirmation Course Effective Dates Status H ealth Status Informant -donor kidney transplant recipient 1 Confirmed 02/11/22 Active HTN (hypertension) Confirmed Active Hyperlipidemia Confirmed Active Intellectual disability Confirmed Active Obesity Confirmed Active Seizures Confirmed Active Type 2 diabetes mellitus Confirmed Active 1Campath induction Results Radiology Reports * Exam Date Time Procedure Performing Provider Status 02/23/25 9:09 AM US Renal Transplant Doppler Auth (Verified) Notes: (US Renal Transplant Doppler) Reason For Exam: hydronephrosis;Transplant Reject RESULT: US Renal Transplant Doppler US Renal Transplant Doppler Reason: Follow up the concern for transplanted ureter prolapse. COMPARISON: 02/20/2025 and multiple priors FINDINGS: TRANSPLANT KIDNEY: Right lower quadrant. 11.7 cm in length. Similar mild hydronephrosis. Calyceal and pelvic urothelial wall thickening appears less pronounced. No stone, or mass. Normal parenchymal thickness and echotexture. No perinephric fluid collection. DOPPLER EVALUATION: Main renal artery at hilum: Patent. Main renal artery angle corrected velocity 73 cm/sec (Normal range varies depending on type of anastomosis, typically less than 250-300 cm/sec). Main renal vein at hilum: Patent. Renal arcuate/interlobar artery resistive indices (Normally 0.6-0.8): Upper pole: 0.8 Mid: 0.7 Lower pole: 0.7 Renal parenchymal flow: Qualitatively normal parenchymal flow on color Doppler images. No evidence of renal infarct. URINARY BLADDER: Limited assessment but normal in appearance. No stone, mass, wall thickening or debris. IMPRESSION: 1. Normal vascular flow to right transplant kidney with no evidence of rejection. 2. Unchanged mild right hydronephrosis without any identifiable source of obstruction. The urothelial thickening appears less pronounced and was presumably reactive. 3. Previously noted 0.9 cm right bladder wall mass is not visualized in today's examination and could have been outside sales representative of transient ureter prolapse in the bladder lumen. I have personally reviewed the images and I agree with this report. WSN: [id number] Ordering Physician: Chelsea Navarrete Dictated By: Talat Prince MD Dictated Date/Time: 02/23/25 10:45 a Reviewed By: Farooq Baldwin MD Signed By: Farooq Baldwin MD Signed Date/Time: 02/23/25 10:50 am Transcribed By: BELLE Transcribed Date/Time: 02/23/25 9:23 am * Exam Date Time Procedure Performing Provider Status 02/20/25 4:[address] Chest W/O Contrast Au th (Verified) Notes: (CT Chest W/O Contrast) Reason For Exam: Transplant, chronic cough. to rule in pneumonitis;Other: RESULT: CT Chest W/O Contrast CT Chest W/O Contrast INDICATION: RENAL TRANSPLANT, CHRONIC COUGH. TO RULE IN PNEUMONITIS; CLINICAL QUESTION(S): INTERSTITIAL ALVEOLAR INFILTRATION TECHNIQUE: Helical CT scan of the chest without IV contrast, formatted in 3 planes. Weight-based protocol was performed using automatic exposure control. CTDIvol Body: 5.80 mGy, DLP Body: 238 mGy*cm. COMPARISON: None. FINDINGS: Special Duty Nurse view findings, lines and tubes: None. Trachea and airways: Patent without evidence of tracheal or endobronchial lesion. Lungs and pleura: Tree-in-bud appearance throughout both lungs, most prominently in the lower lobes. Scattered tiny calcified granulomas. No effusion or pneumothorax. Mediastinum and maria guadalupe: No mass or hematoma. No mediastinal or hilar lymphadenopathy. No esophageal abnormality. Normal thyroid. Heart: Heart is normal in size. No pericardial effusion. Mild coronary artery calcification. Aorta: No aortic aneurysm. Pulmonary arteries: Normal caliber. Chest wall soft tissues: No acute abnormality. Numerous calcified granulomas in the superficial soft tissue of the right lateral upper back. Diaphragm: Intact. Upper abdomen: Questionable pericholecystic fluid. No evidence of gallbladder thickening. Bones: No acute abnormality. IMPRESSION: Tree-in-bud appearance throughout both lungs, most prominently in the lower lobes, compatible with bronchiolitis. Partially visualized gallbladder, questionable pericholecystic fluid. Given this nonenhanced CT, further correlation with clinical symptoms is recommended. I have personally reviewed the images and I agree with this report. WSN: [id number] Ordering Physician: Pam Cardona Dictated By: Miranda Palmer DO Dictated Date/Time: 02/20/25 4:57 pm Reviewed By: Jackson Miller MD Signed By: Jackson Miller MD Signed Date/Time: 02/20/25 5:02 pm Transcribed By: BELLE Transcribed Date/Time: 02/20/25 4:30 pm * Exam Date Time Procedure Performing Provider Status 02/20/25 4:14 PM US Renal Bladder Auth (V erified) Notes: (US Renal Bladder) Reason For Exam: Renal transplant : Marina to rule out obstruction;Other: RESULT: US Renal Bladder US Renal Bladder Reason: Renal transplant: MARINA to rule out obstruction; Clinical Question(s): Acute Renal Failure; MARINA, renal transplant COMPARISON: 04/07/2022 FINDINGS: Transplanted kidney: 12.0 cm in length. Mild hydronephrosis with calyceal and pelvic urothelial wall thickening. Normal parenchymal thickness and echotexture. No stones. No suspicious mass. Urinary bladder: Normal morphology. There is a well-circumscribed isoechoic rounded focus measuring0.9 x 0.9 cm adjacent to the bladder wall with an echogenic rim and without internal vascularity (cine 66/191). The lesion appears to be contiguous with the transplanted ureter. IMPRESSION: Mild hydronephrosis of the right lower quadrant transplanted kidney without identifiable obstruction. 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 It is unclear if this finding is the source of the patient's mild hydronephrosis, but this bladder mass was not seen on the prior exam 04/07/2022. Management as per nephrology. Mild transplant kidney urothelial thickening, nonspecific. I have personally reviewed the images and I agree with this report. WSN: [id number] Ordering Physician: Pam Cardona Dictated By: Emmett Martin DO Dictated Date/Time: 02/20/25 5:08 pm Reviewed By: Farooq Baldwin MD Signed By: Farooq Baldwin MD Signed Date/Time: 02/20/25 5:13 pm Transcribed By: BELLE Transcribed Date/Time: 02/20/25 4:40 pm * Exam Date Time Procedure Performing Provider Status 02/20/25 12:15 PM Chest 2 Views Frontal and Lat Auth (Verified) Notes: (Chest 2 Views Frontal and Lat) Reason For Exam: Shortness of Breath, Fever;Other: RESULT: Chest 2 Views Frontal and Lat Chest 2 Views Frontal and Lat Hx of Present Illness: per progressive care manager pt went for routine follow up with kidney tranplat had labs done and ? abnormal results; Reason: Shortness of Breath, Fever; Clinical Question(s): Pneumonia COMPARISON: Multiple priors most recent 02/11/2022. FINDINGS: LINES AND TUBES: None. LUNGS AND PLEURA: Clear lungs. Normal pulmonary vascularity. No evidence of pleural effusion. No pneumothorax. HEART, MEDIASTINUM AND MARIA GUADALUPE: Heart is normal in size. Normal mediastinal and hilar contour. BONES AND SOFT TISSUES: No acute abnormality. Left axillary overlapping upper extremity venous stent. Mild pectus excavatum. IMPRESSION: No acute abnormality. No focal consolidation seen to suggest pneumonia. WSN: [id number] Ordering Physician: Dung Reeves Dictated By: Glenroy El MD, V Dictated Date/Time: 02/20/25 2:00 pm Reviewed By: Glenroy El MD, V Signed By: Glenroy El MD, V Signed Date/Time: 02/20/25 2:00 pm Transcribed By: BELLE Transcribed Date/Time: 02/20/25 12:43 pm Vital Signs Most recent to oldest [Reference Range]: 1 2 3 Height 170 cm (02/26/25 3:22 PM) 170 cm (02/26/25 7:57 AM) 170 cm (02/26/25 3:29 AM) Weight 76.4 kg (02/20/25 7:56 PM) 78.2 kg (02/20/25 10:07 AM) Oxygen Saturation [94-100 %] 99 % (02/26/25 3:22 PM) 100 % (02/26/25 7:57 AM) 98 % (02/26/25 3:29 AM) Pulse Rate [55-90 bpm] 83 bpm (02/26/25 3:22 PM) 71 bpm (02/26/25 7:57 AM) 74 bpm (02/26/25 3:29 AM) Body Mass Index [18.5-24.99 kg/m2] 26.44 kg/m2 *H* (02/20/25 7:56 PM) 27.06 kg/m2 *H* (02/20/25 10:07 AM) Blood Pressure [90-138/55-84 mm Hg] 116/76mm Hg (02/26/25 3:22 PM) 121/90mm Hg (02/26/25 7:57 AM) 125/79mm Hg (02/26/25 3:29 AM) Respiratory Rate [16-30 br/min] 18 br/min (02/26/25 3:22 PM) 18 br/min (02/26/25 7:57 AM) 18 br/min (02/26/25 3:29 AM) Temperature [96.8-100.4 DegF] 97.9 DegF (02/26/25 3:22 PM) 97.6 DegF (02/26/25 7:57 AM) 97.8 DegF (02/26/25 3:29 AM) Liters per Minute 0 L/min (02/24/25 3:47 AM) 0 L/min (02/23/25 8:12 PM) 0 L/min (02/21/25 3:25 PM) Mode of Delivery (Oxygen) Room air (02/26/25 3:22 PM) Room air (02/26/25 7:57 AM) Room air (02/26/25 3:29 AM) Blood pressure sites Arm, right (02/26/25 3:22 PM) Arm, right (02/26/25 7:57 AM) Arm, left (02/26/25 3:29 AM) Temperature Route Oral (02/26/25 3:22 PM) Oral (02/26/25 7:57 AM) Oral (02/26/25 3:29 AM) Dry Weight 76.4 kg (02/20/25 7:56 PM) 78.4 kg (02/20/25 7:39 PM) 78.2 kg (02/20/25 10:07 AM) Weight Obtained Via Patient/family state d (02/20/25 10:07 AM) Dry Weight Obtained Via Standing scale (02/20/25 7:39 PM) Patient/family stated (02/20/25 10:07 AM) Social History Social History Type Response Sex Sex Representation Female (finding) Status Not Social Determinants of Health Assessment Assessment Assessment Component Result Effecti ve Date Unspecifed Social Determinants of Health Assessment Do you feel physical ly and emotionally safe where you currently live [PRAPARE] Yes 02/20/25 Within the last year , have you been afraid of your partner or ex-partner No 02/20/25 Housing status I have housing 02/20/25 Are you worried abou t losing your housing [PRAPARE] No 02/20/25 Have you or any fami ly members you live with been unable to get any of the following when it was really needed in past 1 year [PRAPARE] None 02/20/25 Has lack of transpor tation kept you from medical appointments, meetings, work, or from getting things needed for daily living No 02/20/25 How often do you see or talk to people that you care about and feel close to [PRAPARE] 3 to 5 times a week 02/20/25 Consult note * Shavon Nascimento: PERFORM Event Display: Consultation Note Authored Date: [id number] Patient: ??RICKIE MAURO ? Age:??49 Years?Sex:??Female?:??1975?LOC:??[facility]?? 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 Patient was advised to go to the ED by nephrology.?? She denied any acute pain, fever, chills, nausea, vomiting, or hematuria.?? On presentation, the patient was afebrile and hemodynamically stable.?? No leukocytosis.?? Creatinine 1.79 from baseline around 1.1.?? Ultrasound showedmild hydronephrosis of the RLQ transplanted kidney without identifiable??obstruction and a 9 mm right bladder wall mass likely representing prolapse of the transplanted ureter into the bladder lumen.? ? The patient denies any abdominal pain.?? She is voiding without any issues.?? Review of Systems Constitutional:??No weight loss, fever, chills, weakness or fatigue. Gastrointestinal:??No anorexia, nausea, vomiting or diarrhea. No abdominal pain or blood in stool. Genitourinary:??No burning micturition. No urinary frequency or incontinence. ?? All other ROS otherwise negative or non-contributory?? Objective Vital Signs?? Temperature: 97.7 DegF (02/23/25 07:46:00) Temperature Route: Oral (02/23/25 07:46:00) Pulse Rate: 79 bpm (02/23/25 07:46:00) Respiratory Rate: 20 br/min (02/23/25 07:46:00) Systolic Blood Pressure: 117 mm Hg (02/23/25 08:35:00) Diastolic Blood Pressure: 79 mm Hg (02/23/25 08:35:00) Blood pressure sites: Arm, right (02/23/25 03:38:00) Mean Arterial Pressure: 92 mm Hg (02/23/25 07:46:00) Pulse Pressure: 38 mm Hg (02/23/25 07:46:00) Oxygen Saturation: 100 % (02/23/25 07:46:00) Mode of Delivery (Oxygen): Room air (02/23/25 07:46:00) Early Warning Score: 2 (02/23/25 08:36:16) ? Intake/Output? 02/21 08:11 02/23 07:00 02/22 07:00 02/21 07:00 02/20 07:00 ?? 02/23 09:29 02/23 09:29 02/23 06:59 02/22 06:59 02/21 06:59 Intake ? 1200 ?0 ?600 ?0 ?600 Output ?350 ?0 ?0 ?0 ?350 Net Total ?850 ?0 ?600 ?0 ?250 ? Urine Count ? 10 ?0 ?5 ?4 ?1 ? Physical Exam Constitutional: Alert, in no distress. Head: Normocephalic. Respiratory: Non-labored breathing Cardiovascular: Regular rate Gastrointestinal: Abdomen soft, non-tender, non-distended.?? No pulsatile mass. Genitourinary: No costovertebral angle tenderness Skin: Warm, no pallor ? Imaging Result type:?US Renal Bladder Result date:?February 20, 2025 16:14 EST Result status:?Auth (Verified) Result title:?US Renal Bladder Performed by:?Emmett Martin DO on February 20, 2025 17:08 EST Verified by:?Farooq Baldwin MD on February 20, 2025 17:13 EST Encounter info:?[id number], [facility], Inpatient, 02/21/2025 -? * Final Report * ?? Reason For Exam Renal transplant : Marina to rule out obstruction;Other: ?? RESULT: US Renal Bladder US Renal Bladder? Reason: Renal transplant: MARINA to rule out obstruction; Clinical Question(s): Acute Renal Failure; MARINA, renal transplant ?? COMPARISON: 04/07/2022 ?? FINDINGS:? Transplanted kidney: 12.0 cm in length. Mild hydronephrosis with calyceal and pelvic urothelial wall thickening. Normal parenchymal thickness and echotexture. No stones. No suspicious mass. ?? Urinary bladder: Normal morphology. There is a well-circumscribed isoechoic rounded focus measuring0.9 x 0.9 cm adjacent to the bladder wall with an echogenic rim and without internal vascularity (cine 66/191). The lesion appears to be contiguous with the transplanted ureter. ? IMPRESSION:? Mild hydronephrosis of the right lower quadrant transplanted kidney without identifiable obstruction. 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 It is unclear if this finding is the source of the patient's mild hydronephrosis, but this bladder mass was not seen on the prior exam 04/07/2022. Management as per nephrology. ?? Mild transplant kidney urothelial thickening, nonspecific. ? I have personally reviewed the images and I agree with this report. WSN: [id number] ?? Ordering Physician: Pam Cardona? Assessment/Plan Diagnoses 1. ??-donor kidney transplant recipient ??(Z94.0) 2. ??Cough ??(R05.9) 3. ??Acute kidney injury ??(N17.9) 4. ??Normocytic anemia ??(D64.9) 5. ??Hypotension ??(I95.9) 6. ??Hyperlipidemia ??(E78.5) 7. ??Type 2 diabetes mellitus ??(E11.9) ?? Assessment:??The patient is a 49-year-old female with past medical history as noted above.??She presented due to abnormal labs including elevated creatinine.??Creatinine is improving, today 1.41.??She is not symptomatic.??Imaging results reviewed.??Recommend outpatient cystoscopy to ensure no concerning bladder pathology.??The procedure was discussed with the patient.??PVU will reach out to the patient to arrange accordingly with her discharge. ? Patient case reviewed by and was seen with attending physician??Dr. Hu Garland Histories Allergies Allergies ?(Active and Proposed Allergies Only) ceFAZolin? (Severity: Persistent Severe, Onset: Unknown) ?Reactions: anaphylaxis ? Past Medical History/Problem List Active Problems(7) -donor kidney transplant recipient HTN (hypertension) Hyperlipidemia Intellectual disability Obesity Seizures Type 2 diabetes mellitus ? Past Surgical History Hysteroscopy with dilation and curettage: 02/25/21 Breast reduction, bilateral Bilateral Ureteral Implant Appendectomy ? Social History No social history documented. ? Family History No Family History documented. ? Medications Home Medications Acetaminophen??650 Milligram By Mouth Every 4 hours as needed Pain , Moderate Cinacalcet (cinacalcet 30 mg oral tablet)??1 tab(s) 30 Milligram By Mouth Durable Medical Equipment (Freestyle Lite Lancets)??See Instructions for 30 Days use as directed for Type 2 Diabetes Mellitus to test up to 3 times a dayE10.9 Durable Medical Equipment (Freestyle Lite Monitor)??See Instructions to test up to 3 times a dayE10.9 Durable Medical Equipment (Freestyle Lite Test Strips)??See Instructions for 30 Days use as directed for Type 2 Diabetes Mellitus to test up to 3 times a dayE10.9 Fludrocortisone (fludrocortisone 0.1 mg oral tablet)??1 tab(s) 0.1 Milligram By Mouth Daily Midodrine (midodrine 2.5 mg oral tablet)??2.5 Milligram 1 tablet By Mouth 3 times a day Omeprazole (omeprazole 40 mg oral enteric coated capsule)??1 capsule 40 Milligram By Mouth Daily Simvastatin (simvastatin 20 mg oral tablet)??20 Milligram 1 tablet By Mouth Daily at bedtime Tacrolimus (Envarsus XR 1 mg oral tablet, extended release)??6 tab(s) 6 Milligram By Mouth Daily Yanet ? Inpatient Medications Medications (22) Active SCHEDULED: (8) Amlodipine 5 mg Tablet (amLODIPine 5 mg oral tablet) ??5 mg, By Mouth, Daily Cinacalcet 30mg Tablet (cinacalcet 30 mg oral tablet) ??30 mg, By Mouth, Daily Insulin Lispro 100 units/mL Inj (Insulin LISPRO Sliding Scale) ??2-10 units, Subcutaneous Injection, 3 times a day before meals Loratadine 10 mg Tablet (Claritin 10 mg oral tablet) ??10 mg, By Mouth, Daily NaCl 0.9% Flush 3ml (NaCL 0.9% Flush) ??3 mL, IV Push, Every 8 hours Piperacillin/Tazobactam 3.375 Gm Inj (Zosyn Extended IVPB) ??3.375 Gm, IVPB, Every 8 hours Simvastatin 20 mg Tablet (simvastatin 20 mg oral tablet) ??20 mg, By Mouth, Daily at bedtime Tacrolimus XR 1 mg Tab + Tacrolimus XR 4mg Tab (Tacrolimus XR Tablet) ??5 mg, By Mouth, Daily in AM CONTINUOUS: (1) NaCL 0.9% (1000 mL) Cont IV 1,000 mL (NaCL 0.9% 1,000 mL) ??1,000 mL, IV Infusion, 75 mL/hr PRN: (13) Acetaminophen 325 mg Tablet (Acetaminophen Tablet) ??650 mg, By Mouth, Every 4 hours Benzonatate 100 mg Capsule (Benzonatate Capsule) ??100 mg, By Mouth, 3 times a day Dextromethorphan-Guaifenesin 20 mg-200 mg/10 mL Liqu UD (Robitussin DM Liquid) ??10 mL, By Mouth, Every 4 hours Dextrose Inj Syringe (Dextrose 50% Inj Syringe (25Gm)) ??12.5 Gm, IV Push Slowly, Every 20 minutes Dextrose Inj Syringe (Dextrose 50% Inj Syringe (25Gm)) ??25 Gm, IV Push Slowly, Every 15 minutes Glucagon 1 mg Inj (Glucagon Inj) ??1 mg, Intramuscular, Once Glucose 40% Gel (15 Gm) (Glucose Gel) ??15 Gm, By Mouth, Every 20 minutes Glucose 40% Gel (15 Gm) (Glucose Gel) ??30 Gm, By Mouth, Every 20 minutes Melatonin 3 mg Tablet (Melatonin Tablet) ??3 mg, By Mouth, Daily at bedtime NaCl 0.9% Flush 3ml (NaCL 0.9% Flush) ??3 mL, IV Push, Every 8 hours Polyethylene Glycol 17 Gm Powder (MiraLax Powder) ??17 Gm 1 pack/packet, By Mouth, Daily Senna Tablet ??8.6 mg 1 tablet, By Mouth, 2 times a day Simethicone 80 mg Chewable Tablet (Simethicone Tablet) ??80 mg, Chew, 3 times a day ? Results Recent Labs BACTERIOLOGY Urine Culture Results Note (Abnormal)?? 02/20/2025 22:40 ?? BLOOD COUNT & DIFF WBC 5.3 k/mm3 ()?? 02/23/2025 06:30 RBC 3.73 m/mm3 (Low)?? 02/23/2025 06:30 Hgb 10.9 Gm/dL (Low)?? 02/23/2025 06:30 Hct 33.4 % (Low)?? 02/23/2025 06:30 MCV 89.5 femtoliters ()?? 02/23/2025 06:30 MCH 29.2 pg ()?? 02/23/2025 06:30 MCHC 32.6 Gm/dL (Low)?? 02/23/2025 06:30 Platelet Count 177 k/mm3 ()?? 02/23/2025 06:30 RDW-SD 44.2 femtoliters ()?? 02/23/2025 06:30 MPV 10.1 femtoliters ()?? 02/23/2025 06:30 Nucleated RBC (Automated) 0.0 #/100 WBC'S ()?? 02/23/2025 06:30 Abs. NRBC 0.0 k/mm3 ()?? 02/23/2025 06:30 Abs. Neut 4.0 k/mm3 ()?? 02/23/2025 06:30 Abs. Lymph 0.7 k/mm3 (Low)?? 02/23/2025 06:30 Abs. Tama 0.4 k/mm3 ()?? 02/23/2025 06:30 Abs. Eo 0.2 k/mm3 ()?? 02/23/2025 06:30 Abs. Baso 0.0 k/mm3 ()?? 02/23/2025 06:30 Neut % 75.0 % ()?? 02/23/2025 06:30 Lymph % 13.0 % (Low)?? 02/23/2025 06:30 Tama % 6.6 % ()?? 02/23/2025 06:30 Eos % 4.2 % ()?? 02/23/2025 06:30 Baso % 0.4 % ()?? 02/23/2025 06:30 Imm Gran 0.8 % ()?? 02/23/2025 06:30 Abs. Imm Gran 0.0 k/mm3 ()?? 02/23/2025 06:30 ?? CHEM GENERAL Sodium 141 mmol/L ()?? 02/23/2025 06:34 Potassium 4.7 mmol/L ()?? 02/23/2025 06:34 Chloride 103 mmol/L ()?? 02/23/2025 06:34 Bicarbonate Level 28 mmol/L ()?? 02/23/2025 06:34 Anion Gap 10 mmol/L ()?? 02/23/2025 06:34 Glucose Level 136 mg/dL (High)?? 02/23/2025 06:34 Glucose, POC 149 mg/dL (High)?? 02/23/2025 08:22 Hemoglobin A1C (Monitoring) 6.1 % (High)?? 02/22/2025 04:41 BUN 20 mg/dL ()?? 02/23/2025 06:34 Creatinine-Blood 1.41 mg/dL (High)?? 02/23/2025 06:34 Estimated GFR Creatinine 46 ML/MIN/1.73 M2 ()?? 02/23/2025 06:34 Calcium 9.4 mg/dL ()?? 02/23/2025 06:34 Phosphorus 3.3 mg/dL ()?? 02/22/2025 04:41 Magnesium 1.3 mg/dL (Low)?? 02/22/2025 04:41 ?? IMMUNOLOGY GENERAL Transplant DSA Post, gel tube SPECIMEN COLLECTED FOR ANALYSIS ()?? 02/21/2025 05:24 ?? TOXICOLOGY/TDM Tacrolimus Level 8.7 ng/mL ()?? 02/22/2025 04:41 ?? URINE OTHER Est Creatinine Clearance 46.81 mL/min ()?? 02/23/2025 08:02 ?? VIROLOGY COVID-19 PCR Specimen Source NASAL ()?? 02/23/2025 06:31 COVID-19 PCR Result NEGATIVE ()?? 02/23/2025 06:31 ? Urinalysis Est Creatinine Clearance: 46.81 mL/min (08:02) ? Electronically Signed on 02/23/25 09:31 AM Shavon Nascimento * Gill BULLOCK, [place]: PERFORM Event Display: Consultation Note Authored Date: [id number] The patient was seen, examined and evaluated independently.?? I performed all medical decision making during the encounter (MDM) I agree with the evaluation and plan of care as outlined ?? The patient has a large left UPJ calculus with ongoing intravenous pain management requirements.?? Given these??findings would recommend??OR for left ureteral stent placement,??decompression??of the left renal unit.?? Once her pain is under control she may be discharged home??from a urologic standpoint. ??Would likely recommend??scheduling the patient for outpatient??ureteroscopy and lithotripsy procedure??in 10 to 14 days if feasible. Electronically Signed on 02/23/25 09:55 AM Gill BULLOCK, Hu Garland MD, [place]: PERFORM Event Display: Consultation Note Authored Date: [id number] Please disregard addendum stating 1.3cm upj calculus as this is incorrect. 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 Recommend outpatient cystoscopy in PVU clinic Electronically Signed on 02/23/25 10:11 AM Gill BULLOCK, Hu Ramesh MD, Curt Bang: MODIFY Curt Ramesh MD: MODIFY Event Display: Consultation Note Authored Date: [id number] Patient: ??RICKIE MAURO ? Age:??49 Years?Sex:??Female?:??1975?LOC:??[facility]?? Chief Complaint Cough Reason for Consultation Subacute cough History of Present Illness Rickie is a 49-year-old woman with end-stage renal disease, received donor kidney transplant in January 2022 on immunosuppressants.?? Pulmonary was consulted due to ongoing cough for about a month with tree-in-bud nodularity appreciated on CAT scan. ?? Additional information was obtained from her caregiver, Alana, reviewed that the cough has been onand off??for??approximately a month now, worsened when she lies down??and associated with symptoms??of heartburn.?? They deny any nasal congestion, recent cold??or flulike symptoms that predispose to??the cough.?? Denies any fever or chills or any??sputum production. Review of Systems Systematic Review: 10-14 points in different systemic review items were reviewed and were otherwiseunremarkable. Physical Exam Vitals & Measurements T:??97.7?F?? TMIN:??97.7?F?? TMAX:??98.4?F?? HR:??95??(Peripheral)?? RR:??20?? BP:??116/69?? SpO2:??100%?? On Examination ?General: Alert and oriented not in respiratory distress or using accessory muscles. ?HEENT: No JVD ??CHEST:??CTA b/l ??CVS: RRR, no m/r/g ??Abdomen: Soft, nontender ??MS:??unremarkable ??Skin: No obvious abnormalities ??Extremities: No lower extremity edema Assessment/Plan Assessment:??1.??Subacute cough 2.??GERD 3.??Tree-in-bud nodularity??in CAT scan??predominantly on the right lower lobe ?? Based off her symptoms,??that is likely that she has??chronic aspiration.??Her symptoms worsen when??lying down without history of nasal congestion or postnasal??drip sensation,??as well as??the nodularity is more prominent at the right lower lobe, suggestive this likely to be??GERD.??By adding??PPI will suppress the symptoms however??aspiration??may still continues??without noticing.??Granted, she is on immunosuppressant,??however there is no signs of active infection??nor fever??that is indicated for an urgent bronchoscopy.??Other causes for subacute cough such as asthma, reactive airway disease, vocal cord??dysfunction, those can be worked up as outpatient. ?? Recommendation: 1.??Agree with continue PPI 2.??Instructed??caregiver??to prepare smaller portion??of food,??avoid eating??2-4 hours prior to bedtime, have??the??head of bed elevated. 3.??Rest per primary team ?? Case was discussed with Dr. Ramesh ?? LUCIAN Delgado Pulmonary and Critical Care Medicine Fellow-[facility] Pager #[phone] ?? Attending Attestation Pulmonary Attending Attestation ?? I have seen and evaluated??RICKIE MAURO. I have personally reviewed the HPI, PMFSH, and ROS. I have personally reviewed the lab, radiography, and study results from this admission. CT chest without contrast from 02/20/2025 personally interpreted, bilateral lower lobe predominant [id number] with patulous esophagus. I have discussed the case with ??Bret and agree with the findings, assessment, and plan as documented below with the following highlights, clarifications, and addenda. Ms. Mauro is a 49 year old woman with end-stage renal disease status post donor kidney transplant (2021), hypertension, hyperlipidemia, diabetes mellitus type 2, obesity, and intellectual disability admitted with acute renal failure with recent subacute cough for which pulmonary was consulted by Brenda Holt NP. The cough has been present for about a month in the setting of symptomatic gastroesophageal reflux disease, and gradually improving on omeprazole. The radiographic abnormalities (bibasilar tree-in-bud nodules and patulous esophagus) are consistent with microaspiration and gastroesophageal reflux disease. There are no other symptoms or laboratory findings to suggest an infection, but if that is a concern then an induced sputum may be sent for bacterial, fungal, and mycobacterial culture. The potential risks of bronchoscopy cannot be justified by the current symptoms and findings. Recommend treating reflux with pharmacologic and non-pharmacologic means as above, and outpatient pulmonary function tests to rule out alternative etiologies for her cough after she recuperates from this hospitalization. Remainder as above. ?? Curt Ramesh MD Pulmonary [employer] [facility] Pager [phone] Total Time Spent I personally spent a total of??81 minutes, including both ilul-ba-mpgi and mvk-pzem-ap-face time onthe date of the encounter, addressing the above diagnoses. Activities performed in this time include chart review, obtaining / reviewing history, performing amedically necessary evaluation, documentation and Review of tests performed by other providers??andcoordination??of care and counseling??including medical decision making of High Complexity Problem List/Past Medical History Ongoing -donor kidney transplant recipient HTN (hypertension) Hyperlipidemia Intellectual disability Obesity Seizures Type 2 diabetes mellitus Procedure/Surgical History Hysteroscopy with dilation and curettage: 02/25/21 Breast reduction, bilateral Bilateral Ureteral Implant Appendectomy Medications Inpatient Acetaminophen(Acetaminophen Tablet), 650 mg, By Mouth, Every 4 hours, PRN Amlodipine(amLODIPine 5 mg oral tablet), 5 mg, By Mouth, Daily Benzonatate(Benzonatate Capsule), 100 mg, By Mouth, 3 times a day, PRN Cinacalcet(cinacalcet 30 mg oral tablet), 30 mg, By Mouth, Daily Dextrose 50% in Water(Dextrose 50% Inj Syringe (25Gm)), 12.5 Gm, IV Push Slowly, Every 20 minutes, PRN Dextrose 50% in Water(Dextrose 50% Inj Syringe (25Gm)), 25 Gm, IV Push Slowly, Every 15 minutes, PRN Glucagon(Glucagon Inj), 1 mg, Intramuscular, Once, PRN Glucose(Glucose Gel), 15 Gm, By Mouth, Every 20 minutes, PRN Glucose(Glucose Gel), 30 Gm, By Mouth, Every 20 minutes, PRN Guaifenesin/Dextromethorphan(Robitussin DM Liquid), 10 mL, By Mouth, Every 4 hours, PRN Insulin Lispro(Insulin LISPRO Sliding Scale), 2-10 units, Subcutaneous Injection, 3 times a day before meals Loratadine(Claritin 10 mg oral tablet), 10 mg, By Mouth, Daily Magnesium Oxide(Mag-Ox Tablet), 400 mg, By Mouth, 2 times a day Melatonin(Melatonin Tablet), 3 mg, By Mouth, Daily at bedtime, PRN Polyethylene Glycol 3350(MiraLax Powder), 17 Gm= 1 pack/packet, By Mouth, Daily, PRN Senna(Senna Tablet), 8.6 mg= 1 tablet, By Mouth, 2 times a day, PRN Simethicone(Simethicone Tablet), 80 mg, Chew, 3 times a day, PRN Simvastatin(simvastatin 20 mg oral tablet), 20 mg, By Mouth, Daily at bedtime Sodium Chloride(NaCL 0.9% Flush), 3 mL, IV Push, Every 8 hours Sodium Chloride(NaCL 0.9% Flush), 3 mL, IV Push, Every 8 hours, PRN Tacrolimus(Tacrolimus XR Tablet), 5 mg, By Mouth, Daily in AM Home Acetaminophen, 650 mg, By Mouth, Every 4 hours, PRN Cinacalcet(cinacalcet 30 mg oral tablet), 30 mg= 1 tablet, By Mouth Durable Medical Equipment(Freestyle Lite Lancets), See Instructions, 5 refills Durable Medical Equipment(Freestyle Lite Monitor), See Instructions Durable Medical Equipment(Freestyle Lite Test Strips), See Instructions, 5 refills Fludrocortisone(fludrocortisone 0.1 mg oral tablet), 0.1 mg= 1 tablet, By Mouth, Daily Midodrine(midodrine 2.5 mg oral tablet), 2.5 mg= 1 tablet, By Mouth, 3 times a day Omeprazole(omeprazole 40 mg oral enteric coated capsule), 40 mg= 1 capsule, By Mouth, Daily Simvastatin(simvastatin 20 mg oral tablet), 20 mg= 1 tablet, By Mouth, Daily at bedtime, 6 refills Tacrolimus(Envarsus XR 1 mg oral tablet, extended release), 6 mg= 6 tablet, By Mouth, Daily in AM, 11 refills Allergies ceFAZolin (Persistent Severe)??anaphylaxis Immunizations Vaccine Date Status [id number] 12y+ bivalent booster vax 01/14/2022 Recorded influenza virus vaccine, inactivated 01/05/2022 Recorded SARS-CoV-2 (COVID-19) mRNA BNT-162b2 vac 04/23/2021 Recorded pneumococcal 23-valent vaccine - Not Given Comments : Patient Refuses Hepatitis B Vaccine (old term) 10/09/2005 Given Comments : recombivax 40mg given Hepatitis B Vaccine (old term) 05/05/2005 Given Comments : recombivax 40mg given Hepatitis B Vaccine (old term) 04/06/2005 Given Comments : recombivax 40mg given Electronically Signed on 02/22/25 01:43 PM Bret BULLOCK, Nazanin Sears Electronically Signed on 02/22/25 04:39 PM Domitila BULLOCK, Curt Navarrete MD, [place]: MODIFY, PERFORM Event Display: Consultation Note Authored Date: [id number] Patient: ??RICKIE MAURO ? Age:??49 Years?Sex:??Female?:??1975?LOC:??[facility]?? History of Present Illness Rickie is a 49-year-old female with past medical history??DM2, ESRD??s/p DDKT??01/2022 (Dr. Fowler), HTN, HLD,??cognitive impairment,??seizure disorder,??who??is currently admitted to the medicine service for workup of MARINA, after she was found to have??creatinine??of 1.59 from her baseline of 1.1??on outpatient labs.?? On repeat labs here??her creatinine peaked at 1.79??on??02/20/2025, down to 1.61??on labs this morning.??She underwent??an ultrasound of??the transplanted kidney on 02/20/2025 that showed a 0.9??x 0.9 cm mass??near the transplanted ureter that was read as??possible prolapse into the??bladder and mild hydronephrosis, for which transplant team was consulted. Due to her cognitive impairment she is not a very reliable historian, she denies ongoing abdominal or pelvic pain, denies changes in??bladder habits, or martita hematuria.?? UA was obtained??that showed elevated leukocytes, white blood cells, and slight bacteria, however she has been afebrile without leukocytosis. Shehas had??a persistent intermittent dry cough, believed to be related to GERD for which she was started on PPI therapy by??PCP outpatient. Otherwise has been hemodynamically normal without other concerns. Review of Systems As above, other systems reviewed and were??unremarkable Physical Exam Vitals & Measurements T:??98.1?F?? HR:??85??(Peripheral)?? RR:??20?? BP:??139/90?? SpO2:??99%?? HT:??170??cm?? WT:??76.4??kg?? BMI:??26.44?? Constitutional: Alert, in no distress. Mental Status: Oriented to self HEENT: Normocephalic. Extraocular muscles intact. Oropharynx clear, mucous membranes moist. Tracheamidline. Respiratory: No wheezing, occasional dry cough, no evidence of respiratory distress on??RA. Cardiovascular: RRR. Gastrointestinal: Abdomen soft, non-tender, non-distended. Donor kidney palpable in RLQ. Well healed surgical scar. Neurologic: No focal deficit. Moves all extremities spontaneously. Sensation intact bilaterally. Skin: No rashes or lesions. Musculoskeletal: Normal range of motion. Assessment/Plan Rickie is a 49-year-old female with past medical history??DM2, ESRD??s/p DDKT??01/2022 (Dr. Fowler), HTN, HLD,??cognitive impairment,??seizure disorder,??who??is currently admitted to the medicine service for workup of MARINA. Ultrasound of??the transplanted kidney on 02/20/2025??showed a 0.9??x 0.9cm mass??near the transplanted ureter that was read as??possible prolapse into the??bladder and mild hydronephrosis, for which transplant team was consulted. Her renal function has overall stayed stable from outpatient labs, but elevated from baseline. FeNa consistent with intrinsic renal??disease.??Unclear if the mass seen on ultrasound is sufficiently large to cause obstruction, however given elevated Cr and mild hydronephrosis we will continue to monitor in case she requires IR nephrostomy tube. ?? Recommendations: - No acute surgical intervention - Continue with fluid resuscitation - Repeat renal US tomorrow AM - Follow up DSA - If Cr or hydronephrosis worsens, may need to consider IR nephrostomy tube to relieve obstruction - Transplant team will continue to follow ?? Patient and plan discussed with Dr. Rodriguez Please page TRANSPLANT SURGERY [phone] with any questions or concerns Problem List/Past Medical History Ongoing -donor kidney transplant recipient HTN (hypertension) Hyperlipidemia Intellectual disability Obesity Seizures Type 2 diabetes mellitus Procedure/Surgical History Hysteroscopy with dilation and curettage: 02/25/21 Breast reduction, bilateral Bilateral Ureteral Implant Appendectomy Home Medications Acetaminophen: 650 mg, By Mouth, Every 4 hours, PRN (Pain , Moderate) Cinacalcet: 30 mg = 1 tablet, By Mouth Durable Medical Equipment: See Instructions, use as directed for Type 2 Diabetes Mellitus to test up to 3 times a dayE10.9 Durable Medical Equipment: See Instructions, to test up to 3 times a dayE10.9 Durable Medical Equipment: See Instructions, use as directed for Type 2 Diabetes Mellitus to test up to 3 times a dayE10.9 Fludrocortisone: 0.1 mg = 1 tablet, By Mouth, Daily Midodrine: 2.5 mg = 1 tablet, By Mouth, 3 times a day Omeprazole: 40 mg = 1 capsule, By Mouth, Daily Simvastatin: 20 mg = 1 tablet, By Mouth, Daily at bedtime Tacrolimus: 6 mg = 6 tablet, By Mouth, Daily in AM Allergies ceFAZolin (Persistent Severe)??anaphylaxis Family History No family history recorded. Radiology ?? RESULT: US Renal Bladder US Renal Bladder? Reason: Renal transplant: MARINA to rule out obstruction; Clinical Question(s): Acute Renal Failure; MARINA, renal transplant ?? COMPARISON: 04/07/2022 ?? FINDINGS:? Transplanted kidney: 12.0 cm in length. Mild hydronephrosis with calyceal and pelvic urothelial wall thickening. Normal parenchymal thickness and echotexture. No stones. No suspicious mass. ?? Urinary bladder: Normal morphology. There is a well-circumscribed isoechoic rounded focus measuring0.9 x 0.9 cm adjacent to the bladder wall with an echogenic rim and without internal vascularity (cine 66/191). The lesion appears to be contiguous with the transplanted ureter. ? IMPRESSION:? Mild hydronephrosis of the right lower quadrant transplanted kidney without identifiable obstruction. 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 It is unclear if this finding is the source of the patient's mild hydronephrosis, but this bladder mass was not seen on the prior exam 04/07/2022. Management as per nephrology. ?? Mild transplant kidney urothelial thickening, nonspecific. Lab Results Labs Last 24 Hours BLOOD COUNT & DIFF ? Event Name?? Event Result?? Date/Time?? WBC 5.5 k/mm3 02/22/25 04:41:00 RBC 3.1 m/mm3??Low 02/22/25 04:41:00 Hgb 9.3 Gm/dL??Low 02/22/25 04:41:00 Hct 27.4 %??Low 02/22/25 04:41:00 MCV 88.4 femtoliters 02/22/25 04:41:00 MCH 30 pg 02/22/25 04:41:00 MCHC 33.9 Gm/dL 02/22/25 04:41:00 Platelet Count 134 k/mm3??Low 02/22/25 04:41:00 MPV 10.1 femtoliters 02/22/25 04:41:00 Nucleated RBC (Automated) 0 #/100 WBC'S 02/22/25 04:41:00 ? CHEM GENERAL ? Event Name?? Event Result?? Date/Time?? Sodium 141 mmol/L 02/22/25 04:41:00 Chloride 107 mmol/L 02/22/25 04:41:00 Bicarbonate Level 22 mmol/L 02/22/25 04:41:00 Anion Gap 12 mmol/L 02/22/25 04:41:00 Glucose Level 160 mg/dL??High 02/22/25 04:41:00 BUN 18 mg/dL 02/22/25 04:41:00 Creatinine-Blood 1.61 mg/dL??High 02/22/25 04:41:00 Phosphorus 3.3 mg/dL 02/22/25 04:41:00 Magnesium 1.3 mg/dL??Low 02/22/25 04:41:00 ? Electronically Signed on 02/22/25 10:20 AM Rosalba BULLOCK, [place] * Farooq Rodriguez DO: PERFORM Event Display: Consultation Note Authored Date: Agree with resident assessment and plan.?? Patient is a 49F with history of DDRT 01/2022 who came to the ER with MARINA to 1.7.?? US showed mild hydronephrosis and??a 0.9*0.9 mass near where the transplant ureter enters the bladder.?? Patient reports no acute events, tolerating diet, no sick contacts or episodes of diarrhea. DSA has been sent for rejection.?? Would continue to hydrate patient and repeat the US.?? Would be unusual to see prolapse causing obstruction this late from transplant.?? Cr decreasing to 1.6.??If there is still concern following repeat US and Cr increasing, would discuss with IR for possible PCN/PCNU. Electronically Signed on 02/23/25 03:02 PM Farooq Rodriguez DO, MD, Pam: PERFORM, MODIFY, MODIFY Event Display: Consult Authored Date: Patient: ??RICKIE MAURO ? Age:??49 Years?Sex:??Female?:??1975?LOC:??[facility]?? Chief Complaint/Reason for Consultation DDKT and MARINA History of Present Illness Patient is 49 year old with history of ESRD??secondary to??Diabetes + hypertension, DDKT ( renal transplant 01/2022), hyperlipidemia and learning difficulties living with her carer was told to come the hospital for elevated outpatient serum creatinine. Per her carer, patient has been having a chronic cough for 1 month. Had a cold 2 weeks ago ( covid was negative) and was not given any antibiotics. No wheezing No shortness of breath/ no fever Denies any pain over the allograft/ No dysuria but per the carer, patient urine smells Has no missed any meds Last week, she had nausea and vomiting and was given zofran. No diarrhoea NO abdominal pain Was started on omeprazole 40mg Review of Systems as noted above Objective Measurements?? Height: 170 cm (02/20/25) Weight: 78.2 kg (02/20/25) Dry Weight: 78.2 kg (02/20/25) Body Mass Index:??27.06 kg/m2??High (02/20/25) ? Vital Signs?? Temperature: 97.9 DegF (02/20/25 10:07:00) Temperature Route: Oral (02/20/25 10:07:00) Pulse Rate:??96 bpm??High (02/20/25 10:07:00) Respiratory Rate: 18 br/min (02/20/25 10:07:00) Systolic Blood Pressure:??141 mm Hg??High (02/20/25 10:07:00) Diastolic Blood Pressure: 84 mm Hg (02/20/25 10:07:00) Blood pressure sites: Arm, right (02/20/25 10:07:00) Mean Arterial Pressure: 103 mm Hg (02/20/25 10:07:00) Pulse Pressure: 57 mm Hg (02/20/25 10:07:00) Oxygen Saturation: 95 % (02/20/25 10:07:00) Mode of Delivery (Oxygen): Room air (02/20/25 10:07:00) Early Warning Score: 4 (02/20/25 14:42:23) ? Intake/Output? No Data Available ? Physical Exam ??General:??Alert, in no acute distress. HEENT??Normocephalic. Pupils are equal, round and reactive to light. Oropharynx clear, mucous membranes moist.?? Neck:??Supple,Trachea midline. No JVD or bruits. Respiratory:??_Clear to auscultation . No wheezing or rhonchi.??No use of acessory muscles. Cardiovascular:??Heart sounds normal. Regular rhythm. No murmurs Gastrointestinal:??Abdomen soft, non-tender, non-distended. Normal bowel sounds. No pulsatile mass.No hepatosplenomegaly. Genitourinary:??No costovertebral angle tenderness. Extremities: No lower extremity pitting pedal edema. No cyanosis or clubbing. Skin:??No rashes or lesions. No petechiae or purpura. Dialysis Access:??AV Graft Assessment/Plan Diagnoses ?? Patient is 49 year old with history of ESRD??secondary to??Diabetes + hypertension, DDKT ( renal transplant 01/2022), hyperlipidemia and learning difficulties living with her carer was told to come the hospital for elevated outpatient serum creatinine. Per her carer, patient has been having a chronic cough for 1 month. Had a cold 2 weeks ago ( covid was negative) and was not given any antibiotics ?? 1. Allograft ? DDKT 01/2022 ? Baseline creatinine 1.05-1.15 ? Urine??albumin/creatinine ratio= 26 ? DSA: Apr 2023: Negative ? CF-DNA: 0.39 ? Duplex was 2023 ?? 2. Immunosuppresion ? Envarsus 6mg ?? 3. INfection ? Having cough for one month ? BK blood was negative but urine was [id number] ?? 4. BP/volume ? BP is low ?? Takeing midodine 2.5 tid and florinef 0.1mg ?? 5. GI: Gerd: on omeprazole ?? Recs: MARINA :creatinine 1.0 >1.7. Differential diagnosis: Pre-renal/ check for tac toxicity/ BK nephropathy/ interstitial nephritis secondary to PPI/ rejection Started on PPI recently. Stop omeprazole I have ordered urinalysis/ urine culture/ urine lytes/ urine eos ORdered BK urine PCR Ordered CMV/ EBV/ BK PCR. Ordered DSA Ordered Tac levels US renal ordered For IV fluids NS 75 cc per hour Tac 29 ( sent at 1pm, I will cut back the dose of Envarsus to 3mg) Continue Midodrine/ florinef ( with holding parameter) DM management for primary team Chronic cough: Ordered CT??chest without contrast ? Histories Allergies Allergies ?(Active and Proposed Allergies Only) ceFAZolin? (Severity: Persistent Severe, Onset: Unknown) ?Reactions: anaphylaxis ? Past Medical History/Problem List Active Problems(10) Abnormal vaginal bleeding -donor kidney transplant recipient End stage renal disease on dialysis End stage renal failure on dialysis , , Saturdays HTN (hypertension) Hyperlipidemia Intellectual disability Obesity Seizures Type 2 diabetes mellitus ? Past Surgical History Hysteroscopy with dilation and curettage: 02/25/21 Breast reduction, bilateral Appendectomy Bilateral Ureteral Implant ? Social History No social history documented. ? Family History No Family History documented. ? Medications Home Medications Acetaminophen??650 Milligram By Mouth Every 4 hours as needed Pain , Moderate Durable Medical Equipment (Freestyle Lite Lancets)??See Instructions for 30 Days use as directed for Type 2 Diabetes Mellitus to test up to 3 times a dayE10.9 Durable Medical Equipment (Freestyle Lite Monitor)??See Instructions to test up to 3 times a dayE10.9 Durable Medical Equipment (Freestyle Lite Test Strips)??See Instructions for 30 Days use as directed for Type 2 Diabetes Mellitus to test up to 3 times a dayE10.9 linagliptin (linagliptin 5 mg oral tablet)??1 tab(s) 5 Milligram By Mouth Daily for 30 Days Midodrine (midodrine 5 mg oral tablet)??5 Milligram 1 tablet By Mouth 3 times a day Simvastatin (simvastatin 20 mg oral tablet)??20 Milligram 1 tablet By Mouth Daily at bedtime Tacrolimus (Envarsus XR 1 mg oral tablet, extended release)??6 tab(s) 6 Milligram By Mouth Daily Yanet ? Inpatient Medications Medications (8) Active SCHEDULED: (1) NaCl 0.9% Flush 3ml (NaCL 0.9% Flush) ??3 mL, IV Push, Every 8 hours CONTINUOUS: (0) PRN: (7) Acetaminophen 325 mg Tablet (Acetaminophen Tablet) ??650 mg, By Mouth, Every 4 hours Dextromethorphan-Guaifenesin 20 mg-200 mg/10 mL Liqu UD (Robitussin DM Liquid) ??10 mL, By Mouth, Every 4 hours Melatonin 3 mg Tablet (Melatonin Tablet) ??3 mg, By Mouth, Daily at bedtime NaCl 0.9% Flush 3ml (NaCL 0.9% Flush) ??3 mL, IV Push, Every 8 hours Polyethylene Glycol 17 Gm Powder (MiraLax Powder) ??17 Gm 1 pack/packet, By Mouth, Daily Senna Tablet ??8.6 mg 1 tablet, By Mouth, 2 times a day Simethicone 80 mg Chewable Tablet (Simethicone Tablet) ??80 mg, Chew, 3 times a day ? Vaccinations and Immunoprophylaxis influenza virus vaccine, inactivated: 0.5 Unknown (01/05/22 08:00:00) SARS-CoV-2 (COVID-19) mRNA BNT-162b2 vac: 0.3 Unknown (04/23/21 07:00:00) [id number] 12y+ bivalent booster vax: 0.3 Unknown (01/14/22 08:00:00) Hepatitis B Vaccine (old term): 1 mL (10/09/05 10:32:00) Hepatitis B Vaccine (old term): 1 mL (05/05/05 10:30:00) Hepatitis B Vaccine (old term): 1 mL (04/06/05 10:30:00) ? Results Recent Labs BLOOD COUNT & DIFF WBC 7.9 k/mm3 ()?? 02/20/2025 13:15 RBC 3.57 m/mm3 (Low)?? 02/20/2025 13:15 Hgb 10.8 Gm/dL (Low)?? 02/20/2025 13:15 Hct 32.2 % (Low)?? 02/20/2025 13:15 MCV 90.2 femtoliters ()?? 02/20/2025 13:15 MCH 30.3 pg ()?? 02/20/2025 13:15 MCHC 33.5 Gm/dL ()?? 02/20/2025 13:15 Platelet Count 164 k/mm3 ()?? 02/20/2025 13:15 RDW-SD 44.7 femtoliters ()?? 02/20/2025 13:15 MPV 9.6 femtoliters ()?? 02/20/2025 13:15 Nucleated RBC (Automated) 0.0 #/100 WBC'S ()?? 02/20/2025 13:15 Abs. NRBC 0.0 k/mm3 ()?? 02/20/2025 13:15 Abs. Neut 6.6 k/mm3 ()?? 02/20/2025 13:15 Abs. Lymph 0.7 k/mm3 (Low)?? 02/20/2025 13:15 Abs. Tama 0.4 k/mm3 ()?? 02/20/2025 13:15 Abs. Eo 0.2 k/mm3 ()?? 02/20/2025 13:15 Abs. Baso 0.0 k/mm3 ()?? 02/20/2025 13:15 Neut % 83.5 % (High)?? 02/20/2025 13:15 Lymph % 8.6 % (Low)?? 02/20/2025 13:15 Tama % 5.2 % ()?? 02/20/2025 13:15 Eos % 2.0 % ()?? 02/20/2025 13:15 Baso % 0.3 % ()?? 02/20/2025 13:15 Imm Gran 0.4 % ()?? 02/20/2025 13:15 Abs. Imm Gran 0.0 k/mm3 ()?? 02/20/2025 13:15 ?? CHEM GENERAL Sodium 141 mmol/L ()?? 02/20/2025 13:15 Potassium 4.3 mmol/L ()?? 02/20/2025 13:15 Chloride 103 mmol/L ()?? 02/20/2025 13:15 Bicarbonate Level 26 mmol/L ()?? 02/20/2025 13:15 Anion Gap 12 mmol/L ()?? 02/20/2025 13:15 Glucose Level 121 mg/dL (High)?? 02/20/2025 13:15 Glucose, POC 194 mg/dL (High)?? 02/20/2025 10:28 BUN 23 mg/dL (High)?? 02/20/2025 13:15 Creatinine-Blood 1.79 mg/dL (High)?? 02/20/2025 13:15 Estimated GFR Creatinine 34 ML/MIN/1.73 M2 ()?? 02/20/2025 13:15 Calcium 9.3 mg/dL ()?? 02/20/2025 13:15 Calcium, Ionized pH Corrected 1.22 mmol/L ()?? 02/20/2025 13:15 Protein, Total 7.4 Gm/dL ()?? 02/20/2025 13:15 Albumin 3.6 Gm/dL ()?? 02/20/2025 13:15 AG Ratio 0.9 ()?? 02/20/2025 13:15 Alkaline Phosphatase 78 units/L ()?? 02/20/2025 13:15 AST (SGOT) 26 units/L ()?? 02/20/2025 13:15 ALT (SGPT) 19 units/L ()?? 02/20/2025 13:15 Bilirubin, Total 0.4 mg/dL ()?? 02/20/2025 13:15 Lactate 0.7 mmol/L ()?? 02/20/2025 13:15 ?? URINE OTHER Est Creatinine Clearance 36.87 mL/min ()?? 02/20/2025 14:06 ? Abnormal Labs ?? BLOOD COUNT & DIFF Abs. Imm Gran?0.0 k/mm3 ()?02/20/2025 13:15 Abs. Lymph?0.7 k/mm3 (Low)?02/20/2025 13:15 Abs. NRBC?0.0 k/mm3 ()?02/20/2025 13:15 Hct?32.2 % (Low)?02/20/2025 13:15 Hgb?10.8 Gm/dL (Low)?02/20/2025 13:15 Imm Gran?0.4 % ()?02/20/2025 13:15 Lymph %?8.6 % (Low)?02/20/2025 13:15 Neut %?83.5 % (High)?02/20/2025 13:15 Nucleated RBC (Automated)?0.0 #/100 WBC'S ()?02/20/2025 13:15 RBC?3.57 m/mm3 (Low)?02/20/2025 13:15 RDW-SD?44.7 femtoliters ()?02/20/2025 13:15 ?? CHEM GENERAL AG Ratio?0.9 ()?02/20/2025 13:15 BUN?23 mg/dL (High)?02/20/2025 13:15 Creatinine-Blood?1.79 mg/dL (High)?02/20/2025 13:15 Estimated GFR Creatinine?34 ML/MIN/1.73 M2 ()?02/20/2025 13:15 Glucose Level?121 mg/dL (High)?02/20/2025 13:15 Glucose, POC?194 mg/dL (High)?02/20/2025 10:28 ?? Note: Critical results are displayed in red. ? Blood Glucose Trend Glucose Level:??121 mg/dL??High (02/20/25 13:15:00) Glucose, POC:??194 mg/dL??High (02/20/25 10:28:00) ? CBC, CBC w/Diff?? CBC?? Differential?? WBC: 7.9 k/mm3 (13:15) Abs. Neut: 6.6 k/mm3 (13:15) RBC:??3.57 m/mm3??Low (13:15) Abs. Lymph:??0.7 k/mm3??Low (13:15) Hct:??32.2 %??Low (13:15) Abs. Tama: 0.4 k/mm3 (13:15) RDW-SD: 44.7 femtoliters (13:15) Abs. Eo: 0.2 k/mm3 (13:15) Nucleated RBC (Automated): 0 #/100 WBC'S (13:15) Abs. Baso: 0 k/mm3 (13:15) Abs. NRBC: 0 k/mm3 (13:15) Neut %:??83.5 %??High (13:15) ?? Lymph %:??8.6 %??Low (13:15) ?? Tama %: 5.2 % (13:15) ?? Eos %: 2 % (13:15) ?? Baso %: 0.3 % (13:15) ?? Imm Gran: 0.4 % (13:15) ?? Abs. Imm Gran: 0 k/mm3 (13:15) ? BMP, Mg, and Phos Anion Gap: 12 mmol/L (13:15) Bicarbonate Level: 26 mmol/L (13:15) BUN:??23 mg/dL??High (13:15) Calcium: 9.3 mg/dL (13:15) Calcium, Ionized pH Corrected: 1.22 mmol/L (13:15) Chloride: 103 mmol/L (13:15) Creatinine-Blood:??1.79 mg/dL??High (13:15) Estimated GFR Creatinine: 34 ML/MIN/1.73 M2 (13:15) Glucose Level:??121 mg/dL??High (13:15) Potassium: 4.3 mmol/L (13:15) Sodium: 141 mmol/L (13:15) ?? LFT Albumin: 3.6 Gm/dL (13:15) Alkaline Phosphatase: 78 units/L (13:15) ALT (SGPT): 19 units/L (13:15) AST (SGOT): 26 units/L (13:15) Bilirubin, Total: 0.4 mg/dL (13:15) ?? Urinalysis Est Creatinine Clearance: 36.87 mL/min (14:06) ?? Microbiology ?? COVID-19, RSV, and Flu A/B, Rapid PCR?? Collected?? Source: Nasal Body Site: Nose Collected Dt/Tm: 02/20/2025 11:43 Last Updated Dt/Tm: 02/20/2025 11:43 ? Blood Gases?? No qualifying data available. ?? Uric/LDH?? No qualifying data available. ? History and physical note * Skinny BULLOCK, Anaid Apple: PERFORM Event Display: History and Physical Hospital Authored Date: [id number] Patient: ??RICKIE MAURO ? Age:??49 Years?Sex:??Female?:??1975?LOC:??[facility]?? Chief Complaint/Reason for Consultation Worsening kidney function History of Present Illness 49-year-old woman with type 2 diabetes, hypertension, ESRD secondary to diabetes and hypertension s/p DDKT in January 2022, hyperlipidemia, learning difficulties who presents to the emergency room for evaluation of elevated creatinine. ?? Background history:??Most of the history was obtained by chart review??since her caregiver??had already left??and I was unable to get a hold of her.??Patient has learning difficulties??and from what I could gather??she has??had a cough??for at least a month??prior to which she also had??nausea, vomi ting.??Reports that the cough is??nonproductive??and no recent fever. There was concern that her persistent cough could be secondary to GERD and she was started on a PPI. She was seen by her police dispatcher on the 18 and underwent blood work which revealed creatinine of 1.58 which was higher than her baseline and she was thus asked to come to the emergency room.??Denies any abdominal pain??shortness of breath, sore throat, diarrhea. ?? ED course: She was afebrile on presentation, initial heart rate 96. Labs notable for normal white cell count but with left shift. Hemoglobin 10.8, hematocrit 32.2. Normal electrolytes, random glucose 121, BUN 23, creatinine 1.79. Tacrolimus level 29.9. Triple viral panel was negative. EKG which I independently reviewed and interpreted: Normal sinus rhythm. Normal ECG. Chest x-ray which I independently reviewed and interpreted: No acute abnormality. CT of the chest without contrast was reported as tree-in-bud appearance throughout both lungs most prominently in the lower lobes compatible with bronchiolitis. ?? At the time of my evaluation, she had no specific??complaints??other than the dry cough.??She was noted to be coughing??every few seconds??when she was trying to talk.??She denies any headache, sore throat, chest pain, shortness of breath, abdominal pain, nausea, vomiting,??diarrhea. Review of Systems Positive for dry cough. Denies any fever,??headache, sore throat, chest pain, shortness of breath, abdominal pain, nausea, vomiting, diarrhea.??All of the systems were reviewed and are negative. Objective Measurements?? Height: 170 cm (02/20/25) Weight: 76.4 kg (02/20/25) Dry Weight: 76.4 kg (02/20/25) Body Mass Index:??26.44 kg/m2??High (02/20/25) ? Vital Signs?? Temperature: 98.5 DegF (02/20/25 19:56:00) Temperature Route: Oral (02/20/25 19:56:00) Pulse Rate:??98 bpm??High (02/20/25 19:56:00) Respiratory Rate: 21 br/min (02/20/25 19:56:00) Systolic Blood Pressure:??161 mm Hg??High (02/20/25:56:00) Diastolic Blood Pressure: 78 mm Hg (02/20/25:56:00) Blood pressure sites: Arm, right (02/20/25 19:56:00) Mean Arterial Pressure: 106 mm Hg (02/20/25 19:56:00) Pulse Pressure: 83 mm Hg (02/20/25:56:00) Oxygen Saturation: 97 % (02/20/25:39:00) Mode of Delivery (Oxygen): Room air (02/20/25 19:39:00) Early Warning Score: 2 (02/20/25 22:06:59) ? Physical Exam Constitutional: Middle-aged woman, alert, in no acute distress. Head EENT: Extraocular muscle movement intact.??Dry mucous membranes.?? Neck: Supple. No JVD. Respiratory: Clear to auscultation. No use of accessory muscles. Cardiovascular: S1S2 regular. 2/6 systolic murmur??best heard in the LLSB Gastrointestinal: Abdomen soft, non-tender, non-distended. Normal bowel sounds. Extremities: No lower extremity pitting??edema. No cyanosis or clubbing. Neurologic: AAOx3, Speech normal. No focal neurological deficits. Skin: No rash. Psychiatric: Normal mood and affect Assessment/Plan Assessment:??49-year-old woman with type 2 diabetes, hypertension, ESRD secondary to diabetes and hypertension s/p DDKT in January 2022, hyperlipidemia, learning difficulties who presents to the emergency room for evaluation of elevated creatinine. ?? Normocytic anemia (D64.9):??No recent blood work in our system. Hemoglobin and hematocrit were within normal limits when checked in April 2024. Obtain iron studies, B12 levels ?? Hypotension (I95.9):??Has been on fludrocortisone 0.1 mg daily??and??midodrine??2.5 mg 3 times a day??which will be continued ?? Acute kidney injury (N17.9):??Baseline creatinine appears to be??1- 1.1.??Creatinine was 1.58??when checked??on the ??following which she was??asked to??come to the emergency room.??Creatinine was1.7 when checked earlier today.??Was seen by renal and??tacrolimus levels were ordered which came back??elevated??to??29.9. She also appears to be volume depleted on exam. Does not appear to be on NSAIDs. She was recently prescribed PPI and this interstitial nephritis is in the differential. Transplant rejection is also in the differential. Ultrasound of the kidney and bladder was reported as mild hydronephrosis of the right lower quadrant transplanted kidney without identifiable obstruction. Appreciate nephrology input.. - Check urinalysis, urine eosinophils, urine sodium, creatinine - Follow-up BK virus PCR and blood in urine, CMV, EBV, transplant DSA. - Hold PPI -Renal adjusted the dose of tacrolimus - Normal saline infusion ordered however patient was declining IV placement and i had to reassure her. ?? -donor kidney transplant recipient (Z94.0):??Underwent??DDKT in January 2022??and is currently on??Tacrolimus XR 6 mg daily. Dose was reduced to 3 mg daily given that the levels were high.? Cough (R05.9):??Chest x-ray did not reveal any acute??pulmonary process however CT of the chest??was reported as tree-in-bud appearance throughout both lungs most prominently in the lower lobes, compatible with bronchiolitis. I have added on??expanded??respiratory??viral panel which came back negative.??Her PCP had started her on??PPI for presumed??GERD being??underlying cause. PPI being held??given worsening kidney function??and suspicion for AIN.??Consider pulmonary consult. Check procalcitonin ?? Hyperlipidemia (E78.5):??Continue simvastatin ?? Type 2 diabetes mellitus (E11.9):??Does not appear to be on any medications. Check??A1c. Monitor [id number] and cover with insulin sliding scale ?? VTE Prophylaxis:??Appears to be low risk??per??the VTE??advisor. Consider??chemoprophylaxis if she ends up staying longer ?VTE Prophylaxis Assessment:??Risk Level documented as Low Risk ?? Code Status:??Presumed full code. I was unable to get a hold of her??brother??Elliott??who is listed asa healthcare proxy. I could not get a hold of her caregiver either??to clarify. ?Order Code Status:??Code Status Ordered ? Histories Allergies Allergies ?(Active and Proposed Allergies Only) ceFAZolin? (Severity: Persistent Severe, Onset: Unknown) ?Reactions: anaphylaxis ? Past Medical History/Problem List Active Problems(7) -donor kidney transplant recipient HTN (hypertension) Hyperlipidemia Intellectual disability Obesity Seizures Type 2 diabetes mellitus ? Past Surgical History Hysteroscopy with dilation and curettage: 02/25/21 Breast reduction, bilateral Bilateral Ureteral Implant Appendectomy ? Social History She is single.??Her caregiver lives with her. Denies smoking, alcohol abuse. 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 Family History Both parents are .??Father in??his 80s ? Medications Home Medications Acetaminophen??650 Milligram By Mouth Every 4 hours as needed Pain , Moderate Cinacalcet (cinacalcet 30 mg oral tablet)??1 tab(s) 30 Milligram By Mouth Fludrocortisone (fludrocortisone 0.1 mg oral tablet)??1 tab(s) 0.1 Milligram By Mouth Daily Midodrine (midodrine 2.5 mg oral tablet)??2.5 Milligram 1 tablet By Mouth 3 times a day Omeprazole (omeprazole 40 mg oral enteric coated capsule)??1 capsule 40 Milligram By Mouth Daily Simvastatin (simvastatin 20 mg oral tablet)??20 Milligram 1 tablet By Mouth Daily at bedtime Tacrolimus (Envarsus XR 1 mg oral tablet, extended release)??6 tab(s) 6 Milligram By Mouth Daily Yanet ? Results ?? Test Name Test Result Date/Time WBC 7.9 k/mm3 02/20/2025 13:15 EST Hgb 10.8 Gm/dL 02/20/2025 13:15 EST Hct 32.2 % 02/20/2025 13:15 EST Platelet Count 164 k/mm3 02/20/2025 13:15 EST Neut % 83.5 % 02/20/2025 13:15 EST Sodium 141 mmol/L 02/20/2025 13:15 EST Potassium 4.3 mmol/L 02/20/2025 13:15 EST Chloride 103 mmol/L 02/20/2025 13:15 EST Bicarbonate Level 26 mmol/L 02/20/2025 13:15 EST Glucose Level 121 mg/dL 02/20/2025 13:15 EST BUN 23 mg/dL 02/20/2025 13:15 EST Creatinine-Blood 1.79 mg/dL 02/20/2025 13:15 EST Calcium 9.3 mg/dL 02/20/2025 13:15 EST Protein, Total 7.4 Gm/dL 02/20/2025 13:15 EST Albumin 3.6 Gm/dL 02/20/2025 13:15 EST AG Ratio 0.9 02/20/2025 13:15 EST Alkaline Phosphatase 78 units/L 02/20/2025 13:15 EST AST (SGOT) 26 units/L 02/20/2025 13:15 EST ALT (SGPT) 19 units/L 02/20/2025 13:15 EST Bilirubin, Total 0.4 mg/dL 02/20/2025 13:15 EST Lactate 0.7 mmol/L 02/20/2025 13:15 EST Tacrolimus Level 29.9 ng/mL 02/20/2025 13:15 EST Image ?12 Lead ECG??02/20/2025 10:17 by Miguelito Parr MD ?Normal sinus rhythm. Normal ECG ?XR Chest 2 Views Frontal and Lat??02/20/2025 12:15 by Jesscia Ruiz ?No acute abnormality. No focal consolidation seen to suggest pneumonia. ?US Renal Bladder??02/20/2025 16:14 by Alexandrea Carmona ?Mild hydronephrosis of the right lower quadrant transplanted kidney without identifiable obstruction. 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 It is unclear if this finding is the source of the patient's mild hydronephrosis, but this bladder mass was not seen on the prior exam 04/07/2022. Management as per nephrology.Mild transplant kidney urothelial thickening, nonspecific. ?CT Chest W/O Contrast??02/20/2025 16:14 by Denisse Stein ?Tree-in-bud appearance throughout both lungs, most prominently in the lower lobes, compatible with bronchiolitis. ?? Electronically Signed on 02/20/25 10:15 PM Skinny BULLOCK, Anaid Apple EKG study * Event Display: ECG 12-Lead Authored Date: Please click on pdf link to open report * Event Display: ECG 12-Lead Authored Date: Ventricular Rate: 88 BPM Atrial Rate: 88 BPM P-R Interval: 130 ms QRS Duration: 72 ms Q-T Interval: 348 ms QTC Calculation(Bazett): 421 ms P Saxton: 72 degrees R Saxton: 7 degrees T Saxton: 44 degrees Normal sinus rhythm Normal ECG When compared with ECG of 10-Feb-2022 21:11, No significant change was found Confirmed by MIGUELITO PARR MD ([id number]) on 02/20/2025 12:54:39 PM Ingram: EBER [facility] Progress note * Janel Polanco RN: PERFORM, SIGN, VERIFY Event Display: [facility] Authored Date: [id number] Patient: RICKIE MAURO [facility]: [id number] Age: 49 years Sex: Female : 1975 Associated Diagnoses: None Author: Janel Polanco RN Findings Problem Related to Alteration in Genitourinary : Alteration in Genitourinary Function/new 02/26/2025 10:00 EST Alteration in Status Related to Other: MARINA, urine retention Goals & Outcomes, Genitourinary Pt will achieve normal/improved fluid balance, Pt will maintainadequate GI function appropriate for pt, Pt will maintain adequate function appropriate for pt, Pt will maintain normal fluid balance, Pt will resume normal pattern of elimination, Pt/caregiver will state understanding of self-care skills Interventions, Assess/monitor/maintain Genitourinary status, Assist & encourage pt with meticulous hernandez care, Encourage PO fluid intake as allowed by diet, Pt will state understanding of anti-rejection meds, Pt will state understanding of rejection preventing med, Pt's creatinine level will stabilize, return to baseline, Assess causative factors of urinary retention, Teach signs & symptoms of distended bladder BH Goals/Interventions, Genitourinary Yes Genitourinary, Problem Start 02/20/2025 22:02 Reviewed Plan with, Genitourinary Patient Patient Progression, Genitourinary Patient progressing according to plan Genitourinary, Problem Ongoing Yes . Narrative/Incidental A&Ox3 with developmental delay admitted with MARINA and ? transplant rejection; UTI +. Cardiac function monitored; no edema, normotensive, pulses palpable. Respiratory function monitored, no c/o dyspnea, saturating well on room air. Abdomen soft/non-tender; BS+, passing gas, refusing bowel medications. Voiding spontaneously. Pain well controlled. VS stable, medications administered as ordered, ambulating, tolerating PO intake. Safety and comfort maintained.. Electronically Signed on 02/26/25 06:17 PM Collin ASH, Janel * Len BULLOCK, Efrain: PERFORM, MODIFY Event Display: Progress Note Hospital Authored Date: Patient: ??RICKIE MAURO ? Age:??49 Years?Sex:??Female?:??1975?LOC:??[facility]?? Subjective pt seen and examined at bed side?vitals, labs, imaging studies reviewed. ? Review of Systems Constitutional:??No fever, chills Cardiovascular:?No chest pain,pressure or discomfort. No palpitations Respiratory:??No shortness of breath, cough or sputum production. Gastrointestinal:??No nausea, vomiting or diarrhea. No abdomen pain Genitourinary:??No dysuria, hematuria Objective Vital Signs?? Temperature: 97.6 DegF (02/26/25 07:57:00) Temperature Route: Oral (02/26/25 07:57:00) Pulse Rate: 71 bpm (02/26/25 07:57:00) Respiratory Rate: 18 br/min (02/26/25 07:57:00) Systolic Blood Pressure: 121 mm Hg (02/26/25 07:57:00) Diastolic Blood Pressure:??90 mm Hg??High (02/26/25 07:57:00) Blood pressure sites: Arm, right (02/26/25 07:57:00) Mean Arterial Pressure: 100 mm Hg (02/26/25 07:57:00) Pulse Pressure: 31 mm Hg (02/26/25 07:57:00) Oxygen Saturation: 100 % (02/26/25 07:57:00) Mode of Delivery (Oxygen): Room air (02/26/25 07:57:00) Early Warning Score: 2 (02/26/25 08:44:07) ? Intake/Output? 02/21 08:11 02/26 07:00 02/25 07:00 02/24 07:00 02/23 07:00 ?? 02/26 11:20 02/26 11:20 02/26 06:59 02/25 06:59 02/24 06:59 Intake ? 2730 ?0 ? 67.5 ? 1162.5 ?300 Output ?350 ?0 ?0 ?0 ?0 Net Total ? 2380 ?0 ? 67.5 ? 1162.5 ?300 ? Urine Count ? 24 ?0 ?3 ?5 ?7 Diaper Count ?1 ?0 ?0 ?1 ?0 ? Physical Exam ?General :??No apparent distress?Respiratory??: Bilateral air entry fair. No wheeze or crackles. ?Cardiac??: Regular rate and rhythm, S1S2+ ?Abdomen/GI??: soft, non-tender, non-distended, bowel sounds present.? Extremities??: No edema.? _ Inpatient Medications Medications (21) Active SCHEDULED: (8) Amlodipine 5 mg Tablet (amLODIPine 5 mg oral tablet) ??5 mg, By Mouth, Daily Amoxicillin 250 mg Capsule (Amoxicillin Capsule) ??500 mg, By Mouth, 3 times a day Cinacalcet 30mg Tablet (cinacalcet 30 mg oral tablet) ??30 mg, By Mouth, Daily Insulin Lispro 100 units/mL Inj (Insulin LISPRO Sliding Scale) ??2-10 units, Subcutaneous Injection, 3 times a day before meals Loratadine 10 mg Tablet (Claritin 10 mg oral tablet) ??10 mg, By Mouth, Daily NaCl 0.9% Flush 3ml (NaCL 0.9% Flush) ??3 mL, IV Push, Every 8 hours Simvastatin 20 mg Tablet (simvastatin 20 mg oral tablet) ??20 mg, By Mouth, Daily at bedtime Tacrolimus XR 1 mg Tab + Tacrolimus XR 4mg Tab (Tacrolimus XR Tablet) ??5 mg, By Mouth, Daily in AM CONTINUOUS: (0) PRN: (13) Acetaminophen 325 mg Tablet (Acetaminophen Tablet) ??650 mg, By Mouth, Every 4 hours Benzonatate 100 mg Capsule (Benzonatate Capsule) ??100 mg, By Mouth, 3 times a day Dextromethorphan-Guaifenesin 20 mg-200 mg/10 mL Liqu UD (Robitussin DM Liquid) ??10 mL, By Mouth, Every 4 hours Dextrose Inj Syringe (Dextrose 50% Inj Syringe (25Gm)) ??12.5 Gm, IV Push Slowly, Every 20 minutes Dextrose Inj Syringe (Dextrose 50% Inj Syringe (25Gm)) ??25 Gm, IV Push Slowly, Every 15 minutes Glucagon 1 mg Inj (Glucagon Inj) ??1 mg, Intramuscular, Once Glucose 40% Gel (15 Gm) (Glucose Gel) ??15 Gm, By Mouth, Every 20 minutes Glucose 40% Gel (15 Gm) (Glucose Gel) ??30 Gm, By Mouth, Every 20 minutes Melatonin 3 mg Tablet (Melatonin Tablet) ??3 mg, By Mouth, Daily at bedtime NaCl 0.9% Flush 3ml (NaCL 0.9% Flush) ??3 mL, IV Push, Every 8 hours Polyethylene Glycol 17 Gm Powder (MiraLax Powder) ??17 Gm 1 pack/packet, By Mouth, Daily Senna Tablet ??8.6 mg 1 tablet, By Mouth, 2 times a day Simethicone 80 mg Chewable Tablet (Simethicone Tablet) ??80 mg, Chew, 3 times a day ? Results Recent Labs BLOOD COUNT & DIFF WBC 4.9 k/mm3 ()?? 02/26/2025 06:52 RBC 3.64 m/mm3 (Low)?? 02/26/2025 06:52 Hgb 10.6 Gm/dL (Low)?? 02/26/2025 06:52 Hct 32.9 % (Low)?? 02/26/2025 06:52 MCV 90.4 femtoliters ()?? 02/26/2025 06:52 MCH 29.1 pg ()?? 02/26/2025 06:52 MCHC 32.2 Gm/dL (Low)?? 02/26/2025 06:52 Platelet Count 177 k/mm3 ()?? 02/26/2025 06:52 RDW-SD 45.1 femtoliters ()?? 02/26/2025 06:52 MPV 9.1 femtoliters (Low)?? 02/26/2025 06:52 Nucleated RBC (Automated) 0.0 #/100 WBC'S ()?? 02/26/2025 06:52 Abs. NRBC 0.0 k/mm3 ()?? 02/26/2025 06:52 Abs. Neut 3.4 k/mm3 ()?? 02/26/2025 06:52 Abs. Lymph 0.8 k/mm3 ()?? 02/26/2025 06:52 Abs. Tama 0.3 k/mm3 (Low)?? 02/26/2025 06:52 Abs. Eo 0.3 k/mm3 ()?? 02/26/2025 06:52 Abs. Baso 0.0 k/mm3 ()?? 02/26/2025 06:52 Neut % 69.6 % ()?? 02/26/2025 06:52 Lymph % 16.8 % ()?? 02/26/2025 06:52 Tama % 5.1 % ()?? 02/26/2025 06:52 Eos % 6.7 % (High)?? 02/26/2025 06:52 Baso % 0.6 % ()?? 02/26/2025 06:52 Imm Gran 1.2 % ()?? 02/26/2025 06:52 Abs. Imm Gran 0.1 k/mm3 ()?? 02/26/2025 06:52 ?? CHEM GENERAL Sodium 141 mmol/L ()?? 02/26/2025 06:52 Potassium 4.9 mmol/L ()?? 02/26/2025 06:52 Chloride 105 mmol/L ()?? 02/26/2025 06:52 Bicarbonate Level 24 mmol/L ()?? 02/26/2025 06:52 Anion Gap 12 mmol/L ()?? 02/26/2025 06:52 Glucose Level 125 mg/dL (High)?? 02/26/2025 06:52 Glucose, POC 122 mg/dL (High)?? 02/26/2025 08:42 BUN 25 mg/dL (High)?? 02/26/2025 06:52 Creatinine-Blood 1.57 mg/dL (High)?? 02/26/2025 06:52 Estimated GFR Creatinine 40 ML/MIN/1.73 M2 ()?? 02/26/2025 06:52 Calcium 9.5 mg/dL ()?? 02/26/2025 06:52 Phosphorus 4.1 mg/dL ()?? 02/26/2025 06:52 Magnesium 1.6 mg/dL ()?? 02/26/2025 06:52 ?? IMMUNOLOGY GENERAL Transplant DSA Post, gel tube SPECIMEN COLLECTED FOR ANALYSIS AND FORWARDED FOR TESTING TO [facility] ()?? 02/25/2025 08:48 ?? TOXICOLOGY/TDM Tacrolimus Level 7.5 ng/mL ()?? 02/26/2025 06:52 ?? URINE OTHER Est Creatinine Clearance 42.04 mL/min ()?? 02/26/2025 07:40 ?? VIROLOGY COVID-19 PCR Specimen Source NASAL ()?? 02/26/2025 05:06 COVID-19 PCR Result NEGATIVE ()?? 02/26/2025 05:06 ? Blood Glucose Trend Glucose Level:??125 mg/dL??High (02/26/25 06:52:00) Glucose, POC:??122 mg/dL??High (02/26/25 08:42:00) Glucose, POC:??158 mg/dL??High (02/25/25 20:57:00) Glucose, POC:??225 mg/dL??High (02/25/25 17:48:00) Glucose, POC:??149 mg/dL??High (02/25/25 12:45:00) ? Assessment/Plan ?49 year old with history of ESRD??secondary to??Diabetes + hypertension, DDKT ( renal transplant 01/2022), hyperlipidemia and learning difficulties living with her carer was told to come the hospital for elevated outpatient serum creatinine. Per her carer, patient has been having a chronic cough for 1 month. Had a cold 2 weeks ago ( covid was negative) and was not given any antibiotics ?? 1. Allograft ? DDKT 01/2022 ? Baseline creatinine 1.05-1.15 ? Urine??albumin/creatinine ratio= 26 ? DSA: Apr 2023: Negative ? CF-DNA: 0.39 ? Duplex was 2023 Renal US --->Mild hydronephrosis of the right lower quadrant transplanted kidney without identifiable obstruction. 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 It is unclear if this finding is the source of the patient's mild hydronephrosis, but this bladder mass was not seen? on??the??prior exam 04/07/2022. Management as per Urlogy- they are rec op fu for cytso. Mild transplant kidney urothelial thickening, nonspecific. ?? 2. MARINA creatinine 1.0 >1.7>1.5>1.6 Differential diagnosis: Pre-renal/ check for tac toxicity/ BK nephropathy/ interstitial nephritis secondary to PPI/ rejection ? Creatinine was stuck at 1.5-1.6, ?? BK urine PCR/ CMV/ EBV/ BK PCR- not significant/ negative ?? 3. Immunosuppression ? Chronically on Envarsus 6mg ?Tac level 7.5 ( 02/26) ?? 4. Infection ? Having cough for one month ? Urine cx with gram neg rods ? CT chest with Tree-in-bud appearance throughout both lungs, most prominently in the lower lobes, compatible with bronchiolitis. ?? 5. BP/volume ? BP is low Taking midodrine 2.5 tid and florinef 0.1mg--->currently on hold in the setting of hypertension ?? 6.??GI: Gerd: on omeprazole ?? Recs: FU?? DSA BP elevated, midodrine and florinef discontinued. ??If BP remain high, can add amlodipine 5mg continue with Envarsus 5mg daily tacrolimus level (to be drawn before AM tacro dose) DM management for primary team Pending pulmonary input US finding: ? bladder mass: Urology planning OP cystoscopy ?? Prospera- cfdna - sent out 02/25 ?? Thank you for the courtesy of this consult, RTANE ??will continue monitoring the patient along withyou, Please do not hesitate to call us with any further questions ?? Efrain Harrington M.D. [facility] [id number], [address], [facility]?? Electronically Signed on 02/26/25 02:45 PM Len BULLOCK, Efrain * Kayla Taylor LPN: PERFORM, SIGN, VERIFY Event Display: Progress Note Hospital Authored Date: [id number] Patient: RICKIE MAURO Age: 49 years Sex: Female : 1975 Associated Diagnoses: None Author: Kayla Taylor LPN Findings Problem Related to Alteration in Genitourinary : Alteration in Genitourinary Function/new 02/26/2025 3:00 EST Alteration in Status Related to Other: MARINA, urine retention Goals & Outcomes, Genitourinary Pt will achieve normal/improved fluid balance, Pt will maintainadequate GI function appropriate for pt, Pt will maintain adequate function appropriate for pt, Pt will maintain normal fluid balance, Pt will resume normal pattern of elimination, Pt/caregiver will state understanding of self-care skills Interventions, Assess/monitor/maintain Genitourinary status, Assist & encourage pt with meticulous hernandez care, Encourage PO fluid intake as allowed by diet BH Goals/Interventions, Genitourinary Yes Genitourinary, Problem Start 02/20/2025 22:02 Reviewed Plan with, Genitourinary Patient Patient Progression, Genitourinary Patient progressing according to plan Genitourinary, Problem Ongoing Yes . Evaluation Pt A&Ox3, VSS, afebrile. Pt tolerating schedule amoxicillin pill whole in apple sauce. No c/o of pain, n/v. R/R even and unlabored, no s/s of resp distress. Pt oob to the BR independently to void. Pt continues with dry cough, denying the need for cough meds. See CIS for full assessment. Bed in lowest locked position, call carmen in reach, plan of care ongoing.. Electronically Signed on 02/26/25 03:13 AM Kayla Taylor LPN Note * Collin ASH, Janel: PERFORM Event Display: Discharge/Transfer Note Hospital Authored Date: [id number] Nursing Discharge Note Entered On: 02/26/2025 18:18 EST Performed On: 02/26/2025 18:00 EST by Janel Polanco RN Nursing Discharge Note 2 Discharge Level of Care at Discharge : Home/Fdc/Foster Care Discharge Time : 02/26/2025 18:00 EST Motorcycle Delivery Driver Utilized : No Patient Left Unit Via : Wheelchair Patient Accompanied Off Unit with : Responsible adult DC Instructions Provided & Signed by Pt : Yes Patient Understands D/C Instructions : Yes Patient Instructions Discharge Signed : Yes Discharge Comments : IV access removed, belongings returned to pt, education and teaching provided. Did Pt have Specialty Bed or Wound Vac : No Janel Polanco RN - 02/26/2025 18:17 EST Electronically Signed on 02/26/25 06:17 PM Janel Polanco RN, NP, Brenda: PERFORM Event Display: Discharge/Transfer Note Hospital Authored Date: [id number] Patient: ??RICKIE MAURO ? Age:??49 Years?Sex:??Female?:??1975?LOC:??[facility]?? Patient Information Discharge Location: [facility] Primary Care Physician: Josh Wolff Admit Date/Time: 02/21/2025 08:11 Discharge Disposition Discharge Disposition: ??home Discharge Diagnosis -donor kidney transplant recipient (Z94.0) Cough (R05.9) Acute kidney injury (N17.9) Normocytic anemia (D64.9) Hypotension (I95.9) Hyperlipidemia (E78.5) Type 2 diabetes mellitus (E11.9) General medical ([id number]) _ Discharge Medications Acetaminophen??650 Milligram By Mouth Every 4 hours as needed Pain , Moderate Amlodipine (amLODIPine 5 mg oral tablet)??5 Milligram By Mouth Daily Amoxicillin (amoxicillin 500 mg oral capsule)??500 Milligram By Mouth 3 times a day Benzonatate (benzonatate 100 mg oral capsule)??100 Milligram By Mouth 3 times a day as needed Coughsee pcp for refills Cinacalcet (cinacalcet 30 mg oral tablet)??1 tab(s) 30 Milligram By Mouth Durable Medical Equipment (Freestyle Lite Lancets)??See Instructions for 30 Days use as directed for Type 2 Diabetes Mellitus to test up to 3 times a dayE10.9 Durable Medical Equipment (Freestyle Lite Monitor)??See Instructions to test up to 3 times a dayE10.9 Durable Medical Equipment (Freestyle Lite Test Strips)??See Instructions for 30 Days use as directed for Type 2 Diabetes Mellitus to test up to 3 times a dayE10.9 Loratadine (Claritin 10 mg oral tablet)??10 Milligram By Mouth Daily Omeprazole (omeprazole 40 mg oral enteric coated capsule)??1 capsule 40 Milligram By Mouth Daily Simvastatin (simvastatin 20 mg oral tablet)??20 Milligram 1 tablet By Mouth Daily at bedtime Tacrolimus (tacrolimus 5 mg oral capsule, extended release)??5 Milligram By Mouth Daily in AM ? Discharge Medications New Amlodipine (amLODIPine 5 mg oral tablet)5 Milligram Oral Daily. Refills: 1. Amoxicillin (amoxicillin 500 mg oral capsule)500 Milligram Oral 3 times a day. Refills: 0. Benzonatate (benzonatate 100 mg oral capsule)100 Milligram Oral 3 times a day as needed Cough. see pcp for refills. Refills: 0. Loratadine (Claritin 10 mg oral tablet)10 Milligram Oral Daily. Refills: 1. Changed Tacrolimus (tacrolimus 5 mg oral capsule, extended release)5 Milligram Oral Daily in the morning. Refills: 1. Unchanged [id number] Milligram Oral every 4 hours as needed Pain , Moderate. Cinacalcet (cinacalcet 30 mg oral tablet)1 tab(s) Oral. Durable Medical Equipment (Freestyle Lite Lancets)use as directed for Type 2 Diabetes Mellitus to test up to 3 times a day E10.9. Refills: 5. Durable Medical Equipment (Freestyle Lite Monitor)to test up to 3 times a day E10.9. Refills: 0. Durable Medical Equipment (Freestyle Lite Test Strips)use as directed for Type 2 Diabetes Mellitus to test up to 3 times a day E10.9. Refills: 0. Omeprazole (omeprazole 40 mg oral enteric coated capsule)1 capsule Oral Daily. Simvastatin (simvastatin 20 mg oral tablet)1 tab(s) Oral Daily at Bedtime. Refills: 6. Discontinued Fludrocortisone (fludrocortisone 0.1 mg oral tablet)1 tab(s) Oral Daily. Midodrine (midodrine 2.5 mg oral tablet)1 tab(s) Oral 3 times a day. Allergies Allergies ?(Active and Proposed Allergies Only) ceFAZolin? (Severity: Persistent Severe, Onset: Unknown) ?Reactions: anaphylaxis ? PCP Follow-Up/Heads-Up Patient presented to [facility] for an elevation increatinine.?? Initial imaging??showed hydronephrosis, mild??without identifiable obstruction.??Creatinine on arrival was??1.79, it appears her baseline is around 1.1. Hemoglobin A1c was noted to be 6.1%.??Renal consulted and adjusted??tacrolimus to 5 mg instead of 6 daily.??She was given IV fluids. UA positive for gram-negative rods,??culture showed gram-negative rods. She was treated with oral amoxicillin dueto difficulty placing an IV. ?? On imaging she was found to have a bladder mass,?? consulted and can work this up outpatient withCytol Skippy.??She also has a chronic cough and tree-in-bud??appearance??throughout both lungs, mostly in the lower lobes, compatible with bronchiolitis. But??Pittore viral panel was all negative. She was treated for GERD, this was held due to worsening kidney function. However pulmonology consult is recommended she can continue to take??PPI as needed and they will work up her cough outpatient. In the??interim she was given Tessalon Perles with good effect. Some of this is psychogenic. ?? Additional??consult services included transplant surgery??who reviewed her imaging,??they signed off. Should her creatinine??worsen in the future she might need PCN.??Renal follow patient throughout hospitalization.??Infectious disease was contacted to rule out any underlying issues, they signed off as well. Patient remained afebrile.??Blood cultures remain negative. ?? Patient was advised??both verbally and in discharge paperwork to follow-up with all of his medical services including:??PCP, renal, transplant, ,??pulmonology. ?? She has been discharged with new prescriptions: tacromilus, amlodipine for elevated blood pressure while inpatient,??cetirizine and Tessalon Perles for cough,??and fo??5 more days of oral antibioticsdue to??duplicated UTI with transplant.??All of this was discussed thoroughly with her caregiver. ?? She is medically discharged??to home at this time with very close follow- up??with her PCP. Hospital Course Patient presented to [facility] for an elevation increatinine.?? Initial imaging??showed hydronephrosis, mild??without identifiable obstruction.??Creatinine on arrival was??1.79, it appears her baseline is around 1.1. Hemoglobin A1c was noted to be 6.1%.??Renal consulted and adjusted??tacrolimus to 5 mg instead of 6 daily.??She was given IV fluids. UA positive for gram-negative rods,??culture showed gram-negative rods. She was treated with oral amoxicillin dueto difficulty placing an IV. ?? On imaging she was found to have a bladder mass,?? consulted and can work this up outpatient withCytol Skippy.??She also has a chronic cough and tree-in-bud??appearance??throughout both lungs, mostly in the lower lobes, compatible with bronchiolitis. But??Pittore viral panel was all negative. She was treated for GERD, this was held due to worsening kidney function. However pulmonology consult is recommended she can continue to take??PPI as needed and they will work up her cough outpatient. In the??interim she was given Tessalon Perles with good effect. Some of this is psychogenic. ?? Additional??consult services included transplant surgery??who reviewed her imaging,??they signed off. Should her creatinine??worsen in the future she might need PCN.??Renal follow patient throughout hospitalization.??Infectious disease was contacted to rule out any underlying issues, they signed off as well. Patient remained afebrile.??Blood cultures remain negative. ?? Patient was advised??both verbally and in discharge paperwork to follow-up with all of his medical services including:??PCP, renal, transplant, ,??pulmonology. ?? She has been discharged with tacromilus 5mg, amlodipine for elevated blood pressure while inpatient,??cetirizine and Tessalon Perles for cough,??and fo??5 more days of oral antibiotics due to??duplicated UTI with transplant.??All of this was discussed thoroughly with her caregiver. ?? She is medically discharged??to home at this time with very close follow- up??with her PCP. ?? Objective Assessment and Plan ?? 49-year-old woman with type 2 diabetes, hypertension, ESRD secondary to diabetes and hypertension s/p DDKT in January 2022, hyperlipidemia, learning difficulties who presents to the emergency room for evaluation of elevated creatinine. ?? Normocytic anemia (D64.9):?? No recent blood work in our system. Hemoglobin and hematocrit were within normal limits when checked in April 2024. iron studies, B12 levels - normal ?? Hypotension (I95.9):?? Has been on fludrocortisone 0.1 mg daily??and??midodrine??2.5 mg 3 times a day - d/c this in the setting of hypertension ?? Acute kidney injury (N17.9):?? Baseline creatinine appears to be??1-1.1. Admit 1.7 --> 1.57 today Given IVF Recently prescribed PPI and this interstitial nephritis is in the differential. Not on NSAIDS Transplant rejection is also in the differential. Ultrasound of the kidney and bladder was reported as mild hydronephrosis of the right lower quadrant transplanted kidney without identifiable obstruction. 02/22 Urine culture showing gram-negative rods/e.coli- allergy to cefazolin - started oral amoxicillin ID consulting 02/23 repeat US - improved PCN/PCNU if needed Renal (RTANE) following ?? - Consulting nephrology, urology, ID, and??transplant - Check urinalysis, urine eosinophils, urine sodium, creatinine - Follow-up BK virus PCR and blood in urine, CMV, EBV, transplant DSA. - can restart PPI once renal clears - Renal adjusted the dose of tacrolimus - w/ recs for outpatient cystoscopy - surgical transplant with recs to send to IR for PCN if needed, signed off -??Creatinine stabilized??amoxicillin/UTI ?? -donor kidney transplant recipient (Z94.0):??Underwent??DDKT in January 2022??and is currently on??Tacrolimus XR 6 mg daily. Dose was reduced to 5 mg daily given that the levels were high.? Cough (R05.9):??Chest x-ray did not reveal any acute??pulmonary process however CT of the chest??was reported as tree-in-bud appearance throughout both lungs most prominently in the lower lobes, compatible with bronchiolitis. I have added on??expanded??respiratory??viral panel which came back negative.??Her PCP had started her on??PPI for presumed??GERD being??underlying cause. PPI being held??given worsening kidney function??and suspicion for AIN.?? Pulm consulting - can work up outpatient, signed off ?? Hyperlipidemia (E78.5):??Continue simvastatin ?? Type 2 diabetes mellitus (E11.9):??Does not appear to be on any medications. A1c 6.1% ??Monitor toocr-dg-txli and cover with insulin sliding scale, follow up with PCP ?? VTE Prophylaxis:??Appears to be low risk??per??the VTE??advisor. Consider??chemoprophylaxis if she ends up staying longer ?VTE Prophylaxis Assessment:??Risk Level documented as Low Risk ?? Code Status:??Presumed full code. 02.25 - updated??brother??Elliott??who is listed as a healthcare proxy. ?Order Code Status:??Code Status Ordered ? Measurements?? Height: 170 cm (02/26/25) Weight: 76.4 kg (02/20/25) Dry Weight: 76.4 kg (02/20/25) Body Mass Index:??26.44 kg/m2??High (02/20/25) ? Vital Signs?? Temperature: 97.9 DegF (02/26/25 15:22:00) Temperature Route: Oral (02/26/25 15:22:00) Pulse Rate: 83 bpm (02/26/25 15:22:00) Respiratory Rate: 18 br/min (02/26/25 15:22:00) Systolic Blood Pressure: 116 mm Hg (02/26/25 15:22:00) Diastolic Blood Pressure: 76 mm Hg (02/26/25 15:22:00) Blood pressure sites: Arm, right (02/26/25 15:22:00) Mean Arterial Pressure: 89 mm Hg (02/26/25 15:22:00) Pulse Pressure: 40 mm Hg (02/26/25 15:22:00) Oxygen Saturation: 99 % (02/26/25 15:22:00) Mode of Delivery (Oxygen): Room air (02/26/25 15::00) Early Warning Score: 2 (02/26/25 15::35) ? . Physical Exam Constitutional: Alert, in no acute distress. Head: Normocephalic. Eyes: Pupils are equal and round. Extraocular muscles intact. No pallor or scleral icterus Ear, Nose and Throat: mucous membranes moist. Ears and nose - no obvious deformities. Neck: No JVD or bruits. Respiratory:??Equal bilateral air entry. No wheezing or rhonchi.??No use of accessory muscles. Cardiovascular:??S1 S2 regular. No murmurs, rubs or gallops. Gastrointestinal:??Abdomen soft, non-tender, non-distended. Extremities: No lower extremity pitting edema. Neurologic:??AAOx3, Cranial nerves II-XII grossly intact. Speech normal, no facial droop. No focal neurological deficits. Moves all extremities spontaneously. Musculoskeletal:??No gross deformities on inspection. .?? Psychiatric: Normal mood and affect. Consultants Genitourinary, pulmonology, infectious disease, renal/RTANE, surgery, transplant surgery All??specialties consulted and have signed off. Pending Results Add On Lab Order ordered on 02/20/2025 Add On Lab Order ordered on 02/20/2025 Add On Lab Order ordered on 02/20/2025 Add On Lab Order ordered on 02/20/2025 Tacrolimus Level ordered on 02/21/2025 Patient Education Titles [employer] Patient Education - After Kidney Transplant: Medicines?? [employer] Patient Education - Urinary Tract Infections in Women?? [employer] Patient Education - Kidney Problems?? Follow-Up Appointments Added Follow Up ?Time Frame ?Comments Hesham FULLER, Josh Luna?1 week?Please contact for follow-up appointment Efrain Harrington MD?1 week?Please contact??for follow-up appointment Hu Garland MD?1 to 2 weeks?Please follow-up for an appointment for Cytoxan can be due to a bladder mass Patient Instructions You were treated at [facility] for??an elevation in your creatinine. ??This is significant because??of your kidney transplant. ??Additionally??your kidney appeared to be swollen, this may be related to urinary tract infection,??but will need further workup. ??Fortunately the creatininehas remained stable around 1.5. ?? You are being discharged with??5 more days of??antibiotics. ??Please be sure to take all of this??medication.? You will need to follow-up with your primary care doctor as soon as possible, preferably??in the next week. ?? Other medications were prescribed including amlodipine for blood pressure,??Tessalon Perles for cough.?We have adjusted the to cromolyn his dose from 6 mg to 5 mg. ?? Pulmonology??saw you,??determined your cough is likely could be reflux. ??This can be worked up in the outpatient setting. ?? Genitourinary specialist saw you for a bladder mass??found on imaging.?This can be worked up in the outpatient setting. ??You will likely need a Cytol Skippy, the cystoscope of the??inside of the bladder to take a closer look at this??mass. ?? Your hemoglobin A1c was 6.1, this is indicative of??diabetes. ??You will need to follow-up with your PCP for medications for this??in the setting of??kidney transplant. ?? At your PCP follow-up:??Please have them obtain a CBC,??BMP,??creatinine,??tacrolimus level.?Please inform them that they??will need to follow-up with??renal,??,??and pulmonology. ?? Please continue to follow a renal diet. ??Please follow-up on creatinine levels. ? Should you experience any worsening shortness of breath, nausea/vomiting,??fatigue,??fever,??altered mental status,??or increased need for oxygen please call emergency services immediately. ??We wishyou the best for speedy recovery. Post Discharge [facility] Results Discharge Labs BACTERIOLOGY Urine Culture Results Note (Abnormal)?? 02/20/2025 22:40 Urine Culture Specimen Source URINE ()?? 02/20/2025 22:40 ?? BLOOD COUNT & DIFF WBC 4.9 k/mm3 ()?? 02/26/2025 06:52 RBC 3.64 m/mm3 (Low)?? 02/26/2025 06:52 Hgb 10.6 Gm/dL (Low)?? 02/26/2025 06:52 Hct 32.9 % (Low)?? 02/26/2025 06:52 MCV 90.4 femtoliters ()?? 02/26/2025 06:52 MCH 29.1 pg ()?? 02/26/2025 06:52 MCHC 32.2 Gm/dL (Low)?? 02/26/2025 06:52 Platelet Count 177 k/mm3 ()?? 02/26/2025 06:52 RDW-SD 45.1 femtoliters ()?? 02/26/2025 06:52 MPV 9.1 femtoliters (Low)?? 02/26/2025 06:52 Nucleated RBC (Automated) 0.0 #/100 WBC'S ()?? 02/26/2025 06:52 Abs. NRBC 0.0 k/mm3 ()?? 02/26/2025 06:52 Abs. Neut 3.4 k/mm3 ()?? 02/26/2025 06:52 Abs. Lymph 0.8 k/mm3 ()?? 02/26/2025 06:52 Abs. Tama 0.3 k/mm3 (Low)?? 02/26/2025 06:52 Abs. Eo 0.3 k/mm3 ()?? 02/26/2025 06:52 Abs. Baso 0.0 k/mm3 ()?? 02/26/2025 06:52 Neut % 69.6 % ()?? 02/26/2025 06:52 Lymph % 16.8 % ()?? 02/26/2025 06:52 Tama % 5.1 % ()?? 02/26/2025 06:52 Eos % 6.7 % (High)?? 02/26/2025 06:52 Baso % 0.6 % ()?? 02/26/2025 06:52 Imm Gran 1.2 % ()?? 02/26/2025 06:52 Abs. Imm Gran 0.1 k/mm3 ()?? 02/26/2025 06:52 ?? CHEM GENERAL Sodium 141 mmol/L ()?? 02/26/2025 06:52 Potassium 4.9 mmol/L ()?? 02/26/2025 06:52 Chloride 105 mmol/L ()?? 02/26/2025 06:52 Bicarbonate Level 24 mmol/L ()?? 02/26/2025 06:52 Anion Gap 12 mmol/L ()?? 02/26/2025 06:52 Glucose Level 125 mg/dL (High)?? 02/26/2025 06:52 Glucose, POC 179 mg/dL (High)?? 02/26/2025 12:04 Hemoglobin A1C (Monitoring) 6.1 % (High)?? 02/22/2025 04:41 BUN 25 mg/dL (High)?? 02/26/2025 06:52 Creatinine-Blood 1.57 mg/dL (High)?? 02/26/2025 06:52 Estimated GFR Creatinine 40 ML/MIN/1.73 M2 ()?? 02/26/2025 06:52 Calcium 9.5 mg/dL ()?? 02/26/2025 06:52 Calcium, Ionized pH Corrected 1.22 mmol/L ()?? 02/20/2025 13:15 Phosphorus 4.1 mg/dL ()?? 02/26/2025 06:52 Magnesium 1.6 mg/dL ()?? 02/26/2025 06:52 Protein, Total 6.4 Gm/dL ()?? 02/24/2025 05:59 Albumin 3.1 Gm/dL (Low)?? 02/24/2025 05:59 AG Ratio 0.9 ()?? 02/24/2025 05:59 Alkaline Phosphatase 68 units/L ()?? 02/24/2025 05:59 AST (SGOT) 15 units/L ()?? 02/24/2025 05:59 ALT (SGPT) 13 units/L ()?? 02/24/2025 05:59 Bilirubin, Total 0.2 mg/dL ()?? 02/24/2025 05:59 Lactate 0.7 mmol/L ()?? 02/20/2025 13:15 Iron Level 34 mcg/dL ()?? 02/20/2025 13:15 Iron Binding Capacity, Unsaturated 150 mcg/dL ()?? 02/20/2025 13:15 Iron Binding Capacity, Estimated Total 184 mcg/dL ()?? 02/20/2025 13:15 % Iron Saturation 18 % (Low)?? 02/20/2025 13:15 Ferritin Level 2645 ng/mL (High)?? 02/20/2025 13:15 ?? COAG INR 1.2 (High)?? 02/21/2025 05:24 Protime (PT) 12.5 seconds (High)?? 02/21/2025 05:24 ?? IMMUNOLOGY GENERAL Transplant DSA Post, gel tube SPECIMEN COLLECTED FOR ANALYSIS AND FORWARDED FOR TESTING TO [facility] ()?? 02/25/2025 08:48 ? MISC. CHEMISTRY Procalcitonin 0.33 ng/mL ()?? 02/21/2025 05:24 ? TOXICOLOGY/TDM Tacrolimus Level 7.5 ng/mL ()?? 02/26/2025 06:52 ? UA/URINALYSIS Appear/Color, Urine LIGHT YELLOW ()?? 02/20/2025 22:40 Specific Roann, Urine 1.009 ()?? 02/20/2025 22:40 pH, Urine 6.5 ()?? 02/20/2025 22:40 Albumin, Urine TRACE (Abnormal)?? 02/20/2025 22:40 Glucose, Urine NEGATIVE ()?? 02/20/2025 22:40 Ketones, Urine NEGATIVE ()?? 02/20/2025 22:40 Bilirubin, Urine NEGATIVE ()?? 02/20/2025 22:40 Hemoglobin, Urine NEGATIVE ()?? 02/20/2025 22:40 Nitrite, Urine NEGATIVE ()?? 02/20/2025 22:40 Leukocyte, Urine 3+ (Abnormal)?? 02/20/2025 22:40 Urobilinogen NORMAL mg/dL ()?? 02/20/2025 22:40 WBC's, Urine 119 /HPF (High)?? 02/20/2025 22:40 RBC's, Urine 1 /HPF ()?? 02/20/2025 22:40 Bacteria SLIGHT HPF (Abnormal)?? 02/20/2025 22:40 Squamous Epith 4 /HPF ()?? 02/20/2025 22:40 Mucus SLIGHT /LPF ()?? 02/20/2025 22:40 Hold Urine Culture Testing available 48 hours from time of collection. ()?? 02/20/2025 22:40 Hold Urine Testing Available 24 hours from Time of Collection ()?? 02/20/2025 22:40 ?? URINE OTHER Eos, Urine 0.5 % ()?? 02/20/2025 22:40 Creatinine, Urine Random 37.8 mg/dL ()?? 02/20/2025 22:40 Sodium, Urine Random 98 mmol/L ()?? 02/20/2025 22:40 Chloride, Urine Random 82 mmol/L ()?? 02/20/2025 22:40 Protein, Total Urine Random 19 mg/dL ()?? 02/20/2025 22:40 TP/Cr Ratio 0.50 (High)?? 02/20/2025 22:40 Creatinine, Urine 37.8 mg/dL ()?? 02/20/2025 22:40 Est Creatinine Clearance 42.04 mL/min ()?? 02/26/2025 07:40 ?? VIROLOGY BK Virus Quant Urine 15147 IU/mL ()?? 02/20/2025 22:40 BK Virus Quant Urine Log 4.146 ()?? 02/20/2025 22:40 BK Virus Quant Plasma NEGATIVE IU/mL ()?? 02/21/2025 05:24 Holly Rodriguez Virus PCR, Quantitative NEGATIVE ()?? 02/21/2025 05:24 CMV Quant NEGATIVE ()?? 02/21/2025 05:24 CMV Quant Log TEST NOT PERFORMED ()?? 02/21/2025 05:24 Influenza A PCR NEGATIVE ()?? 02/20/2025 14:10 Influenza B PCR NEGATIVE ()?? 02/20/2025 14:10 RSV PCR NEGATIVE ()?? 02/20/2025 14:10 Adenovirus by PCR NEGATIVE ()?? 02/20/2025 14:10 Coronavirus 229E by PCR (not COVID-19) NEGATIVE ()?? 02/20/2025 14:10 Coronavirus HKU1 by PCR (not COVID-19) NEGATIVE ()?? 02/20/2025 14:10 Coronavirus NL63 by PCR (not COVID-19) NEGATIVE ()?? 02/20/2025 14:10 Coronavirus OC43 by PCR (not COVID-19) NEGATIVE ()?? 02/20/2025 14:10 Human Metapneumovirus by PCR NEGATIVE ()?? 02/20/2025 14:10 Rhinovirus/Enterovirus by PCR NEGATIVE ()?? 02/20/2025 14:10 Influenza A by PCR NEGATIVE ()?? 02/20/2025 14:10 Influenza B by PCR NEGATIVE ()?? 02/20/2025 14:10 Parainfluenza 1 by PCR NEGATIVE ()?? 02/20/2025 14:10 Parainfluenza 2 by PCR NEGATIVE ()?? 02/20/2025 14:10 Parainfluenza 3 by PCR NEGATIVE ()?? 02/20/2025 14:10 Parainfluenza 4 by PCR NEGATIVE ()?? 02/20/2025 14:10 RSV by PCR NEGATIVE ()?? 02/20/2025 14:10 Bordetella Pertussis by PCR NEGATIVE ()?? 02/20/2025 14:10 Chlamydophila Pneumoniae by PCR NEGATIVE ()?? 02/20/2025 14:10 Mycoplasma Pneumoniae by PCR NEGATIVE ()?? 02/20/2025 14:10 COVID-19 PCR Specimen Source NASAL ()?? 02/26/2025 05:06 COVID-19 PCR Result NEGATIVE ()?? 02/26/2025 05:06 COVID-19 (SARS-CoV-2) by PCR NEGATIVE ()?? 02/20/2025 14:10 Bordetella Parapertussis by PCR NEGATIVE ()?? 02/20/2025 14:10 ? 35_ minutes spent on discharge Electronically Signed on 02/26/25 05:24 PM Jonathon LOVE, Brenda Polanoc RN, Janel: PERFORM Event Display: Patient Education/Instruction Authored Date: [id number] Inpatient Adult Discharge Instructions. [place] [id number] Name: RICKIE MAURO : 1975?? Visit: 02/21/2025 08:11?? Current Date: 02/26/2025 17:28 ?? Account: [id number]?? Inpatient Adult Discharge Instructions We would like to thank you for allowing us to assist you with your healthcare needs. The following includes patient education materials and information regarding your injury/illness. Our entire staffstrives to provide an excellent experience for our patients and their families. PLEASE ENSURE YOU FOLLOW-UP PER THE INSTRUCTIONS BELOW! ?? YOUR OPINION IS IMPORTANT TO US! Please complete the survey you may receive by mail or email. Your feedback will be used to make improvements to the healthcare experiences of our patients and their families. Surveys are administered by [employer] ?? If further treatment with your primary care physician or another doctor is recommended, it is important for you to keep the appointment. Call your primary care physician or return to the Emergency Department immediately if your condition worsens, fails to improve, or new symptoms develop. If you need to find a doctor, you can call [facility] Link for a referral at [phone] or toll free at [phone]) or log in to [email or web address].. ?? [facility], in keeping with [facility] guidance, no longer requires face masks for staff, patientsor visitors in most situations. Similiar to time spent indoors at other locations, there is the chance that you were exposed to repiratory viruses during your time with us (such as flu or COVID-19). If you develop symptoms concerning for a viral respiratory infection, please seek testing (and treatment if indicated) from your medical provider or home test kit. ?? You can view and manage your care through the patient portal or by using a health care iker of your choosing. [employer] is a website that allows you to securely view your medical information including your hospital discharge summary, office visit summaries, medications and follow-up visits. You can also request appointments, renew medications, and request access to your medical information using a health care iker of your choosing, or just ask a question. You are entitled to know the individuals who participated in your treatment. This information is available within your medical record and will be provided upon your request. You can enroll at [email or web address] or register d uring your next office visit. You have been discharged from [facility], Patient Care Unit: [id number]??. If you have any questions regarding these instructions, including results of studies pending, afteryou leave, please call us and we will be happy to assist you 23/10. [facility] Your Care Team Attending Physician Brooke Myers MD?? Consulting Providers Brooke Myers MD?? Discharging Providers Brenda Holt NP Reason for Your Visit DDKT w/ elevated creatinine?? Your Diagnosis -donor kidney transplant recipient Cough Acute kidney injury Normocytic anemia Hypotension Hyperlipidemia Type 2 diabetes mellitus General medical Tests Performed Below is a partial list of the tests performed during your hospitalization. You may have had other tests and procedures not included in this list. Please discuss all test results with your provider. BASIC METABOLIC PANEL BK Virus PCR Quantitative BK Virus PCR Quantitative Urine CBC CMV Quant Plasma COMPLETE CBC WITH DIFF Comprehensive Metabolic Panel COVID-19 (2019 Novel Coronavirus) PCR COVID-19, RSV, and Flu A/B, Rapid PCR Holly Rodriguez Virus PCR Quantitative FERRITIN GLUCOSE POC Hemoglobin A1C (Monitoring) HOLD URINE CULTURE HOLD URINE, HEMATOLOGY Ionized Calcium IRON & TIBC Lactate Level MAGNESIUM PHOSPHORUS Procalcitonin Level Protein/Creatinine Ratio Urine PT (INR) RESP PATH PANEL W/COVID-19 TACROLIMUS TRANSPLANT DSA POST Urinalysis w/hold for Urine Culture Urine Chloride Urine Creatinine Urine Culture Urine Eosinophils Urine Sodium CT Chest W/O Contrast US Kidneys Comp US Renal Transplant Doppler XR Chest 2 Views Frontal and Lat Add On Lab Order?? BK Virus PCR Quantitative?? BK Virus PCR Quantitative Urine?? Basic Metabolic Panel?? CBC?? CBC w/ Differential (COMPLETE CBC WITH DIFF)?? CMV Quant Plasma?? COVID-19 (2019 Novel Coronavirus) PCR?? COVID-19, RSV, and Flu A/B, Rapid PCR?? CT Chest W/O Contrast?? Chloride Urine (Urine Chloride)?? Comprehensive Metabolic Panel?? Creatinine Urine (Urine Creatinine)?? Eosinophils Urine (Urine Eosinophils)?? Hloly Rodriguez Virus PCR Quantitative?? Ferritin?? Glucose POC?? Hemoglobin A1C (Monitoring)?? Hold Urine (HOLD URINE, HEMATOLOGY)?? Hold Urine Culture?? INR (PT (INR))?? Ionized Calcium?? Iron + Iron Binding Capacity (IRON & TIBC) Lactic Acid Level (Lactate Level)?? Magnesium Level (MAGNESIUM)?? Phosphorus Level (PHOSPHORUS)?? Procalcitonin Level?? Protein/Creatinine Ratio Urine?? Respiratory Pathogen PCR with COVID-19 (RESP PATH PANEL W/COVID-19)?? Sodium Urine (Urine Sodium)?? Tacrolimus Level (TACROLIMUS)?? Transplant DSA Post?? US Renal Bladder (US Kidneys Comp)?? US Renal Transplant Doppler?? Urinalysis w/hold for Urine Culture?? Urine Culture?? Chest 2 Views Frontal and Lat (XR Chest 2 Views Frontal and Lat)?? Primary Care Provider Josh Wolff? Advance Directive Health Care Proxy on File Yes - Health Care Proxy Discharge Vitals Temperature: 97.9 DegF Height: 170 cm Pulse Rate: 83 bpm Weight: 76.4 kg Respiratory Rate: 18 br/min Body Mass Index:??26.44 kg/m2??High Systolic Blood Pressure: 116 mm Hg Body surface area: 1.9 Diastolic Blood Pressure: 76 mm Hg ?? Oxygen Saturation: 99 % ?? Studies Pending All studies ordered during this hospital stay have been completed unless listed below. Please discuss all pending results with your provider listed above in these instructions. ?? Add On Lab Order?? Tacrolimus Level?? What to do next Instructions From Your Doctor You were treated at [facility] for??an elevation in your creatinine. ??This is significant because??of your kidney transplant. ??Additionally??your kidney appeared to be swollen, this may be related to urinary tract infection,??but will need further workup. ??Fortunately the creatininehas remained stable around 1.5. ?? You are being discharged with??5 more days of??antibiotics. ??Please be sure to take all of this??medication.? You will need to follow-up with your primary care doctor as soon as possible, preferably??in the next week. ?? Other medications were prescribed including amlodipine for blood pressure,??Tessalon Perles for cough.?We have adjusted the to cromolyn his dose from 6 mg to 5 mg. ?? Pulmonology??saw you,??determined your cough is likely could be reflux. ??This can be worked up in the outpatient setting. ?? Genitourinary specialist saw you for a bladder mass??found on imaging.?This can be worked up in the outpatient setting. ??You will likely need a Cytol Skippy, the cystoscope of the??inside of the bladder to take a closer look at this??mass. ?? Your hemoglobin A1c was 6.1, this is indicative of??diabetes. ??You will need to follow-up with your PCP for medications for this??in the setting of??kidney transplant. ?? At your PCP follow-up:??Please have them obtain a CBC,??BMP,??creatinine,??tacrolimus level.?Please inform them that they??will need to follow-up with??renal,??,??and pulmonology. ?? Please continue to follow a renal diet. ??Please follow-up on creatinine levels. ? Should you experience any worsening shortness of breath, nausea/vomiting,??fatigue,??fever,??altered mental status,??or increased need for oxygen please call emergency services immediately. ??We wishyou the best for speedy recovery. ?? Orders? 02/26/25 17:24:00 EST?? You Need to Schedule the Following Appointments Follow Up with??Hesham FULLER, Josh Luna When:Within 1 week Where:[address] [place] [address]- Additional Information: Please contact for follow-up appointment Follow Up with??Len BULLOCK, [place] When:Within 1 week Where:[address] [facility] [place] [address]- Additional Information: Please contact??for follow-up appointment Follow Up with??Gill BULLOCK, [place] When:Within 1 to 2 weeks Where:[address] [facility] [place] [address]- Additional Information: Please follow-up for an appointment for Cytoxan can be due to a bladder mass Discharge Medications RICKIE MAURO :1975 Visit Date:02/21/2025 Medications: Please continue your medications until treatment is completed or stopped by your provider. Medications not listed below should be discontinued. Discuss any questions related to medications with your provider. What How Much When Instructions Next Dose New Amlodipine (amLODIPine 5 mg oral tablet) 5 Milligram Oral Daily Refills: 1 Ordering Physician: Brenda Holt NPup at [facility] #[id number] 02/27, 9AM; as prescribed. New Amoxicillin (amoxicillin 500 mg oral capsule) 500 Milligram Oral 3 times a day Ordering Physician: Brenda Holt NP at [facility] #[id number] 02/27, 9AM; as prescribed. New Benzonatate (benzonatate 100 mg oral capsule) 100 Milligram Oral 3 times a day as needed for Cough Special Instructions: see pcp for refills Ordering Physician: Brenda Holt NP ?? Pickup at [facility] #[id number] 02/27, 9AM; as prescribed. New Loratadine (Claritin 10 mg oral tablet) 10 Milligram Oral Daily Refills: 1 [id number] 02/27, 9AM; as prescribed. Changed Tacrolimus (tacrolimus 5 mg oral capsule, extended release) 5 Milligram Oral Daily in the morning [facility]ing Phys[facility]: [id number] 02/27, 9AM; as prescribed. Unchanged Acetaminophen 650 Milligram Oral Every 4 hours as needed for Pain , Moderate As needed. Unchanged Cinacalcet (cinacalcet 30 mg oral tablet) 1 tab(s) Oral 02/27, 9AM; as prescribed. Unchanged Durable Medical Equipment (Freestyle Lite Lancets) See instructions Duration: 30 Days Special Instructions: use as directed for Type 2 Diabetes Mellitus to test up to 3 times a day E10.9 Ordering Physician: Rosa Guerra MD ?? Unchanged Durable Medical Equipment (Freestyle Lite Monitor) See instructions Special Instructions: to test up to 3 times a day E10.9 Ordering Physician: Rosa Guerra MD ?? Unchanged Durable Medical Equipment (Freestyle Lite Test Strips) See instructions Duration: 30 Days Special Instructions: use as directed for Type 2 Diabetes Mellitus to test up to 3 times a day E10.9 Ordering Physician: Rosa Guerra MD ?? Unchanged Omeprazole (omeprazole 40 mg oral enteric coated capsule) 1 capsule Oral Daily 02/27, 9AM; as prescribed. Unchanged Simvastatin (simvastatin 20 mg oral tablet) 1 tab(s) Oral Daily at Bedtime Ordering Physician: You Trivedi MD 11, 9PM; as prescribed. Pharmacy Information [facility] #[id number]: [address], [place] [id number] [phone] ?? What How Much When Comments Stop Taking Fludrocortisone (fludrocortisone 0.1 mg oral tablet) 1 tab(s) Oral Daily Stop Taking Midodrine (midodrine 2.5 mg oral tablet) 1 tab(s) Oral 3 times a day Prescription Given During Visit Amlodipine (amLODIPine 5 mg oral tablet) - 5 mg, By Mouth, Daily, # 30 tablet, 1 Refills, [facility] #[id number], [address] [place] [address] [phone]?? Amoxicillin (amoxicillin 500 mg oral capsule) - 500 mg, By Mouth, 3 times a day, # 15 tablet, 0 Refills, [facility] #[id number], [address] [place] [address] [phone]?? Benzonatate (benzonatate 100 mg oral capsule) - 100 mg, By Mouth, 3 times a day, # 30 capsule, 0 Refills, see pcp for refills, [facility] #[id number], [address] [place] [phone]?? Loratadine (Claritin 10 mg oral tablet) - 10 mg, By Mouth, Daily, # 30 tablet, 1 Refills, [facility] #[id number], [address] [place] [address] [phone]?? Tacrolimus (tacrolimus 5 mg oral capsule, extended release) - 5 mg, By Mouth, Daily in AM, # 30 tablet, 1 Refills, [facility] #[id number], [address] [place] [address] [phone]?? Laboratory Results Below is a partial list of the most recent Laboratory test results done prior to this discharge. You may have had other tests and procedures not included in this list. Please discuss all test resultswith your provider. Est Creatinine Clearance - 42.04 mL/min (02/26/2025) BASIC METABOLIC PANEL (02/26/2025) ???Sodium - 141 mmol/L???Potassium - 4.9 mmol/L???Chloride - 105 mmol/L???Bicarbonate Level - 24 mmol/L???Anion Gap - 12 mmol/L???Glucose Level - 125 mg/dL???BUN - 25 mg/dL???Creatinine-Blood - 1.57 mg/dL???Estimated GFR Creatinine - 40 ML/MIN/1.73 M2???Calcium - 9.5 mg/dL BK Virus PCR Quantitative (02/21/2025) ???BK Virus Quant Plasma - NEGATIVE BK Virus PCR Quantitative Urine (02/20/2025) ???BK Virus Quant Urine - 25057 IU/mL???BK Virus Quant Urine Log - 4.146 CBC (02/21/2025) ???WBC - 6.4 k/mm3???RBC - 3.04 m/mm3???Hgb - 9.0 Gm/dL???Hct - 27.1 %???MCV - 89.1 femtoliters???MCH - 29.6 pg???MCHC - 33.2 Gm/dL???Platelet Count - 144 k/mm3???RDW-SD - 43.8 femtoliters???MPV - 9.7 femtoliters???Nucleated RBC (Automated) - 0.0 #/100 WBC'S???Abs. NRBC - 0.0 k/mm3 CMV Quant Plasma (02/21/2025) ???CMV Quant - NEGATIVE???CMV Quant Log - TEST NOT PERFORMED COMPLETE CBC WITH DIFF (02/26/2025) ???WBC - 4.9 k/mm3???RBC - 3.64 m/mm3???Hgb - 10.6 Gm/dL???Hct - 32.9 %???MCV - 90.4 femtoliters???MCH - 29.1 pg???MCHC - 32.2 Gm/dL???Platelet Count - 177 k/mm3???RDW-SD - 45.1 femtoliters???MPV - 9.1 femtoliters???Nucleated RBC (Automated) - 0.0 #/100 WBC'S???Abs. NRBC - 0.0 k/mm3???Abs. Neut - 3.4 k/mm3???Abs. Lymph - 0.8 k/mm3???Abs. Tama - 0.3 k/mm3???Abs. Eo - 0.3 k/mm3???Abs. Baso - 0.0 k/mm3???Neut % - 69.6 %???Lymph % - 16.8 %???Tama % - 5.1 %???Eos % - 6.7 %???Baso % - 0.6 %???Imm Gran - 1.2 %???Abs. Imm Gran - 0.1 k/mm3 Comprehensive Metabolic Panel (02/24/2025) ???Sodium - 140 mmol/L???Potassium - 4.5 mmol/L???Chloride - 105 mmol/L???Bicarbonate Level - 24 mmol/L???Anion Gap - 11 mmol/L???Glucose Level - 184 mg/dL???BUN - 25 mg/dL???Creatinine-Blood - 1.88 mg/dL???Estimated GFR Creatinine - 32 ML/MIN/1.73 M2???Calcium - 8.6 mg/dL???Protein, Total - 6.4 Gm/ dL???Albumin - 3.1 Gm/dL???AG Ratio - 0.9???Alkaline Phosphatase - 68 units/L???AST (SGOT) - 15 units/L???ALT (SGPT) - 13 units/L???Bilirubin, Total - 0.2 mg/dL COVID-19 (2019 Novel Coronavirus) PCR (02/26/2025) ???COVID-19 PCR Specimen Source - NASAL???COVID-19 PCR Result - NEGATIVE COVID-19, RSV, and Flu A/B, Rapid PCR (02/20/2025) ???Influenza A PCR - NEGATIVE???Influenza B PCR - NEGATIVE???RSV PCR - NEGATIVE???COVID-19 PCR Specimen Source - NASAL???COVID-19 PCR Result - NEGATIVE Holly Rodriguez Virus PCR Quantitative (02/21/2025) ???Holly Rodriguez Virus PCR, Quantitative - NEGATIVE FERRITIN (02/20/2025) ???Ferritin Level - 2645 ng/mL GLUCOSE POC (02/26/2025) ???Glucose, POC - 179 mg/dL Hemoglobin A1C (Monitoring) (02/22/2025) ???Hemoglobin A1C (Monitoring) - 6.1 % HOLD URINE CULTURE (02/20/2025) ???Hold Urine Culture - Testing available 48 hours from time of collection. HOLD URINE, HEMATOLOGY (02/20/2025) ???Hold Urine - Testing Available 24 hours from Time of Collection Ionized Calcium (02/20/2025) ???Calcium, Ionized pH Corrected - 1.22 mmol/L IRON & TIBC (02/20/2025) ???Iron Level - 34 mcg/dL???Iron Binding Capacity, Unsaturated - 150 mcg/dL???Iron Binding Capacity, Estimated Total - 184 mcg/dL???% Iron Saturation - 18 % Lactate Level (02/20/2025) ???Lactate - 0.7 mmol/L MAGNESIUM (02/26/2025) ???Magnesium - 1.6 mg/dL PHOSPHORUS (02/26/2025) ???Phosphorus - 4.1 mg/dL Procalcitonin Level (02/21/2025) ???Procalcitonin - 0.33 ng/mL Protein/Creatinine Ratio Urine (02/20/2025) ???Protein, Total Urine Random - 19 mg/dL???TP/Cr Ratio - 0.50???Creatinine, Urine - 37.8 mg/dL PT (INR) (02/21/2025) ???INR - 1.2???Protime (PT) - 12.5 seconds RESP PATH PANEL W/COVID-19 (02/20/2025) ???Adenovirus by PCR - NEGATIVE???Coronavirus 229E by PCR (not COVID-19) - NEGATIVE???Coronavirus HKU1 by PCR (not COVID-19) - NEGATIVE???Coronavirus NL63 by PCR (not COVID-19) - NEGATIVE???Coronavirus OC43 by PCR (not COVID-19) - NEGATIVE???Human Metapneumovirus by PCR - NEGATIVE???Rhinovirus/Enterovirus by PCR - NEGATIVE???Influenza A by PCR - NEGATIVE???Influenza B by PCR - NEGATIVE???Parainfluenza 1 by PCR - NEGATIVE???Parainfluenza 2 by PCR - NEGATIVE???Parainfluenza 3 by PCR - NEGATIVE???Parainfluenza 4 by PCR - NEGATIVE???RSV by PCR - NEGATIVE???Bordetella Pertussis by PCR - NEGATIVE??? Chlamydophila Pneumoniae by PCR - NEGATIVE???Mycoplasma Pneumoniae by PCR - NEGATIVE???COVID-19 (SARS-CoV-2) by PCR - NEGATIVE???Bordetella Parapertussis by PCR - NEGATIVE TACROLIMUS (02/26/2025) ???Tacrolimus Level - 7.5 ng/mL TRANSPLANT DSA POST (02/25/2025) ???Transplant DSA Post, gel tube - SPECIMEN COLLECTED FOR ANALYSIS AND FORWARDED FOR TESTING TO [facility] Urinalysis w/hold for Urine Culture (02/20/2025) ???Appear/Color, Urine - LIGHT YELLOW???Specific Roann, Urine - 1.009???pH, Urine - 6.5???Albumin, Urine - TRACE???Glucose, Urine - NEGATIVE???Ketones, Urine - NEGATIVE???Bilirubin, Urine - NEGATIVE???Hemoglobin, Urine - NEGATIVE???Nitrite, Urine - NEGATIVE???Leukocyte, Urine - 3+???Urobilinogen - NORMAL???WBC's, Urine - 119 /HPF???RBC's, Urine - 1 /HPF???Bacteria - SLIGHT???Squamous Epith - 4 /HPF???Mucus - SLIGHT???Hold Urine Culture - Testing available 48 hours from time of collection. Urine Chloride (02/20/2025) ???Chloride, Urine Random - 82 mmol/L Urine Creatinine (02/20/2025) ???Creatinine, Urine Random - 37.8 mg/dL Urine Culture (02/20/2025) ???Urine Culture Results - Note???Urine Culture Specimen Source - URINE Urine Eosinophils (02/20/2025) ???Eos, Urine - 0.5 % Urine Sodium (02/20/2025) ???Sodium, Urine Random - 98 mmol/L Allergies (NKA means No Known Allergies) ceFAZolin (Persistent Severe)??anaphylaxis Problems Active Problems??(7) -donor kidney transplant recipient?? HTN (hypertension)?? Hyperlipidemia?? Intellectual disability?? Obesity?? Seizures?? Type 2 diabetes mellitus?? Education Materials Below is the list of Educational Leaflet Providered with your Discharge Instructions. [employer] Patient Education - Discharge Instructions for Acute Kidney Injury?? [employer] Patient Education - After Kidney Transplant: Medicines?? [employer] Patient Education - Urinary Tract Infections in Women?? [employer] Patient Education - Kidney Problems?? Valuables and Belongings I fully understand and agree that [facility] accepts no responsibility for all my personal property including clothing, toilet articles, radios, jewelry, dentures, hearing aids, rings, money, or any other property that is in my possession or is brought to me after admission. I understand certain valuables may be placed in a hospital safe for a short period of time. I understand that the hospital is not liable for loss or damage due to accident, fire, or other natural occurrence while said property is in the safe. I accept full responsibility for any personal property that I keep with me, and will not hold the hospital responsible in case of loss or disappearance. I acknowledge that i have been encouraged to send valuables and belongings home. ?? No Valuables/Belongings: No valuables/belongings present Review of Valuable and Belonging List: With patient Date for Pt to Sign Valuables/Belongings: 02/20/25 21:07:00 ?? Other Discharge Information ? Pulmonary Rehab Status?? Pulmonary Rehab Discharge Status?? Respiratory Rate: 18 br/min ? Common Emergency Awareness Tips IS IT A STROKE? Act FAST and Check for these signs: FACE Does the face look uneven? ARM Does one arm drift down? SPEECH Does their speech sound strange? TIME Call at any sign of stroke ?? Heart Attack Signs Chest discomfort: Most heart attacks involve discomfort in the center of the chest and lasts more than a few minutes, or goes away and comes back. It can feel like uncomfortable pressure, squeezing, fullness or pain. Discomfort in upper body: Symptoms can include pain or discomfort in one or both arms, back, neck, jaw or stomach. Shortness of breath: With or without discomfort. Other signs: Breaking out in a cold sweat, nausea, or lightheaded. Remember, MINUTES DO MATTER. If you experience any of these heart attack warning signs, call to get immediate medical attention! ?? Smoking can increase your chances of developing chronic health problems and can cause harmful effects to other family members in your house. If you smoke, you are strongly encouraged to quit. Please call [employer] at [phone] or 8-281-726-treadalong ([phone]) or log in to [email or web address] for referrals to smoking cessation programs. ?? 656 Suicide & Crisis Lifeline is available 23/10 if you or someone you know needs to find a reason to keep living. By calling 859 you'll be connected to a skilled, trained counselor at a crisis center in your area. INPATIENT DISCHARGE INSTRUCTIONS SIGNATURE PAGE MERRY MAUROELLE Location:[facility] Registration Date and Time:02/21/2025 08:11 EST Primary Care Physician: Josh Wolff, Attending Physician: Brooke Myers MD, I RICKIE MAURO, have received the above patient education materials/instructions and have verbalized understanding. If ambulance or transport services are being used I further acknowledge beinggiven a choice of service. ?? If you need to contact me, please call me at this number: . Patient/Field Counsel Name: Patient/Field Counsel Signature: Relationship to Patient: Witness Name/Signature: Date: * Janel Polanco RN: PERFORM Event Display: Patient Education Leaflets Authored Date: [id number] Discharge Instructions for Acute Kidney Injury ?? 17907 Discharge Instructions for Acute Kidney Injury You have been diagnosed with acute kidney injury. This means that you have had a sudden episode of kidney failure or damage that causes your kidneys not to work correctly. When both kidneys are healthy, they help filter out fluid and waste from the blood and body.??Acute kidney injury has many causes. These include urinary blockages, infections, such as COVID-19, lack of enough blood supply, a major health event such as heart surgery, and medicines that can injure??kidneys. In some cases, acutekidney injury is short-term (temporary). This type lasts several days to a few months. This is because the kidney can repair itself. Acute kidney injury can also result in chronic kidney disease or end-stage renal failure. Here are some directions for you to follow as you recover. Home care ??? Follow any directions for eating and drinking given to you by your healthcare provider. o Drink less fluid, if directed by your healthcare provider. o Keep a record of everything you eat and drink. ??? Measure the amount of urine and stool you have each day. ??? Weigh yourself every day, at the same time of day, and in the same kind of clothes. Keep a daily record of your daily weights. ??? Take your temperature every day. Keep a record of the results. ??? Learn to take your own blood pressure (BP). Your healthcare provider can teach you how to correctly measure your BP. Keep a record of your results. Bring the record to your follow-up appointments. Ask your healthcare provider when you should seek emergency medical attention. Your provider will tell you what blood pressure reading is dangerous. ??? Stay away from people who have infections. This includes people with colds, bronchitis, or skin conditions. ??? Practice good personal??hygiene. Wash your hands often. This is especially important if you have a catheter in place when you leave the hospital. Doing so helps keep you safe from infection. ??? Take your medicines exactly as directed. If you are confused about how to take any of your medications, call your healthcare provider. ??? You may need frequent blood and urine tests. These are done to keep track of your kidney function. ?? Follow-up care Follow up with your healthcare provider, or as advised. ?? When to call your healthcare provider Call your??healthcare provider??right away if any of the following occur: ??? Signs of bladder infection, such as urinating more often, burning or pain when you pee, pain above your pubic bone, bloodin your urine, or trouble starting your urine stream ??? Signs of infection around your catheter, such as redness, swelling, warmth, or fluid leaking ??? Rapid weight loss or weight gain, such as 3??pounds or more in 24 hours or 6 pounds or more in 7 days ??? Fever above 100.4?? F ( 38??C ) or as directed by your healthcare provider ??? Chills ??? Muscle aches ??? Night sweats ??? Very little or no urine output ??? Swelling of your hands, legs, or feet ??? Back pain ??? Abdominal (belly) pain ??? Extreme tiredness ?? Last Reviewed Date: 2024 00:00:00 ?? 6964-6864 [employer]. All rights reserved. This information is not intended as a substitute for professional medical care. Always follow your healthcare professional's instructions. ?? * Brenda Holt NP: PERFORM Event Display: Patient Education Leaflets Authored Date: [id number] After Kidney Transplant: Medicines ?? 59182 After Kidney Transplant: Medicines A transplanted kidney works like a normal kidney to filter your blood. You won't need dialysis if your new kidney stays healthy. But you need to take medicines to keep it that way. Preventing organ rejection Your body's immune system attacks foreign things like germs. It may also attack your new kidney. That's because the new kidney is foreign tissue.??The attack is called organ rejection. Medicines can help prevent rejection. You must take antirejection medicines for the rest of your life. Many medications may be needed to keep your new kidney healthy. ?? Treating organ rejection Organ rejection is found and confirmed with a kidney biopsy. Medicine is used to numb the area where a needle will be placed. Then a small sample of kidney tissue is removed through the needle. The tissue sample is checked in a lab by a pathologist. If rejection does happen, treatment may stop it. If rejection can't be stopped, your new kidney will no longer work. You will then need dialysis to keep you alive. In time, you may be able to have a second kidney transplant. ?? Side effects of transplant medicines Medicines to prevent rejection can have many side effects. The medicines weaken the immune system. You may get more infections. They may be more severe. You may also have a higher risk of some types of cancer.??Talk with your doctor about side effects and how to manage them. ?? Keeping your new kidney safe ??? Take your medicines as directed. If you don't, your new kidney will stop working. Then you will need dialysis again. ??? Use a pill box and electronic reminders so you don't forget any doses. ??? See your doctor regularly for blood tests. These check how well your kidney and transplant medicines are working. Keep all of your follow-up appointments. ?? Working with your care team ??? Talk with your care team to make sure you understand your medicines. ??? Make sure you know allthe instructions to keep your new kidney working right. ??? Write down any questions you have aboutyour medicines. Bring them to your appointments. ?? When to contact your doctor Contact your doctor right away if: ??? You have any kind of infection. ??? You have any new symptoms. ??? You have problems with your medicines. ?? Last Reviewed Date: 2024 00:00:00 ?? [employer]. All rights reserved. This information is not intended as a substitute for professional medical care. Always follow your healthcare professional's instructions. ?? * Brenda Holt NP: PERFORM Event Display: Patient Education Leaflets Authored Date: [id number] Urinary Tract Infections in Women ?? 1144 Urinary Tract Infections in Women Urinary tract infections (UTIs) are most often caused by??bacteria. These bacteria enter the urinary tract. The bacteria may come from inside the body. Or they may travel from the skin outside the??rectum or vagina into the urethra. Female anatomy makes it easy for bacteria from the bowel??to entera person???s urinary tract. This is the most common source of UTIs. This means women develop UTIs more often than men. Pain in or around the urinary tract is a common UTI symptom. But the only way to know for sure if you have a UTI is for the healthcare provider to test your pee. The two tests that may be done are the urinalysis and urine culture. These tests tell your provider if you have a UTI and what type of bacteria is causing it. Gender words are used here to talk about anatomy and health risk. Please use this information in a way that works best for you and your provider as you talk about your care. Types of UTIs ??? Cystitis.??A bladder infection (cystitis) is the most common UTI in women. You may have an urgent or frequent need to pee. You may also have??pain, burning when you pee, and bloody urine. ??? Urethritis.??This is an inflamed urethra. This is the tube that carries urine from the bladder to outside the body. You may have lower stomach or back pain. You may also have an urgent or frequent need to pee. ??? Pyelonephritis.??This is a kidney infection. It can be serious and damage your kidneys if not treated. You may need to stay in the??hospital in severe cases. You may have a fever and lower back pain. Medicines to treat a UTI Most UTIs are treated with antibiotics. These kill the bacteria. The length of time you need to take them depends on the type of infection. It may be as short as 3 days. You may need a low-dose antibiotic??for several months if you have repeated UTIs. Take antibiotics exactly as directed. Don???t stop taking them until all of the medicine is gone, even if you feel better. The infection may not goaway fully and return if you stop taking the antibiotic too soon. You may also develop a resistanceto the antibiotic. This can make it much harder to treat. Lifestyle changes to treat and prevent UTIs The lifestyle changes below will help get rid of your UTI. They may also help prevent future UTIs. ??? Drink plenty of fluids.??This includes water, juice, or other caffeine-free drinks. Fluids help flush bacteria out of your body. ??? Empty your bladder.??Always empty your bladder when you feel the urge to pee. And always pee before going to sleep. Urine that stays in your bladder can lead to infection. Try to pee before and after sex as well. ??? Practice good personal hygiene.??Wipe yourselffrom front to back after using the toilet. This helps keep bacteria from getting into the urethra. ??? Wear cotton underwear.??Don't wear synthetic or tight-fitting underwear that can trap moisture. Change out of wet bathing suits and workout clothing quickly. ??? Take showers.??Showers are better than baths for preventing UTIs. ??? Use condoms during sex.??These help prevent UTIs caused by sexually transmitted bacteria. Also don't use spermicides during sex. These can increase the risk for UTIs. Choose other forms of control instead. A low dose of a preventive antibiotic may be used for women who tend to get UTIs after sex. Be sure to discuss this choice with your healthcare provider. ??? Follow up with your healthcare provider as directed.??They may test to make sure the infectionhas cleared. If needed, more treatment may be started. ?? * Tri Skinner RN: PERFORM Event Display: Discharge/Transfer Note Hospital Authored Date: [id number] Discharge Planning Nursing Entered On: 02/23/2025 13:35 EST Performed On: 02/23/2025 13:35 EST by Tri Skinner RN Discharge Planning Nursing Anticipated discharge : Home Tri Skinner RN - 02/23/2025 13:35 EST Electronically Signed on 02/23/25 01:35 PM Tri Skinner RN Patient Care team information Care Team Personnel Name: Naima Pearson RN Position: [facility] RN Member Role: Primary Care Nurse Name: Lisy Streeter RN Position: S RN Member Role: Primary Care Nurse Name: You Trivedi MD Position: [facility] Renal MD Member Role: Lifetime Consulting Physician Address: [address] [place] [address] [address] [facility] [place], [place] - Telecom: Name: Loni Burgess NP Position: [facility] Associate Professional Member Role: Lifetime Consulting Provider Address: [address], [address] [facility] [place] [address]- Telecom: Name: Josh Wolff Position: Reference Physician Member Role: PCP Address: [address] [place], [place] - Telecom: Name: Justino Moraes MD Position: [facility] Renal MD Member Role: Lifetime Consulting Physician Address: [address] [facility] [address] [facility] [address] Telecom: Name: Haley Larson RN Position: S RN Member Role: Primary Care Nurse Name: Milena Belcher RN Position: S RN Member Role: Primary Care Nurse Name: Farooq Monteiro DO Position: [facility] Renal MD Member Role: Lifetime Consulting Physician Address: [address] [facility] [address] [facility] [address] Telecom: Name: Sohan Hill MD Position: [facility] Renal MD Member Role: Lifetime Consulting Physician Address: [address] [facility] Telecom: Name: Zhou De La Garza RN Position: [facility] RN Member Role: Primary Care Nurse Name: Rebeca Smith RN Position: [facility] RN Member Role: Primary Care Nurse Name: Efrain Harrington MD Position: [facility] Renal MD Member Role: Lifetime Consulting Physician Address: [address] [facility] [address] Telecom: Name: Gautam Arevalo MD Position: [facility] Renal MD Member Role: Lifetime Consulting Physician Address: [address] [facility] [address] [facility] [address] Telecom: Name: Hu Rodriguez MD Position: [facility] Renal MD Member Role: Lifetime Consulting Physician Address: [address] [facility] [address] [facility] [address] Telecom: Name: Tri Skinner RN Position: S RN Member Role: Primary Care Nurse Name: Kayla Taylor LPN Position: S RN Member Role: Primary Care Nurse Name: Karla aBum RN Position: [facility] SN RN Member Role: Primary Care Nurse Name: Anh Yanes RN Position: S RN Member Role: Primary Care Nurse Care Team Related Persons Name: ELLIOTT MAURO Name: ELLEN MAURO Name: NEENA BURGESS Insurance Providers Guarantor name: RICKIE MAURO Health Plan Information #: 1 Payer: MEDICARE A INPT 26 Payer Identifier: NA Member Number: [id number] Group Number: NA Subscriber Identifier: [id number] Relationship to Subscriber: self Coverage Type: MEDICARE Coverage Verification Date: NA Telecom: NA Address: NA Health Plan Information #: 2 Payer: [employer] Payer Identifier: NA Member Number: [id number] Group Number: NA Subscriber Identifier: [id number] Relationship to Subscriber: self Coverage Type: MEDICAID Coverage Verification Date: NA Telecom: NA Address:
--- OUTSIDE RECORDS SUMMARY | 2025-03-02 13:21 | XMS_ITS | Clinical Summary ---
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 Name Role Phone Pcp, No Primary Care [...] (1 - Tdap) 10/15/1994 Pneumococcal Vaccine: Pediat susei (0-5 Years) and At-Risk Patients (6 to 49 Years) (1 of 2 - PCV) 10/15/1994 Hepatitis B Vaccines (1 of 3 - Risk Dialysis 4-dose series) 1995 Pap Smear (Ages 21-65) 10/15/1996 Mammogram 2015 Colonoscopy 10/15/2020 Influenza Vaccine 10/31/2024 01/05/2022, 01/05/2022 COVID-19 Vaccine ( season) 2024, 04/23/2021 Procedures Procedure Name Priority Date/Time Associated Diagnosis Comments LAB RESULT Routine 02/27/2025 10:05 AM EST LAB RESULT Routine 02/24/2025 1:39 PM EST from Last 3 Months Results * LAB RESULT (02/27/2025 10:05 AM EST) Only the most recent of2 resultswithin the time period is included. Hu Rodriguez MD HX AMB PROCEDURES Final Resul t from Last 3 Months Insurance MEDICARE PART A & B MEDICAID OUT OF STATE [facility] Care Teams Photoengraving Proofer Apprentice Relationship Specialty Start Date End Date Pcp, No PCP - General General Medicine 04/04/23
== END 2025-03-02 10:32 | disposition home or self-care (01) ==
LOC: HO.HAP 10:31
PROVIDERS: Visit Provider Physician Assistant
DX: Z46.1 Encounter for fitting and adjustment of hearing aid (principal); H90.6 Mixed conductive and sensorineural hearing loss, bilateral
CPT/HCPCS: 92593; 99499

== ENCOUNTER 2025-03-13 08:15 | Outpatient (REF) | payer MEDICARE, MEDICAID, SELFPAY ==
--- NOTE | ~2025-03-13 | MM_ITS ---
EXAMINATION: MM SCREENING DIGITAL BREAST TOMOSYNTHESIS, BILATERAL CLINICAL INFORMATION: Screening. Asymptomatic. COMPARISON: Mammography: Comparison is made with available priors TECHNIQUE: Digital breast mammography with tomosynthesis is performed in both the craniocaudal and mediolateral oblique views along with computer-aided detection (CAD). FINDINGS: There are scattered areas of fibroglandular density. Bilateral reduction mammoplasty. There are no significant masses, abnormal calcifications, or other abnormalities. MM/MM tomosynthesis screening BI IMPRESSION: No mammographic evidence of malignancy. ASSESSMENT: BI-RADS Category 2: Benign RECOMMENDATION: Routine annual mammography screening. 1 year F/U This examination should not preclude the clinical evaluation of a suspicious palpable abnormality. This patient's information was entered into a reminder system with a target due date for their next mammogram. Electronically signed by: Lorraine Soto DO 03/17/2025 01:24 PM JASON
== END 2025-03-13 08:16 | disposition home or self-care (01) ==
LOC: HO.MAMMO 08:15
PROVIDERS: Visit Provider Physician Assistant
DX: Z12.31 Encounter for screening mammogram for malignant neoplasm of breast (principal)
CPT/HCPCS: 77063; 77067

== ENCOUNTER → 2025-03-13 09:00 | Outpatient (BNV) | payer MEDICARE, MEDICAID, SELFPAY | PROVIDERS: Visit Provider Internal Medicine | DX: Z12.31 Encounter for screening mammogram for malignant neoplasm of breast (principal) | CPT/HCPCS: 77063; 77067 ==

== ENCOUNTER 2025-03-23 09:11 | Outpatient (AMB) | payer MEDICARE, MEDICAID, SELFPAY ==
[2025-03-23 09:33] VITALS: BP 100/66; PULSE 70; O2SAT 99; BMI 25.1
--- NOTE | 2025-03-23 09:33 | A.OFFPC_ITS ---
Vital Signs 03/23/25 09:33 Height 5 ft 7 in Weight 160 lb BMI 25.1 BP 100/66 Blood Pressure Location Lt brachial Position Sitting Pulse 70 Pulse Source Pulse Oximeter Pulse Oximetry (%) 99 Oxygen Delivery Method Room Air Intake Visit Reasons: f/u medications Sand Filler Required: No Accompanied by: Self / Same As Patient Allergies cefazolin Allergy (Severe, Verified 03/23/25 09:51) Anaphylaxis Medication List - Last Reconciled 03/23/25 by Josh Dahl PA-C [ADVOCATE REDI CODE TEST STRIP As directed] amlodipine 5 mg PO DAILY benzonatate 200 mg PO BID 10 days bisacodyl (Dulcolax (bisacodyl)) 10 mg (2 x 5 mg) PO ONCE 7 days cinacalcet (Sensipar) 30 mg PO DAILY fludrocortisone 0.1 mg PO DAILY lancets (FreeStyle Lancets) Three times a day loratadine 10 mg PO DAILY midodrine 2.5 mg PO BID miscellaneous medical supply 1 ea miscellaneous DAILY 99 days omeprazole 40 mg PO DAILY omeprazole 20 mg PO BEDTIME polyethylene glycol 3350 (Miralax) 17 grams PO DAILY 1 day simvastatin 20 mg PO DAILY 90 days tacrolimus 6 mg PO Q12H Tobacco use date assessed: 03/23/25 Dental Screening Dental Screen Date: 03/23/25 Did you have a dental visit in the last 12 months?: Yes Did you have a dental problem in the last 6 months where you did not have access to dental care?: No Was dental information given to patient?: Patient has dentist HPI f/u medications HPI Details Patient is a 49-year-old female here today for a follow-up visit.? Presents today with her second worker.? Patient has a past medical history significant for type 2 diabetes, end-stage renal disease status post kidney transplant, hypertension, hyperparathyroidism. She was hospitalized for one week due to abnormal blood work indicating acute kidney injury (MARINA). During her hospitalization, her creatinine levels were noted to be progressively increasing, but they have since returned to normal. During her hospitalization, the patient's blood pressure was elevated, with readings of 135/89 mmHg and higher, requiring medication for management. Since returning home, her blood pressure readings have improved. The patient's glycemic control has worsened, with her hemoglobin A1c increasing from 5.4% to 6.0%. Post-hospitalization, her blood glucose levels were initially high but are now consistently under 100 with diet management at home. She has a history of oral numbness associated with very high blood sugar readings. The patient had previously reported a chronic cough, which has since resolved. The cough was suspected to be secondary to gastroesophageal reflux disease (GERD), and she has been following a GERD-friendly diet, avoiding spicy and acidic foods. During her recent hospitalization, a mass was incidentally found on her bladder. A subsequent procedure revealed the findings to be chronic cystitis and a benign nephrogenic adenoma. .. CHRONIC MEDICAL CONDITION--- > Kidney transplant:? Followed by [facility] (Dr. Guerra).? Patient recently had kidney transplant.? She has continued to complain of prominence over her abdomen or the kidney was replaced.? She has now tertiary hyperparathyroidism now on medication for this. .. Type 2 diabetes:.? Blood sugars at home are stable. She has been off Tradjenta for quite some time and blood sugars has been stable. She maintains her weight loss with dietary modifications. ?most recent A1c is 5.6. Internal Medicine Specialist reports blood sugars at in the mornings have been around 70. [facility] Medical History Acute respiratory disease Annual physical exam Cervical cancer screening Obesity due to excess calories Adult general medical exam Colonoscopy planned Encounter for subsequent annual wellness visit (AWV) in Medicare patient Vitamin D deficiency HLD (hyperlipidemia) T2DM (type 2 diabetes mellitus) AV fistula Obesity (BMI 30-39.9) Autism spectrum Pure hypercholesterolemia End stage renal disease on dialysis Type 2 diabetes mellitus with diabetic chronic kidney disease Surgical History Kidney transplanted History of colonoscopy History of open reduction and internal fixation (ORIF) procedure H/O bilateral breast reduction surgery History of appendectomy Family History Father No problems noted. Mother No problems noted. 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 1. Little interest or pleasure in doing things: not at all 2. Feeling down, depressed, or hopeless: not at all 3. Trouble falling or staying asleep, or sleeping too much: several days 4. Feeling tired or having little energy: not at all 5. Poor appetite or overeating: not at all 6. Feeling bad about yourself - or that you are a failure or have let yourself or your family down: not at all 7. Trouble concentrating on things, such as reading the newspaper or watching television: not at all 8. Moving or speaking so slowly that other people could have noticed. Or the o pposite - being so fidgety or restless that you have been moving around a lot more than usual: not at all 9. Thoughts that you would be better off or of hurting yourself in some way: not at all Total score: 1 Depression Screening Interpretation: Negative Depression Screening Done: Yes 46326 - PHQ-9 Billing: Patient declined-do not bill Source: Developed by Drs. Matthew Arshad, Sagrario Ellis, Stepan Burger and colleagues, with an educational sudha from [facility]. Thrive Questionnaire Date Thrive assessed: 03/23/25 I am a: Patient What is your living situation today?: I choose not to answer this question Within the past 12 months, did the food you bought not last and you didn't have the money to get more?: Never true Within the past 12 months, did you worry whether your food would run out before you got money to buy more?: Never true Do you have trouble paying for medicines?: No Do you have trouble getting transportation to medical appointments?: No Do you have trouble paying your heating and electricity bill?: No Do you have trouble taking care of your child, family member or friend?: I choose not to answer this question Do you have trouble with day-to-day activities such as bathing, preparing meals, shopping, managing finances, etc.?: No Are you currently unemployed and looking for a job?: I choose not to answer this question Are you interested in more education?: I choose not to answer this question Please select the resources that you would like help with: None Currently or been in a relationship where the following occur: I choose not to answer THRIVE Score: 0 AUDIT C Alcohol Use Questionnaire (AUDIT-C) 1. How often do you have a drink containing alcohol?: Never 3. How often do you have six or more drinks on one occasion?: Never Total Score: 0 CASSANDRA-7 AMB Questionnaire CASSANDRA-7 Date CASSANDRA - 7 assessed: 03/23/25 Feeling nervous, anxious, or on edge: 0 = Not at all Not being able to stop or control worryin = Not at all Worrying too much about different things: 0 = Not at all Trouble relaxin = Not at all Being so restless that it is hard to sit still: 0 = Not at all Becoming easily annoyed or irritable: 0 = Not at all Feeling afraid as if something awful might happen: 0 = Not at all Total CASSANDRA-7 score (0-4 normal; 5-9 mild; 10-14 moderate; 15-21 severe): 0 Source: Developed by Drs. Matthew Arshad, Sagrario Ellis, Stepan Burger and colleagues, with an educational sudha from [facility]. CASSANDRA-7 Assessment Billing CASSANDRA-7 Assessment Tool: CASSANDRA-7 Assessment 51256 Review of Systems Const Denies headache(s) Eyes Denies loss of vision ENT Denies vertigo, Denies dizziness, Denies headache(s) and Denies sore throat Card Denies chest pain, Denies leg edema and Denies lightheadedness Resp Denies cough, Denies hemoptysis and Denies wheezing GI Denies abdominal pain, Denies melena, Denies constipation, Denies diarrhea and Denies vomiting Denies urinary frequency, Denies dysuria and Denies urinary urgency Musc Denies arthralgias, Denies joint swelling, Denies numbness and Denies tingling Neuro Denies Abnormal speech present, Denies behavioral changes, Denies vertigo, Denies dizziness, Denies headache(s), Denies loss of vision, Denies memory loss, Denies numbness and Denies tingling Psych Denies anxiety, Denies behavioral changes, Denies depression, Denies memory loss and Denies panic attacks Zachariah/Lymph Denies easy bleeding and Denies easy bruising Aller/Immun Denies wheezing Physical exam (Primary Care) Vital Signs: Last Vital Signs Pulse 70 03/23/25 09:33 BP 100/66 03/23/25 09:33 Pulse Ox 99 03/23/25 09:33 Oxygen Delivery Method Room Air 03/23/25 09:33 BMI result Body Mass Index 25.1 Tobacco/Smoking Status: Tobacco use Status Tobacco use date assessed 03/23/25 03/23/25 09:40 Patient Tobacco Use Status Never used Tobacco 03/23/25 09:40 e-Cigarette/Vaping Use Never Used 03/23/25 09:40 PHQ-9: PHQ-9 Score PHQ-9: Total score 1 03/23/25 09:40 Depression Screening Interpretation: Negative Thrive Assessment: Date of Thrive Assessment Date Thrive assessed 03/23/25 03/23/25 09:40 Currently or been in a relationship where the following occur: I choose not to answer Const General: healthy appearing, no acute distress, alert and awake Nutritional Appearance: well nourished Orientation/consciousness: oriented to person, oriented to place and oriented to time HENMT Ears: TM's normal bilaterally General nose exam: Normal nasal mucous membranes and turbinates present Eyes Conjunctivae: conjunctivae normal Sclerae: sclerae normal Pupils: Equal, round and reactive pupils present Neck Neck: Yes no lymphadenopathy and Yes no JVD Thyroid: Thyroid normal Carotids: no bruits Resp Effort & Inspection: normal respiratory effort and not tachypneic Auscultation: no crackles, no rales, no rhonchi and no wheezes Cardio Rate: regular rate Rhythm: regular rhythm Heart sounds: no murmurs and normal S1 and S2 GI Palpation (GI): Soft to palpation, nontender, no hepatomegaly and no splenomegaly Auscultation: normal bowel sounds Skin General skin exam: no rashes or lesions noted and dry skin Neuro General: oriented to person, oriented to place and oriented to time Cranial nerves: Yes Equal, round and reactive pupils present Speech: No Abnormal speech present Gait exam (Neuro): Normal gait present Motor exam (neuro): no tremor noted Extrem Right upper extremity: full ROM Left upper extremity: full ROM Right lower extremity: full ROM; no edema Left lower extremity: full ROM; no edema Psych Mental Status: mental status grossly normal Speech and movement: Normal speech and movement present Affect: normal affect Attitude: cooperative Thought process: Normal thought process present Coding Level of Care Code Est Pt Level 4 (56628) Diagnoses MARINA (acute kidney injury) N17.9 Type 2 diabetes mellitus with chronic kidney disease on chronic dialysis, without long-term current use of insulin E11.22; N18.6; Z99.2 Diabetes mellitus [employer] insulin use: without [employer] use Chronic kidney disease stage: on chronic dialysis Hypertension, unspecified type I10 Hypertension type: unspecified Additional Codes CASSANDRA-7 Assessment Billing - CASSANDRA-7 Assessment Tool: CASSANDRA-7 Assessment 75898 ([id number]) Assessment & Plan Assessment & Plan (1) MARINA (acute kidney injury): Code(s): N17.9 - Acute kidney failure, unspecified Category: Medical Plan: As per HPI patient recently hospitalized for acute MARINA in the setting upper respiratory viral infection. she will continue to follow up with her deboner. She has lab work scheduled in approximately two weeks, and we will hold off on ordering separate labs to avoid duplication. (2) Type 2 diabetes mellitus with diabetic chronic kidney disease: Code(s): E11.22 - Type 2 diabetes mellitus with diabetic chronic kidney disease Category: Medical Qualifiers: Diabetes mellitus nursing home insulin use: without [employer] use Chronic kidney disease stage: on chronic dialysis Qualified Code(s): E11.22 - Type 2 diabetes mellitus with diabetic chronic kidney disease; N18.6 - End stage renal disease; Z99.2 - Dependence on renal dialysis Plan: Patient's blood sugars seemingly elevated during her illness, since being back home on a regular diet her blood sugars are 100 to 120s. Most recent A1c reported at 6.0. We discuss returning back to use of Tradjenta though will hold off and work on dietary modifications. (3) HTN (hypertension): Code(s): I10 - Essential (primary) hypertension Category: Medical Qualifiers: Hypertension type: unspecified Qualified Code(s): I10 - Essential (primary) hypertension Plan: Patient's blood pressure stable today in office. Will continue her current dose of amlodipine 5 mg. Goal blood pressures to be below 140/90 and above 100/60.
--- OUTSIDE RECORDS SUMMARY | 2025-03-23 10:12 | XMS_ITS | Clinical Summary ---
Author Organization [facility] Address [address] [place] [address] Care Team Providers Care Signs And Displays Sales Representative Name Role Phone Pcp, No Primary Care Provider Unavailabl e Encounters Date Type Department Care Team Description 02/25/2025 11:00 PM EST Lab [facility] & [facility] [place] [address] [facility] [address] [place] [address] System, Provider Not In Complication of transplanted kidney, unspecified complication (Primary Dx) 02/21/2025 11:00 PM EST Lab [facility] & [facility] [place] [address] [facility] [address] [facility] [address] [place] [address] System, Provider Not In Complication of transplanted kidney, unspecified complication (Primary Dx) from Last 3 Months Social History Tobacco Use Types Packs/Day Years [...] of2 resultswithin the time period is included. us Hu Rodriguez MD HX AMB PROCEDURES Final Resul t from Last 3 Months Insurance MEDICARE PART A & B MEDICAID OUT OF STATE [facility] Care Teams Signs And Displays Sales Representative Relationship Specialty Start Date End Date Pcp, No PCP - General General Medicine 04/04/23
--- OUTSIDE RECORDS SUMMARY | 2025-03-23 10:12 | XMS_ITS | Clinical Summary ---
Author Organization [facility] Address [address] [place] [phone] Phone Care Team Providers Care Coat Padder Name Role Phone Josh Dahl Primary Care Provider [phone] Allergies Active Allergy Reactions Criticality Noted Date Comments Cefazolin Anaphylaxis,Other (see comments) High 04/2014 Medications Cholecalciferol (Vitamin D-3) 125 MCG (5000 UT) tablet Take 5,000 Units by mouth 1 (one) time each day Active simvastatin (ZOCOR) 20 MG tablet Take 1 tablet (20 mg total) by mouth 1 (one) time each day 90 tablet 3 4 Active chlorhexidine (PERIDEX) 0.12 % solution SWISH A CAPFUL AFTER MEALS TWICE DAILY. DO NOT SWALLOW. RINSE WITH WATER AFTER USE. 5 Active Envarsus XR 1 MG tablet sustained-releas e 24 hour TAKE 6 TABLET BY MOUTH 1 (ONE) TIME EACH DAY 180 tablet 5 5 Active midodrine (PROAMATINE) 2.5 MG tablet Take 1 tablet (2.5 mg total) by mouth in the morning and 1 tablet (2.5 mg total) before bedtime. 180 tablet 5 Active Additional Information Patient not taking.Reported on 03/09/2025 fludrocortisone 0.1 MG tabletIndication s:Kidney replaced by transplant TAKE ONE TABLET BY MOUTH ONCE DAILY 90 tablet 3 5 Active Additional Information Patient not taking.Reported on 03/09/2025 cinacalcet (SENSIPAR) 30 MG tablet TAKE 1 TABLET (30 MG TOTAL) BY MOUTH 1 (ONE) TIME EACH DAY 90 tablet 3 5 12/09/19 26 Active omeprazole (PriLOSEC) [address] capsule Take 20 mg by mouth every night 5 Active tacrolimus (PROGRAF) 5 MG capsule Take 5 mg by mouth 1 (one) time each day Active loratadine (CLARITIN REDITABS) 10 MG dispersible tablet Take 10 mg by mouth 1 (one) time each day Active amLODIPine (NORVASC) 5 MG tablet Take 5 mg by mouth 1 (one) time each day Active Active Problems Problem Noted Date Diagnosed Date Chronic kidney disease 11/04/2024 Kidney replaced by transplant 06/28/2022 Intellectual disability 05/22/2022 Intellectual disability 05/22/2022 History of renal transplant 02/11/2022 Overview (05/22/2022): Campath induction Anemia of chronic renal failure 06/26/2013 Hyperparathyroidism due to renal insufficiency 0 06/26/2013 Essential hypertension 05/23/2012 Resolved Problems Problem Noted Date Diagnosed Date Resolved Date Iron deficiency anemia 05/22/202208/08 Diabetes mellitus 06/26/2013 08/08/2022 Hyperphosphatemia 06/26/2013 08/08/2022 Vitamin D deficiency 06/26/2013 023 Encounters Date Type Department Care Team Description 03/09/2025 9:45 AM EST [facility] Visit [facility] [address] [phone] Hu Rodriguez MD Kidney replaced by transplant (Primary Dx) 02/17/2025 10:45 AM EST Office Visit [facility] [place] [id number] [phone] Hu Rodriguez MD Kidney replaced by transplant (Primary Dx) 01/28/2025 Orders Only [facility] [address] [phone] Yusra Salcedo from Last 3 Months Immunizations Immunization Administration Dates Next Due Hep B, Unspecified 10/09/2005,05/05/2005, 006 Influenza, Unspecified 01/05/2022 Pfizer SARS-COV-2 04/23/2021 SARS-CoV-2, Unspecified 01/14/2022 Family History Relation Status Comments Father Mother Social History Tobacco Use Types Packs/Day Years [...] Sign Reading Time Taken Comments Blood Pressure 100/64 03/09/2025 9:40 AM EST Pulse 73 03/09/2025 9:40 AM EST Temperature 36.2 C (97.1 F) 08/30/2022 10:45 AM EDT Respiratory Rate - - Oxygen Saturation 99% 03/09/2025 9:40 AM EST Inhaled Oxygen Concentration - - Weight 73.7 kg (162 lb 6.4 oz) 03/09/2025 9:40 A M EST Height 170.2 cm (5' 7 ) 10/31/2023 1:00 PM EDT Body Mass Index 25.44 10/31/2023 1:00 PM EDT Plan of Treatment Upcoming Encounters Date Type Department Care Team (Late st Contact Info) Description 04/08/2025 10:00 AM EST Office Visit [facility] [address] [place] [phone] Hu Rodriguez MD [address] [phone] 06/01/2025 9:30 AM EST Office Visit [facility] [address] [phone] Hu Rodriguez MD [address] [phone] Health Maintenance Due Date Last Done Comments [...] Procedure Name Priority Date/Time Associated Diagnosis Comments SPECIMEN STATUS REPORT Routine 03/09/2025 10:41 AM EST RP10 Routine 03/09/2025 10:41 AM EST TACROLIMUS, HIGHLY SENSITIVE, LC/MS/MS Routine 03/09/2025 10:41 AM EST Kidney transplant status MAGNESIUM Routine 03/09/2025 10:41 AM EST Kidney transplant status CBC Routine 03/09/2025 10:41 AM EST Kidney transplant status VITAMIN D 25 HYDROXY Routine 03/09/2025 10:41 AM EST Kidney transplant status PROTEIN / CREATININE RATIO, URINE Routine 03/09/2025 10:41 AM EST Kidney transplant status URINE ALBUMIN / CREATININE RATIO Routine 03/09/2025 10:41 AM EST Kidney transplant status URINALYSIS WITH MICROSCOPIC Routine 03/09/2025 10:41 AM EST Kidney transplant status RENAL FUNCTION PANEL Routine 03/09/2025 10:41 AM EST Kidney transplant status PTH, INTACT Routine 03/09/2025 10:41 AM EST Kidney transplant status MICROSCOPIC EXAMINATION - DO NOT USE Routine 03/09/2025 10:41 AM EST TACROLIMUS LEVEL Routine 02/18/2025 10:0 3 AM EST Kidney replaced by transplant CBC AND DIFFERENTIAL Routine 02/18/2025 10:03 AM EST Kidney replaced by transplant PROTEIN / CREATININE RATIO, URINE Routine 02/18/2025 10:03 AM EST Kidney replaced by transplant URINE ALBUMIN / CREATININE RATIO Routine 02/18/2025 10:03 AM EST Kidney replaced by transplant URINALYSIS WITH MICROSCOPIC Routine 02/18/2025 10:03 AM EST Kidney replaced by transplant RENAL FUNCTION PANEL Routine 02/18/2025 10:03 AM EST Kidney replaced by transplant MICROSCOPIC EXAMINATION - DO NOT USE Routine 02/18/2025 10:03 AM EST HEMOGLOBIN A1C Routine 05/25/2022 8:45 AM EST from Last 3 Months or Most Recently Relevant to Health Maintenance Results * (ABNORMAL) RP10 (03/09/2025 10:41 AM EST) Glucose 125(H) 70 - 99 MG/DL [facility] BUN 35(H) 6 - 20 MG/DL [facility] Creatinine 1.65(H) 0.5 - 1.0 MG/DL [facility] eGFR CKD-EPI CR 2020 38 ML/MIN/1.7 3 M2 [facility] Comment: Creatinine based estimated glomerular filtration (eGFR) in adults is calculated using the National Kidney Foundation recommended 2020 CKD-EPI equation. Estimates GFR from serum creatinine, age and sex. Sodium 141 133 - 145 MMOL/L [facility] Potassium 5.4(H) 3.6 - 5.2 MMOL/L [facility] Chloride 102 98 - 107 MMOL/L [facility] Bicarbonate (CO2) 22 22 - 29 MMOL/L [facility] Anion Gap 17 4 - 17 MMOL/L [facility] Calcium 9.9 8.6 - 10.5 MG/DL [facility] Phosphorus 4.6(H) 2.5 - 4.5 MG/DL [facility] Albumin 4.7 3.4 - 4.8 GM/DL [facility] 03/09/2025 10:4 1 AM EST 03/09/2025 us Hu Rodriguez MD LAB [id number] SOLICITED RESULTS Final Result [facility] [address] [place] [address] * Tacrolimus STAT (03/09/2025 10:41 AM EST) Tacrolimus by Immunoassay 9.7 5 - 20 NG/ML [facility] [phone] Comment: Tacrolimus Renal transplant patients (C0-trough level*): [...] body guidance documents and references cited below. Testing performed using the [employer] Electrochemiluminescence tacrolimus assay. Values obtained with different assay methods or kits cannot be used interchangeably. Tuan T, Troy C, Jeffrey N, et al Randomized trial of tacrolimus + mycophenolate mofetil or azathioprine versus cyclosporine + mycophenolate mofetil after cadaveric kidney transplantation: Results at three years Transplantation. 2003,75:2048-53. Ping Y, van Marciano JUAN R, Te JUAN R, et al Minimization of immunosuppressive therapy after renal transplantation: Results of a randomized controlled trial Am J Transplant. 2005,5:87-95. Jaswinder SESAY, Trevin H, Arden JUAN R, et al. Comparison of low versus high tacrolimus levels in kidney transplantation: Assessment of efficacy by protocol biopsies Transplantation. 2007,83:411-6. Charles P, Travon VW, Gene M, et al Opportunities to optimize tacrolimus therapy in solid organ transplantation: Report of the consensus conference Ther Drug Monit. 2009,31:139-52. Josue Singh, Orly Singh., Tamra Singh.L.H. et al. Higher tacrolimus trough levels and time in the therapeutic range are associated with the risk of acute rejection in the first month after renal transplantation. [facility] 2022,24, 131. 03/09/2025 10:4 1 AM EST 03/09/2025 Hu Rodriguez MD LAB BLOOD ORDERABLES Final Re sult Performing Organization Address City/[facility]/ZIP Co de Phone Number [facility] [address] [place] [address] * Microscopic Examination (03/09/2025 10:41 AM EST) Only the most recent of2 resultswithin the time period is included. Squamous Epithelial, Urine Comment [facility] Comment:MICROSCOPIC PERFORME D 03/09/2025 10:4 1 AM EST 03/09/2025 Hu Rodriguez MD LAB MICROBIOLOGY - GENERAL OR DERABLES Final Result Performing Organization Address City/[facility]/ZIP Co de Phone Number [facility] [address] [place] [phone] * Protein, Total, Random Urine w/Creatinine (Protein/Creat Ratio) (03/09/2025 10:41 AM EST) Only the most recent of2 resultswithin the time period is included. Creatinine, Ur 110.7 MG/DL [facility] Protein, Ur 16 MG/DL [facility] Urine Protein/Creatin ine Ratio 0.14 0 - 0.2 [facility] Urine Urine specimen obtained by clean catch procedure / Unknown 03/09/2025 10:41 AM EST 03/09/2025 Hu Rodriguez MD LAB URINE ORDERABLES Final Re sult Performing Organization Address City/[facility]/ZIP Co de Phone Number [facility] [address] [place] [phone] * Urine Albumin / Creatinine Ratio (03/09/2025 10:41 AM EST) Only the most recent of2 resultswithin the time period is included. Creatinine, Ur 103.1 Not Estab. mg/dL [facility] Albumin, Urine 6.8 Not Estab. ug/mL [facility] Albumin/Creatin ine Ratio 7 0 - 29 mg/g creat [facility] Comment: Normal: 0 - 29 Moderately increased: 30 - 300 Severely increased: >300 Urine Urine specimen obtained by clean catch procedure / Unknown 03/09/2025 10:41 AM EST 03/09/2025 Hu Rodriguez MD LAB URINE ORDERABLES Final Re sult [facility] [address] [place] [address] * Vitamin D 25 Hydroxy (03/09/2025 10:41 AM EST) Vitamin D, 25-OH, Total 31.1 30.0 - 100.0 ng/mL [facility] Comment: Vitamin D deficiency has been defined by the [employer] of [employer] and an Endocrine Society practice guideline as a level of serum 25-OH vitamin D less than 20 ng/mL (1,2). The Endocrine Society went on to further define vitamin D insufficiency as a level between 21 and 29 ng/mL (2). 1. IOM ([place] of Medicine). 2010. Dietary reference intakes for calcium and D. [place]: The National Academies Press. 2. Lidia MF, Puneet OLVERA, Betsy JORDAN, et al. Evaluation, treatment, and prevention of vitamin D deficiency: an Endocrine Society clinical practice guideline. JCEM. 2010; 96(7):1911-30. Blood Venous blood / Unknown 03/09/2025 10:41 AM EST 03/09/2025 us Hu Rodriguez MD LAB BLOOD ORDERABLES Final Re sult [facility] [address] [place] [address] * (ABNORMAL) Urinalysis with microscopic (03/09/2025 10:41 AM EST) Only the most recent of2 resultswithin the time period is included. Specific [place], Urine 1.016 1.002 - 1.030 [facility] ([facility])[phone] 0 pH Urine 5.5 5.0 - 8.0 [facility] ([facility])[phone] 0 Appearance Urine Comment [facility] ([facility])[phone] Comment: LIGHT YELLOW CLEAR WBC Esterase Urine 2+(A) NEGATIVE [facility] ([facility])[phone] 0 Protein, Ur Negative NEGATIVE [facility] ([facility])794-000 0 Glucose, Ur Negative NEGATIVE [facility] ([facility])794-000 0 Ketones, Urine Negative NEGATIVE [facility] ([facility])[phone] 0 Blood Urine Negative NEGATIVE [facility] Bilirubin Urine Negative NEGATIVE [facility] ([facility])[phone] 0 Urobilinogen Urine NORMAL NORMAL mg/dL [facility] ([facility])[phone] 0 Nitrite, Urine Negative NEGATIVE [facility] ([facility])[phone] 0 Microscopic Examination Comment [facility] ([facility])[phone] Comment: MICROSCOPIC PERFORMED URINE WBCs 28 /HPF 0-5 H URINE RBCs NONE SEEN /HPF 0-3 N BACTERIA SLIGHT HPF NEGATIVE A SQUAMOUS EPITH 3 /HPF 0-8 N Urine Urine specimen obtained by clean catch procedure / Unknown 03/09/2025 10:41 AM EST 03/09/2025 Hu Rodriguez MD LAB URINE ORDERABLES Final Re sult [facility] [address] [place] [address] * (ABNORMAL) CBC (03/09/2025 10:41 AM EST) WBC 6.1 4.0 - 11.0 K/MM3 [facility] RBC 4.57 4.20 - 5.40 M/MM3 [facility] Hemoglobin 13.7 11.7 - 15.5 GM/DL [facility] Hematocrit 42.6 35.7 - 45.8 % [facility] MCV 93.2 80.0 - 100.0 FL [facility] MCH 30.0 27.0 - 34.0 PG [facility] MCHC 32.2(L) 33.0 - 37.0 g/dL [facility] RDW 49.7(H) <47.0 FL [facility] Platelets 118(L) 150 - 460 K/MM3 [facility] nRBC Count 0.0 #/100 WBC'S [facility] Comment: MPV 10.9 FL 9.4-12.4 N ABS. NRBC 0.0 K/MM3 N Blood Venous blood / Unknown 03/09/2025 10:41 AM EST 03/09/2025 Hu Rodriguez MD LAB BLOOD ORDERABLES Final Re sult [facility] [address] [place] [phone] * (ABNORMAL) PTH, Intact (03/09/2025 10:41 AM EST) Pathologist [facility] PTH 80(H) 15 - 65 pg/mL [facility] [place] Blood Venous blood / Unknown 03/09/2025 10:41 AM EST 03/09/2025 Hu Rodriguez MD LAB BLOOD ORDERABLES Final Re sult [facility] [address] [place] [address] * Magnesium (03/09/2025 10:41 AM EST) Pathologist [facility] Magnesium 1.8 1.6 - 2.3 mg/dL [facility] Blood Venous blood / Unknown 03/09/2025 10:41 AM EST 03/09/2025 Hu Rodriguez MD LAB BLOOD ORDERABLES Final Re sult [facility] [address] [place] [address] * Tacrolimus level (02/18/2025 10:03 AM EST) Pathologist [facility] Tacrolimus Lvl 5.7 5.0 - 20.0 ng/mL [facility] Comment: Target steady state trough concentration [...] LC-MS/MS technology. Blood Venous blood / Unknown 02/18/2025 10:03 AM EST 02/18/2025 Narrative [facility] - 02/21/2025 12:05 AM EST Test(s) 392161-[id number] (FK506), Blood was developed and its performance characteristics determined by [facility]. It has not been cleared or approved by the Food and Drug Administration. Hu Rodriguez MD LAB BLOOD ORDERABLES Final Re sult [facility] [address] [place] [phone] * (ABNORMAL) CBC and differential (02/18/2025 10:03 AM EST) WBC 5.7 3.4 - 10.8 x10E3/uL [facility] RBC 3.53(L) 3.77 - 5.28 x10E6/uL [facility] Hemoglobin 10.6(L) 11.1 - 15.9 g/dL [facility] Hematocrit 32.7(L) 34.0 - 46.6 % [facility] MCV 93 79 - 97 fL [facility] MCH 30.0 26.6 - 33.0 pg [facility] MCHC 32.4 31.5 - 35.7 g/dL [facility] RDW 13.4 11.7 - 15.4 % [facility] Platelets 180 150 - 450 x10E3/uL [facility] Neutrophils Relative 80 Not Estab. % [facility] Lymphocytes Relative 12 Not Estab. % [facility] Monocytes 4 Not Estab. % [facility] Eosinophils Relative 3 Not Estab. % [facility] Basophils Relative 0 Not Estab. % [facility] Neutrophils Absolute 4.6 1.4 - 7.0 x10E3/uL [facility] Lymphocytes Absolute 0.7 0.7 - 3.1 x10E3/uL [facility] Monocytes Absolute 0.2 0.1 - 0.9 x10E3/uL [facility] Eosinophils Absolute 0.2 0.0 - 0.4 x10E3/uL [facility] Basophils Absolute 0.0 0.0 - 0.2 x10E3/uL [facility] Immature Granulocytes 0 Not Estab. % [facility] Immature Grans (Absolute) 0.0 0.0 - 0.1 x10E3/uL [facility] Blood Venous blood / Unknown 02/18/2025 10:03 AM EST 02/18/2025 us Hu Rodriguez MD LAB BLOOD ORDERABLES Final Re sult [facility] [address] [place] [address] * (ABNORMAL) Renal Function Panel (02/18/2025 10:03 AM EST) Glucose 114(H) 70 - 99 mg/dL [facility] BUN 22 6 - 24 mg/dL [facility] Creatinine 1.58(H) 0.57 - 1.00 mg/dL [facility] eGFR CKD-EPI CR 2020 40(L) >59 mL/min/1.7 3 [facility] BUN/Creatinine Ratio 14 9 - 23 [facility] Sodium 145(H) 134 - 144 mmol/L [facility] Potassium 4.5 3.5 - 5.2 mmol/L [facility] Chloride 105 96 - 106 mmol/L [facility] Bicarbonate (CO2) 28 20 - 29 mmol/L [facility] Calcium 9.2 8.7 - 10.2 mg/dL [facility] Albumin 3.8(L) 3.9 - 4.9 g/dL [facility] Phosphorus 3.9 3.0 - 4.3 mg/dL [facility] Blood Venous blood / Unknown 02/18/2025 10:03 AM EST 02/18/2025 us Hu Rodriguez MD LAB BLOOD ORDERABLES Final Re sult [facility] [place] [address], [address] [place] [address] * Hemoglobin A1c (05/25/2022 8:45 AM EST) Hemoglobin A1C 5.2 (4.0-5.6) % [facility] Comment: MONITORING: In known diabetic patients, hemoglobin A1c targets should be discussed with health care provider. DIAGNOSTIC USE: The [place] Diabetes Association (ADA) and the World Health [...] Supplement 1 Testing performed or reported by [facility], a Service of [facility], [address] [place] [id number] Jayne Ramírez MD, Professor Of Mathematics [facility]# [id number] 05/25/2022 8:45 AM EST 05/25/2022 8:54 AM EST Jackson Nettles MD LAB BLOOD ORDERABLES Final Re sult [facility] from Last 3 Months or Most Recently Relevant to Health Maintenance Insurance Medicare Medicaid [place] Medicare Medicaid [place] Medicare Medicaid [place] Care Teams Coat Padder Relationship Specialty Start Date End Date Josh Dhal PA [address] [place] [address], [address] [place] [address] PCP - General Physician Identification Officer 10/31/23
--- OUTSIDE RECORDS SUMMARY | 2025-03-23 10:12 | XMS_ITS | Clinical Summary ---
Author Organization [address] [place] [address] [place] [phone] Phone Care Team Providers Care Continuing Education Director Name Role Phone Josh Dahl Primary [...] Orthopedic Surgery [facility] [facility] [address] [facility] [address] [place] [address] Cecil Muñoz DPM Dermatophytosis of nail (Primary Dx); Diabetic mononeuropathy simplex ([facility] V24, [facility] V28); Metatarsalgia of both feet; Tinea pedis of both feet; Acquired hammer toe of right foot; Hammer toe of left foot; Corns and callosities; Hallux rigidus of right foot; Hallux rigidus of left foot from Last 3 Months Surgical History Surgery Date Site/Laterality Comments TRANSPLANTATION RENAL 01/31/2022 - 03/01/2022 ARTERIOVENOUS GRAFT Medical History Medical History Date Comments Chronic kidney disease Hyperparathyroidism ([facility] V24) T2DM (type 2 diabetes mellitus) ([facility] V24, [facility] V28) Hypertension Renal transplant recipient Social [...] 04/21/2025 9:00 AM EST Office Visit [facility] [place] [address] [phone] Cecil Muñoz DPM [address] [phone] Health Maintenance Due Date Last Done Comments [...] Insurance MEDICARE MEDICAID - [place] Care Teams Continuing Education Director Relationship Specialty Start Date End Date Josh Dahl PA [address] [place] [phone] PCP - General Physician Area Operations Manager 01/23/24
== END 2025-03-23 10:10 | disposition home or self-care (01) ==
LOC: HO.HMCH 09:12
PROVIDERS: Visit Provider Physician Assistant
DX: N17.9 Acute kidney failure, unspecified (principal); E11.22 Type 2 diabetes mellitus with diabetic chronic kidney disease; N18.6 End stage renal disease; Z99.2 Dependence on renal dialysis; I12.0 Hypertensive chronic kidney disease with stage 5 chronic kidney disease or end stage renal disease

== ENCOUNTER → 2025-03-23 09:11 | Outpatient (BNVA) | payer MEDICARE, MEDICAID, SELFPAY | PROVIDERS: Visit Provider Physician Assistant | DX: I10 Essential (primary) hypertension (principal); N17.9 Acute kidney failure, unspecified; E11.22 Type 2 diabetes mellitus with diabetic chronic kidney disease; N18.6 End stage renal disease; Z99.2 Dependence on renal dialysis; Z13.31 Encounter for screening for depression; Z13.39 Encounter for screening examination for other mental health and behavioral disorders | CPT/HCPCS: 96127; 99212 ==